=== PATIENT | male | born 1960 | race African-American/Black ===

== ENCOUNTER 2016-06-25 09:39 | Emergency (ER) | payer MEDICAID ==
[2016-06-25] MEDS ORDERED: DEXAMETHASONE SOD PHOS INJ 10 MG/1 ML VIAL IM ONE (10:28)
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
[2016-06-25 11:09] VITALS: BP 120/84
== END 2016-06-25 11:05 | disposition home or self-care (01) ==
LOC: ER 09:39
DX: L40.9 Psoriasis, unspecified (principal); M25.50 Pain in unspecified joint; I25.2 Old myocardial infarction; I10 Essential (primary) hypertension; E11.9 Type 2 diabetes mellitus without complications; Z88.5 Allergy status to narcotic agent; Z91.040 Latex allergy status; Z91.018 Allergy to other foods; Z88.0 Allergy status to penicillin
CPT/HCPCS: 99283; 96372; J1100

== ENCOUNTER 2016-08-14 12:22 | Observation (INO) | payer MEDICAID ==
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
--- NOTE | 2016-08-14 13:49 | EKG REPORT ---
SEVERITY:- ABNORMAL ECG - SINUS TACHYCARDIA LAD, CONSIDER LEFT ANTERIOR FASCICULAR BLOCK CONSIDER INFERIOR INFARCT BORDERLINE T ABNORMALITIES, LATERAL LEADS BORDERLINE PROLONGED QT INTERVAL : Confirmed by: Jose Dawn MD 14-Aug-2016 13:48:27
[2016-08-14 14:08] LABS: HEMATOCRIT 42.3 % (37.9-51.0); HEMOGLOBIN 13.5 g/dL (13.5-17.0); HGB HCT DIFFERENCE -1.8; MEAN CORPUSCULAR HEMOGLOBIN 26.5 pg (27.0-33.4); MEAN CORPUSCULAR HGB CONC 31.9 g/dL (32.0-36.0); MEAN CORPUSCULAR VOLUME 83 fl (80-97); WHITE BLOOD COUNT 13.7 10^3/uL (4.0-10.5)
[2016-08-14 14:10] LABS: ALANINE AMINOTRANSFERASE 16 U/L (21-72); ALBUMIN 3.1 g/dL (3.5-5.0); ALKALINE PHOSPHATASE 96 U/L (38-126); ANION GAP 10 (5-19); ASPARTATE AMINO TRANSFERASE 19 U/L (17-59); BILIRUBIN,DIRECT 0.1 mg/dL (0.0-0.4); BILIRUBIN,TOTAL 0.3 mg/dL (0.2-1.3); BLOOD UREA NITROGEN 12 mg/dL (7-20); CALCIUM 9.2 mg/dL (8.4-10.2); CARBON DIOXIDE 30 mmol/L (22-30); CHLORIDE 103 mmol/L (98-107); CREATINE KINASE 67 U/L (55-170); CREATININE RESULT 1.51 mg/dL (0.52-1.25); GLUCOSE 117 mg/dL (75-110); LIPASE 122.9 U/L (23-300); SODIUM 143.3 mmol/L (137-145); TOTAL PROTEIN 6.4 g/dL (6.3-8.2)
[2016-08-14 14:18] LABS: CREATINE KINASE MB < 0.22 ng/mL (<4.55)
[2016-08-14 14:31] LABS: BASOPHILS % (MANUAL) 1 % (0-2); EOSINOPHILS % (MANUAL) 21 % (0-6); LYMPHOCYTES % (MANUAL) 20 % (13-45); TOTAL CELLS COUNTED 100
[2016-08-14 14:32] LABS: ANISOCYTOSIS 1+; HYPOCHROMASIA SLIGHT; PLATELET CLUMPS PRESENT; POLYCHROMASIA SLIGHT; TARGET CELLS SLIGHT; TOXIC GRANULATION SLIGHT
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
[2016-08-14 17:21] LABS: APPEARANCE,URINE CLEAR; BILIRUBIN,URINE NEGATIVE (NEGATIVE); GLUCOSE, URINE NEGATIVE (NEGATIVE); KETONES,URINE NEGATIVE (NEGATIVE); LEUKOCYTE ESTERASE,URINE NEGATIVE (NEGATIVE); NITRITE,URINE NEGATIVE (NEGATIVE); PROTEIN,URINE NEGATIVE (NEGATIVE); URINE SPECIFIC GRAVITY 1.014; UROBILINOGEN,URINE NEGATIVE mg/dL (<2.0)
[2016-08-14 17:45] LABS: URINE BARBITURATES SCREEN NEGATIVE; URINE METHADONE SCREEN NEGATIVE; URINE OPIATES LOW NEGATIVE; URINE PHENCYCLIDINE SCREEN NEGATIVE
[2016-08-14] MEDS ORDERED: NITROGLYCERIN 0.4 MG/TAB 25 TAB/BOTTLE SL ONE (18:23)
[2016-08-14] MEDS ORDERED: INSULIN LISPRO 100 UNIT/ML 3 ML VIAL SUBCUT PRN (18:29)
[2016-08-14] MEDS ORDERED: DEXTROSE 40% GEL 15 GM TUBE PO PRN ×2 (18:29)
[2016-08-14] MEDS ORDERED: DEXTROSE 50%-WATER 25 GM/50 ML DISP.SYRIN IV PRN ×2 (18:29)
[2016-08-14] MEDS ORDERED: GLUCAGON,HUMAN RECOMB 1 MG INJ IM PRN (18:29)
[2016-08-14] MEDS ORDERED: TRAMADOL HCL 50 MG TABLET PO PRN (18:30)
[2016-08-14] MEDS ORDERED: ACETAMINOPHEN 325 MG TABLET PO PRN (18:31)
[2016-08-14] MEDS ORDERED: ONDANSETRON HCL INJ/PF 4 MG/2 ML SDV IV PRN (18:31)
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
[2016-08-15] MEDS ORDERED: LANSOPRAZOLE 30 MG TAB.RAP.DR PO ONE (00:16)
[2016-08-15] MEDS ORDERED: MAG HYDROX/AL HYDROX/SIMETH SUSP 30 ML UDCUP PO ONE (00:16)
[2016-08-15] MEDS: HEPARIN SOD (PORCINE) 5,000 UNIT/ML 1 ML SYRINGE SUBCUT SCH ×2 (00:37→06:38)
[2016-08-15] MEDS: GABAPENTIN 300 MG CAPSULE PO SCH ×2 (00:38→06:38)
[2016-08-15 01:02] LABS: TROPONIN I 0.015 ng/mL
[2016-08-15 01:06] LABS: CREATINE KINASE MB < 0.22 ng/mL (<4.55)
[2016-08-15 06:52] LABS: HEMATOCRIT 38.7 % (37.9-51.0); HEMOGLOBIN 12.7 g/dL (13.5-17.0); HGB HCT DIFFERENCE -0.6; MEAN CORPUSCULAR HEMOGLOBIN 27.4 pg (27.0-33.4); MEAN CORPUSCULAR HGB CONC 32.8 g/dL (32.0-36.0); MEAN CORPUSCULAR VOLUME 83 fl (80-97); RED BLOOD COUNT 4.64 10^6/uL (4.35-5.55); RED CELL DISTRIBUTION WIDTH 16.4 % (11.5-14.0); WHITE BLOOD COUNT 9.9 10^3/uL (4.0-10.5)
[2016-08-15 07:07] LABS: ANION GAP 9 (5-19); BLOOD UREA NITROGEN 15 mg/dL (7-20); CALCIUM 8.8 mg/dL (8.4-10.2); CARBON DIOXIDE 27 mmol/L (22-30); CHLORIDE 108 mmol/L (98-107); CHOLESTEROL 137.78 mg/dL (0-200); CREATINE KINASE 53 U/L (55-170); CREATININE RESULT 1.38 mg/dL (0.52-1.25); Direct HDL 24 mg/dL (>40); GLUCOSE 97 mg/dL (75-110); POTASSIUM 4.5 mmol/L (3.6-5.0); SODIUM 144.2 mmol/L (137-145); TRIGLYCERIDES 163 mg/dL (<150)
[2016-08-15 07:18] LABS: DIRECT LDL 83 mg/dL (<100)
[2016-08-15 07:19] LABS: CREATINE KINASE MB 0.38 ng/mL (<4.55); TROPONIN I 0.018 ng/mL; VLDL CHOLESTEROL 32.6 mg/dL (10-31)
[2016-08-15] MEDS ORDERED: LANSOPRAZOLE 30 MG TAB.RAP.DR PO SCH (08:00)
--- NOTE | 2016-08-15 08:10 | EKG REPORT ---
SEVERITY:- ABNORMAL ECG - SINUS RHYTHM INFERIOR INFARCT, AGE INDETERMINATE BORDERLINE PROLONGED QT INTERVAL : Confirmed by: Jose Dawn MD 15-Aug-2016 08:10:24
[2016-08-15] MEDS ORDERED: ASPIRIN 81 MG TABLET, ENT COATED PO SCH (10:00)
--- NOTE | 2016-08-15 11:17 | PDOC DISCHARGE SUMMARY ---
General - Admit/Disc Date/PCP Admission Date/Primary Care Provider: 08/14/16 19:30 YRIS DOUGLAS MD Discharge Date: 08/15/16 - Discharge Diagnosis (1) Chest pain Is this a current diagnosis for this admission?: Yes (2) Chronic kidney disease, stage III (moderate) Is this a current diagnosis for this admission?: Yes (3) Cocaine abuse Is this a current diagnosis for this admission?: Yes (4) Psoriasis Is this a current diagnosis for this admission?: Yes (5) Arthritis Is this a current diagnosis for this admission?: Yes (6) Diabetes Is this a current diagnosis for this admission?: Yes (7) Hypertension Is this a current diagnosis for this admission?: Yes (8) Contact dermatitis Is this a current diagnosis for this admission?: Yes - Additional Information Resuscitation Status: Full Code Discharge Diet: Cardiac, Diabetic Discharge Activity: Activity As Tolerated Home Medications: Albuterol Sulfate [Ventolin Hfa] 1 puff IH Q4 PRN 08/14/16 Alprazolam [Xanax 0.5 mg Tablet] 0.5 mg PO Q8 08/14/16 Aspirin [Aspirin 81 mg Chewable Tablet] 81 mg PO DAILY 08/14/16 Atorvastatin Calcium [Lipitor 40 mg Tablet] 40 mg PO QHS 08/14/16 Colchicine [Colchicine 0.6 mg Tablet] 0.6 mg PO DAILY 08/14/16 Glipizide [Glipizide ER] 5 mg PO DAILY 08/14/16 Montelukast Sodium [Singulair 10 mg Tablet] 10 mg PO QHS 08/14/16 Oxycodone HCl/Acetaminophen [Oxycodone-Acetaminophen 10-325] 1 tab PO Q6HP PRN 08/14/16 Spironolactone [Aldactone 25 mg Tablet] 25 mg PO Q12 08/14/16 Torsemide [Demadex 20 mg Tablet] 20 mg PO DAILY 08/14/16 Aspirin [Ecotrin 81 mg EC Tablet] 81 mg PO DAILY tabec 08/15/16 Clobetasol Propionate/Emoll [Clobetasol Emollient 0.05% Crm] 1 applic TP BID # 60 gm 08/15/16 Diphenhydramine HCl [Benadryl 50 mg Capsule] 50 mg PO Q8HP PRN #0 08/15/16 Gabapentin [Neurontin 300 mg Capsule] 600 mg PO Q8 #180 capsule 08/15/16 Lansoprazole [Prevacid 30 mg Odt Tablet] 30 mg PO ACBRKFST #30 tab.rap. Tramadol HCl [Ultram 50 mg Tablet] 50 mg PO Q8HP PRN #30 tablet 08/15/16 Valsartan [Diovan 160 mg Tablet] 160 mg PO DAILY #0 08/15/16 History of Present Illness Patient complains of: Chest pain, leg pain, rash History of Present Illness: GAVIOTA LUCERO is a 56 year old male past medical history of diabetes, hypertension, cocaine abuse that presents to the emergency department with one- day history of substernal chest pain. Patient's drug screen was positive for cocaine but he denies using cocaine recently, however he states that he was at a [employer] last night in which people were using cocaine but he does not partake. His last stress test was many years ago. He has no prior cardiac history. He does have a family history of coronary artery disease in his mother. He states that he took aspirin at home earlier today. Patient also complains of diffuse rash since being started on medication (coal tar) for eczema. Hospital Course Hospital Course: Patient was admitted for primarily evaluation of chest pain. Telemetry monitoring showed sinus rhythm. Serial cardiac enzymes were negative. VQ scan was low probability for pulmonary embolism. Patient will have to have outpatient stress test arranged as he cannot have 2 nuclear studies within 72 hours of each other. I will make referral to Dr. Abbott of cardiology. He is advised to discontinue cocaine use. Chest pain may also be GI related given the fact the patient takes indomethacin on daily basis. He has been started on Prevacid. He should probably withhold indomethacin for now. With respect to patient's hypertension I would like to have him discontinue beta walter as he is actively using cocaine. The would like to decrease his Diovan to 160 mg daily. With regard to his contact dermatitis he is advised to note Glades Tar as an adverse drug reaction. His given one time dose of Solu-Medrol IV. I will start him on clobetasol cream twice daily. 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 Patient also has issues with neuropathy secondary to diabetes. I have increased his Neurontin to 600 mg every 8 hours. Patient also has issues with lower extremity edema secondary to CHF. He chronically takes spironolactone and torsemide. He will need to follow-up with Dr. Abbott of cardiology for this. I'm unfortunately going to have to advise him to discontinue Coreg secondary to ongoing cocaine use. Physical Exam Vital Signs: Temp Pulse Resp BP Pulse Ox 98.2 F 94 17 118/84 100 08/15/16 03:39 08/15/16 03:39 08/15/16 03:39 08/15/16 03:39 08/15/16 03:39 Intake & Output 08/14/16 08/15/16 08/16/16 06:59 06:59 06:59 Intake Total 670 Output Total 1 Balance 669 Weight 105.7 kg GENERAL: No acute distress HEENT: Conjunctiva clear, nonicteric, moist mucous membranes, no JVD, midline trachea RESPIRATORY: Clear to auscultation bilaterally, no wheezes, no rhonchi CARDIAC: Regular rate and rhythm, no murmurs/gallops/rubs ABDOMEN: Soft, nondistended, nontender, positive bowel sounds, no rebound, no guarding EXTREMETIES: Trace bilateral lower extremity edema NEUROLOGIC: Alert, oriented to person/place/time, CN's grossly intact, no focal deficits SKIN: Diffuse erythematous rash over arms and legs PSYCH: Normal mood, normal affect Results Laboratory Results: 08/15/16 06:33 08/15/16 06:33 08/15/16 08/15/16 08/15/16 06:33 06:33 06:33 WBC 9.9 RBC 4.64 Hgb 12.7 L Hct 38.7 MCV 83 MCH 27.4 MCHC 32.8 RDW 16.4 H Plt Count 349 Sodium 144.2 Potassium 4.5 Chloride 108 H Carbon Dioxide 27 Anion Gap 9 BUN 15 Creatinine 1.38 H Est GFR ( Amer) > 60 Est GFR (Non-Af Amer) 54 L Glucose 97 Calcium 8.8 Triglycerides 163 H Cholesterol 137.78 LDL Cholesterol Direct 83 VLDL Cholesterol 32.6 H HDL Cholesterol 24 L TSH 4.28 08/15/16 08/15/16 08/15/16 00:29 00:29 06:33 Creatine Kinase 53 L 53 L CK-MB (CK-2) < 0.22 Troponin I 0.015 08/15/16 06:33 Creatine Kinase CK-MB (CK-2) 0.38 Troponin I 0.018 Labs- Last Values WBC 9.9 10^3/uL (4.0-10.5) 08/15/16 06:33 RBC 4.64 10^6/uL (4.35-5.55) 08/15/16 06:33 Hgb 12.7 g/dL (13.5-17.0) L 08/15/16 06:33 Hct 38.7 % (37.9-51.0) 08/15/16 06:33 MCV 83 fl (80-97) 08/15/16 06:33 MCH 27.4 pg (27.0-33.4) 08/15/16 06:33 MCHC 32.8 g/dL (32.0-36.0) 08/15/16 06:33 RDW 16.4 % (11.5-14.0) H 08/15/16 06:33 Plt Count 349 10^3/uL (150-450) 08/15/16 06:33 Total Counted 100 08/14/16 13:05 Seg Neutrophils % Not Reportable 08/14/16 13:05 Seg Neuts % (Manual) 54 % (42-78) 08/14/16 13:05 Lymphocytes % Not Reportable 08/14/16 13:05 Lymphocytes % (Manual) 20 % (13-45) 08/14/16 13:05 Monocytes % Not Reportable 08/14/16 13:05 Monocytes % (Manual) 4 % (3-13) 08/14/16 13:05 Eosinophils % Not Reportable 08/14/16 13:05 Eosinophils % (Manual) 21 % (0-6) H 08/14/16 13:05 Basophils % Not Reportable 08/14/16 13:05 Basophils % (Manual) 1 % (0-2) 08/14/16 13:05 Absolute Neutrophils Not Reportable 08/14/16 13:05 Abs Neuts (Manual) 7.4 10^3/uL (1.7-8.2) 08/14/16 13:05 Absolute Lymphocytes Not Reportable 08/14/16 13:05 Abs Lymphs (Manual) 2.7 10^3/uL (0.5-4.7) 08/14/16 13:05 Absolute Monocytes Not Reportable 08/14/16 13:05 Abs Monocytes (Manual) 0.5 10^3/uL (0.1-1.4) 08/14/16 13:05 Absolute Eosinophils Not Reportable 08/14/16 13:05 Absolute Eos (Manual) 2.9 10^3/uL (0.0-0.6) H 08/14/16 13:05 Absolute Basophils Not Reportable 08/14/16 13:05 Abs Basophils (Manual) 0.1 10^3/uL (0.0-0.2) 08/14/16 13:05 Toxic Granulation SLIGHT 08/14/16 13:05 Clumped Platelets PRESENT 08/14/16 13:05 Platelet Comment Not Reportable 08/14/16 13:05 Polychromasia SLIGHT 08/14/16 13:05 Hypochromasia SLIGHT 08/14/16 13:05 Anisocytosis 1+ 08/14/16 13:05 Target Cells SLIGHT 08/14/16 13:05 D-Dimer 1.86 ug/mL (0.00-0.50) H 08/14/16 13:05 Sodium 144.2 mmol/L (137-145) 08/15/16 06:33 Potassium 4.5 mmol/L (3.6-5.0) 08/15/16 06:33 Chloride 108 mmol/L (98-107) H 08/15/16 06:33 Carbon Dioxide 27 mmol/L (22-30) 08/15/16 06:33 Anion Gap 9 (5-19) 08/15/16 06:33 BUN 15 mg/dL (7-20) 08/15/16 06:33 Creatinine 1.38 mg/dL (0.52-1.25) H 08/15/16 06:33 Est GFR ( Amer) > 60 (>60) 08/15/16 06:33 Est GFR (Non-Af Amer) 54 (>60) L 08/15/16 06:33 Glucose 97 mg/dL (75-110) 08/15/16 06:33 POC Glucose 93 mg/dL (70-110) 08/15/16 06:29 Calcium 8.8 mg/dL (8.4-10.2) 08/15/16 06:33 Total Bilirubin 0.3 mg/dL (0.2-1.3) 08/14/16 13:05 Direct Bilirubin 0.1 mg/dL (0.0-0.4) 08/14/16 13:05 Indirect Bilirubin Not Reportable 08/14/16 13:05 Neonat Total Bilirubin Not Reportable 08/14/16 13:05 AST 19 U/L (17-59) 08/14/16 13:05 ALT 16 U/L (21-72) L 08/14/16 13:05 Alkaline Phosphatase 96 U/L (38-126) 08/14/16 13:05 Creatine Kinase 53 U/L (55-170) L 08/15/16 06:33 CK-MB (CK-2) 0.38 ng/mL (<4.55) 08/15/16 06:33 Troponin I 0.018 ng/mL 08/15/16 06:33 NT-Pro-B Natriuret Pep 218 pg/mL (5-900) 08/14/16 13:05 Total Protein 6.4 g/dL (6.3-8.2) 08/14/16 13:05 Albumin 3.1 g/dL (3.5-5.0) L 08/14/16 13:05 Triglycerides 163 mg/dL (<150) H 08/15/16 06:33 Cholesterol 137.78 mg/dL (0-200) 08/15/16 06:33 LDL Cholesterol Direct 83 mg/dL (<100) 08/15/16 06:33 VLDL Cholesterol 32.6 mg/dL (10-31) H 08/15/16 06:33 HDL Cholesterol 24 mg/dL (>40) L 08/15/16 06:33 Lipase 122.9 U/L (23-300) 08/14/16 13:05 TSH 4.28 uIU/mL (0.47-4.68) 08/15/16 06:33 Urine Color YELLOW 08/14/16 16:55 Urine Appearance CLEAR 08/14/16 16:55 Urine pH 5.0 (5.0-9.0) 08/14/16 16:55 Ur Specific [place] 1.014 08/14/16 16:55 Urine Protein NEGATIVE mg/dL (NEGATIVE) 08/14/16 16:55 Urine Glucose (UA) NEGATIVE mg/dL (NEGATIVE) 08/14/16 16:55 Urine Ketones NEGATIVE mg/dL (NEGATIVE) 08/14/16 16:55 Urine Blood NEGATIVE (NEGATIVE) 08/14/16 16:55 Urine Nitrite NEGATIVE (NEGATIVE) 08/14/16 16:55 Urine Bilirubin NEGATIVE (NEGATIVE) 08/14/16 16:55 Urine Urobilinogen NEGATIVE mg/dL (<2.0) 08/14/16 16:55 Ur Leukocyte Esterase NEGATIVE (NEGATIVE) 08/14/16 16:55 Urine WBC (Auto) 0 /HPF 08/14/16 16:55 Urine RBC (Auto) 0 /HPF 08/14/16 16:55 U Hyaline Cast (Auto) 1 /LPF 08/14/16 16:55 Urine Mucus (Auto) RARE /LPF 08/14/16 16:55 Urine Ascorbic Acid NEGATIVE (NEGATIVE) 08/14/16 16:55 Urine Opiates Screen NEGATIVE 08/14/16 16:55 Urine Methadone Screen NEGATIVE 08/14/16 16:55 Ur Barbiturates Screen NEGATIVE 08/14/16 16:55 Ur Phencyclidine Scrn NEGATIVE 08/14/16 16:55 Ur Amphetamines Screen NEGATIVE 08/14/16 16:55 U Benzodiazepines Scrn NEGATIVE 08/14/16 16:55 Urine Cocaine Screen UNCONFIRMED POSITIVE 08/14/16 16:55 U Marijuana (THC) Screen NEGATIVE 08/14/16 16:55 Impressions: Chest X-Ray 08/14/16 12:52 IMPRESSION: NO SIGNIFICANT RADIOGRAPHIC FINDING IN THE CHEST. Lung Scan-VQ NM 08/14/16 20:02 IMPRESSION: NORMAL VENTILATION-PERFUSION LUNG SCAN. NEGATIVE FOR PULMONARY EMBOLI. Qualifiers PATEINT BEING DISCHARGED WITH ANY OF THE FOLLOWING DIAGNOSIS?: No Plan Time Spent: Less than 30 Minutes
[2016-08-15] MEDS ORDERED: METHYLPREDNISOLONE INJ 125 MG/2 ML SDV IV ONE (11:30)
[2016-08-15 12:53] VITALS: BP 135/79
== END 2016-08-15 15:00 | disposition home or self-care (01) ==
LOC: ER 12:22 → EH 19:30 → 4N 21:50
PROVIDERS: ADMIT Family Medicine; ATTEND Family Medicine
DX: R07.9 Chest pain, unspecified (principal); I13.0 Hypertensive heart and chronic kidney disease with heart failure and stage 1 through stage 4 chronic kidney disease, or unspecified chronic kidney disease; N18.3 Chronic kidney disease, stage 3 (moderate); I50.9 Heart failure, unspecified; F14.10 Cocaine abuse, uncomplicated; L40.9 Psoriasis, unspecified; M19.90 Unspecified osteoarthritis, unspecified site; E11.22 Type 2 diabetes mellitus with diabetic chronic kidney disease; L25.9 Unspecified contact dermatitis, unspecified cause; I25.2 Old myocardial infarction; Z87.891 Personal history of nicotine dependence; Z79.84 Long term (current) use of oral hypoglycemic drugs; Z91.040 Latex allergy status
CPT/HCPCS: 93005 ×2; 99285; 36415 ×2; 82553 ×2; 82962; 82550 ×2; 83690; 84443; 85025; 85027; 80048; 80053; 81001; 84484 ×2; 80307; 85379; 80061; 83880; 71020; 78582; 93010 ×2; G0378 ×3; A9540; A9567; J3490 ×5; J1644; J2930; Q9969

== ENCOUNTER 2017-06-28 08:02 | Inpatient (IN) | payer MEDICAID ==
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
[2017-06-28 09:22] LABS: ABSOLUTE BASOPHILS # (AUTO) 0.1 10^3/uL (0.0-0.2); ABSOLUTE EOSINOPHILS # (AUTO) 0.1 10^3/uL (0.0-0.6); ABSOLUTE LYMPHOCYTES (AUTO) 1.5 10^3/uL (0.5-4.7); ABSOLUTE MONOCYTES (AUTO) 1.1 10^3/uL (0.1-1.4); ABSOLUTE NEUT (AUTO) 10.4 10^3/uL (1.7-8.2); BASOPHILS % (AUTO) 0.8 % (0-2); EOSINOPHILS % (AUTO) 0.5 % (0-6); HEMOGLOBIN 13.1 g/dL (13.5-17.0); LYMPHOCYTES % (AUTO) 11.6 % (13-45); MEAN CORPUSCULAR HEMOGLOBIN 24.6 pg (27.0-33.4); MEAN CORPUSCULAR HGB CONC 31.9 g/dL (32.0-36.0); MEAN CORPUSCULAR VOLUME 77 fl (80-97); MONOCYTES % (AUTO) 8.6 % (3-13); PLATELET COUNT 341 10^3/uL (150-450); RED BLOOD COUNT 5.31 10^6/uL (4.35-5.55); RED CELL DISTRIBUTION WIDTH 16.1 % (11.5-14.0); SEGMENTED NEUTROPHILS % (AUTO) 78.5 % (42-78); TOTAL CELLS COUNTED % (AUTO) 100 %; WHITE BLOOD COUNT 13.2 10^3/uL (4.0-10.5)
[2017-06-28 09:45] LABS: ALANINE AMINOTRANSFERASE 28 U/L (21-72); ALBUMIN 4.7 g/dL (3.5-5.0); ALKALINE PHOSPHATASE 105 U/L (38-126); ANION GAP 15 (5-19); ASPARTATE AMINO TRANSFERASE 23 U/L (17-59); BILIRUBIN,DIRECT 0.3 mg/dL (0.0-0.4); BILIRUBIN,TOTAL 1.2 mg/dL (0.2-1.3); BLOOD UREA NITROGEN 9 mg/dL (7-20); CALCIUM 9.9 mg/dL (8.4-10.2); CARBON DIOXIDE 26 mmol/L (22-30); CHLORIDE 101 mmol/L (98-107); GLUCOSE 106 mg/dL (75-110); POTASSIUM 4.5 mmol/L (3.6-5.0); SODIUM 141.8 mmol/L (137-145); TOTAL PROTEIN 8.3 g/dL (6.3-8.2)
[2017-06-28 09:48] LABS: A TYPE INFLUENZA AG NEGATIVE (NEGATIVE); B INFLUENZA AG NEGATIVE (NEGATIVE)
--- NOTE | 2017-06-28 10:52 | RADIOLOGY REPORT (SQ) ---
EXAM DESCRIPTION: CTA CHEST COMPLETED DATE/TIME: 06/28/2017 10:25 am REASON FOR STUDY: hemoptysis COMPARISON: 02/17/2015 TECHNIQUE: CT scan of the chest performed using helical scanning technique with dynamic intravenous contrast injection. Images reviewed with lung, soft tissue and bone windows. Reconstructed coronal and sagittal MPR images reviewed. Additional 3 dimensional post-processing performed to develop Maximal Intensity Projection images (DE P). All images stored on PACS. All CT scanners at this facility use dose modulation, iterative reconstruction, and/or weight based d osing when appropriate to reduce radiation dose to as low as reasonably achievable (ALARA). [facility]: Dose Right [facility]: CareDose [facility]: Dose Right [facility]: Teradose 4D [facility]: PBJ Concierge CONTRAST TYPE AND DOSE: contrast/concentration: Isovue 370.00 mg/ml; Total Contrast Delivered: 82.0 ml; Total Saline Delivered: 80.0 ml Contrast bolus optimized for the pulmonary arteries. Not diagnostic for the aorta. RENAL FUNCTION: BUN 9 creatinine 1.2 RADIATION DOSE: CT Rad equipment meets quality standard of care and radiation dose reduction techniq ues were employed. CTDIvol: 6.6 - 59.5 mGy. DLP: 1196 mGy-cm. . LIMITATIONS: Timing of contrast bolus. FINDINGS: LUNGS AND PLEURA: Segmental airspace disease in the right lower lobe. AORTA AND GREAT VESSELS: No aneurysm. Contrast bolus not optimized for the aorta. HEART: No pericardial effusion. No significant coronary artery calcifications. PULMONARY ARTERIES: No emboli visualized in the main pulmonary arteries or the segmental branches. HILAR AND MEDIASTINAL STRUCTURES: 2 cm right hilar node. HARDWARE: Left-sided pacemaker or defibrillator. UPPER ABDOMEN: No significant findings. Limited exam. THYROID AND OTHER SOFT TISSUES: No masses. No adenopathy. BONES: No acute or significant finding. 3D MIPS: Confirm above findings. OTHER: No other significant finding. IMPRESSION: 1. No PE. 2. Right lower lobe pneumonia. COMMENT: Quality ID # [id number]: Final reports with documentation of one or more dose reduction techniques (e.g., Automated exposure control, adjustment of the mA and/or kV according to patient size, use of iterative reconstruction technique) TECHNICAL DOCUMENTATION: JOB ID: [id number] [employer]- All Rights Reserved
[2017-06-28] MEDS ORDERED: LEVOFLOXACIN 750 MG/D5W RTU 750 MG/150 ML RTUPB IV ONE (11:02)
[2017-06-28] MEDS ORDERED: NORMAL SALINE 1000 ML 1,000 ML IV ONE (11:07)
[2017-06-28] MEDS ORDERED: ACETAMINOPHEN 325 MG TABLET PO PRN (11:45)
[2017-06-28] MEDS ORDERED: LEVALBUTEROL HCL NEB 0.63 MG/3 ML AMPUL NEB PRN (11:45)
[2017-06-28] MEDS ORDERED: HYDRALAZINE HCL INJ/PF 20 MG/1 ML SDV IV PRN (11:50)
[2017-06-28] MEDS ORDERED: DEXTROSE 40% GEL 15 GM TUBE PO PRN ×2 (11:51)
[2017-06-28] MEDS ORDERED: INSULIN LISPRO 100 UNIT/ML 3 ML VIAL SUBCUT PRN (11:51)
[2017-06-28] MEDS ORDERED: GLUCAGON,HUMAN RECOMB 1 MG INJ IM PRN (11:51)
[2017-06-28] MEDS ORDERED: DEXTROSE 50%-WATER 25 GM/50 ML DISP.SYRIN IV PRN ×2 (11:51)
[2017-06-28] MEDS ORDERED: TUBERCULIN,PURIF.PROT.DERIV. 5 TU/0.1 ML TEST 1 ML VIAL ID ONE (12:30)
[2017-06-28] MEDS ORDERED: VANCOMYCIN HCL 0 MG in DEXTROSE 5%-WATER 250 ML IV NR (13:00)
[2017-06-28 14:02] LABS: VENOUS BLOOD BASE EXCESS 0.6 mmol/L; VENOUS BLOOD HCO3 28.3 mmol/L (20-32); VENOUS BLOOD PCO2 59.1 mmHg (35-63); VENOUS BLOOD PH 7.3 (7.30-7.42)
[2017-06-28] MEDS: IPRATROPIUM/ALBUTEROL 0.5-2.5 MG/3 ML AMPUL NEB SCH ×2 (14:24→20:47)
[2017-06-28] MEDS: OXYCODONE HCL IR 5 MG TABLET PO PRN ×2 (16:06→20:02)
[2017-06-28] MEDS: HEPARIN SOD (PORCINE) 5,000 UNIT/ML 1 ML SYRINGE SUBCUT SCH ×2 (16:24→22:28)
[2017-06-28] MEDS: VANCOMYCIN HCL 2,000 MG in DEXTROSE 5%-WATER 500 ML IV SCH (17:04)
[2017-06-28] MEDS: NORMAL SALINE 1000 ML 1,000 ML IV PRN (17:04)
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
[2017-06-28] MEDS: GUAIFENESIN 600 MG TABLET.SA PO SCH (22:27)
[2017-06-28] MEDS: FAMOTIDINE 20 MG TABLET PO SCH (22:27)
[2017-06-28] MEDS ORDERED: HALOPERIDOL LACTATE INJ 5 MG/1 ML VIAL IV ONE (22:52)
[2017-06-28] MEDS: KETOROLAC TROMETHAMINE INJ/PF 30 MG/1 ML SDV IV PRN (23:19)
[2017-06-29] MEDS: IPRATROPIUM/ALBUTEROL 0.5-2.5 MG/3 ML AMPUL NEB SCH ×4 (02:07→19:13)
[2017-06-29] MEDS: VANCOMYCIN HCL 2,000 MG in DEXTROSE 5%-WATER 500 ML IV SCH ×2 (04:09→16:15)
[2017-06-29] MEDS: HEPARIN SOD (PORCINE) 5,000 UNIT/ML 1 ML SYRINGE SUBCUT SCH (04:11)
[2017-06-29] MEDS: KETOROLAC TROMETHAMINE INJ/PF 30 MG/1 ML SDV IV PRN (06:35)
[2017-06-29 06:52] LABS: ABSOLUTE BASOPHILS # (AUTO) 0.1 10^3/uL (0.0-0.2); ABSOLUTE EOSINOPHILS # (AUTO) 0.1 10^3/uL (0.0-0.6); ABSOLUTE LYMPHOCYTES (AUTO) 1.5 10^3/uL (0.5-4.7); ABSOLUTE MONOCYTES (AUTO) 1.1 10^3/uL (0.1-1.4); BASOPHILS % (AUTO) 0.7 % (0-2); EOSINOPHILS % (AUTO) 0.5 % (0-6); HEMATOCRIT 36.6 % (37.9-51.0); HEMOGLOBIN 11.5 g/dL (13.5-17.0); LYMPHOCYTES % (AUTO) 10.1 % (13-45); MEAN CORPUSCULAR HEMOGLOBIN 24.2 pg (27.0-33.4); MEAN CORPUSCULAR HGB CONC 31.4 g/dL (32.0-36.0); MEAN CORPUSCULAR VOLUME 77 fl (80-97); MONOCYTES % (AUTO) 7.2 % (3-13); PLATELET COUNT 245 10^3/uL (150-450); RED BLOOD COUNT 4.75 10^6/uL (4.35-5.55); RED CELL DISTRIBUTION WIDTH 16.7 % (11.5-14.0); SEGMENTED NEUTROPHILS % (AUTO) 81.5 % (42-78); TOTAL CELLS COUNTED % (AUTO) 100 %; WHITE BLOOD COUNT 14.7 10^3/uL (4.0-10.5)
[2017-06-29 07:20] LABS: ANION GAP 10 (5-19); BLOOD UREA NITROGEN 14 mg/dL (7-20); CALCIUM 8.7 mg/dL (8.4-10.2); CARBON DIOXIDE 24 mmol/L (22-30); CHLORIDE 99 mmol/L (98-107); GLUCOSE 175 mg/dL (75-110); POTASSIUM 3.9 mmol/L (3.6-5.0); SODIUM 132.6 mmol/L (137-145)
[2017-06-29 10:26] LABS: INTERNATIONAL RATION (INR) 0.98; PROTHROMBIN TIME 13.7 SEC (11.4-15.4)
[2017-06-29 10:27] LABS: PARTIAL THROMBOPLASTIN TIME 38.8 SEC (23.5-35.8)
[2017-06-29] MEDS: LEVOFLOXACIN 750 MG/D5W RTU 750 MG/150 ML RTUPB IV SCH (10:54)
[2017-06-29] MEDS: GUAIFENESIN 600 MG TABLET.SA PO SCH ×2 (10:54→21:31)
[2017-06-29] MEDS: FAMOTIDINE 20 MG TABLET PO SCH ×2 (10:54→21:31)
[2017-06-29] MEDS: ENOXAPARIN SODIUM INJ 40 MG/0.4 ML DISP.SYRIN SUBCUT SCH (10:55)
--- NOTE | 2017-06-29 11:11 | PDOC PROGRESS REPORT ---
Subjective Progress Note for:: 06/29/17 Subjective:: The patient is a 57-year-old male with a past medical history of CHF, hypertension, asthma, pacemaker/AICD, type 2 diabetes mellitus, bipolar and depression with a recent incarceration who was admitted on 06/28/17 for a right lower lobe pneumonia. Influenza screening was negative. CT of the chest did not reveal cavitary lesions. Patient states that he recently had a negative PPD. The patient is seen on morning rounds. He is resting in bed comfortably on nasal cannula. He did use BiPAP overnight with significant relief of his dyspnea. However, he continued to have severe right posterior back pain that improved following Toradol and Haldol. He states that his fever, myalgia, dyspnea, and cough have all improved. He has no new questions or concerns today Reason For Visit: PNEUMONIA Physical Exam Vital Signs: Temp Pulse Resp BP Pulse Ox 97.3 F 95 22 H 104/76 92 06/29/17 08:00 06/29/17 08:00 06/29/17 08:00 06/29/17 08:00 06/29/17 08:00 Intake & Output 06/28/17 06/29/17 06/30/17 06:59 06:59 06:59 Intake Total 650 Output Total 275 Balance 375 Weight 111.1 kg General appearance: PRESENT: no acute distress, well-developed, well-nourished, other - Overweight Head exam: PRESENT: atraumatic, normocephalic Eye exam: PRESENT: conjunctiva pink, EOMI, PERRLA. ABSENT: scleral icterus Ear exam: PRESENT: normal external ear exam Mouth exam: PRESENT: moist, tongue midline Neck exam: ABSENT: carotid bruit, JVD, lymphadenopathy, thyromegaly Respiratory exam: PRESENT: rhonchi, symmetrical, unlabored, wheezes, other - Supplemental oxygen via nasal cannula. ABSENT: accessory muscle use, rales, retraction Cardiovascular exam: PRESENT: RRR, +S1, +S2, tachycardia. ABSENT: diastolic murmur, rubs, systolic murmur Pulses: PRESENT: normal dorsalis pedis pul Vascular exam: PRESENT: normal capillary refill GI/Abdominal exam: PRESENT: normal bowel sounds, soft. ABSENT: distended, guarding, mass, organolmegaly, rebound, tenderness Rectal exam: PRESENT: deferred Extremities exam: PRESENT: full ROM. ABSENT: calf tenderness, clubbing, pedal edema Neurological exam: PRESENT: alert, awake, oriented to person, oriented to place , oriented to time, oriented to situation, CN II-XII grossly intact. ABSENT: motor sensory deficit Psychiatric exam: PRESENT: appropriate affect, normal mood. ABSENT: homicidal ideation, suicidal ideation Skin exam: PRESENT: dry, intact, warm. ABSENT: cyanosis, rash Results Laboratory Results: 06/29/17 06:08 06/29/17 06:08 06/28/17 06/29/17 06/29/17 13:44 06:08 06:08 WBC 14.7 H RBC 4.75 Hgb 11.5 L Hct 36.6 L MCV 77 L MCH 24.2 L MCHC 31.4 L RDW 16.7 H Plt Count 245 Seg Neutrophils % 81.5 H Lymphocytes % 10.1 L Monocytes % 7.2 Eosinophils % 0.5 Basophils % 0.7 Absolute Neutrophils 12.0 H Absolute Lymphocytes 1.5 Absolute Monocytes 1.1 Absolute Eosinophils 0.1 Absolute Basophils 0.1 VBG pH 7.30 VBG pCO2 59.1 VBG HCO3 28.3 VBG Base Excess 0.6 Sodium 132.6 L Potassium 3.9 Chloride 99 Carbon Dioxide 24 Anion Gap 10 BUN 14 Creatinine 1.03 Est GFR ( Amer) > 60 Est GFR (Non-Af Amer) > 60 Glucose 175 H Calcium 8.7 Impressions: Chest/Abdomen CTA 06/28/17 08:21 IMPRESSION: 1. No PE. 2. Right lower lobe pneumonia. Assessment & Plan - Diagnosis (1) Right lower lobe pneumonia Qualifiers: Aspiration pneumonia type: unspecified Is this a current diagnosis for this admission?: Yes Plan: Clinically improved today. The patient is admitted with tachypnea, hemoptysis, subjective fevers, mild tachycardia with an elevated white blood cell count and a CTA revealing a right lower lobe pneumonia. Blood and sputum cultures are pending. He is admitted to [facility] on continuous cardiac telemetry. Supplemental oxygen as needed to keep oxygen saturations greater than 92% BiPAP nightly and as needed for support. The patient is placed on vancomycin and Levaquin for MRSA coverage as the patient does have positive MRSA cultures in the past. He will receive scheduled and as needed nebulizer treatments He is placed on Mucinex twice daily. (2) Sepsis Qualifiers: Sepsis type: sepsis due to unspecified organism Qualified Code(s): A41.9 - Sepsis, unspecified organism Is this a current diagnosis for this admission?: Yes Plan: The patient presents with sepsis due to pneumonia present on admission as evidenced by WBCs of 13.2, tachycardia with a heart rate of 108, respiratory rate in the mid to high 20s. The patient received a 1 L normal saline bolus in the emergency department and is placed on gentle IV fluid rehydration secondary to CHF history with a severely reduced ejection fraction. Per the patient, his last echocardiogram demonstrated ejection fraction of 30%. His blood pressures are stable and he does not appear to be volume depleted at this time. We will monitor closely for need of additional IV fluid resuscitation. (3) CHF (congestive heart failure) Is this a current diagnosis for this admission?: Yes Plan: Mildly elevated proBNP to 1800. The patient does appear to be euvolemic. He will receive gentle IV fluid therapy. He is placed on strict I's and O's and daily weights. Will monitor closely for evidence of fluid volume overload. We will continue home medications once reconciled by pharmacy; will ask nursing to follow up on status. (4) Hemoptysis Is this a current diagnosis for this admission?: Yes Plan: Secondary to right lower lobe pneumonia; plan as above. TB has been ruled out as the CT did not show evidence of cavitary lesions. Per patient he did have a negative TB screen while incarcerated approximately 2 weeks ago. Repeat PPD screening has been administered. (5) Diabetes Qualifiers: Diabetes mellitus type: type 2 Is this a current diagnosis for this admission?: Yes Plan: The patient is placed on a consistent carb diet. Accu-Cheks before meals and at bedtime with Humalog for sliding scale coverage. (6) Hypertension Is this a current diagnosis for this admission?: Yes Plan: IV hydralazine as needed for blood pressures We will resume patient's home medications once reconciled by pharmacy; will ask nursing to follow up on status. - Time Time Spent with patient: 25-34 minutes Medications reviewed and adjusted accordingly: Yes Anticipated discharge: Home
[2017-06-29] MEDS: OXYCODONE HCL IR 5 MG TABLET PO PRN ×2 (13:45→17:44)
[2017-06-29] MEDS: NORMAL SALINE 1000 ML 1,000 ML IV PRN (13:47)
[2017-06-29] MEDS: FUROSEMIDE 20 MG TABLET PO SCH (17:45)
[2017-06-30] MEDS: IPRATROPIUM/ALBUTEROL 0.5-2.5 MG/3 ML AMPUL NEB SCH ×4 (01:36→20:10)
[2017-06-30] MEDS: VANCOMYCIN HCL 2,000 MG in DEXTROSE 5%-WATER 500 ML IV SCH (04:56)
[2017-06-30] MEDS: OXYCODONE HCL IR 5 MG TABLET PO PRN ×4 (05:00→23:59)
[2017-06-30 05:01] LABS: ABSOLUTE BASOPHILS # (AUTO) 0.1 10^3/uL (0.0-0.2); ABSOLUTE EOSINOPHILS # (AUTO) 0.1 10^3/uL (0.0-0.6); ABSOLUTE LYMPHOCYTES (AUTO) 1.4 10^3/uL (0.5-4.7); ABSOLUTE MONOCYTES (AUTO) 1.5 10^3/uL (0.1-1.4); ABSOLUTE NEUT (AUTO) 14.3 10^3/uL (1.7-8.2); BASOPHILS % (AUTO) 0.6 % (0-2); EOSINOPHILS % (AUTO) 0.6 % (0-6); HEMOGLOBIN 11.2 g/dL (13.5-17.0); LYMPHOCYTES % (AUTO) 7.8 % (13-45); MEAN CORPUSCULAR HEMOGLOBIN 24.6 pg (27.0-33.4); MEAN CORPUSCULAR HGB CONC 32.1 g/dL (32.0-36.0); MEAN CORPUSCULAR VOLUME 77 fl (80-97); MONOCYTES % (AUTO) 8.4 % (3-13); PLATELET COUNT 303 10^3/uL (150-450); RED BLOOD COUNT 4.56 10^6/uL (4.35-5.55); RED CELL DISTRIBUTION WIDTH 16.3 % (11.5-14.0); SEGMENTED NEUTROPHILS % (AUTO) 82.6 % (42-78); TOTAL CELLS COUNTED % (AUTO) 100 %; WHITE BLOOD COUNT 17.4 10^3/uL (4.0-10.5)
[2017-06-30 05:22] LABS: ANION GAP 11 (5-19); BLOOD UREA NITROGEN 10 mg/dL (7-20); CALCIUM 9.4 mg/dL (8.4-10.2); CARBON DIOXIDE 27 mmol/L (22-30); CHLORIDE 98 mmol/L (98-107); GLUCOSE 134 mg/dL (75-110); POTASSIUM 4.3 mmol/L (3.6-5.0); SODIUM 135.9 mmol/L (137-145)
[2017-06-30] MEDS ORDERED: OXYCODONE HCL IR 5 MG TABLET PO PRN (09:31)
[2017-06-30] MEDS: FAMOTIDINE 20 MG TABLET PO SCH ×2 (09:58→22:53)
[2017-06-30] MEDS: FUROSEMIDE 20 MG TABLET PO SCH ×2 (09:58→17:33)
[2017-06-30] MEDS: LEVOFLOXACIN 750 MG/D5W RTU 750 MG/150 ML RTUPB IV SCH (09:59)
[2017-06-30] MEDS: ENOXAPARIN SODIUM INJ 40 MG/0.4 ML DISP.SYRIN SUBCUT SCH (10:02)
[2017-06-30] MEDS ORDERED: BUSPIRONE HCL 10 MG TABLET PO ONE (11:00)
[2017-06-30] MEDS ORDERED: GUAIFENESIN 600 MG TABLET.SA PO ONE (11:00)
--- NOTE | 2017-06-30 12:24 | RADIOLOGY REPORT (SQ) ---
EXAM DESCRIPTION: PICC INSERTION; FLUORO/CV PLACEMENT; U/S GUIDE FOR VASCULAR ACCESS COMPLETED DATE/TIME: 06/30/2017 12:15 pm REASON FOR STUDY: unable to obtain adequate IV access; IV ACCESS COMPARISON: CT angio chest 06/28/2017 FLUOROSCOPY TIME: 1 minutes 12 seconds 1 ultrasound and 1 digital chest image saved to PACS. TECHNIQUE: Fluoroscopic and ultrasound guided PICC placement. LIMITATIONS: None. PROCEDURE: After written consent and assessment were obtained, the patient was brought into the fluo roscopy room and place supine on the table. Ultrasound was used on the patient's right arm for PICC access. The right arm was prepped and draped in a sterile fashion along with the ultrasound probe. Th e entry site was anesthetized with 1% lidocaine. A 21 gauge 7 cm needle was advanced through the skin and into the basilic vein under live ultrasound guidance. An ultrasound image was saved to PACS con firming access site. A .018 guide wire was then inserted through the needle and into the venous syst em. The needle was the removed and an 11 blade scalpel was used to make a 1cm skin incision. A 5 fr peel-away sheath was advanced over the wire and into the venous system. A measurement was then made u sing the existing wire and live fluoroscopic guidance. The wire was then removed and the trimmed. The PICC was advanced through the peel-away sheath and into the venous system. The peel-away sheath was removed and the catheter was adhered to the patients arm with a stat lock. The catheter was then aspi rated and flushed and a sterile bandage was placed over the access site. A fluoroscopic spot image w as saved to PACS confirming the catheter tip within the superior vena cava. IMPRESSION: SUCCESSFUL PLACEMENT OF A 5 FR DUAL LUMEN 37 CM PICC IN THE RIGHT BASILIC VEIN. COMMENT: Patient medication list reviewed: Yes- Quality ID# [id number]:Eligible professional attests to doc umenting in the medical record they obtained, updated, or reviewed the patient's current medications. . Quality ID 145: Final reports for procedures using fluoroscopy that document radiation exposure jazmin brittney, or exposure time and number of fluorographic images (if radiation exposure indices are not avail able) Quality ID #76: The patient was prepped and draped using maximum sterile barrier technique including cap, mask, sterile gown, sterile gloves, a large sterile sheet, hand hygiene, and 2% Chlorhexidine fo r cutaneous antisepsis. When ultrasound is used, sterile ultrasound techniques are followed requiring sterile gel and sterile probes. TECHNICAL DOCUMENTATION: JOB ID: [id number] [employer] All Rights Reserved
[2017-06-30] MEDS: METHYLPREDNISOLONE INJ 40 MG/1 ML SDV IV SCH ×2 (13:07→22:53)
[2017-06-30] MEDS: VANCOMYCIN HCL 1,250 MG in DEXTROSE 5%-WATER 250 ML IV SCH ×2 (13:07→22:53)
--- NOTE | 2017-06-30 13:18 | PDOC PROGRESS REPORT ---
Subjective Progress Note for:: 06/30/17 Subjective:: The patient is a 57-year-old male with a past medical history of CHF, hypertension, asthma, pacemaker/AICD, type 2 diabetes mellitus, bipolar and depression with a recent incarceration who was admitted on 06/28/17 for a right lower lobe pneumonia. Influenza screening was negative. CT of the chest did not reveal cavitary lesions. Patient states that he recently had a negative PPD. The patient is seen on morning rounds. He is sitting upright to the bedside chair wearing BiPAP. He states that his breathing has improved slightly, he does continue to have a productive cough. His primary complaint today is his right lower back pain. He states that the oxycodone does help with the pain some but does not provide complete pain relief and does not seem to last for very long. The patient's sister is also present and has many concerns regarding his history of heart failure. The patient is reminded to ask his family members to bring in his home medications so that his home medication regimen can be resumed. He has no new questions or concerns today Reason For Visit: PNEUMONIA Physical Exam Vital Signs: Temp Pulse Resp BP Pulse Ox 99.3 F 106 H 22 H 120/87 H 96 06/30/17 07:15 06/30/17 08:56 06/30/17 08:56 06/30/17 07:15 06/30/17 08:56 Intake & Output 06/29/17 06/30/17 07/01/17 06:59 06:59 06:59 Intake Total 1450 2264 Output Total 275 1220 Balance 1175 1044 Weight 111 kg 114.4 kg General appearance: PRESENT: no acute distress, obese, well-developed, well- nourished Head exam: PRESENT: atraumatic, normocephalic Eye exam: PRESENT: conjunctiva pink, EOMI, PERRLA. ABSENT: scleral icterus Ear exam: PRESENT: normal external ear exam Mouth exam: PRESENT: moist, tongue midline Neck exam: ABSENT: carotid bruit, JVD, lymphadenopathy, thyromegaly Respiratory exam: PRESENT: decreased breath sounds - Bibasilar, right greater than left, rhonchi, symmetrical, tachypnea, wheezes - Expiratory wheezing throughout. ABSENT: rales Cardiovascular exam: PRESENT: RRR, +S1, +S2, tachycardia. ABSENT: diastolic murmur, rubs, systolic murmur Pulses: PRESENT: normal dorsalis pedis pul Vascular exam: PRESENT: normal capillary refill GI/Abdominal exam: PRESENT: normal bowel sounds, soft. ABSENT: distended, guarding, mass, organolmegaly, rebound, tenderness Rectal exam: PRESENT: deferred Extremities exam: PRESENT: full ROM. ABSENT: calf tenderness, clubbing, pedal edema Neurological exam: PRESENT: alert, awake, oriented to person, oriented to place , oriented to time, oriented to situation, CN II-XII grossly intact. ABSENT: motor sensory deficit Psychiatric exam: PRESENT: appropriate affect, normal mood. ABSENT: homicidal ideation, suicidal ideation Skin exam: PRESENT: dry, intact, warm. ABSENT: cyanosis, rash Results Laboratory Results: 06/30/17 04:53 06/30/17 04:53 06/30/17 06/30/17 06/30/17 04:53 04:53 04:53 WBC 17.4 H RBC 4.56 Hgb 11.2 L Hct 35.0 L MCV 77 L MCH 24.6 L MCHC 32.1 RDW 16.3 H Plt Count 303 Seg Neutrophils % 82.6 H Lymphocytes % 7.8 L Monocytes % 8.4 Eosinophils % 0.6 Basophils % 0.6 Absolute Neutrophils 14.3 H Absolute Lymphocytes 1.4 Absolute Monocytes 1.5 H Absolute Eosinophils 0.1 Absolute Basophils 0.1 Sodium 135.9 L Potassium 4.3 Chloride 98 Carbon Dioxide 27 Anion Gap 11 BUN 10 Creatinine 1.06 1.06 Est GFR ( Amer) > 60 > 60 Est GFR (Non-Af Amer) > 60 > 60 Glucose 134 H Calcium 9.4 06/30/17 04:53 NT-Pro-B Natriuret Pep 1050 H Impressions: Chest/Abdomen CTA 06/28/17 08:21 IMPRESSION: 1. No PE. 2. Right lower lobe pneumonia. Guidance Fluoroscopy 06/30/17 00:00 IMPRESSION: SUCCESSFUL PLACEMENT OF A 5 FR DUAL LUMEN 37 CM PICC IN THE RIGHT BASILIC VEIN. Interventional Vascular Procedure 06/30/17 00:00 IMPRESSION: SUCCESSFUL PLACEMENT OF A 5 FR DUAL LUMEN 37 CM PICC IN THE RIGHT BASILIC VEIN. PICC Line Insertion 06/30/17 10:22 IMPRESSION: SUCCESSFUL PLACEMENT OF A 5 FR DUAL LUMEN 37 CM PICC IN THE RIGHT BASILIC VEIN. Assessment & Plan - Diagnosis (1) Right lower lobe pneumonia Qualifiers: Aspiration pneumonia type: unspecified Is this a current diagnosis for this admission?: Yes Plan: Gradual improvements. The patient is admitted with tachypnea, hemoptysis, subjective fevers, mild tachycardia with an elevated white blood cell count and a CTA revealing a right lower lobe pneumonia. Blood cultures: No growth at 48 and 24 hours. Sputum culture: Pending He is admitted to [facility] on continuous cardiac telemetry. Supplemental oxygen as needed to keep oxygen saturations greater than 92% BiPAP nightly and as needed for support. The patient is placed on vancomycin and Levaquin for MRSA coverage as the patient does have positive MRSA cultures in the past. He will receive scheduled and as needed nebulizer treatments He is placed on Mucinex twice daily. As the patient has a history of asthma and he has expiratory wheezing throughout , we will add IV Solu-Medrol today. (2) Sepsis Qualifiers: Sepsis type: sepsis due to unspecified organism Qualified Code(s): A41.9 - Sepsis, unspecified organism Is this a current diagnosis for this admission?: Yes Plan: The patient presents with sepsis due to pneumonia present on admission as evidenced by WBCs of 13.2, tachycardia with a heart rate of 108, respiratory rate in the mid to high 20s. Blood and sputum cultures as above. Currently on Vancomycin and Levaquin. We will monitor closely for need of additional IV fluid resuscitation. (3) CHF (congestive heart failure) Is this a current diagnosis for this admission?: Yes Plan: BNP is down today. IV fluids held at this time. Have started furosemide 20 mg BID. He is placed on strict I's and O's and daily weights. Will monitor closely for evidence of fluid volume overload. We will continue home medications once reconciled by pharmacy. Patient is asked to have family bring in home medications for review. (4) Hemoptysis Is this a current diagnosis for this admission?: Yes Plan: Secondary to right lower lobe pneumonia; plan as above. TB has been ruled out as the CT did not show evidence of cavitary lesions. Per patient he did have a negative TB screen while incarcerated approximately 2 weeks ago. Repeat PPD screening has been administered. (5) Diabetes Qualifiers: Diabetes mellitus type: type 2 Is this a current diagnosis for this admission?: Yes Plan: The patient is placed on a consistent carb diet. Accu-Cheks before meals and at bedtime with Humalog for sliding scale coverage. (6) Hypertension Is this a current diagnosis for this admission?: Yes Plan: IV hydralazine as needed for blood pressures We will resume patient's home medications once reconciled by pharmacy; pt asked to arrange to have home medications brought in. - Time Time Spent with patient: 25-34 minutes Medications reviewed and adjusted accordingly: Yes Anticipated discharge: Home
[2017-06-30] MEDS: KETOROLAC TROMETHAMINE INJ/PF 30 MG/1 ML SDV IV PRN (19:40)
--- NOTE | 2017-06-30 22:36 | EKG REPORT ---
SEVERITY:- ABNORMAL ECG - SINUS TACHYCARDIA PROBABLE LEFT ATRIAL ABNORMALITY LEFT AXIS DEVIATION LEFT VENTRICULAR HYPERTROPHY BORDERLINE PROLONGED QT INTERVAL CONSIDER INFERIOR INFARCT OLD : Confirmed by: Eulogio Torres 30-Jun-2017 22:34:50
[2017-06-30] MEDS: NORMAL SALINE INJ/PF 0.9% 10 ML SDV IV SCH (22:47)
[2017-06-30] MEDS: GUAIFENESIN 600 MG TABLET.SA PO SCH (22:52)
[2017-06-30] MEDS: BUSPIRONE HCL 10 MG TABLET PO SCH (22:53)
[2017-07-01] MEDS: IPRATROPIUM/ALBUTEROL 0.5-2.5 MG/3 ML AMPUL NEB SCH ×3 (02:26→13:50)
[2017-07-01] MEDS: VANCOMYCIN HCL 1,250 MG in DEXTROSE 5%-WATER 250 ML IV SCH ×2 (05:30→15:28)
[2017-07-01] MEDS: METHYLPREDNISOLONE INJ 40 MG/1 ML SDV IV SCH ×2 (05:31→14:43)
[2017-07-01] MEDS: KETOROLAC TROMETHAMINE INJ/PF 30 MG/1 ML SDV IV PRN (05:31)
[2017-07-01] MEDS: OXYCODONE HCL IR 5 MG TABLET PO PRN (05:31)
[2017-07-01 07:11] LABS: HEMATOCRIT 32.8 % (37.9-51.0); HEMOGLOBIN 10.4 g/dL (13.5-17.0); MEAN CORPUSCULAR HEMOGLOBIN 24.1 pg (27.0-33.4); MEAN CORPUSCULAR HGB CONC 31.6 g/dL (32.0-36.0); MEAN CORPUSCULAR VOLUME 76 fl (80-97); PLATELET COUNT 309 10^3/uL (150-450); RED BLOOD COUNT 4.29 10^6/uL (4.35-5.55); RED CELL DISTRIBUTION WIDTH 16.1 % (11.5-14.0); WHITE BLOOD COUNT 16.2 10^3/uL (4.0-10.5)
[2017-07-01 07:33] LABS: ANION GAP 9 (5-19); BLOOD UREA NITROGEN 13 mg/dL (7-20); CALCIUM 9.3 mg/dL (8.4-10.2); CARBON DIOXIDE 28 mmol/L (22-30); CHLORIDE 99 mmol/L (98-107); GLUCOSE 212 mg/dL (75-110); POTASSIUM 4.4 mmol/L (3.6-5.0); SODIUM 135.8 mmol/L (137-145)
[2017-07-01 07:39] LABS: ABSOLUTE LYMPHOCYTES# (MANUAL) 0.2 10^3/uL (0.5-4.7); ABSOLUTE MONOCYTES # (MANUAL) 0.3 10^3/uL (0.1-1.4); ABSOLUTE NEUTROPHILS# (MANUAL) 15.7 10^3/uL (1.7-8.2); ANISOCYTOSIS 1+; BASOPHILS % (MANUAL) 0 % (0-2); EOSINOPHILS % (MANUAL) 0 % (0-6); HYPOCHROMASIA 1+; LYMPHOCYTES % (MANUAL) 1 % (13-45); MONOCYTES % (MANUAL) 2 % (3-13); PLATELET COMMENT ADEQUATE; POLYCHROMASIA SLIGHT; SEGMENTED NEUTROPHILS % (MAN) 97 % (42-78); TOTAL CELLS COUNTED 100; TOXIC GRANULATION 1+
[2017-07-01] MEDS: FUROSEMIDE 20 MG TABLET PO SCH ×2 (09:43→18:16)
[2017-07-01] MEDS: GUAIFENESIN 600 MG TABLET.SA PO SCH (09:43)
[2017-07-01] MEDS: BUSPIRONE HCL 10 MG TABLET PO SCH (09:44)
[2017-07-01] MEDS: FAMOTIDINE 20 MG TABLET PO SCH (09:44)
[2017-07-01] MEDS: ENOXAPARIN SODIUM INJ 40 MG/0.4 ML DISP.SYRIN SUBCUT SCH (09:46)
[2017-07-01] MEDS: NORMAL SALINE INJ/PF 0.9% 10 ML SDV IV SCH (09:51)
[2017-07-01] MEDS ORDERED: LEVOFLOXACIN 750 MG TABLET PO SCH (10:00)
[2017-07-01] MEDS ORDERED: NORMAL SALINE 1000 ML 1,000 ML IV PRN (10:43)
--- NOTE | 2017-07-01 16:36 | PDOC DISCHARGE SUMMARY ---
General - Admit/Disc Date/PCP Admission Date/Primary Care Provider: 06/28/17 11:20 EAMON QUEVEDO MD Discharge Date: 07/01/17 - Discharge Diagnosis (1) Pneumonia Is this a current diagnosis for this admission?: Yes Summary: Pt admitted with tachypnea, hemoptysis, fevers, mild tachycardia with an elevated WBC. CTA shows RLL PNA. Sputum culture - normal jeremías. Blood cultures - on growth at 72 hrs. Patient has not required BIPAP for > 24 hrs, has been on room air all day. Lungs clear to ausculttion. Received vancomycin and levaquin for suspected MRSA PNA, will continue levaquin for 4 days post discharge. Patient has a history of asthma, was on IV Solumedrol while inpatient, continue prednisone for 3 days post discharge. (2) CHF (congestive heart failure) Is this a current diagnosis for this admission?: Yes Summary: Ptient has a history of HTN, CHF, with AICD placement last year. BNP>1000. Patient does not know what cardiac medications he takes, and none were filled within the last 2 years at his local pharmacy. Will advise patient to follow up with handle rounder operator within 1 week of discharge. patient started on ASA, lisinopril , beta arpita, and statin. At the time of discharge the patient is chest pain free. (3) Hypertension Is this a current diagnosis for this admission?: Yes Summary: Patient has a history of HTN. His BP has been normal during his inpatient admission. Recommend follow up with handle rounder operator within 1 week of discharge. See above for medication plan. - Additional Information Resuscitation Status: Full Code Discharge Diet: Cardiac, Diabetic Discharge Activity: Activity As Tolerated, Balance Activity w/Rest, Weigh Daily Prescriptions: Aspirin 81 mg PO DAILY 30 Days #30 tab.chew Levofloxacin [Levaquin 750 mg Tablet] 750 mg PO DAILY 4 Days #4 tablet Lisinopril [Prinivil 2.5 mg Tablet] 2.5 mg PO DAILY 30 Days #30 tablet Metoprolol Tartrate [Lopressor 25 mg Tablet] 12.5 mg PO Q12 #30 tab Oxycodone HCl [Oxy-Ir 5 mg Tablet] 10 mg PO Q6HP PRN 3 Days #12 tablet PRN Reason: Pravastatin Sodium 20 mg PO QHS 30 Days #30 tablet Prednisone 40 mg PO DAILY 3 Days #3 tablet Home Medications: Aspirin 81 mg PO DAILY 30 Days #30 tab.chew 07/01/17 Levofloxacin [Levaquin 750 mg Tablet] 750 mg PO DAILY 4 Days #4 tablet 07/01/17 Lisinopril [Prinivil 2.5 mg Tablet] 2.5 mg PO DAILY 30 Days #30 tablet 07/01/17 Metoprolol Tartrate [Lopressor 25 mg Tablet] 12.5 mg PO Q12 #30 tab 07/01/17 Oxycodone HCl [Oxy-Ir 5 mg Tablet] 10 mg PO Q6HP PRN 3 Days #12 tablet 07/01/17 Pravastatin Sodium 20 mg PO QHS 30 Days #30 tablet 07/01/17 Prednisone 40 mg PO DAILY 3 Days #3 tablet 07/01/17 History of Present Illness History of Present Illness: GAVIOTA LUCERO is a 57 year old male Hospital Course Hospital Course: Patient is a 57 year old male with a PMH of CHF, HTN, asthma, AICD/pacemaker, DM II, bipolar, depression with recent incarceration. Admit to [facility] 2/ for RLL PNA. Since patient stated that he was recently [facility], we suspected TB, although the patient states he had a negative PPD just prior to leaving [facility]. CT chest did not show cavitary lesions. Patient was started on IV antibiotics for suspected MRSA PNA, patient has a hx of MRSA in sputum.He was intermittently on BIPAP and started on IV steroids. Pt has been off BIPAP for > 24hrs and remains on steroids for asthma exacerbation. Plan to continue antibiotics and steroids after discharge home. Physical Exam Vital Signs: Temp Pulse Resp BP Pulse Ox 98.0 F 110 H 16 131/81 H 100 07/01/17 11:26 07/01/17 14:00 07/01/17 13:51 07/01/17 11:26 07/01/17 13:51 Intake & Output 06/30/17 07/01/17 07/02/17 06:59 06:59 06:59 Intake Total 2264 1760 237 Output Total 1220 1600 275 Balance 1044 160 -38 Weight 114.4 kg 111.2 kg General appearance: PRESENT: no acute distress Head exam: PRESENT: normocephalic Eye exam: PRESENT: conjunctiva pink Mouth exam: PRESENT: moist Teeth exam: PRESENT: poor dentation Respiratory exam: PRESENT: clear to auscultation familia Cardiovascular exam: PRESENT: +S1, +S2 Pulses: PRESENT: normal radial pulses, +1 pedal pulses bilateral GI/Abdominal exam: PRESENT: soft Rectal exam: PRESENT: deferred Neurological exam: PRESENT: alert, awake, oriented to person, oriented to place , oriented to time Results Laboratory Results: 07/01/17 06:45 07/01/17 06:45 07/01/17 07/01/17 06:45 06:45 WBC 16.2 H RBC 4.29 L Hgb 10.4 L Hct 32.8 L MCV 76 L MCH 24.1 L MCHC 31.6 L RDW 16.1 H Plt Count 309 Seg Neutrophils % Not Reportable Lymphocytes % Not Reportable Monocytes % Not Reportable Eosinophils % Not Reportable Basophils % Not Reportable Absolute Neutrophils Not Reportable Absolute Lymphocytes Not Reportable Absolute Monocytes Not Reportable Absolute Eosinophils Not Reportable Absolute Basophils Not Reportable Sodium 135.8 L Potassium 4.4 Chloride 99 Carbon Dioxide 28 Anion Gap 9 BUN 13 Creatinine 0.96 Est GFR ( Amer) > 60 Est GFR (Non-Af Amer) > 60 Glucose 212 H Calcium 9.3 06/28/17 11:30 Sputum Gram Stain - Final 06/28/17 11:30 Sputum Sputum Culture - Final NORMAL JEREMÍAS 06/30/17 04:53 NT-Pro-B Natriuret Pep 1050 H Impressions: Chest/Abdomen CTA 06/28/17 08:21 IMPRESSION: 1. No PE. 2. Right lower lobe pneumonia. Guidance Fluoroscopy 06/30/17 00:00 IMPRESSION: SUCCESSFUL PLACEMENT OF A 5 FR DUAL LUMEN 37 CM PICC IN THE RIGHT BASILIC VEIN. Interventional Vascular Procedure 06/30/17 00:00 IMPRESSION: SUCCESSFUL PLACEMENT OF A 5 FR DUAL LUMEN 37 CM PICC IN THE RIGHT BASILIC VEIN. PICC Line Insertion 06/30/17 10:22 IMPRESSION: SUCCESSFUL PLACEMENT OF A 5 FR DUAL LUMEN 37 CM PICC IN THE RIGHT BASILIC VEIN. Qualifiers PATEINT BEING DISCHARGED WITH ANY OF THE FOLLOWING DIAGNOSIS?: Heart Failure HF Pt being discharged on ACEI for LVEF less than 40%?: Yes HF Pt being discharged on ARBS for LVEF less than 40%?: No Reason(s) for not prescribing ARBS:: Not indicated - pt has not been taking medication for CHF, needs to follow up with cardiology. will d/c patient home on BB, JAMISON, and STATIN HF Pt discharged on evidence-based Beta Arpita:: Yes Plan Discharge Plan: discharge home. follow up with primary care and cardiology within one week of discharge. Time Spent: Greater than 30 Minutes
[2017-07-01 18:37] VITALS: BP 104/76
== END 2017-07-01 18:40 | disposition home or self-care (01) | DRG 871 ==
LOC: ER 08:02 → EH 11:20 → 3S 15:58
PROVIDERS: ADMIT Student in an Organized Health Care Education/Training Program; ATTEND Student in an Organized Health Care Education/Training Program
PROC: 02HV33Z Insertion of Infusion Device into Superior Vena Cava, Percutaneous Approach (ICD-10-PCS; principal; 2017-06-30)
PROC: B518ZZA Fluoroscopy of Superior Vena Cava, Guidance (ICD-10-PCS; 2017-06-30)
PROC: B548ZZA Ultrasonography of Superior Vena Cava, Guidance (ICD-10-PCS; 2017-06-30)
DX: A41.9 Sepsis, unspecified organism (principal); J15.212 Pneumonia due to Methicillin resistant Staphylococcus aureus; I13.0 Hypertensive heart and chronic kidney disease with heart failure and stage 1 through stage 4 chronic kidney disease, or unspecified chronic kidney disease; R04.2 Hemoptysis; I50.9 Heart failure, unspecified; E11.22 Type 2 diabetes mellitus with diabetic chronic kidney disease; N18.3 Chronic kidney disease, stage 3 (moderate); F31.9 Bipolar disorder, unspecified; F20.9 Schizophrenia, unspecified; I25.2 Old myocardial infarction; Z22.322 Carrier or suspected carrier of Methicillin resistant Staphylococcus aureus
CPT/HCPCS: 36415; 36569; 71275; 76937; 77001; 80048; 80053; 80202; 82565; 82803; 82962; 83880; 85025; 85610; 85730; 87040; 87070; 87205; 87804; 93005; 93010; 94660; 99285; C1769; J1630; J1642; J1650; J1815; J1885; J1956; J2920; J3370; J3490; J7030; J7060; J7614; J7620

== ENCOUNTER 2017-07-30 07:15 | Emergency (ER) | payer MEDICAID ==
[2017-07-30] MEDS ORDERED: NORMAL SALINE 1000 ML 1,000 ML IV ONE (07:31)
[2017-07-30] MEDS ORDERED: IPRATROPIUM/ALBUTEROL 0.5-2.5 MG/3 ML AMPUL NEB ONE (07:32)
[2017-07-30] MEDS ORDERED: MAGNESIUM SULFATE/D5W 1 GM/100 ML RTUPB IV ONE (07:32)
[2017-07-30] MEDS ORDERED: ALBUTEROL SULFATE 0.083% NEB 2.5 MG/3 ML AMPUL NEB ONE (07:32)
[2017-07-30 08:18] LABS: ABSOLUTE BASOPHILS # (AUTO) 0.1 10^3/uL (0.0-0.2); ABSOLUTE EOSINOPHILS # (AUTO) 0.5 10^3/uL (0.0-0.6); ABSOLUTE LYMPHOCYTES (AUTO) 1.5 10^3/uL (0.5-4.7); ABSOLUTE MONOCYTES (AUTO) 0.7 10^3/uL (0.1-1.4); ABSOLUTE NEUT (AUTO) 5.5 10^3/uL (1.7-8.2); BASOPHILS % (AUTO) 0.8 % (0-2); EOSINOPHILS % (AUTO) 6.3 % (0-6); HEMATOCRIT 36.5 % (37.9-51.0); HEMOGLOBIN 11.5 g/dL (13.5-17.0); LYMPHOCYTES % (AUTO) 17.8 % (13-45); MEAN CORPUSCULAR HEMOGLOBIN 23.8 pg (27.0-33.4); MEAN CORPUSCULAR HGB CONC 31.6 g/dL (32.0-36.0); MEAN CORPUSCULAR VOLUME 75 fl (80-97); MONOCYTES % (AUTO) 8.9 % (3-13); PLATELET COUNT 311 10^3/uL (150-450); RED BLOOD COUNT 4.85 10^6/uL (4.35-5.55); RED CELL DISTRIBUTION WIDTH 17.5 % (11.5-14.0); SEGMENTED NEUTROPHILS % (AUTO) 66.2 % (42-78); TOTAL CELLS COUNTED % (AUTO) 100 %; WHITE BLOOD COUNT 8.3 10^3/uL (4.0-10.5)
--- NOTE | 2017-07-30 08:26 | RADIOLOGY REPORT (SQ) ---
EXAM DESCRIPTION: CHEST PA/LAT COMPLETED DATE/TIME: 07/30/2017 7:40 am REASON FOR STUDY: hx of pna 2-18 continued sob COMPARISON: 08/14/2016. CT chest 06/28/2017. TECHNIQUE: Frontal and lateral radiographic views of the chest acquired. NUMBER OF VIEWS: Two view. LIMITATIONS: None. FINDINGS: LUNGS AND PLEURA: Mild right basilar patchy airspace disease may reflect persistent pneumo miriam. MEDIASTINUM AND HILAR STRUCTURES: Fullness in the right hilum as above. When correlated with the rec ent CT, there is mild right hilar adenopathy. HEART AND VASCULAR STRUCTURES: Heart normal size. BONES: No acute findings. HARDWARE: Single lead cardiac device, intact. New since prior. OTHER: No other significant finding. IMPRESSION: 1. Mild persistent right basilar airspace disease with mild associated right hilar adeno fidencio. These changes need further followup to document resolution with treatment. Consider atypical causes of infection in the differential, including mycobacterial etiologies. TECHNICAL DOCUMENTATION: JOB ID: [id number] [employer]- All Rights Reserved Reading location - IP/workstation name: [email or web address]
[2017-07-30 08:47] LABS: ALANINE AMINOTRANSFERASE 29 U/L (21-72); ALKALINE PHOSPHATASE 74 U/L (38-126); ANION GAP 12 (5-19); ASPARTATE AMINO TRANSFERASE 22 U/L (17-59); BILIRUBIN,DIRECT 0.2 mg/dL (0.0-0.4); BILIRUBIN,TOTAL 0.6 mg/dL (0.2-1.3); BLOOD UREA NITROGEN 15 mg/dL (7-20); CALCIUM 9.5 mg/dL (8.4-10.2); CARBON DIOXIDE 26 mmol/L (22-30); CHLORIDE 107 mmol/L (98-107); GLUCOSE 132 mg/dL (75-110); LIPASE 69.6 U/L (23-300); SODIUM 144.8 mmol/L (137-145); TOTAL PROTEIN 6.7 g/dL (6.3-8.2)
--- NOTE | 2017-07-30 09:00 | EKG REPORT ---
SEVERITY:- BORDERLINE ECG - SINUS TACHYCARDIA LEFT AXIS DEVIATION BORDERLINE T WAVE ABNORMALITIES : Confirmed by: Eulogio Torres 30-Jul-2017 08:59:45
[2017-07-30] MEDS ORDERED: AZITHROMYCIN INJ 500 MG VIAL IV ONE (09:26)
[2017-07-30] MEDS ORDERED: AZITHROMYCIN 250 MG TABLET PO ONE (09:39)
[2017-07-30] MEDS ORDERED: ALBUTEROL SULFATE HFA (90 MCG/PUFF) 8 GM MDI (1 MDI/ER DISP) IH ONE (10:03)
[2017-07-30] MEDS ORDERED: PREDNISONE 20 MG TABLET PO ONE (10:03)
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
[2017-07-30 10:14] VITALS: BP 143/108
== END 2017-07-30 10:30 | disposition home or self-care (01) ==
LOC: ER 07:15
DX: J18.1 Lobar pneumonia, unspecified organism (principal); R06.02 Shortness of breath; I50.9 Heart failure, unspecified; E11.9 Type 2 diabetes mellitus without complications; Z91.040 Latex allergy status; Z88.0 Allergy status to penicillin; I25.2 Old myocardial infarction; Z95.0 Presence of cardiac pacemaker
CPT/HCPCS: 93005; 94640 ×2; 99285; 96365; 36415; 83690; 83735; 85025; 80053; 71046; 93010; Q0144; J3475; J7512; J7030; J3490; J7620

== ENCOUNTER 2017-08-07 11:51 | Inpatient (IN) | payer MEDICAID ==
[2017-08-07] MEDS ORDERED: IPRATROPIUM/ALBUTEROL 0.5-2.5 MG/3 ML AMPUL NEB ONE (12:09)
[2017-08-07] MEDS ORDERED: METHYLPREDNISOLONE INJ 125 MG/2 ML SDV IV ONE (12:09)
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
[2017-08-07] MEDS ORDERED: FUROSEMIDE INJ/PF 40 MG/4 ML SDV IV ONE (13:20)
--- NOTE | 2017-08-07 13:23 | RADIOLOGY REPORT (SQ) ---
EXAM DESCRIPTION: CHEST PA/LAT COMPLETED DATE/TIME: 08/07/2017 1:01 pm REASON FOR STUDY: recent pneumonia, continued cough COMPARISON: 07/30/2017 EXAM PARAMETERS: NUMBER OF VIEWS: two views TECHNIQUE: Digital Frontal and Lateral radiographic views of the chest acquired. RADIATION DOSE: NA LIMITATIONS: none FINDINGS: LUNGS AND PLEURA: Faintly defined infiltrate is seen in the right base and posteriorly and inferiorly on the lateral view. MEDIASTINUM AND HILAR STRUCTURES: No masses or contour abnormalities. HEART AND VASCULAR STRUCTURES: Heart normal size. No evidence for failure. BONES: No acute findings. HARDWARE: None in the chest. OTHER: No other significant finding. IMPRESSION: There appears to be limited persistent right lower lobe pneumonia. TECHNICAL DOCUMENTATION: JOB ID: [id number] [employer]- All Rights Reserved Reading location - IP/workstation name: [email or web address]
[2017-08-07 13:27] LABS: ABSOLUTE BASOPHILS # (AUTO) 0.1 10^3/uL (0.0-0.2); ABSOLUTE EOSINOPHILS # (AUTO) 0.2 10^3/uL (0.0-0.6); ABSOLUTE LYMPHOCYTES (AUTO) 2.2 10^3/uL (0.5-4.7); ABSOLUTE MONOCYTES (AUTO) 0.6 10^3/uL (0.1-1.4); ABSOLUTE NEUT (AUTO) 8.3 10^3/uL (1.7-8.2); BASOPHILS % (AUTO) 0.8 % (0-2); EOSINOPHILS % (AUTO) 1.9 % (0-6); HEMOGLOBIN 11.6 g/dL (13.5-17.0); LYMPHOCYTES % (AUTO) 19.4 % (13-45); MEAN CORPUSCULAR HEMOGLOBIN 23.8 pg (27.0-33.4); MEAN CORPUSCULAR HGB CONC 31.2 g/dL (32.0-36.0); MEAN CORPUSCULAR VOLUME 76 fl (80-97); MONOCYTES % (AUTO) 5.4 % (3-13); PLATELET COUNT 335 10^3/uL (150-450); RED BLOOD COUNT 4.85 10^6/uL (4.35-5.55); SEGMENTED NEUTROPHILS % (AUTO) 72.5 % (42-78); TOTAL CELLS COUNTED % (AUTO) 100 %; WHITE BLOOD COUNT 11.5 10^3/uL (4.0-10.5)
[2017-08-07 13:47] LABS: ALANINE AMINOTRANSFERASE 115 U/L (21-72); ALBUMIN 3.8 g/dL (3.5-5.0); ALKALINE PHOSPHATASE 67 U/L (38-126); ANION GAP 11 (5-19); ASPARTATE AMINO TRANSFERASE 92 U/L (17-59); BILIRUBIN,DIRECT 0.6 mg/dL (0.0-0.4); BILIRUBIN,TOTAL 1.5 mg/dL (0.2-1.3); BLOOD UREA NITROGEN 16 mg/dL (7-20); CALCIUM 9.2 mg/dL (8.4-10.2); CARBON DIOXIDE 26 mmol/L (22-30); CHLORIDE 108 mmol/L (98-107); CREATINE KINASE 84 U/L (55-170); GLUCOSE 126 mg/dL (75-110); SODIUM 144.6 mmol/L (137-145); TOTAL PROTEIN 6.7 g/dL (6.3-8.2)
--- NOTE | 2017-08-07 13:58 | EKG REPORT ---
SEVERITY:- ABNORMAL ECG - SINUS TACHYCARDIA PROBABLE LEFT ATRIAL ABNORMALITY BORDERLINE LEFT AXIS DEVIATION BORDERLINE T ABNORMALITIES, INFERIOR LEADS BORDERLINE PROLONGED QT INTERVAL : Confirmed by: Jose Dawn MD 07-Aug-2017 13:56:50
[2017-08-07 14:17] LABS: CREATINE KINASE MB 0.96 ng/mL (<4.55)
[2017-08-07 14:22] LABS: TROPONIN I 0.063 ng/mL
[2017-08-07] MEDS ORDERED: ONDANSETRON HCL INJ/PF 4 MG/2 ML SDV IV PRN (15:44)
[2017-08-07] MEDS ORDERED: ACETAMINOPHEN 325 MG TABLET PO PRN (15:55)
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
[2017-08-07] MEDS: IPRATROPIUM/ALBUTEROL 0.5-2.5 MG/3 ML AMPUL NEB PRN (16:45)
[2017-08-07] MEDS ORDERED: GUAIFENESIN SYRP 200 MG/10 ML UDC PO PRN (17:55)
[2017-08-07] MEDS: TRIAMCINOLONE ACETONIDE 0.1% CREAM 15 GM TOP SCH (18:36)
[2017-08-07] MEDS ORDERED: TEMAZEPAM 7.5 MG CAPSULE PO PRN (22:00)
[2017-08-07] MEDS: CLOBETASOL PROPIONATE 0.05% OINTMENT 15 GM TOP SCH (22:25)
[2017-08-07] MEDS: FUROSEMIDE INJ/PF 40 MG/4 ML SDV IV SCH (22:26)
[2017-08-07] MEDS: CARVEDILOL 6.25 MG TABLET PO SCH (22:26)
[2017-08-07] MEDS: EPLERENONE 25 MG TABLET PO SCH (22:26)
[2017-08-07] MEDS: ISOSORB DINIT/HYDRALAZINE HCL 20-37.5 MG TABLET PO SCH (22:26)
[2017-08-08] MEDS: ISOSORB DINIT/HYDRALAZINE HCL 20-37.5 MG TABLET PO SCH ×3 (05:07→23:01)
[2017-08-08 05:22] LABS: HEMATOCRIT 35.3 % (37.9-51.0); MEAN CORPUSCULAR HEMOGLOBIN 23.6 pg (27.0-33.4); MEAN CORPUSCULAR HGB CONC 31.2 g/dL (32.0-36.0); MEAN CORPUSCULAR VOLUME 76 fl (80-97); PLATELET COUNT 309 10^3/uL (150-450); RED BLOOD COUNT 4.67 10^6/uL (4.35-5.55); RED CELL DISTRIBUTION WIDTH 17.9 % (11.5-14.0); WHITE BLOOD COUNT 11.2 10^3/uL (4.0-10.5)
[2017-08-08 05:47] LABS: ALANINE AMINOTRANSFERASE 95 U/L (21-72); ALBUMIN 3.5 g/dL (3.5-5.0); ALKALINE PHOSPHATASE 71 U/L (38-126); ANION GAP 12 (5-19); ASPARTATE AMINO TRANSFERASE 44 U/L (17-59); BILIRUBIN,DIRECT 0.5 mg/dL (0.0-0.4); BILIRUBIN,TOTAL 0.8 mg/dL (0.2-1.3); BLOOD UREA NITROGEN 22 mg/dL (7-20); CALCIUM 9.2 mg/dL (8.4-10.2); CARBON DIOXIDE 26 mmol/L (22-30); CHLORIDE 103 mmol/L (98-107); GLUCOSE 192 mg/dL (75-110); POTASSIUM 4.4 mmol/L (3.6-5.0); SODIUM 140.6 mmol/L (137-145); TOTAL PROTEIN 6.4 g/dL (6.3-8.2)
[2017-08-08] MEDS: IPRATROPIUM/ALBUTEROL 0.5-2.5 MG/3 ML AMPUL NEB PRN (07:58)
[2017-08-08] MEDS: EPLERENONE 25 MG TABLET PO SCH ×2 (08:05→23:03)
[2017-08-08] MEDS: GLIPIZIDE 5 MG TABLET PO SCH (08:05)
[2017-08-08] MEDS: TRIAMCINOLONE ACETONIDE 0.1% CREAM 15 GM TOP SCH ×3 (08:05→17:52)
[2017-08-08] MEDS: FUROSEMIDE INJ/PF 40 MG/4 ML SDV IV SCH (08:06)
[2017-08-08] MEDS: CARVEDILOL 6.25 MG TABLET PO SCH ×2 (08:06→23:02)
[2017-08-08] MEDS: DOCUSATE SODIUM 100 MG CAPSULE PO SCH (08:06)
[2017-08-08] MEDS: CLOBETASOL PROPIONATE 0.05% OINTMENT 15 GM TOP SCH ×2 (08:06→23:03)
--- NOTE | 2017-08-08 14:45 | PDOC PROGRESS REPORT ---
Subjective Progress Note for:: 08/08/17 Subjective:: Patient feels better today Reason For Visit: CHF EXACERBATION Physical Exam Vital Signs: Temp Pulse Resp BP Pulse Ox 97.4 F 81 24 H 123/80 100 08/08/17 12:00 08/08/17 12:00 08/08/17 12:00 08/08/17 12:00 08/08/17 12:00 Intake & Output 08/07/17 08/08/17 08/09/17 06:59 06:59 06:59 Intake Total 914 794 Output Total 2600 400 Balance -1686 394 Weight 117.2 kg 117.2 kg General appearance: PRESENT: no acute distress Ear exam: PRESENT: normal external ear exam Respiratory exam: PRESENT: clear to auscultation familia, rales, rhonchi. ABSENT: wheezes Cardiovascular exam: PRESENT: RRR. ABSENT: diastolic murmur, rubs, systolic murmur Pulses: PRESENT: normal dorsalis pedis pul GI/Abdominal exam: PRESENT: normal bowel sounds, soft. ABSENT: distended, guarding, mass, organolmegaly, rebound, tenderness Rectal exam: PRESENT: deferred Extremities exam: PRESENT: full ROM. ABSENT: calf tenderness, clubbing, pedal edema Neurological exam: PRESENT: alert, oriented to person, oriented to place, oriented to situation Psychiatric exam: PRESENT: appropriate affect, normal mood. ABSENT: homicidal ideation, suicidal ideation Results Laboratory Results: 08/08/17 04:25 08/08/17 04:25 08/08/17 08/08/17 04:25 04:25 WBC 11.2 H RBC 4.67 Hgb 11.0 L Hct 35.3 L MCV 76 L MCH 23.6 L MCHC 31.2 L RDW 17.9 H Plt Count 309 Sodium 140.6 Potassium 4.4 Chloride 103 Carbon Dioxide 26 Anion Gap 12 BUN 22 H Creatinine 1.17 Est GFR ( Amer) > 60 Est GFR (Non-Af Amer) > 60 Glucose 192 H Calcium 9.2 Total Bilirubin 0.8 AST 44 ALT 95 H Alkaline Phosphatase 71 Total Protein 6.4 Albumin 3.5 08/07/17 08/08/17 22:05 04:25 Troponin I 0.034 0.043 Impressions: Chest X-Ray 08/07/17 12:08 IMPRESSION: There appears to be limited persistent right lower lobe pneumonia. Assessment & Plan - Diagnosis (1) Acute on chronic congestive heart failure Qualifiers: Heart failure type: combined systolic and diastolic Qualified Code(s): I50.43 - Acute on chronic combined systolic (congestive) and diastolic ( congestive) heart failure Is this a current diagnosis for this admission?: Yes (2) Cardiomyopathy Qualifiers: Cardiomyopathy type: unspecified Qualified Code(s): I42.9 - Cardiomyopathy , unspecified Is this a current diagnosis for this admission?: Yes (3) Chronic kidney disease, stage III (moderate) Is this a current diagnosis for this admission?: Yes (4) Hypertension Qualifiers: Hypertension type: essential hypertension Qualified Code(s): I10 - Essential (primary) hypertension Is this a current diagnosis for this admission?: Yes (5) Obesity Qualifiers: Obesity type: due to excess calories Body mass index: BMI 35.0-35.9 Is this a current diagnosis for this admission?: Yes (6) Diabetes Qualifiers: Diabetes mellitus type: type 2 Diabetes mellitus shelter insulin use: without superintendent marine oil terminal use Diabetes mellitus complication status: with hyperglycemia Qualified Code(s): E11.65 - Type 2 diabetes mellitus with hyperglycemia Is this a current diagnosis for this admission?: Yes - Time Time Spent with patient: 15-24 minutes Smoking Cessation Education: 3 to 10 minutes Medications reviewed and adjusted accordingly: Yes Anticipated discharge: Home Within: within 48 hours
[2017-08-08] MEDS ORDERED: HYDROXYZINE HCL 10 MG TABLET PO PRN (14:54)
--- NOTE | 2017-08-08 21:01 | PDOC PROGRESS REPORT ---
Subjective Progress Note for:: 08/08/17 Subjective:: Patient seems to be feeling better. He is denying any chest pain shortness of breath has improved. He has noted some increased wheezing. Patient does give history of asthma. Reason For Visit: CHF EXACERBATION Physical Exam Vital Signs: Temp Pulse Resp BP Pulse Ox 97.7 F 100 18 111/92 H 100 08/08/17 19:08 08/08/17 19:08 08/08/17 19:08 08/08/17 19:08 08/08/17 19:08 Intake & Output 08/07/17 08/08/17 08/09/17 06:59 06:59 06:59 Intake Total 914 1016 Output Total 2600 400 Balance -1686 616 Weight 117.2 kg 117.2 kg Exam: GENERAL: well-nourished and in no acute distress. Alert and oriented x3 HEAD: Atraumatic, normocephalic. EYES: Pupils equal round and reactive to light, extraocular movements intact, sclera anicteric, conjunctiva are normal. ENT: TMs normal, nares patent, oropharynx clear without exudates. Moist mucous membranes. No oral ulcerations or bleeding gums noted NECK: supple without lymphadenopathy. Trachea is central. No cervical or axillary lymphadenopathy noted. Carotids are 2+, JVD WNL LUNGS: Respiration seems nonlabored, no significant accessory muscle action noted. Bilateral wheezes rales or rhonchi noted. No significant dullness noted on percussion. CHEST: Palpation of the chest wall shows no significant chest wall tenderness. No other significant abnormalities noted. Defibrillator noted left-sided chest. 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 ABDOMEN: Soft, no significant tenderness appreciated, normoactive bowel sounds. No guarding, no rebound. No rigidity noted . No masses appreciated. EXTREMITIES: Pedal pulses are 1-2+, no calf tenderness noted. No clubbing or cyanosis.trace to 1+ pedal edema noted NEUROLOGICAL: Focused neurological exam showed no significant neurologic deficit. Normal speech, no focal weakness appreciated. PSYCH: Normal mood, normal affect. Judgment and insight within normal limits. SKIN: No significant ecchymosis, skin is noted to be warm. MUSCULOSKELETAL EXAM: No significant acute joint swelling noted. Results Laboratory Results: 08/08/17 04:25 08/08/17 04:25 08/08/17 08/08/17 04:25 04:25 WBC 11.2 H RBC 4.67 Hgb 11.0 L Hct 35.3 L MCV 76 L MCH 23.6 L MCHC 31.2 L RDW 17.9 H Plt Count 309 Sodium 140.6 Potassium 4.4 Chloride 103 Carbon Dioxide 26 Anion Gap 12 BUN 22 H Creatinine 1.17 Est GFR ( Amer) > 60 Est GFR (Non-Af Amer) > 60 Glucose 192 H Calcium 9.2 Total Bilirubin 0.8 AST 44 ALT 95 H Alkaline Phosphatase 71 Total Protein 6.4 Albumin 3.5 08/07/17 08/08/17 22:05 04:25 Troponin I 0.034 0.043 Impressions: Chest X-Ray 08/07/17 12:08 IMPRESSION: There appears to be limited persistent right lower lobe pneumonia. Assessment & Plan - Diagnosis (1) Acute on chronic congestive heart failure Qualifiers: Heart failure type: combined systolic and diastolic Qualified Code(s): I50.43 - Acute on chronic combined systolic (congestive) and diastolic ( congestive) heart failure Is this a current diagnosis for this admission?: Yes (2) Sleep apnea syndrome Qualifiers: Sleep apnea type: unspecified type Qualified Code(s): G47.30 - Sleep apnea , unspecified Is this a current diagnosis for this admission?: Yes (3) Diabetes Qualifiers: Diabetes mellitus type: type 2 Diabetes mellitus terminal makeup operator insulin use: without fdc use Diabetes mellitus complication status: with hyperglycemia Qualified Code(s): E11.65 - Type 2 diabetes mellitus with hyperglycemia Is this a current diagnosis for this admission?: Yes (4) Cardiomyopathy Qualifiers: Cardiomyopathy type: unspecified Qualified Code(s): I42.9 - Cardiomyopathy , unspecified Is this a current diagnosis for this admission?: Yes (5) Chronic kidney disease, stage III (moderate) Is this a current diagnosis for this admission?: Yes (6) Hypertension Qualifiers: Hypertension type: essential hypertension Qualified Code(s): I10 - Essential (primary) hypertension Is this a current diagnosis for this admission?: Yes (7) COPD exacerbation Is this a current diagnosis for this admission?: Yes (8) Cardiac defibrillator in situ Is this a current diagnosis for this admission?: Yes - Notes Notes: Office visit note reviewed. Previous hospitalization reviewed. Previous cardiac evaluations were reviewed. Patient was admitted through the emergency department after having been sent to my office by my physician assistant technician for increasing leg swelling and increasing shortness of breath. Patient is noted to have CHF exacerbation. Patient describes allergy to lisinopril. Patient was on losartan which he claims to be tolerating well. However this was not restarted while in the hospital. I have placed patient on eplerenone, hydralazine nitrate combination. Continue with diuretic therapy. Patient also seems to be having a COPD or asthma exacerbation. Patient will need adequate management for this condition. While patient is in the hospital he will benefit from CHF education. Patient does have a functioning defibrillator. Patient will follow in the defibrillator clinic. Considerable time spent educating patient about CHF management. Also reviewed previous cardiac evaluation with the patient. - Time Time with patient: Greater than 35 minutes - More than 50% of the time spent coordinating care, discussing management plans with involved caregivers. Management plans discussed with involved personnels. Medical decision making was of moderate to high complexity, patient's has multiple comorbidities. Medications reviewed and adjusted accordingly: Yes
[2017-08-08] MEDS: INDOMETHACIN 50 MG CAPSULE PO SCH (23:03)
[2017-08-09] MEDS: ISOSORB DINIT/HYDRALAZINE HCL 20-37.5 MG TABLET PO SCH ×2 (05:39→14:35)
[2017-08-09] MEDS: INDOMETHACIN 50 MG CAPSULE PO SCH ×2 (05:40→14:35)
[2017-08-09 05:43] LABS: ANION GAP 12 (5-19); BLOOD UREA NITROGEN 29 mg/dL (7-20); CALCIUM 9.4 mg/dL (8.4-10.2); CARBON DIOXIDE 28 mmol/L (22-30); CHLORIDE 102 mmol/L (98-107); GLUCOSE 109 mg/dL (75-110); POTASSIUM 4.3 mmol/L (3.6-5.0); SODIUM 141.8 mmol/L (137-145)
[2017-08-09] MEDS: GLIPIZIDE 5 MG TABLET PO SCH (09:28)
[2017-08-09] MEDS: EPLERENONE 25 MG TABLET PO SCH (09:30)
[2017-08-09] MEDS: CLOBETASOL PROPIONATE 0.05% OINTMENT 15 GM TOP SCH (09:33)
[2017-08-09] MEDS: DOCUSATE SODIUM 100 MG CAPSULE PO SCH (09:33)
[2017-08-09] MEDS: CARVEDILOL 6.25 MG TABLET PO SCH (09:33)
[2017-08-09] MEDS: TRIAMCINOLONE ACETONIDE 0.1% CREAM 15 GM TOP SCH ×3 (09:33→17:11)
[2017-08-09] MEDS ORDERED: FUROSEMIDE INJ/PF 40 MG/4 ML SDV IV SCH (10:00)
[2017-08-09] MEDS: IPRATROPIUM/ALBUTEROL 0.5-2.5 MG/3 ML AMPUL NEB PRN (11:46)
--- NOTE | 2017-08-09 15:14 | PDOC PROGRESS REPORT ---
Subjective Progress Note for:: 08/09/17 Subjective:: Patient feels better today Reason For Visit: CHF EXACERBATION Physical Exam Vital Signs: Temp Pulse Resp BP Pulse Ox 97.7 F 86 16 102/68 100 08/09/17 12:25 08/09/17 14:00 08/09/17 12:25 08/09/17 12:25 08/09/17 12:25 Intake & Output 08/08/17 08/09/17 08/10/17 06:59 06:59 06:59 Intake Total 914 1999 236 Output Total 2600 400 675 Balance -1686 1599 -439 Weight 117.2 kg 113.6 kg General appearance: PRESENT: no acute distress Head exam: PRESENT: atraumatic Eye exam: PRESENT: conjunctiva pink, EOMI, PERRLA. ABSENT: scleral icterus Neck exam: ABSENT: carotid bruit, JVD, lymphadenopathy, thyromegaly Respiratory exam: PRESENT: crackles, decreased breath sounds, rhonchi - Left side, wheezes - Expiratory. ABSENT: tachypnea Cardiovascular exam: PRESENT: RRR. ABSENT: diastolic murmur, rubs, systolic murmur Pulses: PRESENT: normal dorsalis pedis pul GI/Abdominal exam: PRESENT: normal bowel sounds, soft. ABSENT: distended, guarding, mass, organolmegaly, rebound, tenderness Rectal exam: PRESENT: deferred Neurological exam: PRESENT: alert, awake, oriented to time, oriented to situation Psychiatric exam: PRESENT: appropriate affect, normal mood. ABSENT: homicidal ideation, suicidal ideation Results Laboratory Results: 08/08/17 04:25 08/09/17 04:36 08/09/17 04:36 Sodium 141.8 Potassium 4.3 Chloride 102 Carbon Dioxide 28 Anion Gap 12 BUN 29 H Creatinine 1.16 Est GFR ( Amer) > 60 Est GFR (Non-Af Amer) > 60 Glucose 109 Calcium 9.4 08/07/17 08/08/17 08/09/17 22:05 04:25 04:36 Troponin I 0.034 0.043 NT-Pro-B Natriuret Pep 2170 H Impressions: Chest X-Ray 08/07/17 12:08 IMPRESSION: There appears to be limited persistent right lower lobe pneumonia. Assessment & Plan - Diagnosis (1) Acute on chronic congestive heart failure Qualifiers: Heart failure type: combined systolic and diastolic Qualified Code(s): I50.43 - Acute on chronic combined systolic (congestive) and diastolic ( congestive) heart failure Is this a current diagnosis for this admission?: Yes Plan: Patient does have a history of cardiomyopathy. 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
[2017-08-09] MEDS ORDERED: PREDNISONE 20 MG TABLET PO ONE (15:45)
[2017-08-09] MEDS: OXYCODONE-ACETAMINOPHEN 5-325 MG TABLET PO PRN (17:05)
[2017-08-09] MEDS: IPRATROPIUM/ALBUTEROL 0.5-2.5 MG/3 ML AMPUL NEB SCH (19:47)
[2017-08-10] MEDS: EPLERENONE 25 MG TABLET PO SCH ×3 (00:28→21:50)
[2017-08-10] MEDS: CARVEDILOL 6.25 MG TABLET PO SCH ×3 (00:29→21:52)
[2017-08-10] MEDS: ISOSORB DINIT/HYDRALAZINE HCL 20-37.5 MG TABLET PO SCH ×4 (00:30→21:51)
[2017-08-10] MEDS: CLOBETASOL PROPIONATE 0.05% OINTMENT 15 GM TOP SCH ×3 (00:31→21:52)
[2017-08-10 06:37] LABS: ANION GAP 12 (5-19); BLOOD UREA NITROGEN 35 mg/dL (7-20); CALCIUM 9.5 mg/dL (8.4-10.2); CARBON DIOXIDE 26 mmol/L (22-30); CHLORIDE 100 mmol/L (98-107); GLUCOSE 154 mg/dL (75-110); SODIUM 137.5 mmol/L (137-145)
[2017-08-10] MEDS: OXYCODONE-ACETAMINOPHEN 5-325 MG TABLET PO PRN ×3 (06:57→21:51)
[2017-08-10] MEDS: IPRATROPIUM/ALBUTEROL 0.5-2.5 MG/3 ML AMPUL NEB SCH ×3 (08:02→19:45)
[2017-08-10] MEDS: GLIPIZIDE 5 MG TABLET PO SCH (09:04)
[2017-08-10] MEDS: DOCUSATE SODIUM 100 MG CAPSULE PO SCH (09:10)
[2017-08-10] MEDS ORDERED: PREDNISONE 20 MG TABLET PO SCH ×2 (10:00→11:08)
--- NOTE | 2017-08-10 11:21 | PDOC PROGRESS REPORT ---
Subjective Progress Note for:: 08/10/17 Subjective:: Patient feels better today, breathing better and pain better Reason For Visit: CHF EXACERBATION Physical Exam Vital Signs: Temp Pulse Resp BP Pulse Ox 97.5 F 64 18 105/73 97 08/10/17 07:42 08/10/17 08:02 08/10/17 08:02 08/10/17 07:42 08/10/17 08:02 Intake & Output 08/09/17 08/10/17 08/11/17 06:59 06:59 06:59 Intake Total 1998 914 Output Total 400 675 Balance 1599 239 Weight 113.6 kg 113 kg General appearance: PRESENT: no acute distress Head exam: PRESENT: atraumatic Ear exam: PRESENT: normal external ear exam Neck exam: PRESENT: carotid bruit Respiratory exam: PRESENT: clear to auscultation familia. ABSENT: rales, rhonchi, wheezes Cardiovascular exam: PRESENT: RRR. ABSENT: diastolic murmur, rubs, systolic murmur Pulses: PRESENT: normal dorsalis pedis pul GI/Abdominal exam: PRESENT: normal bowel sounds, soft. ABSENT: distended, guarding, mass, organolmegaly, rebound, tenderness Rectal exam: PRESENT: deferred Musculoskeletal exam: PRESENT: ambulatory, full ROM Neurological exam: PRESENT: alert, awake, oriented to person, oriented to place , oriented to time, oriented to situation, CN II-XII grossly intact. ABSENT: motor sensory deficit Results Laboratory Results: 08/08/17 04:25 08/10/17 05:04 08/10/17 05:04 Sodium 137.5 Potassium 5.0 Chloride 100 Carbon Dioxide 26 Anion Gap 12 BUN 35 H Creatinine 1.19 Est GFR ( Amer) > 60 Est GFR (Non-Af Amer) > 60 Glucose 154 H Calcium 9.5 08/07/17 08/08/17 08/09/17 22:05 04:25 04:36 Troponin I 0.034 0.043 NT-Pro-B Natriuret Pep 2170 H 08/10/17 05:04 Troponin I NT-Pro-B Natriuret Pep 1300 H Impressions: Chest X-Ray 08/07/17 12:08 IMPRESSION: There appears to be limited persistent right lower lobe pneumonia. Assessment & Plan - Diagnosis (1) Acute on chronic congestive heart failure Qualifiers: Heart failure type: combined systolic and diastolic Qualified Code(s): I50.43 - Acute on chronic combined systolic (congestive) and diastolic ( congestive) heart failure Is this a current diagnosis for this admission?: Yes Plan: Patient does have a history of cardiomyopathy. Appreciate cardiology Input (2) Cardiomyopathy Qualifiers: Cardiomyopathy type: unspecified Qualified Code(s): I42.9 - Cardiomyopathy , unspecified Is this a current diagnosis for this admission?: Yes Plan: Sinus tachycardia with borderline prolonged QT interval and abnormal T waves in inferior leads. 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 Cont bronchodilators as well as low-dose oral steroids - Time Time Spent with patient: 15-24 minutes Medications reviewed and adjusted accordingly: Yes Anticipated discharge: Home Within: within 48 hours
[2017-08-10] MEDS: TRIAMCINOLONE ACETONIDE 0.1% CREAM 15 GM TOP SCH ×3 (12:15→17:36)
[2017-08-11] MEDS: ISOSORB DINIT/HYDRALAZINE HCL 20-37.5 MG TABLET PO SCH ×2 (05:08→13:51)
[2017-08-11] MEDS: OXYCODONE-ACETAMINOPHEN 5-325 MG TABLET PO PRN ×2 (05:09→11:26)
[2017-08-11] MEDS: IPRATROPIUM/ALBUTEROL 0.5-2.5 MG/3 ML AMPUL NEB SCH ×2 (07:47→13:40)
[2017-08-11] MEDS: CARVEDILOL 6.25 MG TABLET PO SCH (09:05)
[2017-08-11] MEDS: TRIAMCINOLONE ACETONIDE 0.1% CREAM 15 GM TOP SCH ×2 (09:06→13:52)
[2017-08-11] MEDS: DOCUSATE SODIUM 100 MG CAPSULE PO SCH (09:06)
[2017-08-11] MEDS: EPLERENONE 25 MG TABLET PO SCH (09:06)
[2017-08-11] MEDS: GLIPIZIDE 5 MG TABLET PO SCH (09:06)
[2017-08-11] MEDS: CLOBETASOL PROPIONATE 0.05% OINTMENT 15 GM TOP SCH (09:06)
--- NOTE | 2017-08-11 10:04 | EKG REPORT ---
SEVERITY:- ABNORMAL ECG - SINUS RHYTHM FIRST DEGREE AV BLOCK PROBABLE LEFT ATRIAL ABNORMALITY LEFT AXIS DEVIATION LEFT VENTRICULAR HYPERTROPHY : Confirmed by: Eulogio Torres 11-Aug-2017 10:03:47
--- NOTE | 2017-08-11 10:24 | PDOC PROGRESS REPORT ---
Subjective Progress Note for:: 08/11/17 Subjective:: Patient seems to be feeling better. He is denying any chest pain shortness of breath has improved. He has noted some increased wheezing. Patient does give history of asthma. Currently feels he is much improved and is looking forward to be discharged. He had a EKG done today which did not show any significant ischemic changes. Reason For Visit: CHF EXACERBATION Physical Exam Vital Signs: Temp Pulse Resp BP Pulse Ox 98.2 F 100 16 123/79 97 08/11/17 07:43 08/11/17 07:47 08/11/17 07:47 08/11/17 07:43 08/11/17 07:43 Intake & Output 08/10/17 08/11/17 08/12/17 06:59 06:59 06:59 Intake Total 914 1029 Output Total 675 Balance 239 1029 Weight 113 kg 114 kg Exam: GENERAL: well-nourished and in no acute distress. Alert and oriented x3 HEAD: Atraumatic, normocephalic. EYES: Pupils equal round and reactive to light, extraocular movements intact, sclera anicteric, conjunctiva are normal. ENT: TMs normal, nares patent, oropharynx clear without exudates. Moist mucous membranes. No oral ulcerations or bleeding gums noted NECK: supple without lymphadenopathy. Trachea is central. No cervical or axillary lymphadenopathy noted. Carotids are 2+, JVD WNL LUNGS: Respiration seems nonlabored, no significant accessory muscle action noted. Breath sounds clear to auscultation bilaterally and equal noted. No wheezes rales or rhonchi noted. No significant dullness noted on percussion. CHEST: Palpation of the chest wall shows no significant chest wall tenderness. No other significant abnormalities noted. 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 ABDOMEN: Soft, no significant tenderness appreciated, normoactive bowel sounds. No guarding, no rebound. No rigidity noted . No masses appreciated. EXTREMITIES: Pedal pulses are 1-2+, no calf tenderness noted. No clubbing or cyanosis.trace pedal edema noted NEUROLOGICAL: Focused neurological exam showed no significant neurologic deficit. Normal speech, no focal weakness appreciated. PSYCH: Normal mood, normal affect. Judgment and insight within normal limits. SKIN: No significant ecchymosis, skin is noted to be warm. MUSCULOSKELETAL EXAM: No significant acute joint swelling noted. Results Laboratory Results: 08/08/17 04:25 08/10/17 05:04 08/07/17 08/08/17 08/09/17 22:05 04:25 04:36 Troponin I 0.034 0.043 NT-Pro-B Natriuret Pep 2170 H 08/10/17 05:04 Troponin I NT-Pro-B Natriuret Pep 1300 H EKG Comments: Telemetry strip shows sinus rhythm without any sustained tachycardia or bradycardia. Impressions: Chest X-Ray 08/07/17 12:08 IMPRESSION: There appears to be limited persistent right lower lobe pneumonia. Assessment & Plan - Diagnosis (1) Acute on chronic congestive heart failure Qualifiers: Heart failure type: combined systolic and diastolic Qualified Code(s): I50.43 - Acute on chronic combined systolic (congestive) and diastolic ( congestive) heart failure Is this a current diagnosis for this admission?: Yes (2) Sleep apnea syndrome Qualifiers: Sleep apnea type: unspecified type Qualified Code(s): G47.30 - Sleep apnea , unspecified Is this a current diagnosis for this admission?: Yes (3) Diabetes Qualifiers: Diabetes mellitus type: type 2 Diabetes mellitus jail insulin use: without terminal operations supervisor use Diabetes mellitus complication status: with hyperglycemia Qualified Code(s): E11.65 - Type 2 diabetes mellitus with hyperglycemia Is this a current diagnosis for this admission?: Yes (4) Cardiomyopathy Qualifiers: Cardiomyopathy type: unspecified Qualified Code(s): I42.9 - Cardiomyopathy , unspecified Is this a current diagnosis for this admission?: Yes (5) Chronic kidney disease, stage III (moderate) Is this a current diagnosis for this admission?: Yes (6) Hypertension Qualifiers: Hypertension type: essential hypertension Qualified Code(s): I10 - Essential (primary) hypertension Is this a current diagnosis for this admission?: Yes (7) COPD exacerbation Is this a current diagnosis for this admission?: Yes (8) Cardiac defibrillator in situ Is this a current diagnosis for this admission?: Yes - Notes Notes: Switched patient to furosemide 80 mg p.o. daily. Acute on chronic congestive heart failure: Systolic and diastolic combined CHF acute on chronic. Currently seems compensated by exam. Continue current regimen. Sleep apnea syndrome: Patient encouraged in compliance with CPAP therapy. Diabetes: Currently well controlled. Patient advised to follow-up with primary care physician. Cardiomyopathy: Patient has a primary prevention defibrillator in place. Currently is stable. Chronic kidney disease: Stable. Monitor renal functions periodically. Hypertension: Reasonably well controlled. Blood pressure goal in this patient is 135/85 or less. This was discussed with the patient. Currently blood pressure under reasonable control. Better medication for this patient are JAMISON inhibitor/ARB/beta walter etc. discussed side effects of uncontrolled hypertension and also severe hypotension. COPD exacerbation: Patient advised to avoid fast and and secondhand smoking. Currently is stable on bronchodilator and steroid therapy. Cardiac defibrillator in situ: Stable no evidence of infection. No recent discharges. Patient to follow-up in the defibrillator clinic. - Time Time with patient: Greater than 35 minutes - CODE STATUS was discussed, patient remains full code. Surrogate decision-maker unchanged. Multiple medical problems were addressed. More than 50% of the time spent coordinating care, discussing management plans with involved caregivers. Management plans discussed with involved personnels. Medical decision making was of moderate to high complexity, patient's has multiple comorbidities. Medications reviewed and adjusted accordingly: Yes
[2017-08-11] MEDS ORDERED: HYDROXYZINE PAMOATE 25 MG CAPSULE PO PRN (10:31)
[2017-08-11 13:55] VITALS: BP 140/99
--- NOTE | 2017-08-11 14:17 | PDOC DISCHARGE SUMMARY ---
General - Admit/Disc Date/PCP Admission Date/Primary Care Provider: 08/07/17 15:09 NAHOMI MUNIZ, Discharge Date: 08/11/17 - Discharge Diagnosis (1) Acute on chronic congestive heart failure Is this a current diagnosis for this admission?: Yes (2) Cardiomyopathy Is this a current diagnosis for this admission?: Yes (3) Chronic kidney disease, stage III (moderate) Is this a current diagnosis for this admission?: Yes (4) Hypertension Is this a current diagnosis for this admission?: Yes (5) Obesity Is this a current diagnosis for this admission?: Yes (6) Diabetes Is this a current diagnosis for this admission?: Yes (7) COPD exacerbation Is this a current diagnosis for this admission?: Yes - Additional Information Resuscitation Status: Full Code Discharge Diet: Cardiac Discharge Activity: Activity As Tolerated, Balance Activity w/Rest, Weigh Daily Prescriptions: Oxycodone HCl/Acetaminophen [Percocet 5-325 mg Tablet] 2 tab PO Q6HP PRN #20 tablet PRN Reason: Eplerenone [Inspra 25 mg Tablet] 25 mg PO Q12 30 Days #60 tablet Furosemide [Lasix 80 mg Tablet] 80 mg PO DAILY 30 Days tablet Isosorb Dinit/Hydralazine HCl [Bidil 20-37.5 mg Tablet] 1 tab PO Q8 #30 tablet Prednisone [Deltasone 20 mg Tablet] 20 mg PO DAILY 3 Days tablet Home Medications: Albuterol Sulfate [Albuterol Sulfate 2.5mg/3 mL] 2.5 mg NEB Q6HP PRN 08/07/17 Albuterol Sulfate [Proair HFA Inhalation Aerosol 8.5 gm MDI] 1 puff IH Q4HP PRN 08/07/17 Carvedilol [Coreg 6.25 mg Tablet] 6.25 mg PO Q12 08/07/17 Clobetasol Propionate [Temovate 0.05% Ointment 15 gm] 1 applic TOP BID 08/07/17 Glipizide [Glucotrol 5 mg Tablet] 5 mg PO ACBRKFST 08/07/17 Triamcinolone Acetonide [Aristocort 0.1% Cream] 1 applic TOP TID 08/07/17 Eplerenone [Inspra 25 mg Tablet] 25 mg PO Q12 30 Days #60 tablet 08/11/17 Furosemide [Lasix 80 mg Tablet] 80 mg PO DAILY 30 Days tablet 08/11/17 Isosorb Dinit/Hydralazine HCl [Bidil 20-37.5 mg Tablet] 1 tab PO Q8 #30 tablet 08/11/17 Oxycodone HCl/Acetaminophen [Percocet 5-325 mg Tablet] 2 tab PO Q6HP PRN #20 tablet 08/11/17 Prednisone [Deltasone 20 mg Tablet] 20 mg PO DAILY 3 Days tablet 08/11/17 History of Present Illness History of Present Illness: GAVIOTA LUCERO is a 57 year old male Patient presents to the emergency room with complaints of difficulty breathing and shortness of breath. 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 Patient complains of productive cough with blood-tinged sputum for about a month. He has been treated for pneumonia but patient still states that he has some lingering symptoms. Chest x-ray today shows persistent right lower lobe infiltrates however patient is afebrile and it appears the symptoms more secondary to CHF decompensation. He was placed on BiPAP temporarily in the emergency room although by the time I saw him he was off the BiPAP and was able to converse with no distress. Hospital Course Hospital Course: Patient was admitted with difficulty breathing and shortness of breath and was thought to have acute exacerbation of CHF. He had recently been treated for pneumonia and there was a questionable lingering pneumonia however there was no evidence of an acute infection and patient received no antibiotics while in hospital. He however was treated for CHF decompensation with intravenous diuretics as well as vasodilators and was seen by Dr. Torres who helped to manage his congestive heart failure. Patient was also treated for mild exacerbation of COPD with bronchodilators as well as low-dose steroids which she will continue for a few more days as outpatient. He seems to have diuresed pretty well with his BMP improving from 7000 to about 1000 today. His medications were also adjusted and he will need further outpatient adjustment as by his response. At this time patient is hemodynamically stable and he has improved clinically and so he has been discharged home for outpatient follow-up. Physical Exam Vital Signs: Temp Pulse Resp BP Pulse Ox 97.9 F 94 16 140/99 H 98 08/11/17 13:54 08/11/17 13:54 08/11/17 13:54 08/11/17 13:54 08/11/17 13:54 Intake & Output 08/10/17 08/11/17 08/12/17 06:59 06:59 06:59 Intake Total 914 1029 118 Output Total 675 Balance 239 1029 118 Weight 113 kg 114 kg General appearance: PRESENT: no acute distress Head exam: PRESENT: atraumatic Mouth exam: PRESENT: moist, tongue midline Neck exam: ABSENT: carotid bruit, JVD, lymphadenopathy, thyromegaly Respiratory exam: PRESENT: clear to auscultation familia. ABSENT: rales, rhonchi, wheezes Cardiovascular exam: PRESENT: RRR, other - AICD on chest wall. ABSENT: diastolic murmur, rubs, systolic murmur Pulses: PRESENT: normal dorsalis pedis pul GI/Abdominal exam: PRESENT: normal bowel sounds, soft. ABSENT: distended, guarding, mass, organolmegaly, rebound, tenderness Rectal exam: PRESENT: deferred Extremities exam: PRESENT: full ROM. ABSENT: calf tenderness, clubbing, pedal edema Musculoskeletal exam: PRESENT: ambulatory, full ROM Neurological exam: PRESENT: alert, awake, oriented to person, oriented to place , oriented to time, oriented to situation, CN II-XII grossly intact. ABSENT: motor sensory deficit Psychiatric exam: PRESENT: appropriate affect Results Laboratory Results: 08/08/17 04:25 08/10/17 05:04 08/07/17 08/08/17 08/09/17 22:05 04:25 04:36 Troponin I 0.034 0.043 NT-Pro-B Natriuret Pep 2170 H 08/10/17 05:04 Troponin I NT-Pro-B Natriuret Pep 1300 H Impressions: Chest X-Ray 08/07/17 12:08 IMPRESSION: There appears to be limited persistent right lower lobe pneumonia. Qualifiers - * PATEINT BEING DISCHARGED WITH ANY OF THE FOLLOWING DIAGNOSIS?: Heart Failure HF Pt being discharged on ACEI for LVEF less than 40%?: Yes HF Pt being discharged on ARBS for LVEF less than 40%?: No Reason(s) for not prescribing ARBS:: Not indicated HF Pt with Afib discharged with Warfarin?: No Reason(s) for not prescribing Warfarin:: Not indicated - No Atrial fibrillation HF Pt discharged on evidence-based Beta Arpita:: Yes
[2017-08-12] MEDS ORDERED: FUROSEMIDE 80 MG TABLET PO SCH (10:00)
== END 2017-08-11 14:13 | disposition home or self-care (01) | DRG 291 ==
LOC: ER 11:51 → EH 15:09 → 3N 20:25
PROVIDERS: ADMIT Family Medicine; ATTEND Family Medicine
DX: I13.0 Hypertensive heart and chronic kidney disease with heart failure and stage 1 through stage 4 chronic kidney disease, or unspecified chronic kidney disease (principal); I50.43 Acute on chronic combined systolic (congestive) and diastolic (congestive) heart failure; E11.22 Type 2 diabetes mellitus with diabetic chronic kidney disease; I42.9 Cardiomyopathy, unspecified; J44.1 Chronic obstructive pulmonary disease with (acute) exacerbation; N18.3 Chronic kidney disease, stage 3 (moderate); E11.65 Type 2 diabetes mellitus with hyperglycemia; E66.09 Other obesity due to excess calories; I25.2 Old myocardial infarction; Z68.35 Body mass index [BMI] 35.0-35.9, adult; Z95.810 Presence of automatic (implantable) cardiac defibrillator; Z79.84 Long term (current) use of oral hypoglycemic drugs; Z79.51 Long term (current) use of inhaled steroids; Z79.899 Other long term (current) drug therapy
CPT/HCPCS: 36415; 71046; 80048; 80053; 82550; 82553; 82962; 83880; 84484; 85025; 85027; 93005; 93010; 94640; 96374; 96375; 99285; J1940; J2930; J3490; J7512; J7620

== ENCOUNTER 2017-09-26 12:43 | Emergency (ER) | payer MEDICAID ==
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
--- NOTE | 2017-09-26 14:52 | RADIOLOGY REPORT (SQ) ---
EXAM DESCRIPTION: CT CERVICAL SPINE WITHOUT COMPLETED DATE/TIME: 09/26/2017 2:13 pm REASON FOR STUDY: pain s/p fall COMPARISON: None. TECHNIQUE: Axial images acquired through the cervical spine without intravenous contrast. Images re viewed with lung, soft tissue and bone windows. Reconstructed coronal and sagittal MPR images review ed. Images stored on PACS. All CT scanners at this facility use dose modulation, iterative reconstruction, and/or weight based d osing when appropriate to reduce radiation dose to as low as reasonably achievable (ALARA). [facility]: Dose Right [facility]: CareDose [facility]: Dose Right [facility]: Teradose 4D [facility]: Smart EdRover RADIATION DOSE: CT Rad equipment meets quality standard of care and radiation dose reduction techniq ues were employed. CTDIvol: 31.8 mGy. DLP: 760 mGy-cm. mGy. LIMITATIONS: None. FINDINGS: ALIGNMENT: Anatomic. MINERALIZATION: Normal. VERTEBRAL BODIES: No fractures or dislocation. DISCS: Multilevel disc space narrowing. Small anteriorly projecting osteophytes at C4-5 and C5-6 par ticularly. Uncovertebral spurring and facet arthropathy results in right foraminal stenosis at C7-T1 . Central canal relatively preserved throughout. FACETS, LATERAL MASSES, POSTERIOR ELEMENTS: As above. Posterior elements otherwise look intact. HARDWARE: None in the spine. VISUALIZED RIBS: No fractures. LUNG APICES AND SOFT TISSUES: No significant or acute findings. OTHER: No other significant finding. IMPRESSION: Cervical spondylosis. No posttraumatic malalignment or fracture evident. TECHNICAL DOCUMENTATION: JOB ID: [id number] Quality ID # [id number]: Final reports with documentation of one or more dose reduction techniques (e.g., Au tomated exposure control, adjustment of the mA and/or kV according to patient size, use of iterative reconstruction technique) 2010 [employer]- All Rights Reserved Reading location - IP/workstation name: [email or web address]
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
[2017-09-26 15:20] VITALS: BP 138/96
== END 2017-09-26 15:20 | disposition home or self-care (01) ==
LOC: ER 12:43
DX: T14.90XA Injury, unspecified, initial encounter (principal); M54.2 Cervicalgia; M54.5 Low back pain; W10.9XXA Fall (on) (from) unspecified stairs and steps, initial encounter; G89.29 Other chronic pain; E11.9 Type 2 diabetes mellitus without complications; I10 Essential (primary) hypertension; J45.909 Unspecified asthma, uncomplicated
CPT/HCPCS: 99283; 72125; 72131; L0120

== ENCOUNTER 2017-10-14 08:48 | Emergency (ER) | payer MEDICAID ==
[2017-10-14 08:54] VITALS: BP 127/94
[2017-10-14] MEDS ORDERED: DEXAMETHASONE SOD PHOS INJ 10 MG/1 ML VIAL IM ONE (10:03)
[2017-10-14] MEDS ORDERED: CLINDAMYCIN HCL 150 MG CAPSULE PO ONE (10:03)
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
== END 2017-10-14 10:30 | disposition home or self-care (01) ==
LOC: ER 08:48
DX: G89.29 Other chronic pain (principal); M54.5 Low back pain; L02.811 Cutaneous abscess of head [any part, except face]; M54.32 Sciatica, left side; I11.0 Hypertensive heart disease with heart failure; I50.9 Heart failure, unspecified; E11.9 Type 2 diabetes mellitus without complications; Z87.891 Personal history of nicotine dependence; Z91.040 Latex allergy status; Z88.6 Allergy status to analgesic agent; Z88.0 Allergy status to penicillin; I25.2 Old myocardial infarction; Z95.0 Presence of cardiac pacemaker
CPT/HCPCS: 99283; 96372; 87070; 87205; 87075; 87077; 87186; J3490; J1100

== ENCOUNTER 2017-11-13 06:17 | Emergency (ER) | payer MEDICAID ==
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
[2017-11-13] MEDS ORDERED: ALBUTEROL SULFATE 0.083% NEB 2.5 MG/3 ML AMPUL NEB ONE (07:12)
[2017-11-13 07:13] LABS: ABSOLUTE BASOPHILS # (AUTO) 0.1 10^3/uL (0.0-0.2); ABSOLUTE EOSINOPHILS # (AUTO) 0.1 10^3/uL (0.0-0.6); ABSOLUTE LYMPHOCYTES (AUTO) 1.7 10^3/uL (0.5-4.7); ABSOLUTE MONOCYTES (AUTO) 0.7 10^3/uL (0.1-1.4); ABSOLUTE NEUT (AUTO) 8.9 10^3/uL (1.7-8.2); BASOPHILS % (AUTO) 0.9 % (0-2); EOSINOPHILS % (AUTO) 0.5 % (0-6); HEMATOCRIT 43.6 % (37.9-51.0); HEMOGLOBIN 13.8 g/dL (13.5-17.0); INTERNATIONAL RATION (INR) 1.11; LYMPHOCYTES % (AUTO) 14.4 % (13-45); MEAN CORPUSCULAR HEMOGLOBIN 25.1 pg (27.0-33.4); MEAN CORPUSCULAR HGB CONC 31.7 g/dL (32.0-36.0); MEAN CORPUSCULAR VOLUME 79 fl (80-97); MONOCYTES % (AUTO) 6.4 % (3-13); PLATELET COUNT 425 10^3/uL (150-450); PROTHROMBIN TIME 14.8 SEC (11.4-15.4); RED BLOOD COUNT 5.49 10^6/uL (4.35-5.55); RED CELL DISTRIBUTION WIDTH 18.5 % (11.5-14.0); SEGMENTED NEUTROPHILS % (AUTO) 77.8 % (42-78); TOTAL CELLS COUNTED % (AUTO) 100 %; WHITE BLOOD COUNT 11.5 10^3/uL (4.0-10.5)
[2017-11-13 07:21] LABS: ALANINE AMINOTRANSFERASE 47 U/L (21-72); ALKALINE PHOSPHATASE 66 U/L (38-126); ANION GAP 13 (5-19); ASPARTATE AMINO TRANSFERASE 34 U/L (17-59); BILIRUBIN,DIRECT 0.4 mg/dL (0.0-0.4); BILIRUBIN,TOTAL 1.4 mg/dL (0.2-1.3); BLOOD UREA NITROGEN 19 mg/dL (7-20); CALCIUM 9.6 mg/dL (8.4-10.2); CARBON DIOXIDE 27 mmol/L (22-30); CHLORIDE 106 mmol/L (98-107); GLUCOSE 209 mg/dL (75-110); POTASSIUM 4.1 mmol/L (3.6-5.0); SODIUM 145.7 mmol/L (137-145); TOTAL PROTEIN 6.8 g/dL (6.3-8.2)
--- NOTE | 2017-11-13 07:21 | RADIOLOGY REPORT (SQ) ---
EXAM DESCRIPTION: XR CHEST 1 VIEW COMPLETED DATE/TME: 11/13/2017 07:02 CLINICAL HISTORY: 57 years Male, sob COMPARISON: 3.15.18 NUMBER OF VIEWS/TECHNIQUE: 1/AP FINDINGS: Adequate lung volume, clear parenchyma, mildly enlarged cardiac silhouette, left cardiac stimulator with leads and intact bony thorax. IMPRESSION: No acute cardiopulmonary findings.
[2017-11-13] MEDS: IPRATROPIUM BROMIDE 0.02% NEB 0.5 MG/2.5 ML AMPUL NEB PRN ×2 (07:23→07:49)
[2017-11-13] MEDS ORDERED: ASPIRIN 325 MG TABLET PO ONE (07:35)
[2017-11-13] MEDS ORDERED: CLOPIDOGREL BISULFATE 300 MG TABLET PO ONE (08:42)
--- NOTE | 2017-11-13 09:39 | EKG REPORT ---
SEVERITY:- ABNORMAL ECG - SINUS TACHYCARDIA FIRST DEGREE AV BLOCK PROBABLE LEFT ATRIAL ABNORMALITY LEFT VENTRICULAR HYPERTROPHY ABNORMAL T, CONSIDER ISCHEMIA, DIFFUSE LEADS BORDERLINE PROLONGED QT INTERVAL : Confirmed by: Eulogio Torres 13-Nov-2017 09:39:37
--- NOTE | 2017-11-13 09:39 | EKG REPORT ---
SEVERITY:- ABNORMAL ECG - SINUS TACHYCARDIA PROBABLE LEFT ATRIAL ABNORMALITY ABNORMAL T, CONSIDER ISCHEMIA, DIFFUSE LEADS BORDERLINE PROLONGED QT INTERVAL : Confirmed by: Eulogio Torres 13-Nov-2017 09:39:03
[2017-11-13] MEDS ORDERED: ENOXAPARIN SODIUM INJ 150 MG/1 ML DISP.SYRIN SUBCUT SCH (10:00)
[2017-11-13] MEDS ORDERED: ATORVASTATIN CALCIUM 80 MG TABLET PO ONE (10:55)
[2017-11-13] MEDS ORDERED: METOPROLOL TARTRATE 25 MG TABLET PO ONE (10:55)
[2017-11-13] MEDS ORDERED: OXYCODONE-ACETAMINOPHEN 5-325 MG TABLET PO ONE (11:54)
[2017-11-13 12:00] VITALS: BP 131/116
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
--- NOTE | 2017-11-13 22:54 | EKG REPORT ---
SEVERITY:- ABNORMAL ECG - SINUS RHYTHM FIRST DEGREE AV BLOCK PROBABLE LEFT ATRIAL ABNORMALITY PROBABLE INFERIOR INFARCT, AGE INDETERMINATE BORDERLINE PROLONGED QT INTERVAL : Confirmed by: Eulogio Torres 13-Nov-2017 22:53:57
== END 2017-11-13 12:55 | disposition short-term general hospital (02) ==
LOC: ER 06:17
DX: I21.4 Non-ST elevation (NSTEMI) myocardial infarction (principal); I13.0 Hypertensive heart and chronic kidney disease with heart failure and stage 1 through stage 4 chronic kidney disease, or unspecified chronic kidney disease; E11.22 Type 2 diabetes mellitus with diabetic chronic kidney disease; N18.9 Chronic kidney disease, unspecified; I50.9 Heart failure, unspecified; R07.9 Chest pain, unspecified; R06.02 Shortness of breath; R05 Cough; J45.909 Unspecified asthma, uncomplicated
CPT/HCPCS: 93005; 94640 ×2; 99285; 36415; 83735; 85025; 85610; 80053; 84484; 83880; 71045; 93010; J3490 ×5

== ENCOUNTER 2018-03-17 16:22 | Emergency (ER) | payer MEDICAID ==
[~2018-03-17 16:22] MED LIST: ASPIRIN 81 MG TABLET, CHEWABLE PO ONE
[2018-03-17 16:38] LABS: ABSOLUTE BASOPHILS # (AUTO) 0.1 10^3/uL (0.0-0.2); ABSOLUTE EOSINOPHILS # (AUTO) 0.1 10^3/uL (0.0-0.6); ABSOLUTE LYMPHOCYTES (AUTO) 1.6 10^3/uL (0.5-4.7); ABSOLUTE MONOCYTES (AUTO) 0.7 10^3/uL (0.1-1.4); BASOPHILS % (AUTO) 0.6 % (0-2); EOSINOPHILS % (AUTO) 1.4 % (0-6); HEMATOCRIT 38.9 % (37.9-51.0); HEMOGLOBIN 12.4 g/dL (13.5-17.0); LYMPHOCYTES % (AUTO) 19.3 % (13-45); MEAN CORPUSCULAR HEMOGLOBIN 25.3 pg (27.0-33.4); MEAN CORPUSCULAR HGB CONC 31.8 g/dL (32.0-36.0); MEAN CORPUSCULAR VOLUME 80 fl (80-97); MONOCYTES % (AUTO) 8.1 % (3-13); PLATELET COUNT 370 10^3/uL (150-450); RED CELL DISTRIBUTION WIDTH 17.5 % (11.5-14.0); SEGMENTED NEUTROPHILS % (AUTO) 70.6 % (42-78); TOTAL CELLS COUNTED % (AUTO) 100 %; WHITE BLOOD COUNT 8.5 10^3/uL (4.0-10.5)
[2018-03-17 17:02] LABS: ALANINE AMINOTRANSFERASE 75 U/L (21-72); ALBUMIN 3.8 g/dL (3.5-5.0); ALKALINE PHOSPHATASE 100 U/L (38-126); ANION GAP 12 (5-19); ASPARTATE AMINO TRANSFERASE 70 U/L (17-59); BILIRUBIN,DIRECT 0.6 mg/dL (0.0-0.4); BILIRUBIN,TOTAL 1.4 mg/dL (0.2-1.3); BLOOD UREA NITROGEN 18 mg/dL (7-20); CALCIUM 9.3 mg/dL (8.4-10.2); CARBON DIOXIDE 29 mmol/L (22-30); CHLORIDE 102 mmol/L (98-107); CREATINE KINASE 67 U/L (55-170); GLUCOSE 105 mg/dL (75-110); POTASSIUM 3.7 mmol/L (3.6-5.0); SODIUM 143.3 mmol/L (137-145); TOTAL PROTEIN 6.8 g/dL (6.3-8.2)
[2018-03-17 17:13] LABS: CREATINE KINASE MB 1.32 ng/mL (<4.55)
[2018-03-17] MEDS ORDERED: IPRATROPIUM/ALBUTEROL 0.5-2.5 MG/3 ML AMPUL NEB ONE ×3 (17:15→18:21)
[2018-03-17 17:17] LABS: TROPONIN I 0.044 ng/mL
[2018-03-17] MEDS ORDERED: ONDANSETRON HCL INJ/PF 4 MG/2 ML SDV IV ONE (17:17)
[2018-03-17] MEDS ORDERED: MORPHINE SULFATE 10 MG/ML INJ IV ONE (17:17)
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
--- NOTE | 2018-03-17 18:08 | RADIOLOGY REPORT (SQ) ---
EXAM DESCRIPTION: CHEST SINGLE VIEW COMPLETED DATE/TIME: 03/17/2018 4:54 pm REASON FOR STUDY: cp COMPARISON: 08/07/2017 EXAM PARAMETERS: NUMBER OF VIEWS: One view. TECHNIQUE: Single frontal radiographic view of the chest acquired. RADIATION DOSE: NA LIMITATIONS: None. FINDINGS: LUNGS AND PLEURA: No opacities, masses or pneumothorax. No pleural effusion. MEDIASTINUM AND HILAR STRUCTURES: No masses. Contour normal. HEART AND VASCULAR STRUCTURES: Heart remains enlarged. No failure. BONES: No acute findings. HARDWARE: Battery pack and leads remain in place. OTHER: No other significant finding. IMPRESSION: Stable cardiomegaly. No acute findings in the chest. TECHNICAL DOCUMENTATION: JOB ID: [id number] [employer]- All Rights Reserved Reading location - IP/workstation name: [email or web address]
[2018-03-17 20:08] LABS: APPEARANCE,URINE CLEAR; BILIRUBIN,URINE SMALL (NEGATIVE); COLOR,URINE AMBER; GLUCOSE, URINE NEGATIVE (NEGATIVE); KETONES,URINE NEGATIVE (NEGATIVE); LEUKOCYTE ESTERASE,URINE NEGATIVE (NEGATIVE); NITRITE,URINE NEGATIVE (NEGATIVE); PROTEIN,URINE >=500 mg/dL (NEGATIVE)
[2018-03-17 20:30] LABS: URINE AMPHETAMINES SCREEN NEGATIVE; URINE BARBITURATES SCREEN NEGATIVE; URINE BENZODIAZEPINES SCREEN NEGATIVE; URINE COCAINE SCREEN UNCONFIRMED POSITIVE; URINE MARIJUANA (THC) SCREEN UNCONFIRMED POSITIVE; URINE METHADONE SCREEN NEGATIVE; URINE PHENCYCLIDINE SCREEN NEGATIVE
[2018-03-17] MEDS ORDERED: FUROSEMIDE INJ/PF 100 MG/10 ML SDV IV ONE (20:40)
--- NOTE | 2018-03-17 21:05 | EKG REPORT ---
SEVERITY:- ABNORMAL ECG - SINUS RHYTHM PROBABLE LEFT ATRIAL ABNORMALITY LEFT VENTRICULAR HYPERTROPHY BORDERLINE T ABNORMALITIES, INFERIOR LEADS BORDERLINE PROLONGED QT INTERVAL : Confirmed by: Eulogio Torres 17-Mar-2018 21:05:17
[2018-03-17] MEDS ORDERED: ALBUTEROL SULFATE HFA (90 MCG/PUFF) 200 PUFF/8.5 GM MDI IH ONE (22:30)
[2018-03-17] MEDS ORDERED: ALBUTEROL SULFATE HFA (90 MCG/PUFF) 8 GM MDI (1 MDI/ER DISP) IH ONE (22:35)
[2018-03-17 22:44] VITALS: BP 145/108
== END 2018-03-17 22:51 | disposition home or self-care (01) ==
LOC: ER 16:22
DX: J44.1 Chronic obstructive pulmonary disease with (acute) exacerbation (principal); T48.6X6A Underdosing of antiasthmatics, initial encounter; Z91.128 Patient's intentional underdosing of medication regimen for other reason; Z91.14 Patient's other noncompliance with medication regimen; F14.10 Cocaine abuse, uncomplicated; I11.0 Hypertensive heart disease with heart failure; I50.9 Heart failure, unspecified; I43 Cardiomyopathy in diseases classified elsewhere; R07.89 Other chest pain; R05 Cough; M25.572 Pain in left ankle and joints of left foot; R10.10 Upper abdominal pain, unspecified; E11.9 Type 2 diabetes mellitus without complications; Z79.899 Other long term (current) drug therapy; Z95.810 Presence of automatic (implantable) cardiac defibrillator; Z87.891 Personal history of nicotine dependence; Z88.8 Allergy status to other drugs, medicaments and biological substances; Z91.018 Allergy to other foods; Z88.5 Allergy status to narcotic agent; Z91.040 Latex allergy status
CPT/HCPCS: 93005; 94640 ×2; 99285; 96374; 96375; 36415; 82553; 82550; 83690; 83735; 85025; 80053; 81001; 84484; 80307; 83880; 71045; 93010; J1940; J2270; J2405; J3490 ×2; J7620

== ENCOUNTER 2018-04-27 08:45 | Inpatient (IN) | payer MEDICAID ==
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
--- NOTE | 2018-04-27 09:10 | EKG REPORT ---
SEVERITY:- ABNORMAL ECG - SINUS TACHYCARDIA FIRST DEGREE AV BLOCK BORDERLINE LEFT AXIS DEVIATION BORDERLINE T ABNORMALITIES, DIFFUSE LEADS CONSIDER INFERIOR IL AGE INETERMINATE : Confirmed by: Eulogio Torres 27-Apr-2018 09:09:26
[2018-04-27 09:11] LABS: INTERNATIONAL RATION (INR) 1.13; PARTIAL THROMBOPLASTIN TIME 24.2 SEC (23.5-35.8); PROTHROMBIN TIME 15.1 SEC (11.4-15.4)
[2018-04-27] MEDS ORDERED: ASPIRIN 81 MG TABLET, CHEWABLE PO ONE (09:20)
[2018-04-27 09:22] LABS: ABSOLUTE BASOPHILS # (AUTO) 0.1 10^3/uL (0.0-0.2); ABSOLUTE EOSINOPHILS # (AUTO) 0.1 10^3/uL (0.0-0.6); ABSOLUTE LYMPHOCYTES (AUTO) 1.7 10^3/uL (0.5-4.7); ABSOLUTE MONOCYTES (AUTO) 0.6 10^3/uL (0.1-1.4); ABSOLUTE NEUT (AUTO) 7.9 10^3/uL (1.7-8.2); BASOPHILS % (AUTO) 0.6 % (0-2); EOSINOPHILS % (AUTO) 0.9 % (0-6); HEMATOCRIT 41.1 % (37.9-51.0); HEMOGLOBIN 12.9 g/dL (13.5-17.0); LYMPHOCYTES % (AUTO) 16.4 % (13-45); MEAN CORPUSCULAR HEMOGLOBIN 23.6 pg (27.0-33.4); MEAN CORPUSCULAR HGB CONC 31.3 g/dL (32.0-36.0); MEAN CORPUSCULAR VOLUME 75 fl (80-97); MONOCYTES % (AUTO) 5.4 % (3-13); PLATELET COUNT 359 10^3/uL (150-450); RED BLOOD COUNT 5.45 10^6/uL (4.35-5.55); RED CELL DISTRIBUTION WIDTH 17.6 % (11.5-14.0); SEGMENTED NEUTROPHILS % (AUTO) 76.7 % (42-78); TOTAL CELLS COUNTED % (AUTO) 100 %; WHITE BLOOD COUNT 10.4 10^3/uL (4.0-10.5)
--- NOTE | 2018-04-27 09:32 | RADIOLOGY REPORT (SQ) ---
EXAM DESCRIPTION: CT HEAD WITHOUT COMPLETED DATE/TIME: 04/27/2018 9:06 am REASON FOR STUDY: stroke s/s COMPARISON: None. TECHNIQUE: Axial images acquired through the brain without intravenous contrast. Images reviewed wi th bone, brain and subdural windows. Additional sagittal and coronal reconstructions were generated. Images stored on PACS. All CT scanners at this facility use dose modulation, iterative reconstruction, and/or weight based d osing when appropriate to reduce radiation dose to as low as reasonably achievable (ALARA). [facility]: Dose Right [facility]: CareDose [facility]: Dose Right [facility]: Teradose 4D [facility]: Localisto RADIATION DOSE: Total exam DLP: 1715: 09 mGy. LIMITATIONS: Motion artifact limits the examination. FINDINGS: VENTRICLES: Normal size and contour. The cisterns are patent. CEREBRUM: Non hemorrhagic acute infarct in the right parietal lobe. No midline shift. No mass effe ct. CEREBELLUM: No masses. No hemorrhage. No alteration of density. No evidence for acute infarction. EXTRAAXIAL SPACES: No fluid collections. No masses. ORBITS AND GLOBE: No intra- or extraconal masses. Normal contour of globe without masses. CALVARIUM: No fracture. PARANASAL SINUSES: No fluid or mucosal thickening. SOFT TISSUES: No mass or hematoma. OTHER: No other significant finding. IMPRESSION: 1. Non-hemorrhagic acute infarct in the region of the right parietal lobe, distribution of the right middle cerebral artery. EVIDENCE OF STROKE: Yes. COMMENT: 1. The results of this examination were discussed with the emergency department provider o n 04/27/2018 at 09:20 hours. Quality ID # [id number]: Final reports with documentation of one or more dose reduction techniques (e.g., Au tomated exposure control, adjustment of the mA and/or kV according to patient size, use of iterative reconstruction technique) TECHNICAL DOCUMENTATION: JOB ID: [id number] [employer]- All Rights Reserved Reading location - IP/workstation name: [email or web address]
--- NOTE | 2018-04-27 09:33 | RADIOLOGY REPORT (SQ) ---
EXAM DESCRIPTION: CHEST SINGLE VIEW COMPLETED DATE/TIME: 04/27/2018 9:10 am REASON FOR STUDY: stroke s/s COMPARISON: 03/17/2018 EXAM PARAMETERS: NUMBER OF VIEWS: One view. TECHNIQUE: Single frontal radiographic view of the chest acquired. RADIATION DOSE: NA LIMITATIONS: None. FINDINGS: LUNGS AND PLEURA: No opacities, masses or pneumothorax. No pleural effusion. MEDIASTINUM AND HILAR STRUCTURES: No masses. Contour normal. HEART AND VASCULAR STRUCTURES: Cardiomegaly. Normal vasculature. BONES: No acute findings. HARDWARE: Cardiac pacemaker, stable finding. OTHER: No other significant finding. IMPRESSION: 1. No significant interval changes since the prior examination dated 03/17/2018. No ac missy findings. 2. Cardiomegaly, stable finding. TECHNICAL DOCUMENTATION: JOB ID: [id number] [employer]- All Rights Reserved Reading location - IP/workstation name: [email or web address]
[2018-04-27 10:02] LABS: ALANINE AMINOTRANSFERASE 38 U/L (21-72); ALBUMIN 4.2 g/dL (3.5-5.0); ALKALINE PHOSPHATASE 118 U/L (38-126); ANION GAP 16 (5-19); ASPARTATE AMINO TRANSFERASE 51 U/L (17-59); BILIRUBIN,DIRECT 0.8 mg/dL (0.0-0.4); BILIRUBIN,TOTAL 1.2 mg/dL (0.2-1.3); BLOOD UREA NITROGEN 20 mg/dL (7-20); CALCIUM 9.8 mg/dL (8.4-10.2); CARBON DIOXIDE 24 mmol/L (22-30); CHLORIDE 105 mmol/L (98-107); GLUCOSE 138 mg/dL (75-110); POTASSIUM 3.8 mmol/L (3.6-5.0); SODIUM 145.2 mmol/L (137-145); TOTAL PROTEIN 7.9 g/dL (6.3-8.2)
--- NOTE | 2018-04-27 10:27 | RADIOLOGY REPORT (SQ) ---
EXAM DESCRIPTION: CTA HEAD COMPLETED DATE/TIME: 04/27/2018 10:06 am REASON FOR STUDY: stroke COMPARISON: Noncontrast study earlier the same day. TECHNIQUE: Post IV contrast scanning, thin section axial imaging through the brain to evaluate the a rterial structures. Source and MIP images are saved and reviewed on PACS. Advanced 3D imaging as volume-rendering, MIPs, SSD performed? yes All CT scanners at this facility use dose modulation, iterative reconstruction, and/or weight based d osing when appropriate to reduce radiation dose to as low as reasonably achievable (ALARA). [facility]: Dose Right [facility]: CareDose [facility]: Dose Right [facility]: Teradose 4D [facility]: OxThera CONTRAST TYPE AND DOSE: contrast/concentration: Isovue 350.00 mg/ml; Total Contrast Delivered: 140.0 ml; Total Saline Delivered: 150.0 ml RENAL FUNCTION: Not obtained. LIMITATIONS: Timing of contrast. FINDINGS: [place]: The anterior, middle, posterior cerebral arteries are all patent. No ev idence of aneurysm or focal stenosis. POSTERIOR CIRCULATION: The distal vertebral arteries are patent as is the basilar artery. No aneurysm . BRAIN: No enhancing lesions. BONES: Intact as visualized. SINUSES: No fluid or mucosal thickening. OTHER: No other significant finding. IMPRESSION: NO CTA EVIDENCE OF STENOSIS OR ANEURYSM OF THE [place]. TECHNICAL DOCUMENTATION: JOB ID: [id number] Quality ID # [id number]: Final reports with documentation of one or more dose reduction techniques (e.g., Au tomated exposure control, adjustment of the mA and/or kV according to patient size, use of iterative reconstruction technique) 2010 [employer]- All Rights Reserved Reading location - IP/workstation name: [email or web address]
--- NOTE | 2018-04-27 10:29 | RADIOLOGY REPORT (SQ) ---
EXAM DESCRIPTION: CTA NECK COMPLETED DATE/TIME: 04/27/2018 10:06 am REASON FOR STUDY: stroke COMPARISON: None. TECHNIQUE: Axial dynamic scanning technique with dynamic contrast enhancement through the extra-yard crane operator nial carotid and vertebral arteries. Multiplanar reconstruction. 3-D MIPS and Volume-rendered imag es acquired at the workstation and saved to PACS. Images are reviewed in soft tissue, bone, lung w indows. All CT scanners at this facility use dose modulation, iterative reconstruction, and/or weight based d osing when appropriate to reduce radiation dose to as low as reasonably achievable (ALARA). [facility]: Dose Right [facility]: CareDose [facility]: Dose Right [facility]: Teradose 4D [facility]: [employer] CONTRAST TYPE AND DOSE: See separate report of the same date. RENAL FUNCTION: Not obtained. LIMITATIONS: Timing of contrast. FINDINGS: AORTIC ARCH: Normal three-vessel origin. Bilateral subclavian arteries are patent. No d issection. RIGHT CAROTIDS: Patent common, internal and external carotid arteries without suggestion of significa nt stenosis or irregular plaque. No dissection. RIGHT VERTEBRAL: Patent. No dissection. LEFT CAROTIDS: Patent common, internal and external carotid arteries without suggestion of significan t stenosis or irregular plaque. No dissection. LEFT VERTEBRAL: Patent. No dissection. OTHER: No other significant finding. OTHER: 3-D reconstructions confirm findings. IMPRESSION: NORMAL CTA OF THE EXTRA-CRANIAL CAROTID AND VERTEBRAL ARTERIES. COMMENT: Quality ID #[id number]: Measurements of distal internal carotid diameter were used as the denomina tor for stenosis measurement. TECHNICAL DOCUMENTATION: JOB ID: [id number] Quality ID # 436: Final reports with documentation of one or more dose reduction techniques (e.g., Au tomated exposure control, adjustment of the mA and/or kV according to patient size, use of iterative reconstruction technique) 2010 [employer]- All Rights Reserved Reading location - IP/workstation name: [email or web address]
[2018-04-27] MEDS ORDERED: ALBUTEROL SULFATE 0.083% NEB 2.5 MG/3 ML AMPUL NEB ONE (10:38)
[2018-04-27] MEDS ORDERED: IPRATROPIUM/ALBUTEROL 0.5-2.5 MG/3 ML AMPUL NEB ONE (10:38)
[2018-04-27] MEDS ORDERED: ACETAMINOPHEN 325 MG TABLET PO PRN (11:56)
[2018-04-27] MEDS ORDERED: ONDANSETRON 4 MG TAB.RAPDIS PO PRN (11:56)
[2018-04-27] MEDS ORDERED: LABETALOL HCL INJ 20 MG/4 ML DISP.SYRIN IV PRN (11:56)
[2018-04-27] MEDS: LEVALBUTEROL HCL NEB 1.25 MG/3 ML AMPUL NEB PRN ×2 (13:18→19:21)
[2018-04-27] MEDS: GABAPENTIN 300 MG CAPSULE PO SCH ×2 (13:18→21:26)
[2018-04-27] MEDS: ISOSORB DINIT/HYDRALAZINE HCL 20-37.5 MG TABLET PO SCH ×2 (13:19→18:13)
[2018-04-27 15:19] LABS: ANION GAP 15 (5-19); BLOOD UREA NITROGEN 19 mg/dL (7-20); CALCIUM 9.7 mg/dL (8.4-10.2); CARBON DIOXIDE 24 mmol/L (22-30); CHLORIDE 105 mmol/L (98-107); GLUCOSE 159 mg/dL (75-110); POTASSIUM 3.3 mmol/L (3.6-5.0); SODIUM 144.1 mmol/L (137-145)
[2018-04-27] MEDS: LANSOPRAZOLE 15 MG TAB.RAP.DR PO SCH (16:10)
[2018-04-27] MEDS: ENOXAPARIN SODIUM INJ 40 MG/0.4 ML DISP.SYRIN SUBCUT SCH (16:11)
[2018-04-27] MEDS ORDERED: DEXTROSE 50%-WATER SYRINGE 12.5 GM/25 ML DOSE IV PRN (17:55)
[2018-04-27] MEDS ORDERED: DEXTROSE 50%-WATER SYRINGE 25 GM/50 ML DOSE IV PRN (17:55)
[2018-04-27] MEDS ORDERED: DEXTROSE 40% GEL 15 GM TUBE PO PRN (17:55)
[2018-04-27] MEDS ORDERED: DEXTROSE 40% GEL 15 GM TUBE X 2 PO PRN (17:55)
[2018-04-27] MEDS ORDERED: GLUCAGON,HUMAN RECOMB 1 MG INJ IM PRN (17:55)
--- NOTE | 2018-04-27 19:43 | XCELERA REPORT ---
[address] [address] Transthoracic Echocardiogram Report Name: GAVIOTA LUCERO Age: 58 yrs Gender: Male : 1960 Patient Status: Inpatient Patient Location: [facility]^A Study Date: 04/27/2018 06:17 PM Height: 71 in Weight: 241 lb BSA: 2.3 m2 Procedure: A two-dimensional transthoracic echocardiogram with color flow and Doppler was performed. Study Quality: Poor. The study was technically difficult with many images being suboptimal in quality. Reason For Study: cardiomyopathy and new ischemiic stroke Ordering Physician: PRITESH AYALA Performed By: Jeanna Caputo Interpretation Summary There is no obvious cardiac source of embolus noted on this transthoracic echocardiogram. Follow-up with a RADHA is suggested if cardiac source is still suspected. LV EF is 10% Left ventricular systolic function is severely reduced. There is severe global hypokinesis of the left ventricle. No obvious thrombus although not a good study for this. Suspect RV and RA enlargement and reduced RV systolic function. There is a pacemaker lead in the right ventricle. The left atrium is moderately dilated. There is no evidence of mitral valve prolapse. There is no mitral valve stenosis. There is a mild amount of mitral regurgitation There is no aortic stenosis There is no LVOT obstruction. No aortic regurgitation is present. There is no tricuspid stenosis. There is a mild amount of tricuspid regurgitation RVSP is 44 mm of Hg , with RA mean of 10. There is no pericardial effusion. There is no obvious cardiac source of embolus noted on this transthoracic echocardiogram. Follow-up with a RADHA is suggested if cardiac source is still suspected MMode/2D Measurements & Calculations RVDd: 3.0 cm LVIDd: 6.7 cm FS: 4.9 % Ao root diam: 3.3 cm IVSd: 1.0 cm LVIDs: 6.4 cm EDV(Teich): 231.6 ml Ao root area: 8.8 cm2 LVPWd: 1.0 cm ESV(Teich): 206.8 ml LA dimension: 4.1 cm EF(Teich): 10.7 % Doppler Measurements & Calculations MV E max esperanza: MV P1/2t max esperanza: Ao V2 max: LV V1 max P.4 cm/sec 127.7 cm/sec 94.6 cm/sec 2.0 mmHg MV P1/2t: 46.4 msec Ao max PG: LV V1 max: MVA(P1/2t): 4.7 cm2 3.6 mmHg 71.1 cm/sec MV dec slope: 806.0 cm/sec2 MV dec time: 0.12 sec PA V2 max: PI end-d esperanza: TR max esperanza: MV P1/2t-pr_phl: 68.6 cm/sec 113.8 cm/sec 291.9 cm/sec 46.4 msec PA max PG: TR max P.9 mmHg 34.1 mmHg Left Ventricle The left ventricle is moderately to severly dilated. There is normal left ventricular wall thickness. LV EF is 10%. Left ventricular systolic function is severely reduced. There is severe global hypokinesis of the left ventricle. No obvious thrombus although not a good study for this. Right Ventricle The right ventricle is not well visualized secondary to technical limitations. Suspect RV and RA enlargement and reduced RV systolic function. There is a pacemaker lead in the right ventricle. Atria The left atrium is moderately dilated. Mitral Valve There is no evidence of mitral valve prolapse. There is no vegetation seen on the mitral valve. There is no mitral valve stenosis. There is a mild amount of mitral regurgitation. Aortic Valve There is no aortic valvular vegetation. There is no aortic stenosis. There is no LVOT obstruction. No aortic regurgitation is present. Tricuspid Valve There is no tricuspid stenosis. There is mild pulmonary hypertension by echo. There is a mild amount of tricuspid regurgitation. RVSP is 44 mm of Hg , with RA mean of 10. Pulmonic Valve There is no pulmonic valvular stenosis. There is no pulmonic valvular regurgitation. Great Vessels The aortic root is normal size. Effusions There is no pericardial effusion. : PRITESH AYALA > Becca Abbott
[2018-04-27] MEDS ORDERED: CLOBETASOL PROPIONATE 0.05% OINTMENT 15 GM TP PRN (20:52)
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
[2018-04-27] MEDS: CARVEDILOL 12.5 MG TABLET PO SCH (21:25)
[2018-04-27] MEDS: ATORVASTATIN CALCIUM 80 MG TABLET PO SCH (21:25)
[2018-04-27] MEDS: BUDESONIDE/FORMOTEROL 160-4.5 MCG 60 PUFF/6 GM MDI IH SCH (21:26)
[2018-04-27] MEDS ORDERED: CARVEDILOL 6.25 MG TABLET PO SCH ×2 (22:00)
[2018-04-28 03:29] LABS: ABSOLUTE BASOPHILS # (AUTO) 0.1 10^3/uL (0.0-0.2); ABSOLUTE EOSINOPHILS # (AUTO) 0.1 10^3/uL (0.0-0.6); ABSOLUTE LYMPHOCYTES (AUTO) 1.7 10^3/uL (0.5-4.7); ABSOLUTE MONOCYTES (AUTO) 0.6 10^3/uL (0.1-1.4); ABSOLUTE NEUT (AUTO) 7.1 10^3/uL (1.7-8.2); EOSINOPHILS % (AUTO) 1.4 % (0-6); HEMATOCRIT 36.6 % (37.9-51.0); HEMOGLOBIN 11.7 g/dL (13.5-17.0); MEAN CORPUSCULAR HEMOGLOBIN 23.4 pg (27.0-33.4); MEAN CORPUSCULAR HGB CONC 32.1 g/dL (32.0-36.0); MEAN CORPUSCULAR VOLUME 73 fl (80-97); MONOCYTES % (AUTO) 6.4 % (3-13); PLATELET COUNT 323 10^3/uL (150-450); RED BLOOD COUNT 5.01 10^6/uL (4.35-5.55); RED CELL DISTRIBUTION WIDTH 17.8 % (11.5-14.0); SEGMENTED NEUTROPHILS % (AUTO) 73.2 % (42-78); TOTAL CELLS COUNTED % (AUTO) 100 %; WHITE BLOOD COUNT 9.7 10^3/uL (4.0-10.5)
[2018-04-28 04:16] LABS: TRIGLYCERIDES 78 mg/dL (<150); URIC ACID 11.5 mg/dL (3.5-8.5)
[2018-04-28 04:27] LABS: DIRECT LDL 75 mg/dL (<100)
[2018-04-28] MEDS: LEVALBUTEROL HCL NEB 1.25 MG/3 ML AMPUL NEB PRN ×3 (05:37→13:35)
[2018-04-28] MEDS: LANSOPRAZOLE 15 MG TAB.RAP.DR PO SCH ×2 (05:43→18:56)
[2018-04-28] MEDS: GABAPENTIN 300 MG CAPSULE PO SCH ×3 (05:43→21:00)
[2018-04-28] MEDS: GLIPIZIDE XL 5 MG TAB.ER.24 PO SCH (07:51)
[2018-04-28] MEDS: CITALOPRAM HYDROBROMIDE 20 MG TABLET PO SCH (09:14)
[2018-04-28] MEDS: BUDESONIDE/FORMOTEROL 160-4.5 MCG 60 PUFF/6 GM MDI IH SCH ×2 (09:14→21:04)
[2018-04-28] MEDS: ASPIRIN 325 MG TABLET, ENT COATED PO SCH (09:15)
[2018-04-28] MEDS: VALSARTAN 40 MG TABLET PO SCH (09:15)
[2018-04-28] MEDS: CARVEDILOL 12.5 MG TABLET PO SCH ×2 (09:15→21:00)
[2018-04-28] MEDS: ISOSORB DINIT/HYDRALAZINE HCL 20-37.5 MG TABLET PO SCH ×3 (09:16→18:49)
[2018-04-28] MEDS: ENOXAPARIN SODIUM INJ 40 MG/0.4 ML DISP.SYRIN SUBCUT SCH (09:16)
[2018-04-28] MEDS: TRAMADOL HCL 50 MG TABLET PO PRN (09:25)
[2018-04-28] MEDS ORDERED: ASPIRIN 81 MG TABLET, ENT COATED PO SCH ×2 (10:00)
[2018-04-28] MEDS ORDERED: (PENDING PHARMACY ID) (Citalopram Hydrobromide [Citalopram Hbr] 40 MG) PO SCH (10:00)
[2018-04-28] MEDS ORDERED: FUROSEMIDE 80 MG TABLET PO SCH ×2 (10:00→15:01)
--- NOTE | 2018-04-28 11:23 | EKG REPORT ---
SEVERITY:- ABNORMAL ECG - SINUS TACHYCARDIA FIRST DEGREE AV BLOCK PROBABLE LEFT ATRIAL ABNORMALITY LEFT ANTERIOR FASCICULAR BLOCK VS LVH CONSIDER ANTEROSEPTAL INFARCT BORDERLINE T WAVE ABNORMALITIES : Confirmed by: Eulogio Torres 28-Apr-2018 11:23:15
--- NOTE | 2018-04-28 15:08 | PDOC PROGRESS REPORT ---
Subjective Progress Note for:: 04/28/18 Subjective:: The patient is exhibiting new focal weakness in his left arm and decreased level of consciousness. Reason For Visit: RIGHT PARIETAL ACUTE ISCHEMIC STROKE Physical Exam Vital Signs: Temp Pulse Resp BP Pulse Ox 98.7 F 150 H 10 L 102/76 100 04/28/18 12:46 04/28/18 13:35 04/28/18 13:35 04/28/18 12:46 04/28/18 13:35 Intake & Output 04/27/18 04/28/18 04/29/18 06:59 06:59 06:59 Intake Total 675 Output Total 175 Balance 500 Weight 117.2 kg General appearance: PRESENT: severe distress Head exam: PRESENT: atraumatic, normocephalic Respiratory exam: PRESENT: prolonged expiratory phas, symmetrical, wheezes Cardiovascular exam: PRESENT: RRR, +S1, +S2 GI/Abdominal exam: PRESENT: distended, normal bowel sounds, soft. ABSENT: tenderness Neurological exam: PRESENT: other - Patient has new focal left arm weakness that he did not have on admission yesterday. He is complaining of headache.. ABSENT: alert Psychiatric exam: PRESENT: anxious Focused psych exam: PRESENT: restlessness Results Laboratory Results: 04/28/18 03:15 04/27/18 14:57 04/27/18 04/28/18 04/28/18 14:57 03:15 03:15 WBC 9.7 RBC 5.01 Hgb 11.7 L Hct 36.6 L MCV 73 L MCH 23.4 L MCHC 32.1 RDW 17.8 H Plt Count 323 Seg Neutrophils % 73.2 Lymphocytes % 18.0 Monocytes % 6.4 Eosinophils % 1.4 Basophils % 1.0 Absolute Neutrophils 7.1 Absolute Lymphocytes 1.7 Absolute Monocytes 0.6 Absolute Eosinophils 0.1 Absolute Basophils 0.1 Sodium 144.1 Potassium 3.3 L Chloride 105 Carbon Dioxide 24 Anion Gap 15 BUN 19 Creatinine 1.14 Est GFR ( Amer) > 60 Est GFR (Non-Af Amer) > 60 Glucose 159 H Uric Acid Cancelled Calcium 9.7 Triglycerides Cancelled Cholesterol Cancelled LDL Cholesterol Direct Cancelled VLDL Cholesterol Cancelled HDL Cholesterol Cancelled 04/28/18 03:51 WBC RBC Hgb Hct MCV MCH MCHC RDW Plt Count Seg Neutrophils % Lymphocytes % Monocytes % Eosinophils % Basophils % Absolute Neutrophils Absolute Lymphocytes Absolute Monocytes Absolute Eosinophils Absolute Basophils Sodium Potassium Chloride Carbon Dioxide Anion Gap BUN Creatinine Est GFR ( Amer) Est GFR (Non-Af Amer) Glucose Uric Acid 11.5 H Calcium Triglycerides 78 Cholesterol 100.10 LDL Cholesterol Direct 75 VLDL Cholesterol 16.0 HDL Cholesterol 28 L 04/27/18 04/27/18 04/28/18 14:57 21:00 03:15 Troponin I 0.065 0.070 Cancelled 04/28/18 03:51 Troponin I 0.081 Impressions: Chest X-Ray 04/27/18 08:49 IMPRESSION: 1. No significant interval changes since the prior examination dated 03/17/2018. No acute findings. 2. Cardiomegaly, stable finding. Head CT 04/27/18 08:49 IMPRESSION: 1. Non-hemorrhagic acute infarct in the region of the right parietal lobe, distribution of the right middle cerebral artery. EVIDENCE OF STROKE: Yes. Head CTA 04/27/18 09:20 IMPRESSION: NO CTA EVIDENCE OF STENOSIS OR ANEURYSM OF THE [place] OF [place]. Neck CTA 04/27/18 09:20 IMPRESSION: NORMAL CTA OF THE EXTRA-CRANIAL CAROTID AND VERTEBRAL ARTERIES. Assessment & Plan - Diagnosis (1) Ischemic stroke Is this a current diagnosis for this admission?: Yes Plan: The patient will be admitted using the acute ischemic stroke order set. The patient does have a heparin allergy. We did look back in old records and he has been on Lovenox before. We will use Lovenox initially for DVT prophylaxis and monitor for reactions. I will increase his aspirin to 325 mg daily. He may be a candidate for the addition of Plavix or Aggrenox. I will follow the patient clinically on the aspirin therapy alone at this time. We will also strive for good blood pressure control keeping his systolic pressure less than 140. He will have physical and occupational therapy evaluations as well. 04/28/2018-the patient has no focal weakness in the left arm. This was 1 of the primary areas of symptom when he had the acute ischemic stroke. There is significant significant concern for conversion to hemorrhagic stroke. I have ordered a stat CT scan. Because his blood pressure is on the lower side I have decreased his furosemide and this should help perfusion pressure. (2) Cardiomyopathy Qualifiers: Cardiomyopathy type: dilated Qualified Code(s): I42.0 - Dilated cardiomyopathy Is this a current diagnosis for this admission?: Yes Plan: The patient has a severely depressed ejection fraction. We will continue his current medication regimen and strive for good pulse and blood pressure control. 04/28/2018-review of his last echocardiogram reveals an ejection fraction of only 10%. Hence placement of the defibrillator. No change in treatment at this time. (3) Hypokalemia Is this a current diagnosis for this admission?: Yes Plan: 04/28/2018-the patient's potassium is slightly low. I will give a dose of potassium chloride. In addition I am decreasing the Lasix dose. Continue to follow blood work. (4) Diabetes mellitus type 2 in obese Is this a current diagnosis for this admission?: Yes Plan: The patient is on glipizide 5 mg daily for diabetes. In addition I will place him on a controlled carbohydrate diet as well as a sliding scale and monitor his insulin requirements. 04/28/2018-patient's hemoglobin A1c was only 7.5. His Accu-Cheks have been well controlled. No change in therapy at this time. (5) Diabetes mellitus type 2 with atherosclerosis of arteries of extremities Is this a current diagnosis for this admission?: Yes (6) Psoriasis Is this a current diagnosis for this admission?: Yes - Time Time Spent with patient: 15-24 minutes Medications reviewed and adjusted accordingly: Yes
[2018-04-28] MEDS ORDERED: METHYLPREDNISOLONE INJ 125 MG/2 ML SDV ONE (15:10)
[2018-04-28] MEDS ORDERED: METHYLPREDNISOLONE INJ 125 MG/2 ML SDV IV ONE (16:00)
[2018-04-28] MEDS ORDERED: POTASSI CL 20 MEQ/50 ML RIDER 20 MEQ/50 ML RTUPB IV ONE (16:00)
--- NOTE | 2018-04-28 16:01 | RADIOLOGY REPORT (SQ) ---
EXAM DESCRIPTION: CT HEAD WITHOUT COMPLETED DATE/TIME: 04/28/2018 3:43 pm REASON FOR STUDY: assess [employer] bleed from isch stroke COMPARISON: CT brain 04/27/2018 CT angio brain 04/27/2018 TECHNIQUE: Axial images acquired through the brain without intravenous contrast. Images reviewed wi th bone, brain and subdural windows. Additional sagittal and coronal reconstructions were generated. Images stored on PACS. All CT scanners at this facility use dose modulation, iterative reconstruction, and/or weight based d osing when appropriate to reduce radiation dose to as low as reasonably achievable (ALARA). [facility]: Dose Right [facility]: CareDose [facility]: Dose Right [facility]: Teradose 4D [facility]: Mpax RADIATION DOSE: CT Rad equipment meets quality standard of care and radiation dose reduction techniq ues were employed. CTDIvol: 48.6 mGy. DLP: 929 mGy-cm. mGy. LIMITATIONS: Motion artifact FINDINGS: Motion artifact throughout the study. A chronic appearing infarct is present in the right posterior frontal/parietal junction high over the convexity, with encephalomalacia along the cortex and subcortical white matter. On image number 18, low attenuation is now present in the right posterior temporal lobe/lateral basal ganglia worrisome for acute right MCA distribution infarct. This is new compared to studies from . IMPRESSION: Low attenuation in the right posterior temporal lobe/lateral basal ganglia worrisome for acute nonhemorrhagic right MCA distribution infarct. This is new compared to imaging from yesterday . Results called to Dr Calix, 1540 hours, 04/28/2018 EVIDENCE OF ACUTE STROKE: Yes. COMMENT: Quality ID # [id number]: Final reports with documentation of one or more dose reduction techniques (e.g., Automated exposure control, adjustment of the mA and/or kV according to patient size, use of iterative reconstruction technique) TECHNICAL DOCUMENTATION: JOB ID: [id number] [employer]- All Rights Reserved Reading location - IP/workstation name: [email or web address]
[2018-04-28] MEDS ORDERED: IPRATROPIUM/ALBUTEROL 0.5-2.5 MG/3 ML AMPUL NEB ONE (17:00)
[2018-04-28] MEDS ORDERED: ALPRAZOLAM 0.5 MG TABLET PO ONE (18:55)
[2018-04-28] MEDS: BUDESONIDE NEB 0.5 MG/2 ML AMPUL NEB SCH (19:48)
[2018-04-28] MEDS: ALBUTEROL SULFATE 0.083% NEB 2.5 MG/3 ML AMPUL NEB SCH (19:48)
--- NOTE | 2018-04-28 20:24 | Progress Note ---
Provider Note Provider Note: Additional documentation for Blane Gardner. Because of the acute neurologic change with the patient's left arm a stat CT scan of his head was obtained. There was no conversion to hemorrhagic stroke. It does look like there was extension of the ischemic stroke. Please see dictated report for details. He did meet with the family. I explained the stroke. I stressed that it is a positive finding that it did not convert to a hemorrhagic stroke. We will continue control his blood pressure. We will continue his aspirin therapy. We will continue his DVT prophylaxis dose of Lovenox. Full anticoagulation does present certain risks. The patient is allergic to heparin as well. Possibly consider additional antiplatelet therapy such as Aggrenox. The patient was audibly wheezing. I have ordered scheduled nebulizer treatments as well as as needed treatments. I started him on IV steroid therapy as well. Nursing did report low urine output. We will BladderScan the patient and if there is greater than 300 mL we will insert a Plascencia catheter.
[2018-04-28] MEDS ORDERED: FUROSEMIDE INJ/PF 40 MG/4 ML SDV ONE (20:29)
[2018-04-28] MEDS ORDERED: FUROSEMIDE INJ/PF 40 MG/4 ML SDV IV ONE (20:45)
[2018-04-28] MEDS: ATORVASTATIN CALCIUM 80 MG TABLET PO SCH (21:00)
[2018-04-28] MEDS: METHYLPREDNISOLONE INJ 125 MG/2 ML SDV IV SCH (21:03)
[2018-04-28 21:09] LABS: ARTERIAL BLOOD BASE EXCESS -2.3 mmol/L; ARTERIAL BLOOD H2CO3 1.29 mmol/L (1.05-1.35); ARTERIAL BLOOD HCO3 23.3 mmol/L (20-24); ARTERIAL BLOOD O2 SATURATION 92.6 % (94-98); ARTERIAL BLOOD PCO2 42.8 mmHg (35-45); ARTERIAL BLOOD PH 7.35 (7.35-7.45); ARTERIAL BLOOD PO2 67.3 mmHg (80-100); ARTERIAL BLOOD TOTAL CO2 24.6 mmol/L (23-27)
[2018-04-28 21:13] LABS: ARTERIAL BLOOD FIO2 2L
[2018-04-28] MEDS: INSULIN LISPRO 100 UNIT/ML 3 ML VIAL SUBCUT PRN (22:29)
[2018-04-29] MEDS: BUDESONIDE NEB 0.5 MG/2 ML AMPUL NEB SCH ×5 (02:03→20:21)
[2018-04-29] MEDS: ALBUTEROL SULFATE 0.083% NEB 2.5 MG/3 ML AMPUL NEB SCH ×5 (02:03→20:21)
[2018-04-29 05:00] LABS: HEMATOCRIT 36.8 % (37.9-51.0); HEMOGLOBIN 11.7 g/dL (13.5-17.0); MEAN CORPUSCULAR HEMOGLOBIN 23.4 pg (27.0-33.4); MEAN CORPUSCULAR HGB CONC 31.8 g/dL (32.0-36.0); MEAN CORPUSCULAR VOLUME 74 fl (80-97); PLATELET COUNT 304 10^3/uL (150-450); RED BLOOD COUNT 4.99 10^6/uL (4.35-5.55); RED CELL DISTRIBUTION WIDTH 17.4 % (11.5-14.0)
[2018-04-29 05:25] LABS: ANION GAP 15 (5-19); BLOOD UREA NITROGEN 22 mg/dL (7-20); CALCIUM 9.1 mg/dL (8.4-10.2); CARBON DIOXIDE 23 mmol/L (22-30); CHLORIDE 104 mmol/L (98-107); GLUCOSE 180 mg/dL (75-110); POTASSIUM 4.5 mmol/L (3.6-5.0); SODIUM 142.3 mmol/L (137-145)
[2018-04-29] MEDS: LANSOPRAZOLE 15 MG TAB.RAP.DR PO SCH ×2 (05:28→17:35)
[2018-04-29] MEDS: GABAPENTIN 300 MG CAPSULE PO SCH ×3 (05:28→21:16)
[2018-04-29] MEDS: METHYLPREDNISOLONE INJ 125 MG/2 ML SDV IV SCH ×3 (05:44→21:17)
[2018-04-29] MEDS: GLIPIZIDE XL 5 MG TAB.ER.24 PO SCH (08:47)
[2018-04-29] MEDS: CARVEDILOL 12.5 MG TABLET PO SCH ×2 (09:09→21:16)
[2018-04-29] MEDS: ASPIRIN 325 MG TABLET, ENT COATED PO SCH (09:09)
[2018-04-29] MEDS: VALSARTAN 40 MG TABLET PO SCH (09:09)
[2018-04-29] MEDS: CITALOPRAM HYDROBROMIDE 20 MG TABLET PO SCH (09:09)
[2018-04-29] MEDS: ISOSORB DINIT/HYDRALAZINE HCL 20-37.5 MG TABLET PO SCH ×3 (09:09→17:35)
[2018-04-29] MEDS: FUROSEMIDE 40 MG TABLET PO SCH (09:10)
[2018-04-29] MEDS: BUDESONIDE/FORMOTEROL 160-4.5 MCG 60 PUFF/6 GM MDI IH SCH ×2 (09:13→21:18)
[2018-04-29] MEDS: ENOXAPARIN SODIUM INJ 40 MG/0.4 ML DISP.SYRIN SUBCUT SCH (09:13)
--- NOTE | 2018-04-29 09:53 | PDOC PROGRESS REPORT ---
Subjective Progress Note for:: 04/29/18 Subjective:: The patient is exhibiting new focal weakness in his left arm and decreased level of consciousness. 04/29/2018-yesterday afternoon the patient experienced an acute change in status. He had new onset weakness in the left arm especially as well as the left leg. His left facial droop was more pronounced. This morning it was noted that his swallow seems compromised. In general he is feeling better however today than yesterday afternoon. Reason For Visit: RIGHT PARIETAL ACUTE ISCHEMIC STROKE Physical Exam Vital Signs: Temp Pulse Resp BP Pulse Ox 97.5 F 89 15 136/98 H 98 04/29/18 07:15 04/29/18 08:01 04/29/18 08:01 04/29/18 08:00 04/29/18 08:01 Intake & Output 04/28/18 04/29/18 04/30/18 06:59 06:59 06:59 Intake Total 675 575 Output Total 175 400 Balance 500 175 Weight 117.2 kg 111.7 kg General appearance: PRESENT: mild distress, obese - BMI 34.3, well-developed Head exam: PRESENT: atraumatic, normocephalic Eye exam: PRESENT: conjunctiva pale. ABSENT: scleral icterus Ear exam: PRESENT: normal external ear exam Mouth exam: PRESENT: moist, tongue midline Respiratory exam: PRESENT: prolonged expiratory phas, symmetrical, wheezes - Predominantly expiratory. ABSENT: stridor Cardiovascular exam: PRESENT: RRR, +S1, +S2 GI/Abdominal exam: PRESENT: distended - Protuberant abdomen, normal bowel sounds , soft, other - Midline abdominal incision scar. ABSENT: tenderness Extremities exam: PRESENT: pedal edema Musculoskeletal exam: PRESENT: other - Normal strength right arm and right leg. Left leg-patient can raise it off the bed but limited. Cannot hold against downward force. The patient is able to raise his left arm. Hand squeeze is 2/ 5. Neurological exam: PRESENT: alert, awake, oriented to person, oriented to place , oriented to situation, other - Left facial droop Psychiatric exam: PRESENT: appropriate affect. ABSENT: agitated, anxious Results Laboratory Results: 04/29/18 04:05 04/29/18 04:05 04/28/18 04/29/18 04/29/18 20:55 04:05 04:05 WBC 10.0 RBC 4.99 Hgb 11.7 L Hct 36.8 L MCV 74 L MCH 23.4 L MCHC 31.8 L RDW 17.4 H Plt Count 304 Carbonic Acid 1.29 HCO3/H2CO3 Ratio 18:1 ABG pH 7.35 ABG pCO2 42.8 ABG pO2 67.3 L ABG HCO3 23.3 ABG O2 Saturation 92.6 L ABG Base Excess -2.3 FiO2 2L Sodium 142.3 Potassium 4.5 Chloride 104 Carbon Dioxide 23 Anion Gap 15 BUN 22 H Creatinine 1.22 Est GFR ( Amer) > 60 Est GFR (Non-Af Amer) > 60 Glucose 180 H Calcium 9.1 Magnesium 1.9 04/27/18 04/27/18 04/28/18 14:57 21:00 03:15 Troponin I 0.065 0.070 Cancelled NT-Pro-B Natriuret Pep 04/28/18 04/29/18 03:51 04:05 Troponin I 0.081 NT-Pro-B Natriuret Pep 4200 H Impressions: Chest X-Ray 04/27/18 08:49 IMPRESSION: 1. No significant interval changes since the prior examination dated 03/17/2018. No acute findings. 2. Cardiomegaly, stable finding. Head CTA 04/27/18 09:20 IMPRESSION: NO CTA EVIDENCE OF STENOSIS OR ANEURYSM OF THE [place]. Neck CTA 04/27/18 09:20 IMPRESSION: NORMAL CTA OF THE EXTRA-CRANIAL CAROTID AND VERTEBRAL ARTERIES. Head CT 04/28/18 00:00 IMPRESSION: Low attenuation in the right posterior temporal lobe/lateral basal ganglia worrisome for acute nonhemorrhagic right MCA distribution infarct. This is new compared to imaging from yesterday. Results called to Dr Calix, 1540 hours, 04/28/2018 EVIDENCE OF ACUTE STROKE: Yes. Assessment & Plan - Diagnosis (1) Ischemic stroke Is this a current diagnosis for this admission?: Yes Plan: The patient will be admitted using the acute ischemic stroke order set. The patient does have a heparin allergy. We did look back in old records and he has been on Lovenox before. We will use Lovenox initially for DVT prophylaxis and monitor for reactions. I will increase his aspirin to 325 mg daily. He may be a candidate for the addition of Plavix or Aggrenox. I will follow the patient clinically on the aspirin therapy alone at this time. We will also strive for good blood pressure control keeping his systolic pressure less than 140. He will have physical and occupational therapy evaluations as well. 04/28/2018-the patient has no focal weakness in the left arm. This was 1 of the primary areas of symptom when he had the acute ischemic stroke. There is significant significant concern for conversion to hemorrhagic stroke. I have ordered a stat CT scan. Because his blood pressure is on the lower side I have decreased his furosemide and this should help perfusion pressure. 04/29/2018-the patient did have a repeat CT scan yesterday afternoon. There is an extension noted. There is no hemorrhagic conversion. Patient in fact is better today than yesterday afternoon. He has more function in his left arm. His facial droop is not as pronounced. 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 We will continue his current medication regimen and strive for good pulse and blood pressure control. 04/28/2018-review of his last echocardiogram reveals an ejection fraction of only 10%. Hence placement of the defibrillator. No change in treatment at this time. 04/29/2018-the most recent echocardiogram performed at admission shows an ejection fraction of 10%. The patient states that his last echocardiogram was at 12-15%. When a long discussion about the cocaine etiology of his cardiomyopathy. I explained that cocaine can also cause vasoconstriction for stroke. I asked him why he did not tell me his history of cocaine use at admission. He did state that he has not used cocaine for several years. I did order a urinalysis drug screen because this is a critical issue regarding his stroke. (3) Hypokalemia Is this a current diagnosis for this admission?: Yes Plan: 04/28/2018-the patient's potassium is slightly low. I will give a dose of potassium chloride. In addition I am decreasing the Lasix dose. Continue to follow blood work. 04/29/2018-the patient's furosemide dose was decreased yesterday due to his blood pressure. I believe his asthma is partly cardiogenic. Because of his compromised swallow going to change his furosemide to 20 mg IV twice daily. We will need to watch his potassium with the change in his Lasix. (4) Diabetes mellitus type 2 in obese Is this a current diagnosis for this admission?: Yes Plan: The patient is on glipizide 5 mg daily for diabetes. In addition I will place him on a controlled carbohydrate diet as well as a sliding scale and monitor his insulin requirements. 04/28/2018-patient's hemoglobin A1c was only 7.5. His Accu-Cheks have been well controlled. No change in therapy at this time. 04/29/2018-because of his compromised swallow going to hold his glipizide temporarily. He still has sliding scale available. Once speech therapy decides on a diet I will adjust accordingly. (5) Diabetes mellitus type 2 with atherosclerosis of arteries of extremities Is this a current diagnosis for this admission?: Yes Plan: The patient has history of myocardial infarction. We will continue his cardiac medications as well as statin therapy and aspirin as outlined above. 04/29/2018-we will continue his cardiac medications. If any symptoms develop during this brief hold, waiting for speech therapy, I can institute intravenous medications temporarily. 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 I will adjust his medications accordingly. With an ejection fraction of only 10% other considerations such as anticoagulation will be given once the stroke is stable. (7) Cardiac asthma Is this a current diagnosis for this admission?: Yes Plan: 04/29/2018-I believe part of the asthma is cardiogenic. I will monitor strict I' s and O's and be aggressive with his diuresis while watching his renal function. (8) Asthma Qualifiers: Asthma severity: severe Asthma complication type: with acute exacerbation Is this a current diagnosis for this admission?: Yes Plan: 04/29/2018-the patient is now on scheduled nebulizer therapy as well as intravenous steroid therapy. I believe part of the exacerbation is cardiogenic but we will treat for acute exacerbation of asthma as well. (9) Dysphagia Qualifiers: Dysphagia type: unspecified Qualified Code(s): R13.10 - Dysphagia, unspecified Is this a current diagnosis for this admission?: Yes Plan: 04/29/2018-the nurse astutely noticed compromise swallowing at this morning. Speech therapy will see the patient. He is temporarily n.p.o. Diet to be adjusted based on speech therapy's recommendations. In addition medications may have to be arranged. (10) Class 1 obesity with body mass index (BMI) of 34.0 to 34.9 in adult Qualifiers: Obesity type: unspecified obesity type Serious obesity comorbidity presence : unspecified whether serious comorbidity present Qualified Code(s): E66.9 - Obesity, unspecified; Z68.34 - Body mass index (BMI) 34.0-34.9, adult; Z68.34 - Body mass index (BMI) 34.0-34.9, adult Is this a current diagnosis for this admission?: Yes Plan: 04/29/2018-the patient will be on a cardiac, controlled carbohydrate diet. At this point, being compromised by stroke, and aggressive exercise pattern is inappropriate. We will encourage stricter diet control and exercise after he recovers from his stroke. - Time Time Spent with patient: 25-34 minutes Medications reviewed and adjusted accordingly: Yes
[2018-04-29] MEDS ORDERED: FUROSEMIDE 40 MG TABLET PO SCH (10:00)
[2018-04-29 10:01] LABS: URINE AMPHETAMINES SCREEN NEGATIVE; URINE BARBITURATES SCREEN NEGATIVE; URINE BENZODIAZEPINES SCREEN NEGATIVE; URINE COCAINE SCREEN NEGATIVE; URINE MARIJUANA (THC) SCREEN NEGATIVE; URINE METHADONE SCREEN NEGATIVE; URINE PHENCYCLIDINE SCREEN NEGATIVE
[2018-04-29] MEDS: FUROSEMIDE INJ/PF 20 MG/2 ML SDV IV SCH ×2 (10:28→21:16)
[2018-04-29] MEDS: INSULIN LISPRO 100 UNIT/ML 3 ML VIAL SUBCUT PRN ×2 (12:52→21:23)
[2018-04-29] MEDS: LORAZEPAM INJ 2 MG/1 ML VIAL IV PRN (12:53)
[2018-04-29] MEDS ORDERED: NITROGLYCERIN 15 MG (0.6 MG/1 HR) PATCH.TD24 TD ONE (20:30)
[2018-04-29] MEDS ORDERED: NITROGLYCERIN 15 MG (0.6 MG/1 HR) PATCH.TD24 ONE (21:14)
[2018-04-29] MEDS: ATORVASTATIN CALCIUM 80 MG TABLET PO SCH (21:16)
[2018-04-30] MEDS: ALBUTEROL SULFATE 0.083% NEB 2.5 MG/3 ML AMPUL NEB SCH ×4 (02:00→20:02)
[2018-04-30] MEDS: BUDESONIDE NEB 0.5 MG/2 ML AMPUL NEB SCH ×4 (02:00→20:01)
[2018-04-30] MEDS: GABAPENTIN 300 MG CAPSULE PO SCH ×3 (05:44→21:33)
[2018-04-30] MEDS: LANSOPRAZOLE 15 MG TAB.RAP.DR PO SCH ×2 (05:44→16:49)
[2018-04-30] MEDS: METHYLPREDNISOLONE INJ 125 MG/2 ML SDV IV SCH ×3 (05:44→21:32)
[2018-04-30 05:56] LABS: ABSOLUTE RETICS # 0.059 10^6/uL (0.028-0.122); HEMATOCRIT 33.7 % (37.9-51.0); HEMOGLOBIN 10.6 g/dL (13.5-17.0); MEAN CORPUSCULAR HEMOGLOBIN 23.2 pg (27.0-33.4); MEAN CORPUSCULAR HGB CONC 31.5 g/dL (32.0-36.0); MEAN CORPUSCULAR VOLUME 74 fl (80-97); PLATELET COUNT 292 10^3/uL (150-450); RED BLOOD COUNT 4.57 10^6/uL (4.35-5.55); RED CELL DISTRIBUTION WIDTH 17.3 % (11.5-14.0); RETICULOCYTE COUNT (AUTO) 1.29 % (0.66-2.85); WHITE BLOOD COUNT 11.6 10^3/uL (4.0-10.5)
[2018-04-30 06:11] LABS: ANION GAP 11 (5-19); BLOOD UREA NITROGEN 27 mg/dL (7-20); CALCIUM 8.7 mg/dL (8.4-10.2); CARBON DIOXIDE 28 mmol/L (22-30); CHLORIDE 104 mmol/L (98-107); GLUCOSE 156 mg/dL (75-110); IRON(TIBC) 13.5 ug/dL (49-181); POTASSIUM 4.2 mmol/L (3.6-5.0); SODIUM 142.7 mmol/L (137-145)
[2018-04-30 07:18] LABS: FOLATE 6.89 ng/mL (>2.76)
--- NOTE | 2018-04-30 10:16 | RADIOLOGY REPORT (SQ) ---
EXAM DESCRIPTION: GILMA SWALLOW COMPLETED DATE/TIME: 04/30/2018 9:43 am REASON FOR STUDY: CVA, dysphagia stroke COMPARISON: None. TECHNIQUE: Videofluoroscopic swallowing examination was performed in conjunction with speech patholo gy. Videofluoroscopic imaging was obtained and reviewed and these are the findings: RADIATION DOSE: Fluoro time 2.4 minutes 1 images saved to PACS. LIMITATIONS: None FINDINGS: The patient was brought into the fluoro room and placed upright on a modified barium swall ow chair. The patient was then given multiple consistencies mixed with barium to swallow under live fluoroscopic video guidance. According to the Speech Pathologist there was no penetration or aspirat ion. Please refer to the speech pathology report for further details. IMPRESSION: NO EVIDENCE OF PENETRATION OR ASPIRATION.PLEASE SEE SPEECH PATHOLOGIST REPORT FOR OTHER FINDINGS AND RECOMMENDATIONS. COMMENT: None Quality ID [id number]: Final reports for procedures using fluoroscopy that document radiation exposure jazmin brittney, or exposure time and number of fluorographic images (if radiation exposure indices are not avail able) TECHNICAL DOCUMENTATION: JOB ID: [id number] [employer]- All Rights Reserved Reading location - IP/workstation name: [facility]
--- NOTE | 2018-04-30 10:18 | ST Inp Modified Barium Swallow ---
Medical Diagnosis - Medical Diagnoses Medical Diagnosis Description & ICD-10 Code(s): ischemic stroke - ICD-10 Tx Diagnosis Coding (1) Dysphagia following cerebrovascular accident (CVA) ICD-10 Code(s): I69.391 - DYSPHAGIA FOLLOWING CEREBRAL INFARCTION ST Inpatient MBS - General Date: 04/30/18 Date of Onset: 04/29/18 - History History Obtained From: Other - EMR -: Medical - per EMR: patient admitted 04/27/18 with complaint of acute syncopal episode with neurological deficits. Patient presented with slurred speech, reportedly resolving. CT showed right parietal infarct. Speech evaluated patient on 04/28/18, no significant deficits seen. This day nursing reported significant change in function and probable evolving of CVA on 04/29/18. Speech re-evaluated and noted significant change in function and signs of overt aspiration at bedside. MBSS and diet change to nectar liquids and puree solids recommended. Medications: Medications Reviewed Allergies: Refer to medical record - Subjective Current Nutritional Means: PO Current PO Diet: Pureed, Thickened liquids Current Symptoms: Coughing, Wet/gurgly voice Pain: Patient reports, 09/27 - reported chest pain, no overt distress noted. Asked patient if he was ok to procede with test, stated that he was - Objective Assessment: Upright, Left Lateral - Food Trials Food Trials Used: Thin liquids, Pureed, Regular The Patient: Was Able to Self Feed, fed by ST - unable to use left arm due to weakness - Assessment Labial Function: Impaired - left side weakness Lingual Function: Within Functional Limits Mandibular Function: Within Functional Limits Dentition: Dentures-Upper, Dentures-Lower Velo-Pharyngeal Function: Unremarkable - Pharyngeal Stage Initiation of Pharyngeal Stage: Delayed Reflex Delay Time (seconds): 4 Decreased Laryngeal Elevation: No Reduced Velo-Pharyngeal Closure: no Reduced Pressure Generation: No Reduced Tongue Base Retraction: No Pre-Swallowing Pooling in Valleculae: Moderate Pre-Swallowing Pooling in Pyriforms: Mild Reduced Thyro-Hyiod Approximation: No Reduced Epiglottic Excursion: No Reduced Pharyngeal Peristalsis: No Post Swallow Residuals in Valleculae: None Post Swallow Residuals in Pyriforms: None - Impression/Summary Laryngeal Penetration: No Tracheal Aspiration: no Effective Compensatory Strategies: chin down Patient Presents With: Oral-Pharyngeal dysph., Mild-Moderate Risk of Aspiration: Mild Risk of Nutritional Compromise: None Risk Due To: Patient at risk of aspiration due to delay in swallow reflex, resulting pre-pooling of material in valleculae, occasionally extending down to pyriform sinus. Once swallow is triggered, functional clearance of material seen , adequate airway closure. - Recommendations Solid Diet Recommendations: Mechanical Soft, Ground Meat Liquid Diet Recommendations: Thin Strict Aspitarion Precautions: Yes Dysphagia Therapy with PRENATAL TEACHER: Yes - Speech to follow while admitted, may benefit from outpatient therapy upon discharge should deficits remain. Recommended Techniques: Fully Upright During Meal, Small Bites and Sips Supervision: requires assistance - Time Total Time: 20 Total Timed Minutes: 20
[2018-04-30] MEDS: ISOSORB DINIT/HYDRALAZINE HCL 20-37.5 MG TABLET PO SCH ×3 (10:21→17:02)
[2018-04-30] MEDS: CITALOPRAM HYDROBROMIDE 20 MG TABLET PO SCH (10:25)
[2018-04-30] MEDS: CARVEDILOL 12.5 MG TABLET PO SCH ×2 (10:26→21:33)
[2018-04-30] MEDS: FUROSEMIDE INJ/PF 20 MG/2 ML SDV IV SCH ×2 (10:26→21:35)
[2018-04-30] MEDS: BUDESONIDE/FORMOTEROL 160-4.5 MCG 60 PUFF/6 GM MDI IH SCH ×2 (10:26→21:34)
[2018-04-30] MEDS: VALSARTAN 40 MG TABLET PO SCH (10:26)
[2018-04-30] MEDS: FUROSEMIDE 40 MG TABLET PO SCH ×2 (10:26→17:02)
[2018-04-30] MEDS: ASPIRIN 325 MG TABLET, ENT COATED PO SCH (10:27)
[2018-04-30] MEDS: INSULIN LISPRO 100 UNIT/ML 3 ML VIAL SUBCUT PRN ×2 (12:58→21:31)
[2018-04-30] MEDS: LORAZEPAM INJ 2 MG/1 ML VIAL IV PRN ×2 (13:43→22:01)
--- NOTE | 2018-04-30 17:26 | PDOC PROGRESS REPORT ---
Subjective Progress Note for:: 04/30/18 Subjective:: The patient is exhibiting new focal weakness in his left arm and decreased level of consciousness. 04/29/2018-yesterday afternoon the patient experienced an acute change in status. He had new onset weakness in the left arm especially as well as the left leg. His left facial droop was more pronounced. This morning it was noted that his swallow seems compromised. In general he is feeling better however today than yesterday afternoon. 04/30/2018-the patient is sleeping. Has been sleeping most of the day. Because of the events of yesterday he was up through the night. Family reports that he is feeling better. Reason For Visit: RIGHT PARIETAL ACUTE ISCHEMIC STROKE Physical Exam Vital Signs: Temp Pulse Resp BP Pulse Ox 97.7 F 80 18 98/74 L 98 04/30/18 15:40 04/30/18 16:00 04/30/18 16:00 04/30/18 16:00 04/30/18 16:00 Intake & Output 04/29/18 04/30/18 05/01/18 06:59 06:59 06:59 Intake Total 575 413 236 Output Total 400 2040 600 Balance 851 -7179 -676 Weight 111.7 kg 121 kg General appearance: PRESENT: no acute distress, well-developed Head exam: PRESENT: atraumatic, normocephalic Neck exam: ABSENT: carotid bruit, JVD, lymphadenopathy Respiratory exam: PRESENT: clear to auscultation familia - Anteriorly, symmetrical, unlabored. ABSENT: crackles, rhonchi, tachypnea - In fact the respiratory rate is slow, wheezes Cardiovascular exam: PRESENT: RRR, +S1, +S2, systolic murmur - 3/6 GI/Abdominal exam: PRESENT: normal bowel sounds, soft. ABSENT: distended, tenderness Neurological exam: PRESENT: other - Sleeping Skin exam: PRESENT: dry, normal color, warm. ABSENT: rash Results Laboratory Results: 04/30/18 04:57 04/30/18 04:57 04/30/18 04/30/18 04:57 04:57 WBC 11.6 H RBC 4.57 Hgb 10.6 L Hct 33.7 L MCV 74 L MCH 23.2 L MCHC 31.5 L RDW 17.3 H Plt Count 292 Retic Count (auto) 1.29 Absolute Retic 0.059 Sodium 142.7 Potassium 4.2 Chloride 104 Carbon Dioxide 28 Anion Gap 11 BUN 27 H Creatinine 1.11 Est GFR ( Amer) > 60 Est GFR (Non-Af Amer) > 60 Glucose 156 H Calcium 8.7 Iron 13.5 L TIBC 381 % Saturation 4 Ferritin 23.80 Vitamin B12 662.0 Folate 6.89 04/27/18 04/27/18 04/28/18 14:57 21:00 03:15 Troponin I 0.065 0.070 Cancelled NT-Pro-B Natriuret Pep 04/28/18 04/29/18 03:51 04:05 Troponin I 0.081 NT-Pro-B Natriuret Pep 4200 H Impressions: Chest X-Ray 04/27/18 08:49 IMPRESSION: 1. No significant interval changes since the prior examination dated 03/17/2018. No acute findings. 2. Cardiomegaly, stable finding. Head CTA 04/27/18 09:20 IMPRESSION: NO CTA EVIDENCE OF STENOSIS OR ANEURYSM OF THE [place]. Neck CTA 04/27/18 09:20 IMPRESSION: NORMAL CTA OF THE EXTRA-CRANIAL CAROTID AND VERTEBRAL ARTERIES. Head CT 04/28/18 00:00 IMPRESSION: Low attenuation in the right posterior temporal lobe/lateral basal ganglia worrisome for acute nonhemorrhagic right MCA distribution infarct. This is new compared to imaging from yesterday. Results called to Dr Calix, 1540 hours, 04/28/2018 EVIDENCE OF ACUTE STROKE: Yes. Modified Barium Swallow 04/30/18 00:00 IMPRESSION: NO EVIDENCE OF PENETRATION OR ASPIRATION.PLEASE SEE SPEECH PATHOLOGIST REPORT FOR OTHER FINDINGS AND RECOMMENDATIONS. Assessment & Plan - Diagnosis (1) Ischemic stroke Is this a current diagnosis for this admission?: Yes Plan: The patient will be admitted using the acute ischemic stroke order set. The patient does have a heparin allergy. We did look back in old records and he has been on Lovenox before. We will use Lovenox initially for DVT prophylaxis and monitor for reactions. I will increase his aspirin to 325 mg daily. He may be a candidate for the addition of Plavix or Aggrenox. I will follow the patient clinically on the aspirin therapy alone at this time. We will also strive for good blood pressure control keeping his systolic pressure less than 140. He will have physical and occupational therapy evaluations as well. 04/28/2018-the patient has no focal weakness in the left arm. This was 1 of the primary areas of symptom when he had the acute ischemic stroke. There is significant significant concern for conversion to hemorrhagic stroke. I have ordered a stat CT scan. Because his blood pressure is on the lower side I have decreased his furosemide and this should help perfusion pressure. 04/29/2018-the patient did have a repeat CT scan yesterday afternoon. There is an extension noted. There is no hemorrhagic conversion. Patient in fact is better today than yesterday afternoon. He has more function in his left arm. His facial droop is not as pronounced. 04/30/2018-we will keep the patient on the current regimen of aspirin. Speech therapy continues to work with the patient and has altered the diet again. He will need ongoing physical and occupational therapy as well. 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 We will continue his current medication regimen and strive for good pulse and blood pressure control. 04/28/2018-review of his last echocardiogram reveals an ejection fraction of only 10%. Hence placement of the defibrillator. No change in treatment at this time. 04/29/2018-the most recent echocardiogram performed at admission shows an ejection fraction of 10%. The patient states that his last echocardiogram was at 12-15%. When a long discussion about the cocaine etiology of his cardiomyopathy. I explained that cocaine can also cause vasoconstriction for stroke. I asked him why he did not tell me his history of cocaine use at admission. He did state that he has not used cocaine for several years. I did order a urinalysis drug screen because this is a critical issue regarding his stroke. 04/30/2018-because the patient is able to manage pills either crushed or whole in applesauce if they are small, I am going to return to his oral nitroglycerin/ hydrochlorothiazide preparation and remove the nitroglycerin patch. He is breathing more comfortably. I believe the aggressive diuresis has helped. (3) Hypokalemia Is this a current diagnosis for this admission?: Yes Plan: 04/28/2018-the patient's potassium is slightly low. I will give a dose of potassium chloride. In addition I am decreasing the Lasix dose. Continue to follow blood work. 04/29/2018-the patient's furosemide dose was decreased yesterday due to his blood pressure. I believe his asthma is partly cardiogenic. Because of his compromised swallow going to change his furosemide to 20 mg IV twice daily. We will need to watch his potassium with the change in his Lasix. 04/30/2018-despite change in medications his serum potassium remains normal. Continue to monitor electrolytes. (4) Diabetes mellitus type 2 in obese Is this a current diagnosis for this admission?: Yes (5) Diabetes mellitus type 2 with atherosclerosis of arteries of extremities Is this a current diagnosis for this admission?: Yes Plan: The patient has history of myocardial infarction. We will continue his cardiac medications as well as statin therapy and aspirin as outlined above. 04/29/2018-we will continue his cardiac medications. If any symptoms develop during this brief hold, waiting for speech therapy, I can institute intravenous medications temporarily. 04/30/2018-now that he is able to take medications by mouth and will discontinue the nitroglycerin patch and resume the M door. I will keep him on the IV Lasix for right now and he may be able to switch back to oral Lasix in a day or 2. 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 I will adjust his medications accordingly. With an ejection fraction of only 10% other considerations such as anticoagulation will be given once the stroke is stable. 04/30/2018-seems to be doing quite well with the current diuretic regimen. He did had an excellent negative fluid balance yesterday and is still negative today. I would like to try and keep him in negative balance for several more days. (7) Cardiac asthma Is this a current diagnosis for this admission?: Yes Plan: 04/29/2018-I believe part of the asthma is cardiogenic. I will monitor strict I' s and O's and be aggressive with his diuresis while watching his renal function. 04/30/2018-his breathing is more comfortable. Oxygen saturations have been good. Continue current regimen. I will begin tapering the steroids as well. (8) Asthma Qualifiers: Asthma severity: severe Asthma complication type: with acute exacerbation Is this a current diagnosis for this admission?: Yes Plan: 04/29/2018-the patient is now on scheduled nebulizer therapy as well as intravenous steroid therapy. I believe part of the exacerbation is cardiogenic but we will treat for acute exacerbation of asthma as well. 04/30/2018-the difficulty breathing was more likely cardiogenic but there certainly is a component of asthma. I will continue inhaler therapy, taper steroids and continue diuresis. (9) Dysphagia Qualifiers: Dysphagia type: unspecified Qualified Code(s): R13.10 - Dysphagia, unspecified Is this a current diagnosis for this admission?: Yes Plan: 04/29/2018-the nurse astutely noticed compromise swallowing at this morning. Speech therapy will see the patient. He is temporarily n.p.o. Diet to be adjusted based on speech therapy's recommendations. In addition medications may have to be arranged. 04/30/2018-please also see speech therapy's note. Adjust diet based on the recommendations. (10) Class 1 obesity with body mass index (BMI) of 34.0 to 34.9 in adult Qualifiers: Obesity type: unspecified obesity type Serious obesity comorbidity presence : unspecified whether serious comorbidity present Qualified Code(s): E66.9 - Obesity, unspecified; Z68.34 - Body mass index (BMI) 34.0-34.9, adult; Z68.34 - Body mass index (BMI) 34.0-34.9, adult Is this a current diagnosis for this admission?: Yes Plan: 04/29/2018-the patient will be on a cardiac, controlled carbohydrate diet. At this point, being compromised by stroke, and aggressive exercise pattern is inappropriate. We will encourage stricter diet control and exercise after he recovers from his stroke. 04/30/2018-as above - Time Time Spent with patient: 15-24 minutes Medications reviewed and adjusted accordingly: Yes
[2018-04-30] MEDS: ATORVASTATIN CALCIUM 80 MG TABLET PO SCH (21:33)
[2018-05-01] MEDS: ALBUTEROL SULFATE 0.083% NEB 2.5 MG/3 ML AMPUL NEB SCH ×4 (01:53→19:53)
[2018-05-01] MEDS: BUDESONIDE NEB 0.5 MG/2 ML AMPUL NEB SCH ×4 (01:53→19:53)
[2018-05-01 05:11] LABS: HEMATOCRIT 35.8 % (37.9-51.0); HEMOGLOBIN 11.4 g/dL (13.5-17.0); MEAN CORPUSCULAR HEMOGLOBIN 23.2 pg (27.0-33.4); MEAN CORPUSCULAR HGB CONC 31.8 g/dL (32.0-36.0); MEAN CORPUSCULAR VOLUME 73 fl (80-97); PLATELET COUNT 305 10^3/uL (150-450); RED BLOOD COUNT 4.92 10^6/uL (4.35-5.55); RED CELL DISTRIBUTION WIDTH 17.1 % (11.5-14.0); WHITE BLOOD COUNT 12.9 10^3/uL (4.0-10.5)
[2018-05-01] MEDS: LANSOPRAZOLE 15 MG TAB.RAP.DR PO SCH ×2 (05:16→17:13)
[2018-05-01] MEDS: GABAPENTIN 300 MG CAPSULE PO SCH ×3 (05:16→21:53)
[2018-05-01] MEDS: TRAMADOL HCL 50 MG TABLET PO PRN ×2 (05:20→10:05)
[2018-05-01 05:34] LABS: ANION GAP 12 (5-19); BLOOD UREA NITROGEN 29 mg/dL (7-20); CALCIUM 9.1 mg/dL (8.4-10.2); CARBON DIOXIDE 30 mmol/L (22-30); CHLORIDE 102 mmol/L (98-107); GLUCOSE 159 mg/dL (75-110); POTASSIUM 4.4 mmol/L (3.6-5.0)
[2018-05-01] MEDS: ASPIRIN 325 MG TABLET, ENT COATED PO SCH (09:25)
[2018-05-01] MEDS: VALSARTAN 40 MG TABLET PO SCH (09:25)
[2018-05-01] MEDS: ENOXAPARIN SODIUM INJ 40 MG/0.4 ML DISP.SYRIN SUBCUT SCH (09:25)
[2018-05-01] MEDS: CARVEDILOL 12.5 MG TABLET PO SCH (09:25)
[2018-05-01] MEDS: CITALOPRAM HYDROBROMIDE 20 MG TABLET PO SCH (09:25)
[2018-05-01] MEDS: GLIPIZIDE XL 5 MG TAB.ER.24 PO SCH (09:25)
[2018-05-01] MEDS: ISOSORB DINIT/HYDRALAZINE HCL 20-37.5 MG TABLET PO SCH ×3 (09:25→17:13)
[2018-05-01] MEDS: FUROSEMIDE INJ/PF 20 MG/2 ML SDV IV SCH ×2 (09:26→21:51)
[2018-05-01] MEDS: METHYLPREDNISOLONE INJ 125 MG/2 ML SDV IV SCH ×2 (09:26→21:52)
[2018-05-01] MEDS: BUDESONIDE/FORMOTEROL 160-4.5 MCG 60 PUFF/6 GM MDI IH SCH ×2 (09:26→21:52)
[2018-05-01] MEDS: INSULIN LISPRO 100 UNIT/ML 3 ML VIAL SUBCUT PRN (14:11)
[2018-05-01] MEDS: IRON SUCROSE COMPLEX INJ/PF 100 MG/5 ML SDV IV SCH (17:14)
--- NOTE | 2018-05-01 19:26 | PDOC PROGRESS REPORT ---
Subjective Progress Note for:: 05/01/18 - seen on rounds this morning Subjective:: states he feels the same. states his back hurts- states this has been going on for weeks now. no new acute complaints otherwise, denies chest pain, SOB or n/v. Reason For Visit: RIGHT PARIETAL ACUTE ISCHEMIC STROKE Physical Exam Vital Signs: Temp Pulse Resp BP Pulse Ox 97.8 F 80 16 97/74 L 97 05/01/18 11:37 05/01/18 11:37 05/01/18 11:37 05/01/18 11:37 05/01/18 11:37 Intake & Output 04/30/18 05/01/18 05/02/18 06:59 06:59 06:59 Intake Total 413 594 340 Output Total 2040 2100 1000 Balance -5109 -7086 -660 Weight 266 lb 12.149 oz 259 lb 4.218 oz General appearance: PRESENT: no acute distress Head exam: PRESENT: atraumatic, normocephalic Eye exam: PRESENT: EOMI. ABSENT: scleral icterus Ear exam: PRESENT: normal external ear exam Mouth exam: PRESENT: tongue midline Neck exam: ABSENT: tracheal deviation Respiratory exam: PRESENT: clear to auscultation familia, symmetrical Cardiovascular exam: PRESENT: +S1, +S2 Pulses: PRESENT: +2 pedal pulses bilateral GI/Abdominal exam: PRESENT: normal bowel sounds, soft. ABSENT: tenderness Extremities exam: ABSENT: calf tenderness, pedal edema Neurological exam: PRESENT: alert, awake, oriented to person, oriented to place , oriented to time, other - left sided weakness noted- strength 3/5 of the UE and LE. CN abnormalities of the left- facial droop, decreased shoulder shrug, can't puff out cheek symmetrically Skin exam: PRESENT: dry, warm Results Laboratory Results: 05/01/18 04:01 05/01/18 04:01 05/01/18 05/01/18 04:01 04:01 WBC 12.9 H RBC 4.92 Hgb 11.4 L Hct 35.8 L MCV 73 L MCH 23.2 L MCHC 31.8 L RDW 17.1 H Plt Count 305 Sodium 144.0 Potassium 4.4 Chloride 102 Carbon Dioxide 30 Anion Gap 12 BUN 29 H Creatinine 1.07 Est GFR ( Amer) > 60 Est GFR (Non-Af Amer) > 60 Glucose 159 H Calcium 9.1 Magnesium 2.3 04/27/18 04/27/18 04/28/18 14:57 21:00 03:15 Troponin I 0.065 0.070 Cancelled NT-Pro-B Natriuret Pep 04/28/18 04/29/18 03:51 04:05 Troponin I 0.081 NT-Pro-B Natriuret Pep 4200 H Impressions: Chest X-Ray 04/27/18 08:49 IMPRESSION: 1. No significant interval changes since the prior examination dated 03/17/2018. No acute findings. 2. Cardiomegaly, stable finding. Head CTA 04/27/18 09:20 IMPRESSION: NO CTA EVIDENCE OF STENOSIS OR ANEURYSM OF THE [place]. Neck CTA 04/27/18 09:20 IMPRESSION: NORMAL CTA OF THE EXTRA-CRANIAL CAROTID AND VERTEBRAL ARTERIES. Head CT 04/28/18 00:00 IMPRESSION: Low attenuation in the right posterior temporal lobe/lateral basal ganglia worrisome for acute nonhemorrhagic right MCA distribution infarct. This is new compared to imaging from yesterday. Results called to Dr Calix, 1540 hours, 04/28/2018 EVIDENCE OF ACUTE STROKE: Yes. Modified Barium Swallow 04/30/18 00:00 IMPRESSION: NO EVIDENCE OF PENETRATION OR ASPIRATION.PLEASE SEE SPEECH PATHOLOGIST REPORT FOR OTHER FINDINGS AND RECOMMENDATIONS. Assessment & Plan - Diagnosis (1) Ischemic stroke Is this a current diagnosis for this admission?: Yes (3) Diabetes Qualifiers: Diabetes mellitus type: type 2 Diabetes mellitus custodial insulin use: unspecified computer terminal operator insulin use status Diabetes mellitus complication status : with unspecified complications Qualified Code(s): E11.8 - Type 2 diabetes mellitus with unspecified complications Is this a current diagnosis for this admission?: Yes (4) Hypertension Qualifiers: Hypertension type: essential hypertension Qualified Code(s): I10 - Essential (primary) hypertension Is this a current diagnosis for this admission?: Yes (5) Dysphagia Qualifiers: Dysphagia type: unspecified Qualified Code(s): R13.10 - Dysphagia, unspecified Is this a current diagnosis for this admission?: Yes (6) Hematuria Qualifiers: Hematuria type: gross Qualified Code(s): R31.0 - Gross hematuria Is this a current diagnosis for this admission?: Yes (7) Acute on chronic congestive heart failure Qualifiers: Heart failure type: combined systolic and diastolic Qualified Code(s): I50.43 - Acute on chronic combined systolic (congestive) and diastolic ( congestive) heart failure Is this a current diagnosis for this admission?: Yes - Plan Summary Plan Summary: Ischemic stroke-currently is on Lovenox subcu daily and aspirin 325 mg daily. He is working with physical therapy and improving gradually. He did have a repeat CT of his head which did not show a hemorrhagic conversion. Plan is to send him to rehab when bed is available. Acute on chronic heart failure-currently is on Lasix 20 mg IV twice daily. We will transition him to p.o. Lasix when ready. Diabetes-continue on glipizide and sliding scale insulin Hypertension-continue with valsartan. Hematuria-patient had an episode of gross hematuria due to trauma from a Plascencia being placed. He is no longer having any hematuria and it seems that has resolved. His anticoagulation was held during this period. Dysphasia-currently he is on all the liquids and a diabetic diet. Aspiration precautions.
[2018-05-01] MEDS: ATORVASTATIN CALCIUM 80 MG TABLET PO SCH (21:53)
[2018-05-01] MEDS: CARVEDILOL 6.25 MG TABLET PO SCH (21:53)
[2018-05-02] MEDS: BUDESONIDE NEB 0.5 MG/2 ML AMPUL NEB SCH ×4 (01:58→19:34)
[2018-05-02] MEDS: ALBUTEROL SULFATE 0.083% NEB 2.5 MG/3 ML AMPUL NEB SCH ×4 (01:58→19:34)
[2018-05-02] MEDS: LANSOPRAZOLE 15 MG TAB.RAP.DR PO SCH ×2 (05:28→17:16)
[2018-05-02] MEDS: GABAPENTIN 300 MG CAPSULE PO SCH ×3 (05:29→21:46)
[2018-05-02] MEDS: FUROSEMIDE INJ/PF 20 MG/2 ML SDV IV SCH (09:35)
[2018-05-02] MEDS: METHYLPREDNISOLONE INJ 125 MG/2 ML SDV IV SCH ×2 (09:35→21:47)
[2018-05-02] MEDS: ASPIRIN 325 MG TABLET, ENT COATED PO SCH (09:36)
[2018-05-02] MEDS: ISOSORB DINIT/HYDRALAZINE HCL 20-37.5 MG TABLET PO SCH ×3 (09:36→17:17)
[2018-05-02] MEDS: CARVEDILOL 6.25 MG TABLET PO SCH ×2 (09:36→21:47)
[2018-05-02] MEDS: GLIPIZIDE XL 5 MG TAB.ER.24 PO SCH (09:36)
[2018-05-02] MEDS: CITALOPRAM HYDROBROMIDE 20 MG TABLET PO SCH (09:36)
[2018-05-02] MEDS: VALSARTAN 40 MG TABLET PO SCH (09:36)
[2018-05-02] MEDS: ENOXAPARIN SODIUM INJ 40 MG/0.4 ML DISP.SYRIN SUBCUT SCH (09:37)
[2018-05-02] MEDS: BUDESONIDE/FORMOTEROL 160-4.5 MCG 60 PUFF/6 GM MDI IH SCH ×2 (09:37→21:48)
[2018-05-02] MEDS: INSULIN LISPRO 100 UNIT/ML 3 ML VIAL SUBCUT PRN (09:37)
[2018-05-02] MEDS: TRAMADOL HCL 50 MG TABLET PO PRN ×2 (09:40→15:55)
--- NOTE | 2018-05-02 16:00 | PDOC PROGRESS REPORT ---
Subjective Progress Note for:: 05/02/18 - seen on rounds this morning Subjective:: He had no complaints this morning. He still has weakness on the left side. His niece was at bedside and feeding him. I spoke to him about starting him on Plavix and he understands that he needs it. We are still waiting on placement and he is aware of this Reason For Visit: RIGHT PARIETAL ACUTE ISCHEMIC STROKE Physical Exam Vital Signs: Temp Pulse Resp BP Pulse Ox 97.7 F 76 14 112/69 96 05/02/18 11:32 05/02/18 14:12 05/02/18 14:12 05/02/18 11:32 05/02/18 14:12 Intake & Output 05/01/18 05/02/18 05/03/18 06:59 06:59 06:59 Intake Total 594 935 300 Output Total 2100 3100 1600 Balance -1506 -2165 -1300 Weight 259 lb 4.218 oz 256 lb 9.889 oz General appearance: PRESENT: no acute distress Head exam: PRESENT: atraumatic, normocephalic Eye exam: PRESENT: EOMI. ABSENT: conjunctival injection, scleral icterus Ear exam: PRESENT: normal external ear exam Neck exam: ABSENT: tracheal deviation Respiratory exam: PRESENT: clear to auscultation familia, symmetrical Cardiovascular exam: PRESENT: +S1, +S2 Pulses: PRESENT: +2 pedal pulses bilateral GI/Abdominal exam: PRESENT: normal bowel sounds, soft. ABSENT: tenderness Extremities exam: ABSENT: pedal edema Neurological exam: PRESENT: alert, awake, oriented to person, oriented to place , oriented to time, oriented to situation, CN II-XII grossly intact, other - No change from [id number] weakness of the upper and lower extremity, facial droop appreciated Results Laboratory Results: 05/01/18 04:01 05/01/18 04:01 04/27/18 04/27/18 04/28/18 14:57 21:00 03:15 Troponin I 0.065 0.070 Cancelled NT-Pro-B Natriuret Pep 04/28/18 04/29/18 03:51 04:05 Troponin I 0.081 NT-Pro-B Natriuret Pep 4200 H Impressions: Chest X-Ray 04/27/18 08:49 IMPRESSION: 1. No significant interval changes since the prior examination dated 03/17/2018. No acute findings. 2. Cardiomegaly, stable finding. Head CTA 04/27/18 09:20 IMPRESSION: NO CTA EVIDENCE OF STENOSIS OR ANEURYSM OF THE [place]. Neck CTA 04/27/18 09:20 IMPRESSION: NORMAL CTA OF THE EXTRA-CRANIAL CAROTID AND VERTEBRAL ARTERIES. Head CT 04/28/18 00:00 IMPRESSION: Low attenuation in the right posterior temporal lobe/lateral basal ganglia worrisome for acute nonhemorrhagic right MCA distribution infarct. This is new compared to imaging from yesterday. Results called to Dr Calix, 1540 hours, 04/28/2018 EVIDENCE OF ACUTE STROKE: Yes. Modified Barium Swallow 04/30/18 00:00 IMPRESSION: NO EVIDENCE OF PENETRATION OR ASPIRATION.PLEASE SEE SPEECH PATHOLOGIST REPORT FOR OTHER FINDINGS AND RECOMMENDATIONS. Assessment & Plan - Diagnosis (1) Ischemic stroke Is this a current diagnosis for this admission?: Yes (3) Diabetes Qualifiers: Diabetes mellitus type: type 2 Diabetes mellitus termite treater helper insulin use: unspecified termite treater helper insulin use status Diabetes mellitus complication status : with unspecified complications Qualified Code(s): E11.8 - Type 2 diabetes mellitus with unspecified complications Is this a current diagnosis for this admission?: Yes (4) Hypertension Qualifiers: Hypertension type: essential hypertension Qualified Code(s): I10 - Essential (primary) hypertension Is this a current diagnosis for this admission?: Yes (5) Dysphagia Qualifiers: Dysphagia type: unspecified Qualified Code(s): R13.10 - Dysphagia, unspecified Is this a current diagnosis for this admission?: Yes (6) Hematuria Qualifiers: Hematuria type: gross Qualified Code(s): R31.0 - Gross hematuria Is this a current diagnosis for this admission?: Yes (7) Acute on chronic congestive heart failure Qualifiers: Heart failure type: combined systolic and diastolic Qualified Code(s): I50.43 - Acute on chronic combined systolic (congestive) and diastolic ( congestive) heart failure Is this a current diagnosis for this admission?: Yes - Plan Summary Plan Summary: Ischemic stroke- will start him on Plavix from tomorrow. he was on ASA prior to his stroke. will c/w 325mg ASA. awaiting placement in rehab. Acute on chronic heart failure-currently is on Lasix 20 mg IV twice daily. will switch him to PO from tomorrow to anticipate a d/c in 1-2 days when bed available. Diabetes- stable, continue on glipizide and sliding scale insulin Hypertension-continue with valsartan. Hematuria-patient had an episode of gross hematuria due to trauma from a Plascencia being placed. He is no longer having any hematuria and it seems that has resolved. His anticoagulation was held during this period but now restarted Dysphasia-currently he is on all the liquids and mechanical soft diet. Aspiration precautions.
[2018-05-02] MEDS: COLCHICINE 0.6 MG TABLET PO SCH (17:17)
[2018-05-02] MEDS: LORAZEPAM INJ 2 MG/1 ML VIAL IV PRN (20:07)
[2018-05-02] MEDS: ATORVASTATIN CALCIUM 80 MG TABLET PO SCH (21:46)
[2018-05-03] MEDS: BUDESONIDE NEB 0.5 MG/2 ML AMPUL NEB SCH ×4 (02:26→19:49)
[2018-05-03] MEDS: ALBUTEROL SULFATE 0.083% NEB 2.5 MG/3 ML AMPUL NEB SCH ×4 (02:26→19:49)
[2018-05-03] MEDS: GABAPENTIN 300 MG CAPSULE PO SCH ×3 (05:26→21:07)
[2018-05-03] MEDS: LANSOPRAZOLE 15 MG TAB.RAP.DR PO SCH ×2 (05:26→18:00)
[2018-05-03] MEDS: CARVEDILOL 6.25 MG TABLET PO SCH ×2 (09:34→21:07)
[2018-05-03] MEDS: CITALOPRAM HYDROBROMIDE 20 MG TABLET PO SCH (09:34)
[2018-05-03] MEDS: COLCHICINE 0.6 MG TABLET PO SCH (09:34)
[2018-05-03] MEDS: TRAMADOL HCL 50 MG TABLET PO PRN ×2 (09:34→20:28)
[2018-05-03] MEDS: VALSARTAN 40 MG TABLET PO SCH (09:34)
[2018-05-03] MEDS: ASPIRIN 325 MG TABLET, ENT COATED PO SCH (09:34)
[2018-05-03] MEDS: ISOSORB DINIT/HYDRALAZINE HCL 20-37.5 MG TABLET PO SCH ×3 (09:35→18:00)
[2018-05-03] MEDS: BUDESONIDE/FORMOTEROL 160-4.5 MCG 60 PUFF/6 GM MDI IH SCH ×2 (09:35→22:18)
[2018-05-03] MEDS: FUROSEMIDE 40 MG TABLET PO SCH ×2 (09:35→18:00)
[2018-05-03] MEDS: GLIPIZIDE XL 5 MG TAB.ER.24 PO SCH (09:35)
[2018-05-03] MEDS: CLOPIDOGREL BISULFATE 75 MG TABLET PO SCH (09:35)
[2018-05-03] MEDS: METHYLPREDNISOLONE INJ 125 MG/2 ML SDV IV SCH ×2 (09:36→21:07)
[2018-05-03] MEDS: INSULIN LISPRO 100 UNIT/ML 3 ML VIAL SUBCUT PRN ×3 (09:37→21:27)
[2018-05-03] MEDS: ASPIRIN 325 MG TABLET PO SCH (10:03)
--- NOTE | 2018-05-03 12:31 | PDOC PROGRESS REPORT ---
Subjective Progress Note for:: 05/03/18 Subjective:: I saw patient this morning while he was having his breakfast. His niece is at bedside. He tells me that he is feeling better as he can raise his left arm higher than he could yesterday. Physical therapist are also in the room ready to work with him Reason For Visit: RIGHT PARIETAL ACUTE ISCHEMIC STROKE Physical Exam Vital Signs: Temp Pulse Resp BP Pulse Ox 98.2 F 100 19 129/97 H 100 05/03/18 07:45 05/03/18 07:45 05/03/18 07:45 05/03/18 07:45 05/03/18 07:45 Intake & Output 05/02/18 05/03/18 05/04/18 06:59 06:59 06:59 Intake Total 935 1099 Output Total 3100 2800 Balance -2165 -1701 Weight 256 lb 9.889 oz 250 lb 7.122 oz General appearance: PRESENT: no acute distress Head exam: PRESENT: atraumatic, normocephalic Eye exam: PRESENT: EOMI. ABSENT: conjunctival injection, scleral icterus Ear exam: PRESENT: normal external ear exam Mouth exam: PRESENT: moist Neck exam: ABSENT: tracheal deviation Respiratory exam: PRESENT: clear to auscultation [place], symmetrical Cardiovascular exam: PRESENT: +S1, +S2 Pulses: PRESENT: +2 pedal pulses bilateral GI/Abdominal exam: PRESENT: normal bowel sounds, soft. ABSENT: tenderness Extremities exam: ABSENT: pedal edema Neurological exam: PRESENT: alert, awake, oriented to person, oriented to place , oriented to time, oriented to situation, other - Continues to have left-sided deficit of strength in upper and lower extremity. His strength seems to be somewhat better than yesterday in the left upper extremity. facial droop noted. Still has some slurred speech. Skin exam: PRESENT: dry, warm Results Laboratory Results: 05/01/18 04:01 05/01/18 04:01 04/29/18 10:26 Sputum Gram Stain - Final 04/29/18 10:26 Sputum Sputum Culture - Final NORMAL TONY 04/27/18 04/27/18 04/28/18 14:57 21:00 03:15 Troponin I 0.065 0.070 Cancelled NT-Pro-B Natriuret Pep 12/04/18 12/05/18 03:51 04:05 Troponin I 0.081 NT-Pro-B Natriuret Pep 4200 H Impressions: Chest X-Ray 04/27/18 08:49 IMPRESSION: 1. No significant interval changes since the prior examination dated 03/17/2018. No acute findings. 2. Cardiomegaly, stable finding. Head CTA 04/27/18 09:20 IMPRESSION: NO CTA EVIDENCE OF STENOSIS OR ANEURYSM OF THE [place]. Neck CTA 04/27/18 09:20 IMPRESSION: NORMAL CTA OF THE EXTRA-CRANIAL CAROTID AND VERTEBRAL ARTERIES. Head CT 04/28/18 00:00 IMPRESSION: Low attenuation in the right posterior temporal lobe/lateral basal ganglia worrisome for acute nonhemorrhagic right MCA distribution infarct. This is new compared to imaging from yesterday. Results called to Dr Calix, 1540 hours, 04/28/2018 EVIDENCE OF ACUTE STROKE: Yes. Modified Barium Swallow 04/30/18 00:00 IMPRESSION: NO EVIDENCE OF PENETRATION OR ASPIRATION.PLEASE SEE SPEECH PATHOLOGIST REPORT FOR OTHER FINDINGS AND RECOMMENDATIONS. 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 Diabetes mellitus complication status : with unspecified complications Qualified Code(s): E11.8 - Type 2 diabetes mellitus with unspecified complications Is this a current diagnosis for this admission?: Yes (4) Hypertension Qualifiers: Hypertension type: essential hypertension Qualified Code(s): I10 - Essential (primary) hypertension Is this a current diagnosis for this admission?: Yes (5) Dysphagia Qualifiers: Dysphagia type: unspecified Qualified Code(s): R13.10 - Dysphagia, unspecified Is this a current diagnosis for this admission?: Yes (6) Hematuria Qualifiers: Hematuria type: gross Qualified Code(s): R31.0 - Gross hematuria Is this a current diagnosis for this admission?: Yes (7) Acute on chronic congestive heart failure Qualifiers: Heart failure type: combined systolic and diastolic Qualified Code(s): I50.43 - Acute on chronic combined systolic (congestive) and diastolic ( congestive) heart failure Is this a current diagnosis for this admission?: Yes - Plan Summary Plan Summary: Patient should be going to rehab for his ischemic stroke. Pending placement- hopefully this will be done in the next 1-2 days. Ischemic stroke- he was on ASA prior to his stroke. will c/w 325mg ASA. He was on 81 mg aspirin prior to this stroke. I have added Plavix to his regimen. Initially anticoagulation was held due to hematuria during a Plascencia insertion. Awaiting placement in rehab. Acute on chronic heart failure-currently is on Lasix 20 mg IV twice daily. will switch him to PO from tomorrow to anticipate a d/c in 1-2 days when bed available. Diabetes- stable, continue on glipizide and sliding scale insulin Hypertension-continue with valsartan. Hematuria-patient had an episode of gross hematuria due to trauma from a Plascencia being placed. He is no longer having any hematuria and it seems that has resolved. His anticoagulation was held during this period but now restarted Dysphasia-currently he is on all the liquids and mechanical soft diet. Aspiration precautions.
[2018-05-03] MEDS: IRON SUCROSE COMPLEX INJ/PF 100 MG/5 ML SDV IV SCH (18:01)
[2018-05-03] MEDS: ATORVASTATIN CALCIUM 80 MG TABLET PO SCH (21:07)
[2018-05-04] MEDS: ALBUTEROL SULFATE 0.083% NEB 2.5 MG/3 ML AMPUL NEB SCH ×4 (02:29→19:26)
[2018-05-04] MEDS: BUDESONIDE NEB 0.5 MG/2 ML AMPUL NEB SCH ×4 (02:29→19:26)
[2018-05-04] MEDS: TRAMADOL HCL 50 MG TABLET PO PRN ×2 (05:16→21:30)
[2018-05-04] MEDS: GABAPENTIN 300 MG CAPSULE PO SCH ×3 (05:17→21:30)
[2018-05-04] MEDS: LANSOPRAZOLE 15 MG TAB.RAP.DR PO SCH ×2 (05:17→17:24)
[2018-05-04] MEDS: GLIPIZIDE XL 5 MG TAB.ER.24 PO SCH (07:50)
[2018-05-04] MEDS: METHYLPREDNISOLONE INJ 125 MG/2 ML SDV IV SCH (09:34)
[2018-05-04] MEDS: COLCHICINE 0.6 MG TABLET PO SCH (09:34)
[2018-05-04] MEDS: ASPIRIN 325 MG TABLET PO SCH (09:34)
[2018-05-04] MEDS: CLOPIDOGREL BISULFATE 75 MG TABLET PO SCH (09:34)
[2018-05-04] MEDS: CARVEDILOL 6.25 MG TABLET PO SCH ×2 (09:34→21:30)
[2018-05-04] MEDS: FUROSEMIDE 40 MG TABLET PO SCH ×2 (09:34→17:24)
[2018-05-04] MEDS: VALSARTAN 40 MG TABLET PO SCH (09:34)
[2018-05-04] MEDS: CITALOPRAM HYDROBROMIDE 20 MG TABLET PO SCH (09:34)
[2018-05-04] MEDS: ISOSORB DINIT/HYDRALAZINE HCL 20-37.5 MG TABLET PO SCH ×3 (09:34→17:23)
[2018-05-04] MEDS: BUDESONIDE/FORMOTEROL 160-4.5 MCG 60 PUFF/6 GM MDI IH SCH ×2 (09:35→21:31)
--- NOTE | 2018-05-04 13:49 | PDOC PROGRESS REPORT ---
Subjective Progress Note for:: 05/04/18 Subjective:: No adverse events overnight. No new complaints. The patient reports that he is feeling like he is getting more strength in his left arm. He said he still does not have the same degree of use that he has in his right arm. He does not seem to have had any trouble eating or drinking. He said he still has some weakness in his left leg. He was, however, able to hold it up off the bed against gravity. Reason For Visit: RIGHT PARIETAL ACUTE ISCHEMIC STROKE Physical Exam Vital Signs: Temp Pulse Resp BP Pulse Ox 98.1 F 85 18 117/75 97 05/04/18 11:49 05/04/18 11:49 05/04/18 11:49 05/04/18 11:49 05/04/18 11:49 Intake & Output 05/03/18 05/04/18 05/05/18 06:59 06:59 06:59 Intake Total 1099 592 537 Output Total 2800 1630 300 Balance -1701 -1038 237 Weight 113.6 kg 104.9 kg General appearance: PRESENT: no acute distress Respiratory exam: PRESENT: clear to auscultation familia, symmetrical Cardiovascular exam: PRESENT: +S1, +S2 Pulses: PRESENT: +2 pedal pulses bilateral GI/Abdominal exam: PRESENT: normal bowel sounds, soft. ABSENT: tenderness Extremities exam: ABSENT: pedal edema Neurological exam: PRESENT: alert, awake, oriented to person, oriented to place , oriented to time, oriented to situation, other - Continues to have left-sided deficit of strength in upper and lower extremity. Skin exam: PRESENT: dry, warm Results Laboratory Results: 05/01/18 04:01 05/01/18 04:01 04/29/18 10:26 Sputum Gram Stain - Final 04/29/18 10:26 Sputum Sputum Culture - Final NORMAL TONY 04/27/18 04/27/18 04/28/18 14:57 21:00 03:15 Troponin I 0.065 0.070 Cancelled NT-Pro-B Natriuret Pep 04/28/18 04/29/18 03:51 04:05 Troponin I 0.081 NT-Pro-B Natriuret Pep 4200 H Impressions: Chest X-Ray 04/27/18 08:49 IMPRESSION: 1. No significant interval changes since the prior examination dated 03/17/2018. No acute findings. 2. Cardiomegaly, stable finding. Head CTA 04/27/18 09:20 IMPRESSION: NO CTA EVIDENCE OF STENOSIS OR ANEURYSM OF THE [place]. Neck CTA 04/27/18 09:20 IMPRESSION: NORMAL CTA OF THE EXTRA-CRANIAL CAROTID AND VERTEBRAL ARTERIES. Head CT 04/28/18 00:00 IMPRESSION: Low attenuation in the right posterior temporal lobe/lateral basal ganglia worrisome for acute nonhemorrhagic right MCA distribution infarct. This is new compared to imaging from yesterday. Results called to Dr Calix, 1540 hours, 04/28/2018 EVIDENCE OF ACUTE STROKE: Yes. Modified Barium Swallow 04/30/18 00:00 IMPRESSION: NO EVIDENCE OF PENETRATION OR ASPIRATION.PLEASE SEE SPEECH PATHOLOGIST REPORT FOR OTHER FINDINGS AND RECOMMENDATIONS. Assessment & Plan - Diagnosis (1) Ischemic stroke Is this a current diagnosis for this admission?: Yes Plan: Acute ischemic stroke, right MCA territory, with residual motor deficits on the left side. On aspirin and Plavix. On Lipitor. PT, ST, OT. We will currently waiting on rehab placement. We will continue with aggressive risk factor modification. (2) Diabetes mellitus type 2 in obese Is this a current diagnosis for this admission?: Yes Plan: Continue aggressive management with insulin and oral medication and dietary modification. (3) Asthma Qualifiers: Asthma severity: severe Asthma complication type: with acute exacerbation Is this a current diagnosis for this admission?: Yes Plan: Will de-escalate steroids and transition to orals. Continue chronic medications and as needed beta agonist. - Time Time Spent with patient: 25-34 minutes Anticipated discharge: SNF Within: when bed available
[2018-05-04] MEDS: INSULIN LISPRO 100 UNIT/ML 3 ML VIAL SUBCUT PRN (17:24)
[2018-05-04] MEDS: ATORVASTATIN CALCIUM 80 MG TABLET PO SCH (21:30)
[2018-05-04 22:02] LABS: APPEARANCE,URINE SLIGHTLY-CLOUDY; BILIRUBIN,URINE NEGATIVE (NEGATIVE); COLOR,URINE YELLOW; GLUCOSE, URINE NEGATIVE (NEGATIVE); KETONES,URINE NEGATIVE (NEGATIVE); LEUKOCYTE ESTERASE,URINE NEGATIVE (NEGATIVE); NITRITE,URINE NEGATIVE (NEGATIVE); PROTEIN,URINE 30 mg/dL (NEGATIVE); URINE SPECIFIC GRAVITY 1.016; UROBILINOGEN,URINE NEGATIVE mg/dL (<2.0)
[2018-05-05] MEDS: BUDESONIDE NEB 0.5 MG/2 ML AMPUL NEB SCH ×4 (01:11→19:53)
[2018-05-05] MEDS: ALBUTEROL SULFATE 0.083% NEB 2.5 MG/3 ML AMPUL NEB SCH ×4 (01:11→19:53)
[2018-05-05] MEDS: TRAMADOL HCL 50 MG TABLET PO PRN ×3 (05:42→21:22)
[2018-05-05] MEDS: LANSOPRAZOLE 15 MG TAB.RAP.DR PO SCH ×2 (05:43→17:29)
[2018-05-05] MEDS: GABAPENTIN 300 MG CAPSULE PO SCH ×3 (05:43→21:21)
[2018-05-05] MEDS: CITALOPRAM HYDROBROMIDE 20 MG TABLET PO SCH (09:26)
[2018-05-05] MEDS: COLCHICINE 0.6 MG TABLET PO SCH (09:26)
[2018-05-05] MEDS: CLOPIDOGREL BISULFATE 75 MG TABLET PO SCH (09:26)
[2018-05-05] MEDS: VALSARTAN 40 MG TABLET PO SCH (09:26)
[2018-05-05] MEDS: GLIPIZIDE XL 5 MG TAB.ER.24 PO SCH (09:26)
[2018-05-05] MEDS: ISOSORB DINIT/HYDRALAZINE HCL 20-37.5 MG TABLET PO SCH ×3 (09:26→17:29)
[2018-05-05] MEDS: FUROSEMIDE 40 MG TABLET PO SCH ×2 (09:26→17:28)
[2018-05-05] MEDS: BUDESONIDE/FORMOTEROL 160-4.5 MCG 60 PUFF/6 GM MDI IH SCH ×2 (09:27→21:23)
[2018-05-05] MEDS: ASPIRIN 325 MG TABLET PO SCH (09:27)
[2018-05-05] MEDS: CARVEDILOL 6.25 MG TABLET PO SCH ×2 (09:27→21:21)
[2018-05-05] MEDS: INSULIN LISPRO 100 UNIT/ML 3 ML VIAL SUBCUT PRN (12:40)
--- NOTE | 2018-05-05 17:16 | PDOC PROGRESS REPORT ---
Subjective Progress Note for:: 05/05/18 Subjective:: No adverse events overnight. No new complaints. He was getting a bath when I came in to see him. He said no change in his clinical condition. Reason For Visit: RIGHT PARIETAL ACUTE ISCHEMIC STROKE Physical Exam Vital Signs: Temp Pulse Resp BP Pulse Ox 98.0 F 82 15 103/62 96 05/05/18 11:18 05/05/18 13:30 05/05/18 13:30 05/05/18 11:18 05/05/18 13:30 Intake & Output 05/04/18 05/05/18 05/06/18 06:59 06:59 06:59 Intake Total 592 837 413 Output Total 1630 2150 500 Balance -1038 -2503 -87 Weight 104.9 kg 118.6 kg General appearance: PRESENT: no acute distress Respiratory exam: PRESENT: clear to auscultation familia, symmetrical Cardiovascular exam: PRESENT: +S1, +S2 Pulses: PRESENT: +2 pedal pulses bilateral GI/Abdominal exam: PRESENT: normal bowel sounds, soft. ABSENT: tenderness Extremities exam: ABSENT: pedal edema Neurological exam: PRESENT: alert, awake, oriented to person, oriented to place , oriented to time, oriented to situation, other - Continues to have left-sided deficit of strength in upper and lower extremity. Skin exam: PRESENT: dry, warm Results Laboratory Results: 05/01/18 04:01 05/01/18 04:01 05/04/18 21:25 Urine Color YELLOW Urine Appearance SLIGHTLY-CLOUDY Urine pH 6.0 Ur Specific Wright 1.016 Urine Protein 30 H Urine Glucose (UA) NEGATIVE Urine Ketones NEGATIVE Urine Blood LARGE H Urine Nitrite NEGATIVE Ur Leukocyte Esterase NEGATIVE Urine WBC (Auto) 1 Urine RBC (Auto) >182 04/27/18 04/27/18 04/28/18 14:57 21:00 03:15 Troponin I 0.065 0.070 Cancelled NT-Pro-B Natriuret Pep 04/28/18 04/29/18 03:51 04:05 Troponin I 0.081 NT-Pro-B Natriuret Pep 4200 H Impressions: Chest X-Ray 04/27/18 08:49 IMPRESSION: 1. No significant interval changes since the prior examination dated 03/17/2018. No acute findings. 2. Cardiomegaly, stable finding. Head CTA 04/27/18 09:20 IMPRESSION: NO CTA EVIDENCE OF STENOSIS OR ANEURYSM OF THE [place]. Neck CTA 04/27/18 09:20 IMPRESSION: NORMAL CTA OF THE EXTRA-CRANIAL CAROTID AND VERTEBRAL ARTERIES. Head CT 04/28/18 00:00 IMPRESSION: Low attenuation in the right posterior temporal lobe/lateral basal ganglia worrisome for acute nonhemorrhagic right MCA distribution infarct. This is new compared to imaging from yesterday. Results called to Dr Calix, 1540 hours, 04/28/2018 EVIDENCE OF ACUTE STROKE: Yes. Modified Barium Swallow 04/30/18 00:00 IMPRESSION: NO EVIDENCE OF PENETRATION OR ASPIRATION.PLEASE SEE SPEECH PATHOLOGIST REPORT FOR OTHER FINDINGS AND RECOMMENDATIONS. Assessment & Plan - Diagnosis (1) Ischemic stroke Is this a current diagnosis for this admission?: Yes Plan: Acute ischemic stroke, right MCA territory, with residual motor deficits on the left side. On aspirin and Plavix. On Lipitor. PT, ST, OT. We will currently waiting on rehab placement. We will continue with aggressive risk factor modification. (2) Diabetes mellitus type 2 in obese Is this a current diagnosis for this admission?: Yes Plan: Continue aggressive management with insulin and oral medication and dietary modification. (3) Asthma Qualifiers: Asthma severity: severe Asthma complication type: with acute exacerbation Is this a current diagnosis for this admission?: Yes Plan: Discontinue oral steroids. Continue chronic medications and as needed beta agonist. - Time Time Spent with patient: 15-24 minutes
[2018-05-05] MEDS: IRON SUCROSE COMPLEX INJ/PF 100 MG/5 ML SDV IV SCH (17:28)
[2018-05-05] MEDS: ATORVASTATIN CALCIUM 80 MG TABLET PO SCH (21:21)
[2018-05-06] MEDS: ALBUTEROL SULFATE 0.083% NEB 2.5 MG/3 ML AMPUL NEB SCH ×3 (01:38→13:37)
[2018-05-06] MEDS: BUDESONIDE NEB 0.5 MG/2 ML AMPUL NEB SCH ×3 (03:10→13:37)
[2018-05-06] MEDS: TRAMADOL HCL 50 MG TABLET PO PRN (05:21)
[2018-05-06] MEDS: LANSOPRAZOLE 15 MG TAB.RAP.DR PO SCH (05:21)
[2018-05-06] MEDS: GABAPENTIN 300 MG CAPSULE PO SCH ×2 (05:21→13:35)
[2018-05-06] MEDS: GLIPIZIDE XL 5 MG TAB.ER.24 PO SCH (08:07)
[2018-05-06] MEDS: CITALOPRAM HYDROBROMIDE 20 MG TABLET PO SCH (09:29)
[2018-05-06] MEDS: COLCHICINE 0.6 MG TABLET PO SCH (09:29)
[2018-05-06] MEDS: CLOPIDOGREL BISULFATE 75 MG TABLET PO SCH (09:32)
[2018-05-06] MEDS: FUROSEMIDE 40 MG TABLET PO SCH (09:32)
[2018-05-06] MEDS: ASPIRIN 325 MG TABLET PO SCH (09:32)
[2018-05-06] MEDS: ISOSORB DINIT/HYDRALAZINE HCL 20-37.5 MG TABLET PO SCH ×2 (09:33→13:36)
[2018-05-06] MEDS: VALSARTAN 40 MG TABLET PO SCH (09:33)
[2018-05-06] MEDS: BUDESONIDE/FORMOTEROL 160-4.5 MCG 60 PUFF/6 GM MDI IH SCH (09:33)
[2018-05-06] MEDS: CARVEDILOL 6.25 MG TABLET PO SCH (09:33)
--- NOTE | 2018-05-06 11:38 | PDOC TRANSFER SUMMARY ---
General - Admit/Disc Date/PCP Admission Date/Primary Care Provider: 04/27/18 10:54 NAHOMI MUNIZ DO Discharge Date: 05/06/18 - Discharge Diagnosis (1) Ischemic stroke Is this a current diagnosis for this admission?: Yes Summary: Right MCA territory, affecting the posterior temporal lobe and the basal ganglia. He is on a modified diet and has some left-sided motor deficits. He is on aspirin and statin. Blood pressures well controlled. (2) Diabetes mellitus type 2 in obese Is this a current diagnosis for this admission?: Yes Summary: On his home regimen with a consistent carbohydrate diet (3) Asthma Is this a current diagnosis for this admission?: Yes Summary: He was on prednisone at one point for what was thought to be an asthma exacerbation, we have since been able to take him off of steroids. His breathing has been completely normal for the last few days. - Additional Information Resuscitation Status: Full Code Home Medications: Carvedilol [Coreg 6.25 mg Tablet] 6.25 mg PO Q12 08/07/17 Furosemide [Lasix 80 mg Tablet] 80 mg PO DAILY 30 Days tablet 08/11/17 Atorvastatin Calcium [Lipitor 80 mg Tablet] 80 mg PO QHS 04/27/18 Citalopram Hydrobromide [Citalopram HBr] 40 mg PO DAILY 04/27/18 Clonazepam 0.5 mg PO DAILY 04/27/18 Gabapentin [Neurontin 300 mg Capsule] 300 mg PO Q8 04/27/18 Isosorb Dinit/Hydralazine HCl [Bidil 20-37.5 mg Tablet] 1 tab PO TID 04/27/18 Valsartan [Diovan 40 mg Tablet] 40 mg PO DAILY 04/27/18 History of Present Illness Admission Date/PCP: 04/27/18 10:54 NAHOMI MUNIZ DO History of Present Illness: GAVIOTA LUCERO is a 58 year old male who, by family report, has not been feeling well for several weeks. He is generally quite active. He has been in bed. He did have an episode of gout several weeks ago as well. The patient reports that he was up going to the bathroom. He remembers sneezing and subsequently passing out. Family responded within minutes. They reported him to be diaphoretic. His speech was slurred and he experienced weakness in his left arm with contraction of the right hand. By best accounts he recovered consciousness within 3-4 minutes. He has some difficulty remembering specifics immediately post syncope. He was transferred by EMS and was still symptomatic upon arriving to the emergency department. His symptoms began to fade. At the time of his encounter his NIH score was 0. He felt back to his former status. He will be admitted for acute ischemic stroke. Hospital Course Hospital Course: He underwent he underwent a stroke evaluation and had the findings as noted above. He has been put on aspirin and statin. His blood pressures been well controlled. Glucose control has been fair. It has improved somewhat over what he normally uses at home because we have been able to control his diet a little bit better. He has been working with physical therapy and is on a modified mechanical diet. Recommendation was for [facility] to [facility]. We have obtained a bed at [facility]. His labs and examination were reassuring and he was discharged today in good condition. Physical Exam Vital Signs: Temp Pulse Resp BP Pulse Ox 97.7 F 92 16 100/58 L 96 05/06/18 07:31 05/06/18 07:38 05/06/18 07:38 05/06/18 07:31 05/06/18 07:38 Intake & Output 05/05/18 05/06/18 05/07/18 06:59 06:59 06:59 Intake Total 837 1085 Output Total 2150 3050 Balance -1313 -1965 Weight 118.6 kg 115.1 kg Results Laboratory Results: 05/01/18 04:01 05/01/18 04:01 04/27/18 04/27/18 04/28/18 14:57 21:00 03:15 Troponin I 0.065 0.070 Cancelled NT-Pro-B Natriuret Pep 04/28/18 04/29/18 03:51 04:05 Troponin I 0.081 NT-Pro-B Natriuret Pep 4200 H Impressions: Chest X-Ray 04/27/18 08:49 IMPRESSION: 1. No significant interval changes since the prior examination dated 03/17/2018. No acute findings. 2. Cardiomegaly, stable finding. Head CTA 04/27/18 09:20 IMPRESSION: NO CTA EVIDENCE OF STENOSIS OR ANEURYSM OF THE [place]. Neck CTA 04/27/18 09:20 IMPRESSION: NORMAL CTA OF THE EXTRA-CRANIAL CAROTID AND VERTEBRAL ARTERIES. Head CT 04/28/18 00:00 IMPRESSION: Low attenuation in the right posterior temporal lobe/lateral basal ganglia worrisome for acute nonhemorrhagic right MCA distribution infarct. This is new compared to imaging from yesterday. Results called to Dr Calix, 1540 hours, 04/28/2018 EVIDENCE OF ACUTE STROKE: Yes. Modified Barium Swallow 04/30/18 00:00 IMPRESSION: NO EVIDENCE OF PENETRATION OR ASPIRATION.PLEASE SEE SPEECH PATHOLOGIST REPORT FOR OTHER FINDINGS AND RECOMMENDATIONS. Transfer Plan - Time Spent with Patient Time spent with patient: Greater than 30 Minutes Qualifiers - * PATIENT BEING DISCHARGED WITH ANY OF THE FOLLOWING DIAGNOSIS: Stroke Stroke Pt being discharged on Anti-thrombolytic therapy?: Yes Stroke Pt being discharged on Anti-coagulation therapy?: No Reason(s) for not prescribing Anti-coagulation therapy:: Not indicated Stroke Pt being discharged on Statins?: Yes
[2018-05-06 15:47] VITALS: BP 97/61
== END 2018-05-06 15:57 | disposition home or self-care (01) | DRG 64 ==
LOC: ER 08:45 → EH 10:54 → 3N 17:28 → UNDODISIN 05-06 15:57
PROVIDERS: ADMIT Hospitalist; ATTEND Hospitalist
PROC: 3E0F73Z Introduction of Anti-inflammatory into Respiratory Tract, Via Natural or Artificial Opening (ICD-10-PCS; principal; 2018-04-27)
DX: I63.411 Cerebral infarction due to embolism of right middle cerebral artery (principal); I50.43 Acute on chronic combined systolic (congestive) and diastolic (congestive) heart failure; I42.0 Dilated cardiomyopathy; J45.51 Severe persistent asthma with (acute) exacerbation; S37.29XA Other injury of bladder, initial encounter; E66.9 Obesity, unspecified; J45.909 Unspecified asthma, uncomplicated; I11.0 Hypertensive heart disease with heart failure; K21.9 Gastro-esophageal reflux disease without esophagitis; M10.9 Gout, unspecified; F31.9 Bipolar disorder, unspecified; L30.9 Dermatitis, unspecified; K59.00 Constipation, unspecified; E11.51 Type 2 diabetes mellitus with diabetic peripheral angiopathy without gangrene; L40.9 Psoriasis, unspecified; E87.6 Hypokalemia; R29.810 Facial weakness; R13.10 Dysphagia, unspecified; Z68.34 Body mass index [BMI] 34.0-34.9, adult; R31.0 Gross hematuria; Y84.6 Urinary catheterization as the cause of abnormal reaction of the patient, or of later complication, without mention of misadventure at the time of the procedure; I25.2 Old myocardial infarction; Z95.810 Presence of automatic (implantable) cardiac defibrillator; Z87.891 Personal history of nicotine dependence; Z79.899 Other long term (current) drug therapy; Z88.6 Allergy status to analgesic agent; Z91.040 Latex allergy status; Z88.0 Allergy status to penicillin; Z88.8 Allergy status to other drugs, medicaments and biological substances; Z91.018 Allergy to other foods; Z82.61 Family history of arthritis; Z82.49 Family history of ischemic heart disease and other diseases of the circulatory system; Z83.3 Family history of diabetes mellitus; Z82.5 Family history of asthma and other chronic lower respiratory diseases; Z83.6 Family history of other diseases of the respiratory system
CPT/HCPCS: 36415; 36600; 70450; 70496; 70498; 71045; 74230; 80048; 80053; 80061; 80307; 81001; 82607; 82728; 82746; 82803; 82962; 83036; 83540; 83550; 83735; 83880; 84484; 84550; 85025; 85027; 85045; 85610; 85730; 87070; 87205; 93005; 93010; 93306; 94640; 99285; J1650; J1756; J1815; J1940; J2060; J2930; J3480; J3490; J7620; S0119

== ENCOUNTER 2018-05-10 13:33 | Inpatient (IN) | payer MEDICAID ==
[2018-05-10] MEDS ORDERED: NORMAL SALINE 1000 ML 1,000 ML IV ONE ×2 (13:54→20:30)
[2018-05-10 14:13] LABS: VENOUS BLOOD BASE EXCESS 6.1 mmol/L; VENOUS BLOOD HCO3 30.1 mmol/L (20-32); VENOUS BLOOD PCO2 41.5 mmHg (35-63); VENOUS BLOOD PH 7.48 (7.30-7.42)
[2018-05-10 14:18] LABS: INTERNATIONAL RATION (INR) 1.06; PROTHROMBIN TIME 14.3 SEC (11.4-15.4)
[2018-05-10 14:21] LABS: HEMATOCRIT 39.9 % (37.9-51.0); HEMOGLOBIN 12.7 g/dL (13.5-17.0); MEAN CORPUSCULAR HEMOGLOBIN 22.8 pg (27.0-33.4); MEAN CORPUSCULAR HGB CONC 31.9 g/dL (32.0-36.0); MEAN CORPUSCULAR VOLUME 72 fl (80-97); PLATELET COUNT 230 10^3/uL (150-450); RED BLOOD COUNT 5.57 10^6/uL (4.35-5.55); RED CELL DISTRIBUTION WIDTH 18.3 % (11.5-14.0); WHITE BLOOD COUNT 23.4 10^3/uL (4.0-10.5)
[2018-05-10] MEDS ORDERED: ALBUTEROL SULFATE 0.083% NEB 2.5 MG/3 ML AMPUL NEB ONE (14:30)
[2018-05-10] MEDS ORDERED: IPRATROPIUM/ALBUTEROL 0.5-2.5 MG/3 ML AMPUL NEB ONE (14:30)
[2018-05-10] MEDS ORDERED: LEVOFLOXACIN 750 MG TABLET PO ONE (14:31)
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
--- NOTE | 2018-05-10 14:32 | RADIOLOGY REPORT (SQ) ---
EXAM DESCRIPTION: CHEST SINGLE VIEW COMPLETED DATE/TIME: 05/10/2018 2:08 pm REASON FOR STUDY: fever COMPARISON: Chest x-ray 04/27/2018. EXAM PARAMETERS: NUMBER OF VIEWS: One view. TECHNIQUE: Single frontal radiographic view of the chest acquired. RADIATION DOSE: NA LIMITATIONS: None. FINDINGS: LUNGS AND PLEURA: No consolidation, pneumothorax or pleural effusion. MEDIASTINUM AND HILAR STRUCTURES: No masses. Contour normal. HEART AND VASCULAR STRUCTURES: The cardiac silhouette is enlarged. There is no overt vascular conges tion. BONES: No acute findings. HARDWARE: There is a left-sided pacemaker. IMPRESSION: Enlarged cardiac silhouette, may be secondary to cardiomegaly and/or pericardial effusio n. Otherwise, no acute radiographic finding in the chest. TECHNICAL DOCUMENTATION: JOB ID: [id number] [employer]- All Rights Reserved Reading location - IP/workstation name: [email or web address]
[2018-05-10 14:46] LABS: ABSOLUTE LYMPHOCYTES# (MANUAL) 0.2 10^3/uL (0.5-4.7); ABSOLUTE MONOCYTES # (MANUAL) 1.6 10^3/uL (0.1-1.4); ABSOLUTE NEUTROPHILS# (MANUAL) 21.5 10^3/uL (1.7-8.2); BAND NEUTROPHILS % (MANUAL) 1 % (3-5); BASOPHILS % (MANUAL) 0 % (0-2); EOSINOPHILS % (MANUAL) 0 % (0-6); LYMPHOCYTES % (MANUAL) 1 % (13-45); MONOCYTES % (MANUAL) 7 % (3-13); SEGMENTED NEUTROPHILS % (MAN) 91 % (42-78); TOTAL CELLS COUNTED 100
[2018-05-10 14:47] LABS: ANISOCYTOSIS 2+; HYPOCHROMASIA 1+; OVALOCYTES 1+; PLATELET CLUMPS PRESENT; PLATELET COMMENT ADEQUATE; POIKILOCYTOSIS 2+; TARGET CELLS 1+; TOXIC GRANULATION SLIGHT; TOXIC VACUOLATION PRESENT
[2018-05-10 15:13] LABS: APPEARANCE,URINE CLEAR; BILIRUBIN,URINE NEGATIVE (NEGATIVE); GLUCOSE, URINE NEGATIVE (NEGATIVE); KETONES,URINE NEGATIVE (NEGATIVE); LEUKOCYTE ESTERASE,URINE NEGATIVE (NEGATIVE); NITRITE,URINE NEGATIVE (NEGATIVE); PROTEIN,URINE 100 mg/dL (NEGATIVE); URINE SPECIFIC GRAVITY 1.011
[2018-05-10 15:19] LABS: COLOR,URINE RED
[2018-05-10 15:37] LABS: ALANINE AMINOTRANSFERASE 59 U/L (21-72); ALBUMIN 3.2 g/dL (3.5-5.0); ALKALINE PHOSPHATASE 144 U/L (38-126); ANION GAP 8 (5-19); ASPARTATE AMINO TRANSFERASE 42 U/L (17-59); BILIRUBIN,DIRECT 1.1 mg/dL (0.0-0.4); BILIRUBIN,TOTAL 2.5 mg/dL (0.2-1.3); BLOOD UREA NITROGEN 20 mg/dL (7-20); CALCIUM 8.6 mg/dL (8.4-10.2); CARBON DIOXIDE 28 mmol/L (22-30); CHLORIDE 101 mmol/L (98-107); GLUCOSE 68 mg/dL (75-110); POTASSIUM 3.5 mmol/L (3.6-5.0); SODIUM 137.3 mmol/L (137-145); TOTAL PROTEIN 5.9 g/dL (6.3-8.2)
[2018-05-10] MEDS ORDERED: POTASSIUM CHLORIDE 10 MEQ CAPSULE.ER PO ONE (16:02)
--- NOTE | 2018-05-10 17:03 | RADIOLOGY REPORT (SQ) ---
EXAM DESCRIPTION: U/S ABDOMEN LIMITED W/O DOP COMPLETED DATE/TIME: 05/10/2018 4:35 pm REASON FOR STUDY: hyperbilirubenemia COMPARISON: None. TECHNIQUE: Dynamic and static grayscale images acquired of the abdomen and recorded on PACS. Additio nal selected color Doppler and spectral images recorded. LIMITATIONS: Limited visualization. Poor acoustical window FINDINGS: PANCREAS: Limited visualization. no masses seen LIVER: Normal size Echo texture normal. No focal masses. LIVER VASCULATURE: Normal directional flow of the main portal vein and hepatic veins. GALLBLADDER: No stones. Normal wall thickness. No pericholecystic fluid. ULTRASOUND-DETECTED IVERSON'S SIGN: Negative. INTRAHEPATIC DUCTS AND COMMON DUCT: CBD and intrahepatic ducts normal caliber. No filling defects. INFERIOR VENA CAVA: Normal flow. AORTA: No aneurysm. RIGHT KIDNEY: Normal size. Normal echogenicity. No solid or suspicious masses. No hydronephros is. No calcifications. PERITONEAL AND RIGHT PLEURAL SPACE: No ascites or effusions. OTHER: No other significant findings. IMPRESSION: NORMAL RIGHT UPPER QUADRANT ULTRASOUND VISUALIZED. TECHNICAL DOCUMENTATION: JOB ID: [id number]- All Rights Reserved Reading location - IP/workstation name: [email or web address]
[2018-05-10] MEDS ORDERED: NORMAL SALINE 1000 ML 1,000 ML IV SCH (17:45)
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
[2018-05-10] MEDS: TRAMADOL HCL 50 MG TABLET PO PRN (21:56)
--- NOTE | 2018-05-11 00:51 | EKG REPORT ---
SEVERITY:- ABNORMAL ECG - SINUS TACHYCARDIA PROBABLE LEFT ATRIAL ABNORMALITY LAD, CONSIDER LAFB OR INFERIOR INFARCT PROBABLE LEFT VENTRICULAR HYPERTROPHY BORDERLINE PROLONGED QT INTERVAL : Confirmed by: Becca Abbott MD 11-May-2018 00:51:08
[2018-05-11 04:30] LABS: ABSOLUTE LYMPHOCYTES (AUTO) 1.4 10^3/uL (0.5-4.7); ABSOLUTE MONOCYTES (AUTO) 1.4 10^3/uL (0.1-1.4); ABSOLUTE NEUT (AUTO) 14.8 10^3/uL (1.7-8.2); BASOPHILS % (AUTO) 0.3 % (0-2); EOSINOPHILS % (AUTO) 0.1 % (0-6); HEMATOCRIT 38.1 % (37.9-51.0); HEMOGLOBIN 12.3 g/dL (13.5-17.0); LYMPHOCYTES % (AUTO) 7.9 % (13-45); MEAN CORPUSCULAR HEMOGLOBIN 23.1 pg (27.0-33.4); MEAN CORPUSCULAR HGB CONC 32.4 g/dL (32.0-36.0); MEAN CORPUSCULAR VOLUME 71 fl (80-97); MONOCYTES % (AUTO) 7.8 % (3-13); PLATELET COUNT 133 10^3/uL (150-450); RED BLOOD COUNT 5.35 10^6/uL (4.35-5.55); RED CELL DISTRIBUTION WIDTH 18.4 % (11.5-14.0); SEGMENTED NEUTROPHILS % (AUTO) 83.9 % (42-78); TOTAL CELLS COUNTED % (AUTO) 100 %; WHITE BLOOD COUNT 17.6 10^3/uL (4.0-10.5)
[2018-05-11 04:49] LABS: ALANINE AMINOTRANSFERASE 61 U/L (21-72); ALBUMIN 3.1 g/dL (3.5-5.0); ALKALINE PHOSPHATASE 122 U/L (38-126); ANION GAP 9 (5-19); ASPARTATE AMINO TRANSFERASE 48 U/L (17-59); BILIRUBIN,DIRECT 0.4 mg/dL (0.0-0.4); BILIRUBIN,TOTAL 1.3 mg/dL (0.2-1.3); BLOOD UREA NITROGEN 22 mg/dL (7-20); CALCIUM 8.7 mg/dL (8.4-10.2); CARBON DIOXIDE 25 mmol/L (22-30); CHLORIDE 103 mmol/L (98-107); GLUCOSE 89 mg/dL (75-110); POTASSIUM 3.9 mmol/L (3.6-5.0); TOTAL PROTEIN 5.7 g/dL (6.3-8.2)
[2018-05-11] MEDS: TRAMADOL HCL 50 MG TABLET PO PRN (09:27)
--- NOTE | 2018-05-11 09:59 | RADIOLOGY REPORT (SQ) ---
EXAM DESCRIPTION: CHEST SINGLE VIEW COMPLETED DATE/TIME: 05/11/2018 9:01 am REASON FOR STUDY: Sepsis COMPARISON: Chest films 05/10/2018, 04/27/2018, 03/17/2018, 07/30/2017 EXAM PARAMETERS: NUMBER OF VIEWS: One view. TECHNIQUE: Single frontal radiographic view of the chest acquired. RADIATION DOSE: NA LIMITATIONS: None. FINDINGS: LUNGS AND PLEURA: No opacities, masses or pneumothorax. No pleural effusion. MEDIASTINUM AND HILAR STRUCTURES: No masses. Contour normal. HEART AND VASCULAR STRUCTURES: Stable moderate cardiomegaly BONES: No acute findings. HARDWARE: Left-sided single lead pacemaker OTHER: No other significant finding. IMPRESSION: Stable moderate cardiomegaly and single lead pacemaker. No acute infiltrates TECHNICAL DOCUMENTATION: JOB ID: [id number]- All Rights Reserved Reading location - IP/workstation name: [email or web address]
[2018-05-11] MEDS ORDERED: LEVOFLOXACIN 750 MG/D5W RTU 750 MG/150 ML RTUPB IV SCH (10:00)
[2018-05-11] MEDS ORDERED: ENOXAPARIN SODIUM INJ 40 MG/0.4 ML DISP.SYRIN SUBCUT SCH (10:00)
[2018-05-11] MEDS ORDERED: VANCOMYCIN HCL 0 MG in DEXTROSE 5%-WATER 250 ML IV NR (10:15)
[2018-05-11] MEDS ORDERED: VANCOMYCIN HCL 1,500 MG in DEXTROSE 5%-WATER 250 ML IV ONE (11:30)
--- NOTE | 2018-05-11 19:22 | PDOC PROGRESS REPORT ---
Subjective Progress Note for:: 05/11/18 Reason For Visit: SEPSIS,HEMATURIA,PROTEINURIA,DEHYDRATION,COUGH, Physical Exam Vital Signs: Temp Pulse Resp BP Pulse Ox 98.1 F 95 12 120/95 H 99 05/11/18 10:00 05/11/18 08:00 05/11/18 18:00 05/11/18 17:50 05/11/18 14:00 Intake & Output 05/10/18 05/11/18 05/12/18 06:59 06:59 06:59 Intake Total 1000 850 Output Total 275 800 Balance 725 50 Weight 104.3 kg GENERAL: Well-developed male, appears older than stated age, no acute distress HEENT: Normocephalic/atraumatic, no facial droop or dysarthria NECK supple, no JVD CARDIOVASCULAR: RRR, normal S1-S2 LUNGS: CTA bilaterally ABDOMEN: Soft, NT, NL bowel sounds EXTREMITIES: No edema, clubbing, cyanosis NEUROLOGICAL: Alert, oriented x 3, 4/5 left-sided weakness, 5/5 strength right side Results Laboratory Results: 05/11/18 04:16 05/11/18 04:16 05/11/18 05/11/18 04:16 04:16 WBC 17.6 H RBC 5.35 Hgb 12.3 L Hct 38.1 MCV 71 L MCH 23.1 L MCHC 32.4 RDW 18.4 H Plt Count 133 L Seg Neutrophils % 83.9 H Lymphocytes % 7.9 L Monocytes % 7.8 Eosinophils % 0.1 Basophils % 0.3 Absolute Neutrophils 14.8 H Absolute Lymphocytes 1.4 Absolute Monocytes 1.4 Absolute Eosinophils 0.0 Absolute Basophils 0.0 Sodium 137.0 Potassium 3.9 Chloride 103 Carbon Dioxide 25 Anion Gap 9 BUN 22 H Creatinine 1.10 Est GFR ( Amer) > 60 Est GFR (Non-Af Amer) > 60 Glucose 89 Calcium 8.7 Magnesium 1.8 Total Bilirubin 1.3 AST 48 ALT 61 Alkaline Phosphatase 122 Total Protein 5.7 L Albumin 3.1 L Impressions: Abdomen Ultrasound 05/10/18 15:45 IMPRESSION: NORMAL RIGHT UPPER QUADRANT ULTRASOUND VISUALIZED. Chest X-Ray 05/11/18 00:00 IMPRESSION: Stable moderate cardiomegaly and single lead pacemaker. No acute infiltrates Assessment & Plan - Diagnosis (1) Sepsis Qualifiers: Sepsis type: sepsis due to unspecified organism Qualified Code(s): A41.9 - Sepsis, unspecified organism Is this a current diagnosis for this admission?: Yes (2) Hypotension Is this a current diagnosis for this admission?: Yes (3) CVA (cerebrovascular accident) Is this a current diagnosis for this admission?: Yes (4) Hematuria Qualifiers: Hematuria type: gross Qualified Code(s): R31.0 - Gross hematuria Is this a current diagnosis for this admission?: Yes (5) Cardiac defibrillator in situ Is this a current diagnosis for this admission?: Yes (6) Cardiomyopathy Qualifiers: 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 Qualified Code(s): 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 Is this a current diagnosis for this admission?: Yes (7) Diabetes Qualifiers: Diabetes mellitus type: type 2 Diabetes mellitus banquet coordinator insulin use: unspecified banquet coordinator insulin use status Diabetes mellitus complication status : with unspecified complications Qualified Code(s): E11.8 - Type 2 diabetes mellitus with unspecified complications Is this a current diagnosis for this admission?: Yes - Plan Summary Plan Summary: There has been some improvement in white counts today. Chest x-ray however still does not show pneumonia. Blood cultures currently growing gram-positive cocci in clusters in both bottles. Will add Vanco to antibiotics for now, continue Levaquin --patient apparently allergic to penicillin. Will continue to follow culture results. Patient with severe cardiomyopathy and his blood pressure has improved, so we will discontinue IV fluids for now. Patient stable this morning and transferred to [facility], but will continue to monitor closely.
[2018-05-11] MEDS: NORMAL SALINE 1000 ML 1,000 ML IV PRN (20:45)
[2018-05-11] MEDS: VANCOMYCIN HCL 1,250 MG in DEXTROSE 5%-WATER 250 ML IV SCH (21:40)
[2018-05-12 04:18] LABS: ABSOLUTE EOSINOPHILS # (AUTO) 0.1 10^3/uL (0.0-0.6); ABSOLUTE LYMPHOCYTES (AUTO) 1.2 10^3/uL (0.5-4.7); ABSOLUTE NEUT (AUTO) 8.6 10^3/uL (1.7-8.2); BASOPHILS % (AUTO) 0.3 % (0-2); EOSINOPHILS % (AUTO) 0.7 % (0-6); HEMATOCRIT 38.7 % (37.9-51.0); HEMOGLOBIN 12.3 g/dL (13.5-17.0); LYMPHOCYTES % (AUTO) 10.6 % (13-45); MEAN CORPUSCULAR HEMOGLOBIN 22.9 pg (27.0-33.4); MEAN CORPUSCULAR HGB CONC 31.9 g/dL (32.0-36.0); MEAN CORPUSCULAR VOLUME 72 fl (80-97); MONOCYTES % (AUTO) 9.4 % (3-13); PLATELET COUNT 144 10^3/uL (150-450); RED BLOOD COUNT 5.39 10^6/uL (4.35-5.55); RED CELL DISTRIBUTION WIDTH 18.5 % (11.5-14.0); TOTAL CELLS COUNTED % (AUTO) 100 %; WHITE BLOOD COUNT 10.9 10^3/uL (4.0-10.5)
[2018-05-12 04:37] LABS: ANION GAP 6 (5-19); BLOOD UREA NITROGEN 21 mg/dL (7-20); CALCIUM 8.6 mg/dL (8.4-10.2); CARBON DIOXIDE 27 mmol/L (22-30); CHLORIDE 105 mmol/L (98-107); GLUCOSE 162 mg/dL (75-110); POTASSIUM 4.1 mmol/L (3.6-5.0); SODIUM 137.5 mmol/L (137-145)
[2018-05-12] MEDS: VANCOMYCIN HCL 1,250 MG in DEXTROSE 5%-WATER 250 ML IV SCH ×2 (09:44→22:30)
[2018-05-12] MEDS: ASPIRIN 81 MG TABLET, ENT COATED PO SCH (09:44)
[2018-05-12] MEDS: TRAMADOL HCL 50 MG TABLET PO PRN ×2 (09:59→22:31)
[2018-05-12] MEDS ORDERED: LEVOFLOXACIN 750 MG/D5W RTU 750 MG/150 ML RTUPB IV SCH (14:00)
--- NOTE | 2018-05-12 17:15 | PDOC PROGRESS REPORT ---
Subjective Progress Note for:: 05/12/18 Subjective:: Mr. Gardner is a very pleasant but unfortunate 58 years old black male patient with severely depressed left ventricular function with ejection fraction of 10% , admitted to this was started with chief complaint of gross hematuria and fever. Initial blood work shows marked leukocytosis of 24,000 and hematuria. At presentation patient was febrile with temperature of 100.6, tachycardic with heart rate of 94 and hypotensive with blood pressure of 98/63. His blood culture also positive for gram-positive cocci in cluster. Of note patient had had ischemic stroke on May 06, 2018 for which she was discharged from this hospital to rehab and patient brought back to hospital with the above-mentioned complaints. Reason For Visit: SEPSIS,HEMATURIA,PROTEINURIA,DEHYDRATION,COUGH, Physical Exam Vital Signs: Temp Pulse Resp BP Pulse Ox 98.3 F 96 16 116/80 100 05/12/18 12:00 05/12/18 12:00 05/12/18 15:00 05/12/18 12:24 05/12/18 14:00 Intake & Output 05/11/18 05/12/18 05/13/18 06:59 06:59 06:59 Intake Total 1000 2500 250 Output Total 275 800 440 Balance 725 1700 -190 Weight 104.3 kg 106.4 kg General appearance: PRESENT: no acute distress Head exam: PRESENT: atraumatic Neck exam: ABSENT: carotid bruit, JVD, lymphadenopathy, thyromegaly Respiratory exam: PRESENT: clear to auscultation familia. ABSENT: rales, rhonchi, wheezes Cardiovascular exam: PRESENT: RRR. ABSENT: diastolic murmur, rubs, systolic murmur GI/Abdominal exam: PRESENT: normal bowel sounds, soft. ABSENT: distended, guarding, mass, organolmegaly, rebound, tenderness Neurological exam: PRESENT: alert, awake, oriented to time, oriented to situation, motor sensory deficit - Left upper and lower extremity. Results Laboratory Results: 05/12/18 04:11 05/12/18 04:11 05/12/18 05/12/18 04:11 04:11 WBC 10.9 H RBC 5.39 Hgb 12.3 L Hct 38.7 MCV 72 L MCH 22.9 L MCHC 31.9 L RDW 18.5 H Plt Count 144 L Seg Neutrophils % 79.0 H Lymphocytes % 10.6 L Monocytes % 9.4 Eosinophils % 0.7 Basophils % 0.3 Absolute Neutrophils 8.6 H Absolute Lymphocytes 1.2 Absolute Monocytes 1.0 Absolute Eosinophils 0.1 Absolute Basophils 0.0 Sodium 137.5 Potassium 4.1 Chloride 105 Carbon Dioxide 27 Anion Gap 6 BUN 21 H Creatinine 1.01 Est GFR ( Amer) > 60 Est GFR (Non-Af Amer) > 60 Glucose 162 H Calcium 8.6 Impressions: Abdomen Ultrasound 05/10/18 15:45 IMPRESSION: NORMAL RIGHT UPPER QUADRANT ULTRASOUND VISUALIZED. Chest X-Ray 05/11/18 00:00 IMPRESSION: Stable moderate cardiomegaly and single lead pacemaker. No acute infiltrates Assessment & Plan - Diagnosis (1) Septic shock Is this a current diagnosis for this admission?: Yes Plan: Fever, leukocytosis, positive blood culture, tachycardia, tachypnea and hypotension. Continue current regimen (2) Gram-positive bacteremia Is this a current diagnosis for this admission?: Yes Plan: Continue Levaquin and vancomycin. Based on the second blood culture and patient's clinical response we will adjust his antibiotics. (3) Gross hematuria Is this a current diagnosis for this admission?: Yes Plan: Improving (4) Ischemic cardiomyopathy Is this a current diagnosis for this admission?: Yes Plan: Ejection fraction 10% and patient is status post ICD placement. Continue cardioprotective medications (5) Type 2 diabetes mellitus Is this a current diagnosis for this admission?: Yes Plan: Continue current regimen
[2018-05-12] MEDS: NORMAL SALINE 1000 ML 1,000 ML IV PRN (23:11)
[2018-05-13 06:56] LABS: HEMATOCRIT 36.5 % (37.9-51.0); HEMOGLOBIN 11.8 g/dL (13.5-17.0); MEAN CORPUSCULAR HEMOGLOBIN 23.1 pg (27.0-33.4); MEAN CORPUSCULAR HGB CONC 32.3 g/dL (32.0-36.0); MEAN CORPUSCULAR VOLUME 72 fl (80-97); PLATELET COUNT 149 10^3/uL (150-450); RED BLOOD COUNT 5.11 10^6/uL (4.35-5.55); RED CELL DISTRIBUTION WIDTH 18.3 % (11.5-14.0)
[2018-05-13 07:13] LABS: ANION GAP 9 (5-19); BLOOD UREA NITROGEN 20 mg/dL (7-20); CALCIUM 8.8 mg/dL (8.4-10.2); CARBON DIOXIDE 25 mmol/L (22-30); CHLORIDE 105 mmol/L (98-107); GLUCOSE 142 mg/dL (75-110); POTASSIUM 4.1 mmol/L (3.6-5.0); SODIUM 138.6 mmol/L (137-145)
[2018-05-13 11:17] LABS: VANCOMYCIN,TROUGH 24.6 ug/mL (5.0-20.0)
[2018-05-13] MEDS: VANCOMYCIN HCL 1,250 MG in DEXTROSE 5%-WATER 250 ML IV SCH (11:28)
[2018-05-13] MEDS: ASPIRIN 81 MG TABLET, ENT COATED PO SCH (11:29)
--- NOTE | 2018-05-13 15:38 | PDOC PROGRESS REPORT ---
Subjective Progress Note for:: 05/13/18 Subjective:: I seen patient sitting on recliner. He is more awake alert and conversant. He finished his meal. And he tolerates well. The only issue currently is has intermittent hematuria. Ultrasound of the kidney and bladder requested. Most probably it is from mucosal injury during Plascencia insertion. No drop in his hematocrit or hemoglobin. Physical and Occupational Therapy consulted. Reason For Visit: SEPSIS,HEMATURIA,PROTEINURIA,DEHYDRATION,COUGH, Physical Exam Vital Signs: Temp Pulse Resp BP Pulse Ox 97.9 F 110 H 16 136/98 H 100 05/13/18 12:35 05/13/18 14:00 05/13/18 12:35 05/13/18 12:35 05/13/18 12:35 Intake & Output 05/12/18 05/13/18 05/14/18 06:59 06:59 06:59 Intake Total 2500 1650 350 Output Total 800 635 225 Balance 1700 1015 125 Weight 106.4 kg 109.4 kg General appearance: PRESENT: no acute distress Head exam: PRESENT: atraumatic Eye exam: PRESENT: conjunctiva pink Neck exam: ABSENT: carotid bruit, JVD, lymphadenopathy, thyromegaly Respiratory exam: PRESENT: clear to auscultation familia. ABSENT: rales, rhonchi, wheezes Cardiovascular exam: PRESENT: RRR. ABSENT: diastolic murmur, rubs, systolic murmur GI/Abdominal exam: PRESENT: normal bowel sounds, soft. ABSENT: distended, guarding, mass, organolmegaly, rebound, tenderness Neurological exam: PRESENT: alert, awake, oriented to time, oriented to situation Results Laboratory Results: 05/13/18 05:25 05/13/18 05:25 05/13/18 05/13/18 05:25 05:25 WBC 10.0 RBC 5.11 Hgb 11.8 L Hct 36.5 L MCV 72 L MCH 23.1 L MCHC 32.3 RDW 18.3 H Plt Count 149 L Sodium 138.6 Potassium 4.1 Chloride 105 Carbon Dioxide 25 Anion Gap 9 BUN 20 Creatinine 1.20 Est GFR ( Amer) > 60 Est GFR (Non-Af Amer) > 60 Glucose 142 H Calcium 8.8 05/10/18 13:44 Blood Blood Culture - Final Staphylococcus Aureus 12/16/18 15:10 Blood Blood Culture - Final Staphylococcus Aureus Impressions: Abdomen Ultrasound 05/10/18 15:45 IMPRESSION: NORMAL RIGHT UPPER QUADRANT ULTRASOUND VISUALIZED. Chest X-Ray 05/11/18 00:00 IMPRESSION: Stable moderate cardiomegaly and single lead pacemaker. No acute infiltrates Assessment & Plan - Diagnosis (1) Septic shock Is this a current diagnosis for this admission?: Yes Plan: His blood culture grew staph aureus which is pansensitive. The probable source of infection is the urinary tract. (2) Gram-positive bacteremia Is this a current diagnosis for this admission?: Yes Plan: None of the gram-positive bacteria is staph aureus. The repeat blood cultures negative. (3) Gross hematuria Is this a current diagnosis for this admission?: Yes Plan: Patient still has intermittent gross hematuria. (4) Ischemic cardiomyopathy Is this a current diagnosis for this admission?: Yes Plan: Ejection fraction 10% and patient is status post ICD placement. Continue cardioprotective medications (5) Type 2 diabetes mellitus Is this a current diagnosis for this admission?: Yes Plan: Continue current regimen
--- NOTE | 2018-05-13 15:52 | RADIOLOGY REPORT (SQ) ---
EXAM DESCRIPTION: U/S RETROPERITON (RENAL/AORTA) COMPLETED DATE/TIME: 05/13/2018 11:54 am REASON FOR STUDY: Hematuria COMPARISON: 08/19/2011 TECHNIQUE: Dynamic and static grayscale images acquired of the kidneys and bladder and recorded on P ACS. Additional selected color Doppler and spectral images recorded. LIMITATIONS: None. FINDINGS: RIGHT KIDNEY: Normal size measuring 10.7 cm. Normal echogenicity. No solid or suspicious m asses. No hydronephrosis. No calcifications. LEFT KIDNEY: Normal size measuring 10.8 cm. Normal echogenicity. No solid or suspicious masses. No h ydronephrosis. No calcifications. BLADDER: No masses. OTHER FINDINGS: No other significant finding. IMPRESSION: NORMAL RENAL AND BLADDER ULTRASOUND. TECHNICAL DOCUMENTATION: JOB ID: [id number] [employer]- All Rights Reserved Reading location - IP/workstation name: [email or web address]
[2018-05-13] MEDS: TRAMADOL HCL 50 MG TABLET PO PRN (16:48)
[2018-05-14] MEDS: NORMAL SALINE 1000 ML 1,000 ML IV PRN (06:00)
[2018-05-14] MEDS ORDERED: ASPIRIN 81 MG TABLET, CHEWABLE PO SCH (10:00)
[2018-05-14] MEDS: VANCOMYCIN HCL 750 MG in DEXTROSE 5%-WATER 250 ML IV SCH ×2 (10:18→21:20)
[2018-05-14] MEDS ORDERED: ONDANSETRON HCL INJ/PF 4 MG/2 ML SDV IV PRN (10:26)
--- NOTE | 2018-05-14 11:52 | PDOC PROGRESS REPORT ---
Subjective Subjective:: I seen patient resting on chair. He has been doing well except for some nausea for which he is given Zofran. Patient still has intermittent hematuria but ultrasound of the kidney and the bladder reported normal. He is being treated for staph bacteremia with vancomycin his latest blood culture is negative for staph. At the time of discharge will set up for him appointment with urologist. Reason For Visit: SEPSIS,HEMATURIA,PROTEINURIA,DEHYDRATION,COUGH, Physical Exam Vital Signs: Temp Pulse Resp BP Pulse Ox 98.2 F 54 L 18 145/74 H 95 05/14/18 07:34 05/14/18 07:34 05/14/18 07:34 05/14/18 07:34 05/14/18 07:34 Intake & Output 05/13/18 05/14/18 05/15/18 06:59 06:59 06:59 Intake Total 1650 2366 Output Total 635 475 Balance 1015 1891 Weight 109.4 kg 109.7 kg General appearance: PRESENT: no acute distress Head exam: PRESENT: atraumatic Eye exam: PRESENT: conjunctiva pink Mouth exam: PRESENT: moist Neck exam: ABSENT: carotid bruit, JVD, lymphadenopathy, thyromegaly Respiratory exam: PRESENT: clear to auscultation familia. ABSENT: rales, rhonchi, wheezes Cardiovascular exam: PRESENT: RRR. ABSENT: diastolic murmur, rubs, systolic murmur GI/Abdominal exam: PRESENT: normal bowel sounds, soft. ABSENT: distended, guarding, mass, organolmegaly, rebound, tenderness Neurological exam: PRESENT: alert, altered, oriented to time, oriented to situation Results Laboratory Results: 05/13/18 05:25 05/13/18 05:25 05/10/18 13:44 Blood Blood Culture - Final Staphylococcus Aureus 05/10/18 15:10 Blood Blood Culture - Final Staphylococcus Aureus Impressions: Abdomen Ultrasound 05/10/18 15:45 IMPRESSION: NORMAL RIGHT UPPER QUADRANT ULTRASOUND VISUALIZED. Chest X-Ray 05/11/18 00:00 IMPRESSION: Stable moderate cardiomegaly and single lead pacemaker. No acute infiltrates Renal Ultrasound 05/13/18 00:00 IMPRESSION: NORMAL RENAL AND BLADDER ULTRASOUND. Assessment & Plan - Diagnosis (1) Septic shock Is this a current diagnosis for this admission?: Yes Plan: His blood culture grew staph aureus which is pansensitive. The probable source of infection is the urinary tract. (2) Gram-positive bacteremia Is this a current diagnosis for this admission?: Yes Plan: None of the gram-positive bacteria is staph aureus. The repeat blood cultures negative. (3) Gross hematuria Is this a current diagnosis for this admission?: Yes Plan: Patient still has intermittent gross hematuria. (4) Ischemic cardiomyopathy Is this a current diagnosis for this admission?: Yes Plan: Ejection fraction 10% and patient is status post ICD placement. Continue cardioprotective medications (5) Type 2 diabetes mellitus Is this a current diagnosis for this admission?: Yes Plan: Continue current regimen (6) Chronic systolic (congestive) heart failure Is this a current diagnosis for this admission?: Yes Plan: Secondary to ischemic cardiomyopathy and his ejection fraction is 10% and he is status post ICD placement. Currently patient is compensated.
[2018-05-14] MEDS ORDERED: VALSARTAN 40 MG TABLET PO SCH (12:00)
[2018-05-14] MEDS: ISOSORB DINIT/HYDRALAZINE HCL 20-37.5 MG TABLET PO SCH ×2 (12:19→21:19)
[2018-05-14] MEDS: CARVEDILOL 6.25 MG TABLET PO SCH ×2 (12:19→21:20)
[2018-05-14] MEDS: GLIPIZIDE XL 5 MG TAB.ER.24 PO SCH (12:20)
[2018-05-14] MEDS: GABAPENTIN 300 MG CAPSULE PO SCH ×2 (12:20→21:19)
[2018-05-14] MEDS: FUROSEMIDE 80 MG TABLET PO SCH (12:20)
[2018-05-14] MEDS: BUDESONIDE/FORMOTEROL 160-4.5 MCG 60 PUFF/6 GM MDI IH SCH ×2 (12:22→21:22)
[2018-05-14] MEDS: ASPIRIN 325 MG TABLET PO SCH (12:22)
[2018-05-14] MEDS: TRAMADOL HCL 50 MG TABLET PO PRN (12:29)
[2018-05-14] MEDS: CLONAZEPAM 1 MG TABLET PO SCH (12:35)
[2018-05-14] MEDS: CITALOPRAM HYDROBROMIDE 20 MG TABLET PO SCH (12:35)
[2018-05-14] MEDS: ATORVASTATIN CALCIUM 80 MG TABLET PO SCH (21:19)
[2018-05-15] MEDS: GABAPENTIN 300 MG CAPSULE PO SCH ×3 (06:06→22:08)
[2018-05-15] MEDS: ISOSORB DINIT/HYDRALAZINE HCL 20-37.5 MG TABLET PO SCH (06:06)
[2018-05-15] MEDS: TRAMADOL HCL 50 MG TABLET PO PRN (08:55)
[2018-05-15] MEDS: FUROSEMIDE 80 MG TABLET PO SCH (08:56)
[2018-05-15] MEDS: GLIPIZIDE XL 5 MG TAB.ER.24 PO SCH (08:56)
[2018-05-15] MEDS ORDERED: COLCHICINE 0.6 MG TABLET PO ONE (09:22)
[2018-05-15] MEDS ORDERED: (PENDING PHARMACY ID) (Citalopram Hydrobromide [Citalopram Hbr] 40 MG) PO SCH (10:00)
[2018-05-15] MEDS ORDERED: COLCHICINE 0.6 MG TABLET PO SCH (10:00)
[2018-05-15] MEDS ORDERED: (PENDING PHARMACY ID) (Clonazepam [Clonazepam] 0.5 MG) PO SCH (10:00)
[2018-05-15] MEDS: CLONAZEPAM 1 MG TABLET PO SCH (10:48)
[2018-05-15] MEDS: VANCOMYCIN HCL 750 MG in DEXTROSE 5%-WATER 250 ML IV SCH ×2 (10:48→22:54)
[2018-05-15] MEDS: BUDESONIDE/FORMOTEROL 160-4.5 MCG 60 PUFF/6 GM MDI IH SCH ×3 (10:48→22:08)
[2018-05-15] MEDS: ASPIRIN 325 MG TABLET PO SCH (10:48)
[2018-05-15] MEDS: CITALOPRAM HYDROBROMIDE 20 MG TABLET PO SCH (10:49)
--- NOTE | 2018-05-15 11:10 | PDOC PROGRESS REPORT ---
Subjective Subjective:: Patient is seen and examined at bedside. He is awake alert and oriented. He complains of an episode of bloodstained sputum which is more of oropharyngeal source. He also complains of back and leg pain and he states that his gout is flaring. I started him on colchicine and I hold his aspirin. Reason For Visit: SEPSIS,HEMATURIA,PROTEINURIA,DEHYDRATION,COUGH, Physical Exam Vital Signs: Temp Pulse Resp BP Pulse Ox 97.6 F 78 16 86/61 L 96 05/15/18 03:26 05/15/18 07:00 05/15/18 03:26 05/15/18 03:26 05/15/18 03:26 Intake & Output 05/14/18 05/15/18 05/16/18 06:59 06:59 06:59 Intake Total 2366 875 Output Total 475 900 Balance 1890 Weight 109.7 kg 107.9 kg General appearance: PRESENT: no acute distress Eye exam: PRESENT: conjunctiva pink Mouth exam: PRESENT: moist Neck exam: ABSENT: carotid bruit, JVD, lymphadenopathy, thyromegaly Respiratory exam: PRESENT: clear to auscultation familia. ABSENT: rales, rhonchi, wheezes Cardiovascular exam: PRESENT: RRR. ABSENT: diastolic murmur, rubs, systolic murmur GI/Abdominal exam: PRESENT: normal bowel sounds, soft. ABSENT: distended, guarding, mass, organolmegaly, rebound, tenderness Extremities exam: PRESENT: other - Tender and swollen ankles left Neurological exam: PRESENT: alert, awake, oriented to time, oriented to situation Psychiatric exam: PRESENT: normal mood Results Laboratory Results: 05/13/18 05:25 05/13/18 05:25 Impressions: Abdomen Ultrasound 05/10/18 15:45 IMPRESSION: NORMAL RIGHT UPPER QUADRANT ULTRASOUND VISUALIZED. Chest X-Ray 05/11/18 00:00 IMPRESSION: Stable moderate cardiomegaly and single lead pacemaker. No acute infiltrates Renal Ultrasound 05/13/18 00:00 IMPRESSION: NORMAL RENAL AND BLADDER ULTRASOUND. Assessment & Plan - Diagnosis (1) Gout flare Qualifiers: Gout site: foot Laterality: left Is this a current diagnosis for this admission?: Yes Plan: Patient has been started on colchicine. (2) Septic shock Is this a current diagnosis for this admission?: Yes Plan: His blood culture grew staph aureus which is pansensitive. The probable source of infection is the urinary tract. (3) Gram-positive bacteremia Is this a current diagnosis for this admission?: Yes Plan: None of the gram-positive bacteria is staph aureus. The repeat blood cultures negative. (4) Gross hematuria Is this a current diagnosis for this admission?: Yes Plan: Patient still has intermittent gross hematuria. (5) Ischemic cardiomyopathy Is this a current diagnosis for this admission?: Yes Plan: Ejection fraction 10% and patient is status post ICD placement. Continue cardioprotective medications (6) Type 2 diabetes mellitus Is this a current diagnosis for this admission?: Yes Plan: Continue current regimen (7) Chronic systolic (congestive) heart failure Is this a current diagnosis for this admission?: Yes Plan: Secondary to ischemic cardiomyopathy and his ejection fraction is 10% and he is status post ICD placement. Currently patient is compensated.
[2018-05-15] MEDS: COLCHICINE 0.6 MG TABLET PO SCH (11:30)
[2018-05-15] MEDS: OXYCODONE-ACETAMINOPHEN 5-325 MG TABLET PO PRN ×2 (13:53→22:09)
[2018-05-15] MEDS ORDERED: GABAPENTIN 300 MG CAPSULE PO SCH (14:00)
[2018-05-15] MEDS: ATORVASTATIN CALCIUM 80 MG TABLET PO SCH (22:08)
[2018-05-15 22:34] LABS: VANCOMYCIN,TROUGH 14.2 ug/mL (5.0-20.0)
[2018-05-16] MEDS: OXYCODONE-ACETAMINOPHEN 5-325 MG TABLET PO PRN (05:30)
[2018-05-16] MEDS: GABAPENTIN 300 MG CAPSULE PO SCH ×2 (05:30→14:59)
[2018-05-16 05:33] LABS: ABSOLUTE BASOPHILS # (AUTO) 0.1 10^3/uL (0.0-0.2); ABSOLUTE EOSINOPHILS # (AUTO) 0.1 10^3/uL (0.0-0.6); ABSOLUTE MONOCYTES (AUTO) 1.2 10^3/uL (0.1-1.4); ABSOLUTE NEUT (AUTO) 14.4 10^3/uL (1.7-8.2); BASOPHILS % (AUTO) 0.3 % (0-2); EOSINOPHILS % (AUTO) 0.4 % (0-6); HEMATOCRIT 35.9 % (37.9-51.0); HEMOGLOBIN 11.3 g/dL (13.5-17.0); LYMPHOCYTES % (AUTO) 5.9 % (13-45); MEAN CORPUSCULAR HEMOGLOBIN 22.7 pg (27.0-33.4); MEAN CORPUSCULAR HGB CONC 31.5 g/dL (32.0-36.0); MEAN CORPUSCULAR VOLUME 72 fl (80-97); MONOCYTES % (AUTO) 7.1 % (3-13); PLATELET COUNT 165 10^3/uL (150-450); RED BLOOD COUNT 4.99 10^6/uL (4.35-5.55); RED CELL DISTRIBUTION WIDTH 18.6 % (11.5-14.0); SEGMENTED NEUTROPHILS % (AUTO) 86.3 % (42-78); TOTAL CELLS COUNTED % (AUTO) 100 %; WHITE BLOOD COUNT 16.7 10^3/uL (4.0-10.5)
[2018-05-16 05:54] LABS: ANION GAP 11 (5-19); BLOOD UREA NITROGEN 21 mg/dL (7-20); CALCIUM 8.6 mg/dL (8.4-10.2); CARBON DIOXIDE 27 mmol/L (22-30); CHLORIDE 101 mmol/L (98-107); GLUCOSE 121 mg/dL (75-110); POTASSIUM 3.9 mmol/L (3.6-5.0); SODIUM 138.5 mmol/L (137-145)
[2018-05-16] MEDS ORDERED: ASPIRIN 325 MG TABLET PO SCH (10:00)
[2018-05-16] MEDS: CLONAZEPAM 1 MG TABLET PO SCH (10:30)
[2018-05-16] MEDS: FUROSEMIDE 80 MG TABLET PO SCH (10:31)
[2018-05-16] MEDS: CITALOPRAM HYDROBROMIDE 20 MG TABLET PO SCH (10:31)
[2018-05-16] MEDS: GLIPIZIDE XL 5 MG TAB.ER.24 PO SCH (10:31)
[2018-05-16] MEDS: COLCHICINE 0.6 MG TABLET PO SCH (10:32)
[2018-05-16] MEDS: VANCOMYCIN HCL 750 MG in DEXTROSE 5%-WATER 250 ML IV SCH (10:33)
[2018-05-16] MEDS: BUDESONIDE/FORMOTEROL 160-4.5 MCG 60 PUFF/6 GM MDI IH SCH (10:33)
--- NOTE | 2018-05-16 13:54 | PDOC TRANSFER SUMMARY ---
General - Admit/Disc Date/PCP Admission Date/Primary Care Provider: 05/10/18 16:07 NAHOMI MUNIZ, Discharge Date: 05/16/18 - Discharge Diagnosis (1) Gout flare Is this a current diagnosis for this admission?: Yes (2) Septic shock Is this a current diagnosis for this admission?: Yes (3) Gram-positive bacteremia Is this a current diagnosis for this admission?: Yes Summary: due to MSSA (4) Gross hematuria Is this a current diagnosis for this admission?: Yes (5) Ischemic cardiomyopathy Is this a current diagnosis for this admission?: Yes (6) Type 2 diabetes mellitus Is this a current diagnosis for this admission?: Yes (7) Chronic systolic (congestive) heart failure Is this a current diagnosis for this admission?: Yes - Additional Information Prescriptions: Clonazepam 0.5 mg PO DAILY #10 tablet Oxycodone HCl/Acetaminophen [Percocet 5-325 mg Tablet] 1 tab PO ASDIR PRN #15 tab PRN Reason: Tramadol HCl [Tramadol HCl ER] 50 mg PO Q6HP PRN #10 tab.er.24h PRN Reason: Home Medications: Carvedilol [Coreg 6.25 mg Tablet] 6.25 mg PO Q12 08/07/17 Atorvastatin Calcium [Lipitor 80 mg Tablet] 80 mg PO QHS 04/27/18 Citalopram Hydrobromide [Citalopram HBr] 40 mg PO DAILY 04/27/18 Gabapentin [Neurontin 300 mg Capsule] 300 mg PO TID 04/27/18 Isosorb Dinit/Hydralazine HCl [Bidil 20-37.5 mg Tablet] 1 tab PO TID 04/27/18 Valsartan [Diovan 40 mg Tablet] 40 mg PO DAILY 04/27/18 Aspirin [Aspirin 325 mg Tablet] 325 mg PO DAILY tablet 05/06/18 Budesonide/Formoterol Fumarate [Symbicort HFA 160-4.5 mcg Inhaler 6 gm] 2 puff IH Q12 inhaler 05/06/18 Clonazepam 0.5 mg PO DAILY #5 tablet 05/06/18 Colchicine [Colcrys 0.6 mg Tablet] 0.6 mg PO DAILY tablet 05/06/18 Glipizide [Glucotrol Xl 5 mg Tab.er] 5 mg PO QAM tab.er.24 05/06/18 Furosemide [Lasix 80 mg Tablet] 80 mg PO QAM 05/11/18 Clonazepam 0.5 mg PO DAILY #10 tablet 05/16/18 Oxycodone HCl/Acetaminophen [Percocet 5-325 mg Tablet] 1 tab PO ASDIR PRN #15 tab 05/16/18 Tramadol HCl [Tramadol HCl ER] 50 mg PO Q6HP PRN #10 tab.er.24h 05/16/18 History of Present Illness Admission Date/PCP: 05/10/18 16:07 NAHOMI MUNIZ DO History of Present Illness: GAVIOTA LUCERO is a 58 year old male history of cardiomyopathy with EF 10% on echo from 04/27/18, recent admission for CVA with discharge on 05/06/18 to senior care facility for rehab. Patient now presents with hematuria for about 3 days after his Canseco was removed. The canseco had been placed while he was at the hospital. The Canseco was apparently left in place at discharge because he had hematuria when it was initially placed and it was apparently left in place for the trauma to heal. Yesterday patient developed fever at the nurs ing home. He has had cough, but nonproductive. In the ED today, patient was found to be hypotensive with systolic blood pressure in the 90s, tachycardic, febrile 100.6. His white blood cell count was 23,000. He was treated with IV fluid and a dose of Levaquin due to concern for sepsis. He was referred to hospitalist service for admission. Hospital Course Hospital Course: Mr. Lucero is a very pleasant but unfortunate 58 years old black male patient w ith severely depressed left ventricular function with ejection fraction of 10%, admitted to this hospital with chief complaint of gross hematuria and fever. Initial blood work shows marked leukocytosis of 24,000 and hematuria. At presentation patient was febrile with temperature of 100.6, tachycardic with heart rate of 94 and hypotensive with blood pressure of 98/63. His blood culture also positive for gram-positive cocci in cluster which is found to be MSSA and he has been treated with vancomycin because patient has history of MRSA wound infection in the past. Of note patient had had ischemic stroke on May 06, 2018 for which he was discharged from this hospital to rehab for recuperation. And patient brought back to hospital with the above-mentioned complaints. Patient occasionally still has pinkish urine but that is gradually clearing. During his stay patient has also an episode of gout flare which is treated with colchicine. This morning I seen patient sitting on chair he is awake alert oriented he is not in pain or any form of distress. Patient is stable enough to be transferred to senior care facility. I will continue all his medications. Physical Exam Vital Signs: Temp Pulse Resp BP Pulse Ox 98.2 F 85 16 98/67 L 96 05/16/18 07:42 05/16/18 07:42 05/16/18 07:42 05/16/18 07:42 05/16/18 07:42 Intake & Output 05/15/18 05/16/18 05/17/18 06:59 06:59 06:59 Intake Total 875 1210 Output Total 900 1100 Balance -25 110 Weight 107.9 kg Results Laboratory Results: 05/16/18 04:34 05/16/18 04:34 05/15/18 05/16/18 05/16/18 22:00 04:34 04:34 WBC 16.7 H RBC 4.99 Hgb 11.3 L Hct 35.9 L MCV 72 L MCH 22.7 L MCHC 31.5 L RDW 18.6 H Plt Count 165 Seg Neutrophils % 86.3 H Lymphocytes % 5.9 L Monocytes % 7.1 Eosinophils % 0.4 Basophils % 0.3 Absolute Neutrophils 14.4 H Absolute Lymphocytes 1.0 Absolute Monocytes 1.2 Absolute Eosinophils 0.1 Absolute Basophils 0.1 Sodium 138.5 Potassium 3.9 Chloride 101 Carbon Dioxide 27 Anion Gap 11 BUN 21 H Creatinine 1.21 1.01 Est GFR ( Amer) > 60 > 60 Est GFR (Non-Af Amer) > 60 > 60 Glucose 121 H Calcium 8.6 Impressions: Abdomen Ultrasound 05/10/18 15:45 IMPRESSION: NORMAL RIGHT UPPER QUADRANT ULTRASOUND VISUALIZED. Chest X-Ray 05/11/18 00:00 IMPRESSION: Stable moderate cardiomegaly and single lead pacemaker. No acute infiltrates Renal Ultrasound 05/13/18 00:00 IMPRESSION: NORMAL RENAL AND BLADDER ULTRASOUND. Qualifiers - * PATIENT BEING DISCHARGED WITH ANY OF THE FOLLOWING DIAGNOSIS: Heart Failure VTE patient discharged on overlapping Therapy?: No Reason(s) for not prescribing Overlap Therapy:: Not indicated Stroke Pt being discharged on Anti-thrombolytic therapy?: Yes Stroke Pt being discharged on Anti-coagulation therapy?: Yes Stroke Pt being discharged on Statins?: Yes DC Pt being discharged on Aspirin therapy?: No Reason(s) for not prescribing Aspirin therapy:: Not indicated DC Pt being discharged on Statins?: No Reason(s) for not prescribing Statin therapy:: Not indicated DC Pt discharged ACEI/ARBS?: No Reason(s) for not prescribing ACEI/ARBS:: Not indicated HF Pt being discharged on ACEI for LVEF less than 40%?: Yes HF Pt being discharged on ARBS for LVEF less than 40%?: No Reason(s) for not prescribing ARBS:: Not indicated HF Pt with Afib discharged with Warfarin?: No Reason(s) for not prescribing Warfarin:: Not indicated HF Pt discharged on evidence-based Beta Arpita:: Yes
[2018-05-16 19:33] VITALS: BP 111/75
== END 2018-05-16 19:32 | DRG 872 ==
LOC: ER 13:33 → EH 16:07 → ICU 19:29 → 3W 05-12 18:59
PROVIDERS: ADMIT Internal Medicine; ATTEND Internal Medicine
DX: A41.9 Sepsis, unspecified organism (principal); I42.9 Cardiomyopathy, unspecified; N39.0 Urinary tract infection, site not specified; I50.22 Chronic systolic (congestive) heart failure; I11.0 Hypertensive heart disease with heart failure; E11.8 Type 2 diabetes mellitus with unspecified complications; M10.9 Gout, unspecified; R31.0 Gross hematuria; R80.9 Proteinuria, unspecified; K21.9 Gastro-esophageal reflux disease without esophagitis; F31.9 Bipolar disorder, unspecified; B95.61 Methicillin susceptible Staphylococcus aureus infection as the cause of diseases classified elsewhere; I25.2 Old myocardial infarction; Z95.810 Presence of automatic (implantable) cardiac defibrillator; Z86.73 Personal history of transient ischemic attack (TIA), and cerebral infarction without residual deficits; Z79.84 Long term (current) use of oral hypoglycemic drugs; Z79.51 Long term (current) use of inhaled steroids; Z79.899 Other long term (current) drug therapy
CPT/HCPCS: 36415; 71045; 76705; 76770; 80048; 80053; 80202; 81001; 82565; 82803; 82962; 83605; 83735; 85025; 85027; 85610; 87040; 87077; 87086; 87186; 87493; 93005; 93010; 94640; 99291; J1956; J2405; J3370; J3490; J7030; J7060; J7620

== ENCOUNTER 2018-05-17 10:25 | Inpatient (IN) | payer MEDICAID ==
[2018-05-17 10:54] LABS: ABSOLUTE EOSINOPHILS # (AUTO) 0.1 10^3/uL (0.0-0.6); ABSOLUTE LYMPHOCYTES (AUTO) 0.7 10^3/uL (0.5-4.7); ABSOLUTE MONOCYTES (AUTO) 0.9 10^3/uL (0.1-1.4); BASOPHILS % (AUTO) 0.4 % (0-2); EOSINOPHILS % (AUTO) 0.9 % (0-6); HEMATOCRIT 34.2 % (37.9-51.0); HEMOGLOBIN 10.9 g/dL (13.5-17.0); LYMPHOCYTES % (AUTO) 5.1 % (13-45); MEAN CORPUSCULAR HEMOGLOBIN 22.9 pg (27.0-33.4); MEAN CORPUSCULAR HGB CONC 31.9 g/dL (32.0-36.0); MEAN CORPUSCULAR VOLUME 72 fl (80-97); MONOCYTES % (AUTO) 6.8 % (3-13); PLATELET COUNT 204 10^3/uL (150-450); RED BLOOD COUNT 4.78 10^6/uL (4.35-5.55); RED CELL DISTRIBUTION WIDTH 18.8 % (11.5-14.0); SEGMENTED NEUTROPHILS % (AUTO) 86.8 % (42-78); TOTAL CELLS COUNTED % (AUTO) 100 %; WHITE BLOOD COUNT 13.8 10^3/uL (4.0-10.5)
--- NOTE | 2018-05-17 11:18 | RADIOLOGY REPORT (SQ) ---
EXAM DESCRIPTION: CHEST SINGLE VIEW COMPLETED DATE/TIME: 05/17/2018 11:09 am REASON FOR STUDY: chest pain COMPARISON: 05/11/2018 NUMBER OF VIEWS: One view. TECHNIQUE: Single frontal radiographic view of the chest acquired. LIMITATIONS: None. FINDINGS: LUNGS AND PLEURA: Interval development of small left pleural effusion left pleural reactio n. Right lung clear. MEDIASTINUM AND HILAR STRUCTURES: No masses. Contour normal. HEART AND VASCULAR STRUCTURES: Heart enlarged without failure. Normal vasculature. BONES: No acute findings. HARDWARE: Cardiac hardware unchanged. OTHER: No other significant finding. IMPRESSION: Cardiac enlargement without failure. Interval development of a small left effusion and left pleural reaction. TECHNICAL DOCUMENTATION: JOB ID: [id number] [employer]- All Rights Reserved Reading location - IP/workstation name: [email or web address]
[2018-05-17 11:23] LABS: ALANINE AMINOTRANSFERASE 37 U/L (21-72); ALBUMIN 3.3 g/dL (3.5-5.0); ALKALINE PHOSPHATASE 129 U/L (38-126); ANION GAP 8 (5-19); ASPARTATE AMINO TRANSFERASE 43 U/L (17-59); BILIRUBIN,DIRECT 0.7 mg/dL (0.0-0.4); BILIRUBIN,TOTAL 1.8 mg/dL (0.2-1.3); BLOOD UREA NITROGEN 16 mg/dL (7-20); CALCIUM 8.8 mg/dL (8.4-10.2); CARBON DIOXIDE 30 mmol/L (22-30); CHLORIDE 98 mmol/L (98-107); CREATINE KINASE 35 U/L (55-170); GLUCOSE 119 mg/dL (75-110); POTASSIUM 3.8 mmol/L (3.6-5.0); SODIUM 136.4 mmol/L (137-145); TOTAL PROTEIN 6.5 g/dL (6.3-8.2)
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
[2018-05-17 11:34] LABS: CREATINE KINASE MB 0.74 ng/mL (<4.55)
[2018-05-17 11:36] LABS: TROPONIN I 0.503 ng/mL
[2018-05-17] MEDS ORDERED: NORMAL SALINE 500 ML IV ONE (12:07)
[2018-05-17] MEDS ORDERED: CEFEPIME 2 GM/D5W RTU 2 GM/50 ML RTUPB IV ONE (12:10)
[2018-05-17] MEDS ORDERED: AZITHROMYCIN INJ 500 MG VIAL IV ONE (12:10)
[2018-05-17] MEDS ORDERED: VANCOMYCIN HCL INJ 1000 MG VIAL IV ONE (12:10)
[2018-05-17] MEDS ORDERED: FUROSEMIDE INJ/PF 40 MG/4 ML SDV IV ONE ×2 (12:17→12:18)
[2018-05-17 12:22] LABS: APPEARANCE,URINE CLEAR; BILIRUBIN,URINE NEGATIVE (NEGATIVE); COLOR,URINE YELLOW; GLUCOSE, URINE NEGATIVE (NEGATIVE); KETONES,URINE NEGATIVE (NEGATIVE); LEUKOCYTE ESTERASE,URINE NEGATIVE (NEGATIVE); NITRITE,URINE NEGATIVE (NEGATIVE); PROTEIN,URINE NEGATIVE (NEGATIVE); URINE SPECIFIC GRAVITY 1.006
[2018-05-17 13:24] LABS: VENOUS BLOOD BASE EXCESS 7.3 mmol/L; VENOUS BLOOD HCO3 32.6 mmol/L (20-32); VENOUS BLOOD PCO2 49.1 mmHg (35-63); VENOUS BLOOD PH 7.44 (7.30-7.42)
[2018-05-17] MEDS ORDERED: ONDANSETRON HCL INJ/PF 4 MG/2 ML SDV IV PRN (13:34)
[2018-05-17] MEDS ORDERED: GLUCAGON,HUMAN RECOMB 1 MG INJ IM PRN (14:44)
[2018-05-17] MEDS ORDERED: INSULIN LISPRO 100 UNIT/ML 3 ML VIAL SUBCUT PRN (14:44)
[2018-05-17] MEDS ORDERED: DEXTROSE 50%-WATER 25 GM/50 ML DISP.SYRIN IV PRN ×2 (14:44)
[2018-05-17] MEDS ORDERED: DEXTROSE 40% GEL 15 GM TUBE PO PRN ×2 (14:44)
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
--- NOTE | 2018-05-17 15:02 | EKG REPORT ---
SEVERITY:- ABNORMAL ECG - SINUS RHYTHM FIRST DEGREE AV BLOCK PROBABLE LEFT ATRIAL ABNORMALITY LEFT VENTRICULAR HYPERTROPHY BORDERLINE T ABNORMALITIES, INFERIOR LEADS BORDERLINE PROLONGED QT INTERVAL : Confirmed by: Jose Dawn MD 17-May-2018 15:01:26
[2018-05-17] MEDS ORDERED: ENOXAPARIN SODIUM INJ 40 MG/0.4 ML DISP.SYRIN SUBCUT ONE (16:28)
[2018-05-17 18:37] LABS: CREATINE KINASE MB 0.59 ng/mL (<4.55)
[2018-05-17 18:42] LABS: TROPONIN I 0.344 ng/mL
[2018-05-17] MEDS: ENOXAPARIN SODIUM INJ 40 MG/0.4 ML DISP.SYRIN SUBCUT SCH (18:51)
[2018-05-17] MEDS: OXYCODONE-ACETAMINOPHEN 5-325 MG TABLET PO PRN (23:04)
[2018-05-17 23:48] LABS: CREATINE KINASE MB 0.5 ng/mL (<4.55)
[2018-05-17 23:55] LABS: TROPONIN I 0.314 ng/mL
[2018-05-18 05:40] LABS: HEMATOCRIT 33.8 % (37.9-51.0); HEMOGLOBIN 10.9 g/dL (13.5-17.0); MEAN CORPUSCULAR HEMOGLOBIN 22.8 pg (27.0-33.4); MEAN CORPUSCULAR HGB CONC 32.1 g/dL (32.0-36.0); MEAN CORPUSCULAR VOLUME 71 fl (80-97); PLATELET COUNT 197 10^3/uL (150-450); RED BLOOD COUNT 4.76 10^6/uL (4.35-5.55); RED CELL DISTRIBUTION WIDTH 19.1 % (11.5-14.0); WHITE BLOOD COUNT 10.1 10^3/uL (4.0-10.5)
[2018-05-18 05:56] LABS: ANION GAP 9 (5-19); BLOOD UREA NITROGEN 17 mg/dL (7-20); CALCIUM 8.5 mg/dL (8.4-10.2); CARBON DIOXIDE 31 mmol/L (22-30); CHLORIDE 98 mmol/L (98-107); CREATINE KINASE 21 U/L (55-170); GLUCOSE 77 mg/dL (75-110); POTASSIUM 3.5 mmol/L (3.6-5.0); SODIUM 137.7 mmol/L (137-145)
[2018-05-18 06:06] LABS: CREATINE KINASE MB 0.39 ng/mL (<4.55)
[2018-05-18 06:26] LABS: TROPONIN I 0.326 ng/mL
[2018-05-18] MEDS ORDERED: TRAMADOL HCL 50 MG PO PRN (07:40)
[2018-05-18] MEDS ORDERED: (PENDING PHARMACY ID) (Citalopram Hydrobromide [Citalopram Hbr] 40 MG) PO SCH (07:45)
[2018-05-18] MEDS: OXYCODONE-ACETAMINOPHEN 5-325 MG TABLET PO PRN ×2 (08:12→22:38)
[2018-05-18] MEDS: CITALOPRAM HYDROBROMIDE 20 MG TABLET PO SCH (09:18)
[2018-05-18] MEDS: GLIPIZIDE XL 5 MG TAB.ER.24 PO SCH (09:18)
[2018-05-18] MEDS: COLCHICINE 0.6 MG TABLET PO SCH ×2 (09:19→10:17)
[2018-05-18] MEDS: ISOSORB DINIT/HYDRALAZINE HCL 20-37.5 MG TABLET PO SCH ×3 (09:19→23:14)
[2018-05-18] MEDS: BUDESONIDE/FORMOTEROL 160-4.5 MCG 60 PUFF/6 GM MDI IH SCH ×2 (09:19→22:39)
[2018-05-18] MEDS: FUROSEMIDE 80 MG TABLET PO SCH (09:19)
[2018-05-18] MEDS: ENOXAPARIN SODIUM INJ 40 MG/0.4 ML DISP.SYRIN SUBCUT SCH (09:20)
[2018-05-18] MEDS: CLONAZEPAM 1 MG TABLET PO SCH (09:24)
[2018-05-18] MEDS ORDERED: (PENDING PHARMACY ID) (Clonazepam [Clonazepam] 0.5 MG) PO SCH (10:00)
[2018-05-18] MEDS: TRAMADOL HCL 50 MG TABLET PO PRN (10:18)
--- NOTE | 2018-05-18 10:59 | PDOC PROGRESS REPORT ---
Subjective Progress Note for:: 05/18/18 Subjective:: Patient seen and examined while he is resting it. He reports that his chest pain is subsiding after he is given Percocet. His troponin is trending down. His medical record retrieved from [facility] revealed that he had cardiac catheterization in 2016 and the results reported as no coronary artery disease his arteries are clean so the diagnosis is that he has ischemic cardiomyopathy with ejection fraction of 15-20%. His requested to be seen by Dr. Abbott instead of Dr. Torres. Reason For Visit: CHEST PAIN Physical Exam Vital Signs: Temp Pulse Resp BP Pulse Ox 98.8 F 95 24 H 123/88 H 97 05/18/18 07:21 05/18/18 07:21 05/18/18 07:21 05/18/18 07:21 05/18/18 07:21 Intake & Output 05/17/18 05/18/18 05/19/18 06:59 06:59 06:59 Intake Total 550 Output Total 1099 Balance -549 Weight 102.3 kg General appearance: PRESENT: no acute distress Eye exam: PRESENT: conjunctiva pink Neck exam: ABSENT: carotid bruit, JVD, lymphadenopathy, thyromegaly Cardiovascular exam: PRESENT: RRR. ABSENT: diastolic murmur, rubs, systolic murmur GI/Abdominal exam: PRESENT: normal bowel sounds, soft. ABSENT: distended, guarding, mass, organolmegaly, rebound, tenderness Neurological exam: PRESENT: alert, awake, oriented to time, oriented to situation Results Laboratory Results: 05/18/18 05:07 05/18/18 05:07 05/17/18 05/17/18 05/17/18 10:36 10:36 11:47 WBC 13.8 H RBC 4.78 Hgb 10.9 L Hct 34.2 L MCV 72 L MCH 22.9 L MCHC 31.9 L RDW 18.8 H Plt Count 204 Seg Neutrophils % 86.8 H Lymphocytes % 5.1 L Monocytes % 6.8 Eosinophils % 0.9 Basophils % 0.4 Absolute Neutrophils 12.0 H Absolute Lymphocytes 0.7 Absolute Monocytes 0.9 Absolute Eosinophils 0.1 Absolute Basophils 0.0 VBG pH VBG pCO2 VBG HCO3 VBG Base Excess Sodium 136.4 L Potassium 3.8 Chloride 98 Carbon Dioxide 30 Anion Gap 8 BUN 16 Creatinine 0.93 Est GFR ( Amer) > 60 Est GFR (Non-Af Amer) > 60 Glucose 119 H Lactic Acid 1.0 Calcium 8.8 Total Bilirubin 1.8 H AST 43 ALT 37 Alkaline Phosphatase 129 H Total Protein 6.5 Albumin 3.3 L Urine Color Urine Appearance Urine pH Ur Specific [employer] Urine Protein Urine Glucose (UA) Urine Ketones Urine Blood Urine Nitrite Ur Leukocyte Esterase Urine WBC (Auto) Urine RBC (Auto) 05/17/18 05/17/18 05/18/18 11:47 13:01 05:07 WBC 10.1 RBC 4.76 Hgb 10.9 L Hct 33.8 L MCV 71 L MCH 22.8 L MCHC 32.1 RDW 19.1 H Plt Count 197 Seg Neutrophils % Lymphocytes % Monocytes % Eosinophils % Basophils % Absolute Neutrophils Absolute Lymphocytes Absolute Monocytes Absolute Eosinophils Absolute Basophils VBG pH 7.44 H VBG pCO2 49.1 VBG HCO3 32.6 H VBG Base Excess 7.3 Sodium Potassium Chloride Carbon Dioxide Anion Gap BUN Creatinine Est GFR ( Amer) Est GFR (Non-Af Amer) Glucose Lactic Acid Calcium Total Bilirubin AST ALT Alkaline Phosphatase Total Protein Albumin Urine Color YELLOW Urine Appearance CLEAR Urine pH 5.0 Ur Specific [employer] 1.006 Urine Protein NEGATIVE Urine Glucose (UA) NEGATIVE Urine Ketones NEGATIVE Urine Blood NEGATIVE Urine Nitrite NEGATIVE Ur Leukocyte Esterase NEGATIVE Urine WBC (Auto) 1 Urine RBC (Auto) 9 05/18/18 05:07 WBC RBC Hgb Hct MCV MCH MCHC RDW Plt Count Seg Neutrophils % Lymphocytes % Monocytes % Eosinophils % Basophils % Absolute Neutrophils Absolute Lymphocytes Absolute Monocytes Absolute Eosinophils Absolute Basophils VBG pH VBG pCO2 VBG HCO3 VBG Base Excess Sodium 137.7 Potassium 3.5 L Chloride 98 Carbon Dioxide 31 H Anion Gap 9 BUN 17 Creatinine 0.97 Est GFR ( Amer) > 60 Est GFR (Non-Af Amer) > 60 Glucose 77 Lactic Acid Calcium 8.5 Total Bilirubin AST ALT Alkaline Phosphatase Total Protein Albumin Urine Color Urine Appearance Urine pH Ur Specific [employer] Urine Protein Urine Glucose (UA) Urine Ketones Urine Blood Urine Nitrite Ur Leukocyte Esterase Urine WBC (Auto) Urine RBC (Auto) 05/17/18 05/17/18 05/17/18 10:36 10:36 11:47 Creatine Kinase 35 L CK-MB (CK-2) 0.74 Troponin I 0.503 0.470 NT-Pro-B Natriuret Pep 05/17/18 05/17/18 05/17/18 13:01 17:30 17:30 Creatine Kinase 29 L CK-MB (CK-2) 0.59 Troponin I 0.344 NT-Pro-B Natriuret Pep 5940 H 05/17/18 05/17/18 05/17/18 23:00 23:00 23:50 Creatine Kinase Cancelled 26 L CK-MB (CK-2) 0.50 Troponin I 0.314 NT-Pro-B Natriuret Pep 05/18/18 05/18/18 05:07 05:07 Creatine Kinase 21 L CK-MB (CK-2) 0.39 Troponin I 0.326 NT-Pro-B Natriuret Pep Impressions: Chest X-Ray 05/17/18 10:31 IMPRESSION: Cardiac enlargement without failure. Interval development of a small left effusion and left pleural reaction. Assessment & Plan - Diagnosis (1) Chest pain Qualifiers: Chest pain type: other chest pain Qualified Code(s): R07.89 - Other chest pain; R07.8 - Other chest pain Is this a current diagnosis for this admission?: Yes Plan: Resolving (2) Chronic systolic congestive heart failure, NYHA class 4 Is this a current diagnosis for this admission?: Yes Plan: I hold his lisinopril and carvedilol. I resumed his hydralazine in combination with isosorbide dinitrate. Patient may benefit from Entresto. (3) Diabetes mellitus type 2 with atherosclerosis of arteries of extremities Is this a current diagnosis for this admission?: Yes Plan: Continue sliding scale (4) Hypertension Qualifiers: Hypertension type: essential hypertension Qualified Code(s): I10 - Essential (primary) hypertension Is this a current diagnosis for this admission?: Yes Plan: Currently patient has low blood pressure in the range of hypotension. (5) Hyperlipidemia Qualifiers: Hyperlipidemia type: unspecified Qualified Code(s): E78.5 - Hyperlipidemia, unspecified Is this a current diagnosis for this admission?: Yes Plan: Continue high intensity Lipitor. (6) Gout Is this a current diagnosis for this admission?: Yes Plan: Continue colchicine
--- NOTE | 2018-05-18 21:24 | PDOC CONSULTATION ---
Consultation-Blank Consultation: CARDIOLOGY CONSULTATION by Dr. Becca Abbott on 05/18/2018. Patient seen at 1 PM on 05/18/2018. REASON FOR CONSULTATION: Patient with congestive heart failure, and elevated troponin I, with atypical chest pain.
[2018-05-18] MEDS: METOPROLOL SUCCINATE 25 MG TAB.SR.24H PO SCH (22:38)
[2018-05-18] MEDS: ATORVASTATIN CALCIUM 80 MG TABLET PO SCH (22:39)
[2018-05-19] MEDS: ISOSORB DINIT/HYDRALAZINE HCL 20-37.5 MG TABLET PO SCH ×3 (05:22→22:43)
[2018-05-19] MEDS: TRAMADOL HCL 50 MG TABLET PO PRN (05:23)
[2018-05-19] MEDS: COLCHICINE 0.6 MG TABLET PO SCH (09:25)
[2018-05-19] MEDS: CLONAZEPAM 1 MG TABLET PO SCH (09:25)
[2018-05-19] MEDS: SACUBITRIL/VALSARTAN 24 MG/26 MG TABLET PO SCH ×2 (09:25→17:35)
[2018-05-19] MEDS: CITALOPRAM HYDROBROMIDE 20 MG TABLET PO SCH (09:25)
[2018-05-19] MEDS: ENOXAPARIN SODIUM INJ 40 MG/0.4 ML DISP.SYRIN SUBCUT SCH (09:25)
[2018-05-19] MEDS: GLIPIZIDE XL 5 MG TAB.ER.24 PO SCH (09:25)
[2018-05-19] MEDS: FUROSEMIDE 80 MG TABLET PO SCH (09:25)
[2018-05-19] MEDS: METOPROLOL SUCCINATE 25 MG TAB.SR.24H PO SCH ×2 (09:25→22:44)
[2018-05-19] MEDS: OXYCODONE-ACETAMINOPHEN 5-325 MG TABLET PO PRN ×2 (09:26→17:34)
[2018-05-19] MEDS: BUDESONIDE/FORMOTEROL 160-4.5 MCG 60 PUFF/6 GM MDI IH SCH ×2 (09:26→22:43)
--- NOTE | 2018-05-19 11:31 | PDOC PROGRESS REPORT ---
Subjective Subjective:: GAVIOTA LUCERO is a 58 year old black male patient with past medical history of end-stage systolic CHF with ejection fraction of 10% status post ICD placement, diabetes mellitus, hypertension, hyperlipidemia, history of recent stroke with residual left-sided weakness and gout brought from [facility] facility for chest pain. Of note patient discharged from this hospital yesterday after 7 days of hospitalization for septic shock and bacteremia due to MSSA. His initial troponin at the ER was 0.5 and later it trended down. Patient admitted with impression of non-STEMI. Dr. Abbott is consulted on this patient and he started him on Entresto. This morning I seen patient propped up in bed still complains of some chest pain. Dr. Abbott suggested patient is a potential discharge for tomorrow. Please discussed the case with Dr. Abbott before discharge. Reason For Visit: CHEST PAIN, HEART FAILURE, HYPOTENSION Physical Exam Vital Signs: Temp Pulse Resp BP Pulse Ox 97.5 F 84 17 115/76 97 05/19/18 08:11 05/19/18 08:11 05/19/18 08:11 05/19/18 08:11 05/19/18 08:11 Intake & Output 05/18/18 05/19/18 05/20/18 06:59 06:59 06:59 Intake Total 550 555 Output Total 1099 350 Balance -549 205 Weight 102.3 kg 102.4 kg General appearance: PRESENT: no acute distress Head exam: PRESENT: atraumatic Eye exam: PRESENT: conjunctiva pink Respiratory exam: PRESENT: clear to auscultation familia. ABSENT: rales, rhonchi, wheezes Cardiovascular exam: PRESENT: RRR. ABSENT: diastolic murmur, rubs, systolic murmur GI/Abdominal exam: PRESENT: normal bowel sounds, soft. ABSENT: distended, guarding, mass, organolmegaly, rebound, tenderness Neurological exam: PRESENT: alert, awake Results Laboratory Results: 05/18/18 05:07 05/18/18 05:07 05/17/18 11:47 Clean Catch Midstream Urine Culture - Final NO GROWTH 2 DAYS 05/17/18 05/17/18 05/17/18 10:36 10:36 11:47 Creatine Kinase 35 L CK-MB (CK-2) 0.74 Troponin I 0.503 0.470 NT-Pro-B Natriuret Pep 05/17/18 05/17/18 05/17/18 13:01 17:30 17:30 Creatine Kinase 29 L CK-MB (CK-2) 0.59 Troponin I 0.344 NT-Pro-B Natriuret Pep 5940 H 05/17/18 05/17/18 05/17/18 23:00 23:00 23:50 Creatine Kinase Cancelled 26 L CK-MB (CK-2) 0.50 Troponin I 0.314 NT-Pro-B Natriuret Pep 05/18/18 05/18/18 05:07 05:07 Creatine Kinase 21 L CK-MB (CK-2) 0.39 Troponin I 0.326 NT-Pro-B Natriuret Pep Impressions: Chest X-Ray 05/17/18 10:31 IMPRESSION: Cardiac enlargement without failure. Interval development of a small left effusion and left pleural reaction. Assessment & Plan - Diagnosis (1) Chest pain Qualifiers: Chest pain type: other chest pain Qualified Code(s): R07.89 - Other chest pain; R07.8 - Other chest pain Is this a current diagnosis for this admission?: Yes Plan: Improving (2) Chronic systolic congestive heart failure, NYHA class 4 Is this a current diagnosis for this admission?: Yes Plan: I hold his lisinopril and carvedilol. I resumed his hydralazine in combination with isosorbide dinitrate. Patient may benefit from Entresto. (3) Diabetes mellitus type 2 with atherosclerosis of arteries of extremities Is this a current diagnosis for this admission?: Yes Plan: Continue sliding scale (4) Hypertension Qualifiers: Hypertension type: essential hypertension Qualified Code(s): I10 - Essential (primary) hypertension Is this a current diagnosis for this admission?: Yes Plan: Currently patient has low blood pressure in the range of hypotension. (5) Hyperlipidemia Qualifiers: Hyperlipidemia type: unspecified Qualified Code(s): E78.5 - Hyperlipidemia, unspecified Is this a current diagnosis for this admission?: Yes Plan: Continue high intensity Lipitor. (6) Gout Is this a current diagnosis for this admission?: Yes Plan: Continue colchicine
[2018-05-19] MEDS ORDERED: MORPHINE SULFATE 10 MG/ML INJ IV ONE (20:00)
--- NOTE | 2018-05-19 22:04 | Progress Note ---
Provider Note Provider Note: CARDIOLOGY PROGRESS NOTES by Dr. Hudson has been on 05/19/2018. SUBJECTIVE: The patient continues to have right-sided chest wall pain. He has no clear-cut anginal symptoms. Note when he is transferred in October 2017 to [facility] his cardiac catheterization showed normal coronaries. The patient denies any shortness of breath there is no PND orthopnea. There is only trace leg edema. There is no firing of his AICD. There is no arrhythmias seen on the monitor. There is no recurrence of atrial fibrillation. There is no new TIA CVA symptoms. The patient has an old CVA with left-sided weakness. PHYSICAL EXAMINATION: The patient is mildly obese. He is in no acute distress. He is well-groomed. Selected Entries 05/19/18 11:43 Temperature 98.7 F Temperature Oral Source Pulse Rate 77 Respiratory 16 Rate Blood Pressure 98/73 L [Left Upper Arm ] Blood Pressure 81 Mean [Left Upper Arm] Blood Pressure Sitting Position [Left Upper Arm] O2 Sat by Pulse 97 Oximetry Oxygen Delivery Room Air Method ( includes room air) HEAD: Is atraumatic normocephalic. EYES: Pupils equal round regular reactive to light accommodation. There is no conjunctival pallor. THERE IS NO SCLERAL ICTERUS. Ears: Tympanic membranes are intact. External auditory canals is clear. NOSE: There is no deviated nasal septum. There is no inflammation of the nasal mucous membrane. MOUTH: Mucous membranes of the mouth are moist. Tongue is moist. There is no ulcers in the mouth. There is no bleeding from the gums. THROAT: There is no exudates in the throat. There is no redness of the oropharynx. SKIN: There is no skin rashes or petechia or ecchymosis. There is no skin lesions. NECK: Is supple. There is no JVD. Carotids are equal there is no bruit there is no lymphadenopathy. There is no goiter. Trachea central. There is no accessory muscles of respiration use. LUNGS:. There is diminished air entry and prolonged expiration. There is no rhonchi rales or wheezing. There is chest wall tenderness especially the right chest wall and also the left chest wall. Reproduces the patient's symptoms. HEART: S1-S2 is heard. There is no S3 gallop. There is no S4 gallop. There is systolic murmur in the left sternal border and the apex there is no rub. ABDOMEN: Soft. Nontender there is no hepatosplenomegaly. Bowel sounds are well heard there is no tender areas masses.EXTREMITIES: Femorals are diminished. There is no femoral bruits. Leg pulses are diminished. There is trace pedal edema. There is no DVT or cellulitis. CEMENT [employer]ER: There is evidence of old left-sided weakness. The patient is conscious and awake. PSYCHIATRIC the patient's judgment and insight seem to be of intact although the patient affect is slightly withdrawn. 05/19/18 05/19/18 05/19/18 05:40 12:27 13:49 POC Glucose 103 79 Troponin I 0.199 IMPRESSION/RECOMMENDATION: 1. Elevated troponin I most likely secondary to patient's cardiomyopathy. The patient has no definite anginal symptoms. He has had normal coronaries in the past. The patient is severely reduced LV ejection fraction. Note that the troponins trending down. His medications have been reviewed. 2. Cardiomyopathy with severely reduced LV ejection fraction of 10%. Nonischemic. The patient is tolerating Entresto that was started yesterday. 3. Hypertension: Blood pressure is on the lower side, [employer] the patient being asymptomatic. 4. Diabetes mellitus: Continue antidiabetic treatment. 5. COPD: At present baseline. Continue Symbicort there is no symptoms or signs of acute exacerbation of COPD. 6. History of proximal atrial fibrillation: At present patient in sinus rhythm. 7. Old cerebrovascular accident. Patient has left hemiparesis. 8. Bipolar disorder: Seems to be stable. Discussed the case with attending physician on the case. His medications have been reviewed. Management plan discussed with the attending physician. Medical decision making is of moderate complexity. The patient and the patient's family wish and desire that the patient follow-up with me as an outpatient, from now onwards. We will honor their wishes.
[2018-05-19] MEDS: ATORVASTATIN CALCIUM 80 MG TABLET PO SCH (22:43)
[2018-05-20] MEDS: OXYCODONE-ACETAMINOPHEN 5-325 MG TABLET PO PRN ×2 (05:08→17:46)
[2018-05-20] MEDS: ISOSORB DINIT/HYDRALAZINE HCL 20-37.5 MG TABLET PO SCH ×3 (05:08→22:26)
[2018-05-20] MEDS: GLIPIZIDE XL 5 MG TAB.ER.24 PO SCH (08:12)
[2018-05-20] MEDS: FUROSEMIDE 80 MG TABLET PO SCH (08:12)
[2018-05-20] MEDS: COLCHICINE 0.6 MG TABLET PO SCH (10:29)
[2018-05-20] MEDS: CITALOPRAM HYDROBROMIDE 20 MG TABLET PO SCH (10:29)
[2018-05-20] MEDS: CLONAZEPAM 1 MG TABLET PO SCH (10:29)
[2018-05-20] MEDS: SACUBITRIL/VALSARTAN 24 MG/26 MG TABLET PO SCH ×2 (10:29→17:40)
[2018-05-20] MEDS: BUDESONIDE/FORMOTEROL 160-4.5 MCG 60 PUFF/6 GM MDI IH SCH ×2 (10:30→22:27)
[2018-05-20] MEDS: ENOXAPARIN SODIUM INJ 40 MG/0.4 ML DISP.SYRIN SUBCUT SCH (10:30)
[2018-05-20] MEDS: METOPROLOL SUCCINATE 25 MG TAB.SR.24H PO SCH ×2 (10:30→22:27)
[2018-05-20 13:54] LABS: INTERNATIONAL RATION (INR) 1.01; PROTHROMBIN TIME 13.8 SEC (11.4-15.4)
--- NOTE | 2018-05-20 15:05 | RADIOLOGY REPORT (SQ) ---
EXAM DESCRIPTION: PICC INSERTION; FLUORO/CV PLACEMENT; U/S GUIDE FOR VASCULAR ACCESS COMPLETED DATE/TIME: 05/20/2018 2:45 pm REASON FOR STUDY: IV access for antibiotics; IV ABX; IV ACCESS COMPARISON: AP chest 05/17/2018 FLUOROSCOPY TIME: 7 seconds 1 digital fluoroscopic image and 1 ultrasound images saved to PACS. TECHNIQUE: Fluoroscopic and ultrasound guided PICC placement. LIMITATIONS: None. PROCEDURE: After written consent and assessment were obtained, the patient was brought into the fluo roscopy room and placed supine on the table. Ultrasound evaluation of potential access sites were per formed. After successfully identifying a patent right basilic vein, the right arm was prepped and michelle ped in a sterile fashion along with the ultrasound probe. The entry site was anesthetized with 1% lid ocaine. A 21 gauge 7 cm needle was advanced through the skin and into the basilic vein under live ult rasound guidance. An ultrasound image was saved to PACS confirming access site. A .018 guide wire w as then inserted through the needle and into the venous system. The needle was then removed and an 11 blade scalpel was used to make a 1cm skin incision. A 5 fr peel-away sheath was advanced over the w ariel and into the venous system. A measurement was then made using the existing wire and live fluorosc opic guidance. The wire was then removed and trimmed. The PICC was advanced through the peel-away she ath and into the venous system. The peel-away sheath was removed and the catheter was adhered to the patients arm with a stat lock. The catheter was then aspirated and flushed and a sterile bandage was placed over the access site. A fluoroscopic spot image was saved to PACS confirming the catheter tip within the superior vena cava. IMPRESSION: SUCCESSFUL PLACEMENT OF A 5 FR DUAL LUMEN 36 CM PICC IN THE RIGHT BASILIC VEIN. COMMENT: Patient medication list reviewed: Yes- Quality ID# 130:Eligible professional attests to doc umenting in the medical record they obtained, updated, or reviewed the patient's current medications. . Quality ID 145: Final reports for procedures using fluoroscopy that document radiation exposure jazmin brittney, or exposure time and number of fluorographic images (if radiation exposure indices are not avail able) Quality ID #76: The patient was prepped and draped using maximum sterile barrier technique including cap, mask, sterile gown, sterile gloves, a large sterile sheet, hand hygiene, and 2% Chlorhexidine fo r cutaneous antisepsis. When ultrasound is used, sterile ultrasound techniques are followed requiring sterile gel and sterile probes. TECHNICAL DOCUMENTATION: JOB ID: [id number] [employer]- All Rights Reserved rev-10/10 Reading location - IP/workstation name: [facility]
--- NOTE | 2018-05-20 16:11 | PDOC PROGRESS REPORT ---
Subjective Progress Note for:: 05/20/18 Subjective:: No adverse events overnight. No new complaints. Vital signs been stable. I noticed any previous progress note that he has recently had 7 days of treatment for a MSSA bacteremia. He has not had a complete 14 days. When he came back and apparently his temperature was starting to go up. He got a dose of cefepime and vancomycin at that time a repeat cultures were drawn. They have been negative. He is been afebrile since then. Reason For Visit: CHEST PAIN, HEART FAILURE, HYPOTENSION Physical Exam Vital Signs: Temp Pulse Resp BP Pulse Ox 98.5 F 83 17 101/81 100 05/20/18 11:50 05/20/18 14:00 05/20/18 11:50 05/20/18 11:50 05/20/18 11:50 Intake & Output 05/19/18 05/20/18 05/21/18 06:59 06:59 06:59 Intake Total 555 810 400 Output Total 350 1250 Balance 205 -440 400 Weight 102.4 kg 104.1 kg General appearance: PRESENT: no acute distress, cooperative, disheveled, obese Cardiovascular exam: PRESENT: RRR, +S1, +S2 Vascular exam: PRESENT: normal capillary refill GI/Abdominal exam: PRESENT: normal bowel sounds, soft. ABSENT: distended, guarding, rebound, tenderness Musculoskeletal exam: ABSENT: deformity, normal inspection Neurological exam: PRESENT: alert, awake, oriented to person, oriented to place Psychiatric exam: PRESENT: flat affect Skin exam: PRESENT: dry, warm Results Laboratory Results: 05/18/18 05:07 05/18/18 05:07 05/17/18 05/17/18 05/17/18 10:36 10:36 11:47 Creatine Kinase 35 L CK-MB (CK-2) 0.74 Troponin I 0.503 0.470 NT-Pro-B Natriuret Pep 05/17/18 05/17/18 05/17/18 13:01 17:30 17:30 Creatine Kinase 29 L CK-MB (CK-2) 0.59 Troponin I 0.344 NT-Pro-B Natriuret Pep 5940 H 05/17/18 05/17/18 05/17/18 23:00 23:00 23:50 Creatine Kinase Cancelled 26 L CK-MB (CK-2) 0.50 Troponin I 0.314 NT-Pro-B Natriuret Pep 05/18/18 05/18/18 05/19/18 05:07 05:07 13:49 Creatine Kinase 21 L CK-MB (CK-2) 0.39 Troponin I 0.326 0.199 NT-Pro-B Natriuret Pep Impressions: Chest X-Ray 05/17/18 10:31 IMPRESSION: Cardiac enlargement without failure. Interval development of a small left effusion and left pleural reaction. Guidance Fluoroscopy 05/20/18 00:00 IMPRESSION: SUCCESSFUL PLACEMENT OF A 5 FR DUAL LUMEN 36 CM PICC IN THE RIGHT BASILIC VEIN. Interventional Vascular Procedure 05/20/18 00:00 IMPRESSION: SUCCESSFUL PLACEMENT OF A 5 FR DUAL LUMEN 36 CM PICC IN THE RIGHT B ASILIC VEIN. PICC Line Insertion 05/20/18 00:00 IMPRESSION: SUCCESSFUL PLACEMENT OF A 5 FR DUAL LUMEN 36 CM PICC IN THE RIGHT BASILIC VEIN. Assessment & Plan - Diagnosis (1) Chest pain Qualifiers: Chest pain type: other chest pain Qualified Code(s): R07.89 - Other chest pain; R07.8 - Other chest pain Is this a current diagnosis for this admission?: Yes Plan: Resolved. Seen in consultation by Dr. Abbott. He recommended no further intervention as this patient has an EF of 10% and he had a normal cardiac catheterization back in October of this year. He is been started on Entresto. (2) Chronic systolic congestive heart failure, NYHA class 4 Is this a current diagnosis for this admission?: Yes Plan: As above. Not acutely exacerbated. (3) Gram-positive bacteremia Is this a current diagnosis for this admission?: Yes Plan: It seems that the patient has gotten half of the recommended treatment for this. He left the hospital after 7 days of antibiotics and then came back in the next day, and while he supposedly had a fever of 100.2 Fahrenheit at that time, he has been afebrile since then. While argument could be made for watching and waiting, especially since it has been a couple of days and he has not had any signs of fever, I feel like given his frailty and his recent history that we should make sure he has complete treatment for this. Therefore we will get a PICC line, and since he has had a break in his treatment we're going to start over with 14 days of antibiotics. He should be able to finish those at his longterm facility. - Time Time Spent with patient: 25-34 minutes
[2018-05-20] MEDS: CEFAZOLIN SODIUM 2 GM in DEXTROSE 5%-WATER 100 ML IV SCH (17:40)
[2018-05-20] MEDS ORDERED: CEFAZOLIN 2 GM/D5W RTU 2 GM/50 ML RTUPB IV SCH (18:00)
--- NOTE | 2018-05-20 20:26 | Progress Note ---
Provider Note Provider Note: CARDIOLOGY PROGRESS NOTES by Dr. Becca Abbott on 05/20/2018. SUBJECTIVE: The patient has no further chest wall pain or anginal chest pain. There is no PND orthopnea. There is no leg edema. Patient denies any palpitations. There is no recurrence of atrial fibrillation. There is no ventricular arrhythmias on the monitor. There is no new CVA or TIA symptoms this admission. There is no pedal edema. On examination the patient is mildly obese. Appears to be in no acute distress. He is well-groomed. Selected Entries 05/20/18 11:50 Temperature 98.5 F Temperature Oral Source Pulse Rate 84 Respiratory 17 Rate Blood Pressure 101/81 Blood Pressure 87 Mean BP Location Left Arm BP Position Supine O2 Sat by Pulse 100 Oximetry Oxygen Delivery Room Air Method 05/20/18 05/20/18 05:50 11:47 POC Glucose 127 H 147 H HEAD: Is atraumatic normocephalic. EYES: Pupils equal round regular reactive to light accommodation. There is no conjunctival pallor. THERE IS NO SCLERAL ICTERUS. Ears: Tympanic membranes are intact. External auditory canals is mike r. NOSE: There is no deviated nasal septum. There is no inflammation of the nasal mucous membrane. MOUTH: Mucous membranes of the mouth are moist. Tongue is moist. There is no ulcers in the mouth. There is no bleeding from the gums. THROAT: There is no exudates in the throat. There is no redness of the oropharynx. SKIN: There is no skin rashes or petechia or ecchymosis. There is no skin lesions. NECK: Is supple. There is no JVD. Carotids are equal there is no bruit there is no lymphadenopathy. There is no goiter. Trachea central. There is no accessory muscles of respiration use. LUNGS:. There is diminished air entry and prolonged expiration. There is no rhonchi rales or wheezing. There is chest wall tenderness especially the right chest wall and also the left chest wall. Reproduces the patient's symptoms. HEART: S1-S2 is heard. There is no S3 gallop. There is no S4 gallop. There is systolic murmur in the left sternal border and the apex there is no rub. ABDOMEN: Soft. Nontender there is no hepatosplenomegaly. Bowel sounds are well heard there is no tender areas masses.EXTREMITIES: Femorals are diminished. There is no femoral bruits. Leg pulses are diminished. There is trace pedal edema. There is no DVT or cellulitis. 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 The patient is conscious and awake. PSYCHIATRIC the patient's judgment and insight seem to be of intact although the patient affect is slightly withdrawn. IMPRESSION/RECOMMENDATION: 1. Elevated troponin I most likely secondary to patient's cardiomyopathy. The patient has no definite anginal symptoms. He has had normal coronaries in the past. The patient is severely reduced LV ejection fraction. Note that the troponins trending down. His medications have been reviewed. 2. Cardiomyopathy with severely reduced LV ejection fraction of 10%. Nonischemic. The patient is tolerating Entresto that was started yesterday. 3. Hypertension: Blood pressure is on the lower side, [place] the patient being asymptomatic. 4. Diabetes mellitus: Continue antidiabetic treatment. 5. COPD: At present baseline. Continue Symbicort there is no symptoms or signs of acute exacerbation of COPD. 6. History of proximal atrial fibrillation: At present patient in sinus rhythm. 7. Old cerebrovascular accident. Patient has left hemiparesis. 8. Bipolar disorder: Seems to be stable. 9. MRSA bacteremia patient has received a PICC line, and will be receiving antibiotics. His medications reviewed. Medication discussed with other caregiving providers on the case, including management plan. Medical decision making is of moderate complexity. 40 minutes spent on this patient with more than 50% of time spent in direct patient care. We will sign off. Follow the patient in the office as desired by the patient and patient's family. Discussed with the hospitalist taking care of the patient.
[2018-05-20] MEDS: ATORVASTATIN CALCIUM 80 MG TABLET PO SCH (22:26)
[2018-05-21] MEDS: CEFAZOLIN SODIUM 2 GM in DEXTROSE 5%-WATER 100 ML IV SCH ×3 (01:59→12:53)
[2018-05-21] MEDS: ISOSORB DINIT/HYDRALAZINE HCL 20-37.5 MG TABLET PO SCH ×2 (06:47→14:25)
[2018-05-21] MEDS: GLIPIZIDE XL 5 MG TAB.ER.24 PO SCH (08:26)
[2018-05-21] MEDS: FUROSEMIDE 80 MG TABLET PO SCH (08:26)
[2018-05-21] MEDS: ENOXAPARIN SODIUM INJ 40 MG/0.4 ML DISP.SYRIN SUBCUT SCH (10:28)
[2018-05-21] MEDS: BUDESONIDE/FORMOTEROL 160-4.5 MCG 60 PUFF/6 GM MDI IH SCH (10:28)
[2018-05-21] MEDS: SACUBITRIL/VALSARTAN 24 MG/26 MG TABLET PO SCH (10:28)
[2018-05-21] MEDS: COLCHICINE 0.6 MG TABLET PO SCH (10:28)
[2018-05-21] MEDS: METOPROLOL SUCCINATE 25 MG TAB.SR.24H PO SCH (10:28)
[2018-05-21] MEDS: CITALOPRAM HYDROBROMIDE 20 MG TABLET PO SCH (10:28)
[2018-05-21] MEDS: CLONAZEPAM 1 MG TABLET PO SCH (10:28)
--- NOTE | 2018-05-21 13:02 | PDOC TRANSFER SUMMARY ---
General - Admit/Disc Date/PCP Admission Date/Primary Care Provider: 05/18/18 13:28 NAHOMI MUNIZ, DO Discharge Date: 05/21/18 - Discharge Diagnosis (1) Chest pain Is this a current diagnosis for this admission?: Yes Summary: He had right upper chest pain. His troponins were elevated but he has a severe cardiomyopathy and his troponins trended down spontaneously. He was seen by Dr. Abbott. As he had a normal cardiac catheterization in October or November of this year, Dr. William recommended no further workup. The patient has been pain-free for at least the last couple of days. (2) Chronic systolic congestive heart failure, NYHA class 4 Is this a current diagnosis for this admission?: Yes Summary: This was not acutely exacerbated during this hospitalization. He has been started on Entresto. His Coreg was switched to metoprolol to offset any blood pressure changes caused by switching valsartan to Entresto. (3) Gram-positive bacteremia Is this a current diagnosis for this admission?: Yes Summary: The patient and his previous hospitalization had been treated with 7 days of IV antibiotics for what turned out to be a MSSA bacteremia. It has been previously reported that he had MRSA, but at least with regards to the infection for which we are treating, he does not have MRSA, but rather MSSA. As the recommendation is usually for 14 days of IV antibiotics, and he only received 7, and when he came in has had a temperature of 100.2 F, as well as the consideration of his general state of frailty, we decided to get him a PICC line and treat him with a total of 14 days of Ancef, because he said he has an allergy to penicillin. He has tolerated cephalosporins here without difficulty. I decided to go with 14 days of treatment from the start of this admission because he had missed several days of antibiotics after the initial 7 days he got in the previous hospitalization. It should be noted that upon his initial presentation for this hospitalization, he was given a dose of cefepime and vancomycin, and repeat cultures were drawn. He had been afebrile since that time, but because he had received antibiotics it was considered that could have compounded presentation, and we have decided to err on the side of caution with regards to his antibiotic therapy. - Additional Information Resuscitation Status: Full Code Discharge Diet: Cardiac, Diabetic Discharge Activity: Balance Activity w/Rest, Supervised Activity Prescriptions: Clonazepam 0.5 mg PO DAILY #3 tablet Tramadol HCl [Ultram] 50 mg PO Q6HP PRN #10 tablet PRN Reason: For Pain Home Medications: Atorvastatin Calcium [Lipitor 80 mg Tablet] 80 mg PO QHS 04/27/18 Citalopram Hydrobromide [Citalopram HBr] 40 mg PO DAILY 04/27/18 Isosorb Dinit/Hydralazine HCl [Bidil 20-37.5 mg Tablet] 1 tab PO TID 04/27/18 Aspirin [Aspirin 325 mg Tablet] 325 mg PO DAILY tablet 05/06/18 Budesonide/Formoterol Fumarate [Symbicort HFA 160-4.5 mcg Inhaler 6 gm] 2 puff IH Q12 inhaler 05/06/18 Colchicine [Colcrys 0.6 mg Tablet] 0.6 mg PO DAILY tablet 05/06/18 Glipizide [Glucotrol Xl 5 mg Tab.er] 5 mg PO QAM tab.er.24 05/06/18 Furosemide [Lasix 80 mg Tablet] 80 mg PO QAM 05/11/18 Cefazolin Sodium [Ancef Inj 1 gm Vial] 2 gm IV Q8 14 Days vial 05/21/18 Clonazepam 0.5 mg PO DAILY #3 tablet 05/21/18 Metoprolol Succinate [Toprol Xl 25 mg Tab.sr] 25 mg PO Q12 tab.sr.24h 05/21/18 Sacubitril/Valsartan [Entresto 24 mg/26 mg Tablet] 1 tab PO BID tablet 05/21/18 Tramadol HCl [Ultram] 50 mg PO Q6HP PRN #10 tablet 05/21/18 History of Present Illness Admission Date/PCP: 05/18/18 13:28 NAHOMI MUNIZ DO History of Present Illness: GAVIOTA LUCERO is a 58 year old male with past medical history of end-stage systolic CHF with ejection fraction of 10% status post ICD placement, diabetes mellitus, hypertension, hyperlipidemia, history of recent stroke with residual left-sided weakness and gout brought from [facility] for chest pain. Of note patient discharged from this hospital yesterday after 7 days of hospitalization for septic shock and bacteremia due to MSSA. Patient also has had gross hematuria secondary to mucosal injury during insertion of Plascencia catheter. The chest pain is described as dull localizes to precordium and it is nonradiating. His initial troponin is 0.503 and the subsequent is 0.470. I discussed the case with Dr. Torres and he is going to see him in the hospital. Since patient has severely depressed heart is not a candidate for a stress test. Patient has also single episode of T-max of 100.2. He has also mild leukocytosis of 13,000. ER attending has given the patient a dose of cefepime and vancomycin. Hospital Course Hospital Course: His chest pain resolved spontaneously and his troponins trended down spontaneously. He was seen with Dr. Abbott and his recommendations regarding his chest pain and his cardiomyopathy are as noted above. We got him a PICC line and have started him on 14 days of Ancef for the reasons described above. He will complete his antibiotic therapy at the [facility]. His labs and examination were reassuring and he was discharged today in good condition. Physical Exam Vital Signs: Temp Pulse Resp BP Pulse Ox 98.6 F 84 20 111/72 96 05/21/18 08:35 05/21/18 08:35 05/21/18 08:35 05/21/18 08:35 05/21/18 08:35 Intake & Output 05/20/18 05/21/18 05/22/18 06:59 06:59 06:59 Intake Total 810 600 100 Output Total 1250 350 Balance -440 250 100 Weight 104.1 kg 103.8 kg General appearance: PRESENT: no acute distress, cooperative, disheveled, obese Cardiovascular exam: PRESENT: RRR, +S1, +S2 Vascular exam: PRESENT: normal capillary refill GI/Abdominal exam: PRESENT: normal bowel sounds, soft. ABSENT: distended, guarding, rebound, tenderness Musculoskeletal exam: ABSENT: deformity, normal inspection Neurological exam: PRESENT: alert, awake, oriented to person, oriented to place Psychiatric exam: PRESENT: flat affect Skin exam: PRESENT: dry, warm Results Laboratory Results: 05/18/18 05:07 05/18/18 05:07 05/17/18 05/17/18 05/17/18 10:36 10:36 11:47 Creatine Kinase 35 L CK-MB (CK-2) 0.74 Troponin I 0.503 0.470 NT-Pro-B Natriuret Pep 12/05/17/18 05/17/18 13:01 17:30 17:30 Creatine Kinase 29 L CK-MB (CK-2) 0.59 Troponin I 0.344 NT-Pro-B Natriuret Pep 5940 H 05/17/18 05/17/18 05/17/18 23:00 23:00 23:50 Creatine Kinase Cancelled 26 L CK-MB (CK-2) 0.50 Troponin I 0.314 NT-Pro-B Natriuret Pep 05/18/18 05/18/18 05/19/18 05:07 05:07 13:49 Creatine Kinase 21 L CK-MB (CK-2) 0.39 Troponin I 0.326 0.199 NT-Pro-B Natriuret Pep Impressions: Chest X-Ray 05/17/18 10:31 IMPRESSION: Cardiac enlargement without failure. Interval development of a small left effusion and left pleural reaction. Guidance Fluoroscopy 05/20/18 00:00 IMPRESSION: SUCCESSFUL PLACEMENT OF A 5 FR DUAL LUMEN 36 CM PICC IN THE RIGHT BASILIC VEIN. Interventional Vascular Procedure 05/20/18 00:00 IMPRESSION: SUCCESSFUL PLACEMENT OF A 5 FR DUAL LUMEN 36 CM PICC IN THE RIGHT BASILIC VEIN. PICC Line Insertion 05/20/18 00:00 IMPRESSION: SUCCESSFUL PLACEMENT OF A 5 FR DUAL LUMEN 36 CM PICC IN THE RIGHT BASILIC VEIN. Transfer Plan - Time Spent with Patient Time spent with patient: Greater than 30 Minutes Qualifiers - * PATIENT BEING DISCHARGED WITH ANY OF THE FOLLOWING DIAGNOSIS: Heart Failure HF Pt being discharged on ACEI for LVEF less than 40%?: No Reason(s) for not prescribing ACEI:: Medical Contraindication - We put him on Entresto HF Pt being discharged on [facility] for LVEF less than 40%?: Yes HF Pt with Afib discharged with Warfarin?: No Reason(s) for not prescribing Warfarin:: Not indicated HF Pt discharged on evidence-based Beta Arpita:: Yes
[2018-05-21 14:04] VITALS: BP 112/78
== END 2018-05-21 14:45 | DRG 303 ==
LOC: ER 10:25 → EH 14:04 → 3N 16:38 → OBSVTOIN 05-18 13:28
PROVIDERS: ADMIT Internal Medicine; ATTEND Internal Medicine
PROC: 02HV33Z Insertion of Infusion Device into Superior Vena Cava, Percutaneous Approach (ICD-10-PCS; principal; 2018-05-20)
PROC: B548ZZA Ultrasonography of Superior Vena Cava, Guidance (ICD-10-PCS; 2018-05-20)
PROC: B518ZZA Fluoroscopy of Superior Vena Cava, Guidance (ICD-10-PCS; 2018-05-20)
DX: I25.5 Ischemic cardiomyopathy (principal); I50.22 Chronic systolic (congestive) heart failure; I69.954 Hemiplegia and hemiparesis following unspecified cerebrovascular disease affecting left non-dominant side; I95.9 Hypotension, unspecified; I11.0 Hypertensive heart disease with heart failure; E11.9 Type 2 diabetes mellitus without complications; E78.00 Pure hypercholesterolemia, unspecified; I48.91 Unspecified atrial fibrillation; K21.9 Gastro-esophageal reflux disease without esophagitis; M10.9 Gout, unspecified; L30.9 Dermatitis, unspecified; F31.9 Bipolar disorder, unspecified; J44.9 Chronic obstructive pulmonary disease, unspecified; R29.810 Facial weakness; I25.2 Old myocardial infarction; Z79.82 Long term (current) use of aspirin; Z79.899 Other long term (current) drug therapy; Z88.6 Allergy status to analgesic agent; Z91.040 Latex allergy status; Z88.0 Allergy status to penicillin; Z88.8 Allergy status to other drugs, medicaments and biological substances; Z91.018 Allergy to other foods; Z95.810 Presence of automatic (implantable) cardiac defibrillator; Z87.891 Personal history of nicotine dependence; Z82.61 Family history of arthritis; Z83.3 Family history of diabetes mellitus; Z82.49 Family history of ischemic heart disease and other diseases of the circulatory system
CPT/HCPCS: 36415; 36569; 71045; 76937; 77001; 80048; 80053; 81001; 82550; 82553; 82803; 82962; 83605; 83880; 84484; 85025; 85027; 85610; 87040; 87086; 93005; 93010; 96361; 96365; 96367; 96368; 96375; 99285; G0378; J0456; J0690; J0692; J1650; J1940; J2270; J3370; J3490; J7040

== ENCOUNTER 2018-05-22 23:54 | Emergency (ER) | payer MEDICAID ==
[2018-05-23] MEDS ORDERED: CEFAZOLIN 2 GM/D5W RTU 2 GM/50 ML RTUPB IV ONE (00:07)
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
[2018-05-23] MEDS ORDERED: CEFAZOLIN INJ 1 GM VIAL ONE (00:21)
[2018-05-23 02:07] VITALS: BP 112/77
== END 2018-05-23 02:12 ==
LOC: ER 23:54
DX: T82.898A Other specified complication of vascular prosthetic devices, implants and grafts, initial encounter (principal); X58.XXXA Exposure to other specified factors, initial encounter; I50.9 Heart failure, unspecified; E78.5 Hyperlipidemia, unspecified; I48.91 Unspecified atrial fibrillation; I11.0 Hypertensive heart disease with heart failure; E11.9 Type 2 diabetes mellitus without complications; Z91.040 Latex allergy status; Z95.810 Presence of automatic (implantable) cardiac defibrillator; Z86.73 Personal history of transient ischemic attack (TIA), and cerebral infarction without residual deficits; Z88.0 Allergy status to penicillin
CPT/HCPCS: 99283; 96374; J0690

== ENCOUNTER 2018-05-23 17:50 | Emergency (ER) | payer MEDICAID ==
[2018-05-23] MEDS ORDERED: CEFAZOLIN 2 GM/D5W RTU 2 GM/50 ML RTUPB IV ONE (18:27)
[2018-05-23] MEDS ORDERED: CEFAZOLIN INJ 1 GM VIAL ONE (18:49)
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
[2018-05-23 23:06] VITALS: BP 112/72
== END 2018-05-23 23:08 ==
LOC: ER 17:50
DX: T82.898A Other specified complication of vascular prosthetic devices, implants and grafts, initial encounter (principal); R78.81 Bacteremia; Z87.891 Personal history of nicotine dependence; I25.10 Atherosclerotic heart disease of native coronary artery without angina pectoris; I11.0 Hypertensive heart disease with heart failure; I50.9 Heart failure, unspecified; E11.9 Type 2 diabetes mellitus without complications; J45.909 Unspecified asthma, uncomplicated
CPT/HCPCS: 99284; 96365; J0690

== ENCOUNTER 2018-05-28 23:05 | Emergency (ER) | payer MEDICAID ==
[2018-05-28] MEDS ORDERED: ALTEPLASE INJ 2 MG VIAL (CATH CLEARANCE) IV ONE ×2 (23:28→23:29)
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
[2018-05-29] MEDS ORDERED: ALTEPLASE INJ 2 MG VIAL (CATH CLEARANCE) ONE ×2 (00:32→01:55)
[2018-05-29 03:07] VITALS: BP 110/72
== END 2018-05-29 03:18 ==
LOC: ER 23:05
DX: T82.898A Other specified complication of vascular prosthetic devices, implants and grafts, initial encounter (principal); X58.XXXA Exposure to other specified factors, initial encounter; I48.91 Unspecified atrial fibrillation; I50.9 Heart failure, unspecified; I25.10 Atherosclerotic heart disease of native coronary artery without angina pectoris; I25.2 Old myocardial infarction; I11.0 Hypertensive heart disease with heart failure; E11.9 Type 2 diabetes mellitus without complications; Z95.0 Presence of cardiac pacemaker; Z88.6 Allergy status to analgesic agent; Z91.040 Latex allergy status; Z88.0 Allergy status to penicillin; Z86.73 Personal history of transient ischemic attack (TIA), and cerebral infarction without residual deficits
CPT/HCPCS: 99284; J2997

== ENCOUNTER 2018-07-12 23:34 | Observation (INO) | payer MEDICAID ==
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
[2018-07-13] MEDS ORDERED: FENTANYL CITRATE INJ/PF 100 MCG/2 ML AMPUL IV ONE (00:12)
[2018-07-13 00:23] LABS: ABSOLUTE EOSINOPHILS # (AUTO) 0.2 10^3/uL (0.0-0.6); ABSOLUTE LYMPHOCYTES (AUTO) 1.8 10^3/uL (0.5-4.7); ABSOLUTE MONOCYTES (AUTO) 0.4 10^3/uL (0.1-1.4); ABSOLUTE NEUT (AUTO) 6.5 10^3/uL (1.7-8.2); BASOPHILS % (AUTO) 0.5 % (0-2); EOSINOPHILS % (AUTO) 2.5 % (0-6); HEMOGLOBIN 11.9 g/dL (13.5-17.0); LYMPHOCYTES % (AUTO) 20.1 % (13-45); MEAN CORPUSCULAR HEMOGLOBIN 23.7 pg (27.0-33.4); MEAN CORPUSCULAR HGB CONC 32.2 g/dL (32.0-36.0); MEAN CORPUSCULAR VOLUME 74 fl (80-97); MONOCYTES % (AUTO) 4.4 % (3-13); PLATELET COUNT 385 10^3/uL (150-450); RED BLOOD COUNT 5.02 10^6/uL (4.35-5.55); RED CELL DISTRIBUTION WIDTH 26.5 % (11.5-14.0); SEGMENTED NEUTROPHILS % (AUTO) 72.5 % (42-78); TOTAL CELLS COUNTED % (AUTO) 100 %
[2018-07-13 00:34] LABS: ALANINE AMINOTRANSFERASE 56 U/L (21-72); ALBUMIN 4.5 g/dL (3.5-5.0); ALKALINE PHOSPHATASE 105 U/L (38-126); ANION GAP 14 (5-19); ASPARTATE AMINO TRANSFERASE 44 U/L (17-59); BILIRUBIN,DIRECT 0.3 mg/dL (0.0-0.4); BILIRUBIN,TOTAL 1.2 mg/dL (0.2-1.3); BLOOD UREA NITROGEN 21 mg/dL (7-20); CALCIUM 9.8 mg/dL (8.4-10.2); CARBON DIOXIDE 29 mmol/L (22-30); CHLORIDE 101 mmol/L (98-107); GLUCOSE 134 mg/dL (75-110); POTASSIUM 3.8 mmol/L (3.6-5.0); SODIUM 143.9 mmol/L (137-145); TOTAL PROTEIN 7.3 g/dL (6.3-8.2)
[2018-07-13 00:43] LABS: ANISOCYTOSIS 3+; OVALOCYTES 2+; POIKILOCYTOSIS 3+; SCHISTOCYTES 1+; TOXIC GRANULATION 1+; TOXIC VACUOLATION PRESENT
[2018-07-13 00:44] LABS: PLATELET COMMENT ADEQUATE; TARGET CELLS 1+; TEAR DROP CELLS 1+
[2018-07-13 00:45] LABS: TROPONIN I 0.02 ng/mL
[2018-07-13] MEDS ORDERED: ACETAMINOPHEN 325 MG TABLET PO ONE (00:49)
--- NOTE | 2018-07-13 01:04 | RADIOLOGY REPORT (SQ) ---
EXAM DESCRIPTION: XR CHEST 1 VIEW COMPLETED DATE/TME: 07/13/2018 00:11 CLINICAL HISTORY: 58 years, Male, chest pain, CHF COMPARISON: 05/17/18 NUMBER OF VIEWS: One TECHNIQUE: AP view of the chest LIMITATIONS: None. FINDINGS: There are right pulmonary airspace opacities. The heart is enlarged with a left chest wall AICD in place. There is no pneumothorax or pleural effusion. The bones are unremarkable. IMPRESSION: Right pulmonary airspace opacities, which may represent pneumonia or pulmonary edema. copyright 2010 [employer]- All Rights Reserved
--- NOTE | 2018-07-13 01:20 | EKG REPORT ---
SEVERITY:- ABNORMAL ECG - SINUS RHYTHM PROBABLE LEFT ATRIAL ABNORMALITY NONSPECIFIC IVCD WITH LAD LEFT VENTRICULAR HYPERTROPHY : Confirmed by: Becca Abbott MD 13-Jul-2018 01:19:17
--- NOTE | 2018-07-13 01:27 | RADIOLOGY REPORT (SQ) ---
CT HEAD WITHOUT IV CONTRAST HISTORY: Headache. COMPARISON: None. TECHNIQUE: CT scan of the brain without IV contrast. This exam was performed according to our departmental dose-optimization program, which includes automated exposure control, adjustment of the mA and/or kV according to patient size and/or use of iterative reconstruction technique. FINDINGS: There is an old area of encephalomalacia in the right parietal region. There is also an old lacunar infarct in the right basal ganglia.. No evidence of acute infarction, intracranial hemorrhage, extra-axial fluid collection, or midline shift. No air-fluid levels are seen in the paranasal sinuses to suggest acute sinusitis. No depressed skull fracture. IMPRESSION: 1. No acute intracranial findings. 2. Old right MCA territory infarction. 3. Old right basal ganglia lacunar infarction.
--- NOTE | 2018-07-13 03:05 | RADIOLOGY REPORT (SQ) ---
CLINICAL HISTORY: right sided infiltrate vs. edema. vs. pe COMPARISON: None. TECHNIQUE: CT CHEST ANGIOGRAPHY WITHOUT THEN WITH IV CONTRAST on 07/13/2018 2:10 AM GEOSPATIAL IMAGE ANALYST. MIPS reconstructions were generated. This exam was performed according to our departmental dose-optimization program, which includes automated exposure control, adjustment of the mA and/or kV according to patient size and/or use of iterative reconstruction technique. MIP images were generated. FINDINGS: Thoracic aorta is normal in course and caliber without aneurysm or dissection. Pulmonary arteries are adequately opacified without acute or chronic filling defects. The heart is moderately enlarged. Left AICD is present. There is no pericardial effusion. There are several borderline central mediastinal lymph nodes. There is no pleural effusion, pleural thickening or pneumothorax. Central airways are patent. There are two left lower lobe nodules measuring up to 4 mm. There is bibasilar atelectasis and scarring. There are vague mild groundglass opacities scattered diffusely throughout both lungs. There are no acute abnormalities within the limited images of the upper abdomen. There are no acute osseous findings. No suspicious bony lesions. IMPRESSION: Cardiomegaly with no aortic dissection or aneurysm. No pulmonary embolus. Diffuse minimal groundglass opacities may relate to pulmonary edema. Two left lower lobe pulmonary nodules measuring up to 4 mm. Fleischner Society (Chest Radiology) Pulmonary Nodule Management Guidelines (Recommendations for follow-up and management of nodules detected incidentally at non screening CT). Comparison with prior radiographs/imaging of greater than 2 years time interval is suggested. Otherwise, followup recommendations are as below. LOW RISK PATIENT (limited smoking or other exposure risk): . Nodule 4 mm or less: No follow up necessary . Nodule >4 mm to 6 mm: Follow up CT at 12 months . Nodule >6 mm to 8 mm: Follow up CT at 6-12 months . Nodule >8 mm: f/u CT at 3 months, or PET-CT scan, and/or consultation for Bx. HIGH RISK PATIENT (significant smoking or other risk factors): . Nodule 4 mm or less: Follow up CT at 12 months. . Nodule >4 mm to 6 mm: Follow up CT at 6-12 months. . Nodule >6 mm to 8 mm: Follow up CT at 3-6 months. . Nodule >8 mm: f/u CT at 3 months, or PET-CT scan, and/or consultation for Bx. Fleischner Society Statement on Management of CT Detected Pulmonary Nodules. Jose et al, Radiology 2005;237:395-400. [email or web address]
[2018-07-13] MEDS ORDERED: MAG HYDROX/AL HYDROX/SIMETH SUSP 30 ML UDCUP PO PRN (03:32)
[2018-07-13] MEDS ORDERED: GLUCAGON,HUMAN RECOMB 1 MG INJ IM PRN (03:32)
[2018-07-13] MEDS ORDERED: DEXTROSE 50%-WATER 25 GM/50 ML DISP.SYRIN IV PRN ×2 (03:32)
[2018-07-13] MEDS ORDERED: DEXTROSE 40% GEL 15 GM TUBE PO PRN ×2 (03:32)
[2018-07-13] MEDS ORDERED: FUROSEMIDE INJ/PF 40 MG/4 ML SDV IV ONE (03:45)
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
[2018-07-13 05:03] LABS: CREATINE KINASE MB 0.47 ng/mL (<4.55); TROPONIN I 0.021 ng/mL
[2018-07-13] MEDS ORDERED: HEPARIN SOD (PORCINE) 5,000 UNIT/ML 1 ML SYRINGE SUBCUT SCH (06:00)
--- NOTE | 2018-07-13 06:12 | Physician Advisory Note ---
Physician Advisor ProgressNote .: Pursuant to the plan for Lucy Merida, I have reviewed the medical record for this patient. Physician Advisor Statement: Please consider documenting, if you agree: 1. whether Ac on Chr CHF is systolic, diastolic, or both 2. likely cause of the acute CP (acute __ CHF? angina? ...) 3. "Lt hemiparesis" (if both Lt arm & Lt leg are weak), vs "Lt hemiplegia" (if Lt side won't move), vs "Lt hemiparesis ruled out" Status: Medicaid pt w/CP & acute on chr CHF w/EF 10% c/w systolic type - approp'ly in as Obs to start given potential for quick response to tx & d/c later today or AM. However, if pt continues to show acute clinical issues requiring continued need for hospital level care & monitoring beyond 07/14 am, please document the continued s/s & concerns, & may consider change to Inpatient status at that point. Thanks! CK
[2018-07-13] MEDS: INSULIN LISPRO 100 UNIT/ML 3 ML VIAL SUBCUT SCH ×3 (08:01→17:25)
[2018-07-13] MEDS ORDERED: DIPHENHYDRAMINE HCL 50 MG/ML VIAL IV ONE (09:00)
[2018-07-13] MEDS: FUROSEMIDE INJ/PF 40 MG/4 ML SDV IV SCH ×2 (09:58→21:13)
[2018-07-13] MEDS: POTASSIUM CHLORIDE 10 MEQ CAPSULE.ER PO SCH ×2 (09:58→21:14)
[2018-07-13] MEDS ORDERED: FUROSEMIDE INJ/PF 40 MG/4 ML SDV IV SCH (10:00)
[2018-07-13] MEDS ORDERED: POTASSIUM CHLORIDE 10 MEQ CAPSULE.ER PO SCH (10:00)
[2018-07-13 11:52] LABS: CREATINE KINASE MB 0.58 ng/mL (<4.55); TROPONIN I 0.017 ng/mL
[2018-07-13] MEDS ORDERED: (PENDING PHARMACY ID) (Oxycodone Hcl/Acetaminophen [Percocet 10-325 Mg Tablet] 1 TAB) PO PRN (14:29)
[2018-07-13] MEDS: OXYCODONE HCL IR 5 MG TABLET PO PRN (15:53)
[2018-07-13] MEDS: OXYCODONE-ACETAMINOPHEN 5-325 MG TABLET PO PRN (15:53)
[2018-07-13 17:11] LABS: CREATINE KINASE MB 0.47 ng/mL (<4.55); TROPONIN I 0.016 ng/mL
[2018-07-13] MEDS ORDERED: DIPHENHYDRAMINE HCL 25 MG CAPSULE PO ONE (21:00)
[2018-07-13] MEDS: GABAPENTIN 300 MG CAPSULE PO SCH (21:15)
[2018-07-13] MEDS: BUDESONIDE/FORMOTEROL 160-4.5 MCG 60 PUFF/6 GM MDI IH SCH (21:16)
[2018-07-13] MEDS ORDERED: ATORVASTATIN CALCIUM 80 MG TABLET PO SCH (22:00)
[2018-07-14 05:43] LABS: ANION GAP 11 (5-19); BLOOD UREA NITROGEN 23 mg/dL (7-20); CALCIUM 9.4 mg/dL (8.4-10.2); CARBON DIOXIDE 30 mmol/L (22-30); CHLORIDE 102 mmol/L (98-107); GLUCOSE 115 mg/dL (75-110); POTASSIUM 3.6 mmol/L (3.6-5.0); SODIUM 142.8 mmol/L (137-145)
[2018-07-14] MEDS: OXYCODONE-ACETAMINOPHEN 5-325 MG TABLET PO PRN (06:06)
[2018-07-14] MEDS: OXYCODONE HCL IR 5 MG TABLET PO PRN (06:07)
[2018-07-14 06:27] LABS: ABSOLUTE BASOPHILS # (AUTO) 0.1 10^3/uL (0.0-0.2); ABSOLUTE EOSINOPHILS # (AUTO) 0.2 10^3/uL (0.0-0.6); ABSOLUTE LYMPHOCYTES (AUTO) 1.3 10^3/uL (0.5-4.7); ABSOLUTE MONOCYTES (AUTO) 0.4 10^3/uL (0.1-1.4); ABSOLUTE NEUT (AUTO) 5.6 10^3/uL (1.7-8.2); BASOPHILS % (AUTO) 1.1 % (0-2); EOSINOPHILS % (AUTO) 2.6 % (0-6); HEMATOCRIT 35.9 % (37.9-51.0); HEMOGLOBIN 11.7 g/dL (13.5-17.0); LYMPHOCYTES % (AUTO) 17.2 % (13-45); MEAN CORPUSCULAR HEMOGLOBIN 23.7 pg (27.0-33.4); MEAN CORPUSCULAR HGB CONC 32.6 g/dL (32.0-36.0); MEAN CORPUSCULAR VOLUME 73 fl (80-97); MONOCYTES % (AUTO) 5.8 % (3-13); PLATELET COUNT 330 10^3/uL (150-450); RED BLOOD COUNT 4.92 10^6/uL (4.35-5.55); RED CELL DISTRIBUTION WIDTH 26.4 % (11.5-14.0); SEGMENTED NEUTROPHILS % (AUTO) 73.3 % (42-78); TOTAL CELLS COUNTED % (AUTO) 100 %; WHITE BLOOD COUNT 7.6 10^3/uL (4.0-10.5)
[2018-07-14 07:38] LABS: BURR CELLS 1+; HYPOCHROMASIA 1+; OVALOCYTES 2+; PLATELET COMMENT ADEQUATE; POIKILOCYTOSIS 3+; POLYCHROMASIA SLIGHT; SCHISTOCYTES SLIGHT; TOXIC GRANULATION SLIGHT
[2018-07-14 07:39] LABS: ANISOCYTOSIS 3+
[2018-07-14] MEDS: INSULIN LISPRO 100 UNIT/ML 3 ML VIAL SUBCUT SCH (08:14)
[2018-07-14] MEDS: FUROSEMIDE INJ/PF 40 MG/4 ML SDV IV SCH (09:34)
[2018-07-14] MEDS: GABAPENTIN 300 MG CAPSULE PO SCH (09:35)
[2018-07-14] MEDS: POTASSIUM CHLORIDE 10 MEQ CAPSULE.ER PO SCH (09:35)
[2018-07-14] MEDS: BUDESONIDE/FORMOTEROL 160-4.5 MCG 60 PUFF/6 GM MDI IH SCH (09:40)
[2018-07-14] MEDS ORDERED: CITALOPRAM HYDROBROMIDE 20 MG TABLET PO SCH (10:00)
[2018-07-14] MEDS ORDERED: (PENDING PHARMACY ID) (Citalopram Hydrobromide [Celexa 40 Mg Tablet] 40 MG) PO SCH (10:00)
[2018-07-14] MEDS ORDERED: (PENDING PHARMACY ID) (Clonazepam [Klonopin] 0.5 MG) PO SCH (10:00)
[2018-07-14] MEDS ORDERED: CLONAZEPAM 1 MG TABLET PO SCH (10:00)
[2018-07-14 11:15] VITALS: BP 114/85
--- NOTE | 2018-07-15 15:58 | PDOC DISCHARGE SUMMARY ---
General - Admit/Disc Date/PCP Admission Date/Primary Care Provider: 07/13/18 03:52 DARLEEN ROBLES MD Discharge Date: 07/14/18 - Discharge Diagnosis (1) Acute on chronic congestive heart failure Is this a current diagnosis for this admission?: Yes (2) Chest pain Is this a current diagnosis for this admission?: Yes (3) Diabetes mellitus type 2 in obese Is this a current diagnosis for this admission?: No - Additional Information Resuscitation Status: Full Code Discharge Diet: Cardiac, Diabetic Discharge Activity: Activity As Tolerated, Balance Activity w/Rest, Weigh Daily Prescriptions: Furosemide [Lasix 80 mg Tablet] 40 mg PO BID 30 Days #60 tablet Home Medications: Aspirin [Aspirin 325 mg Tablet] 325 mg PO DAILY 07/13/18 Atorvastatin Calcium [Lipitor 80 mg Tablet] 80 mg PO QHS 07/13/18 Budesonide/Formoterol Fumarate [Symbicort HFA 160-4.5 mcg Inhaler 6 gm] 2 puff IH Q12 07/13/18 Citalopram Hydrobromide [Celexa 40 mg Tablet] 40 mg PO DAILY 07/13/18 Clonazepam [Klonopin] 0.5 mg PO DAILY 07/13/18 Colchicine [Colchicine 0.6 mg Tablet] 0.6 mg PO DAILY 07/13/18 Gabapentin [Neurontin 300 mg Capsule] 300 mg PO Q12 07/13/18 Glipizide [Glucotrol] 5 mg PO QAM 07/13/18 Isosorb Dinit/Hydralazine HCl [Bidil 20-37.5 mg Tablet] 1 tab PO TID 07/13/18 Meloxicam [Mobic] 15 mg PO DAILY 07/13/18 Metoprolol Succinate [Toprol Xl 25 mg Tab.sr] 25 mg PO BID 07/13/18 Oxycodone HCl/Acetaminophen [Percocet 10-325 mg Tablet] 1 tab PO Q6HP PRN 07/13/18 Sacubitril/Valsartan [Entresto 24 mg/26 mg Tablet] 1 tab PO BID 07/13/18 Tamsulosin HCl [Flomax 0.4 mg Cap.sr] 0.4 mg PO QPM 07/13/18 Tramadol HCl [Ultram 50 mg Tablet] 50 mg PO Q6HP PRN 07/13/18 Furosemide [Lasix 80 mg Tablet] 40 mg PO BID 30 Days #60 tablet 07/14/18 History of Present Illness History of Present Illness: GAVIOTA LUCERO is a 58 year old male with a past medical history of congestive heart failure and ejection fraction of 10% status post permanent pacemaker AICD placement, obstructive sleep apnea, CVA with residual left-sided weakness and type 2 diabetes. Patient presents with double retrosternal chest pain occurring at rest 2 out of 5 intensity associated with shortness of breath worsened by lying flat, associated with palpitations nausea or vomiting. Patient is unable to identify alleviating factors. In the emergency room he is found to have crackles in the bases bilaterally, pulmonary edema by CTA chest and a BNP of 15,000. He started on IV Lasix and referred to the hospitalist for admission. Patient admits noncompliance with BiPAP. He otherwise denies changes in his medication regiment or diet. He is currently pain-free, sitting upright, 100% on room air with a blood pressure 120/70 pulse of 86 respirations 16. Hospital Course Hospital Course: (1) Acute on chronic congestive heart failure Was admitted to telemetry. Start on fluid restriction. IV Lasix. Negative fluid balance on discharge. Cardiac enzymes negative. EKG no acute changes. No sign of volume overload or shortness of breath on discharge. Started on home meds and advised to follow-up with PCP as soon as possible. (2) Chest pain Likely noncardiac. EKG no acute changes. Cardiac enzymes negative. Patient has recent negative cardiac catheterization. (3) Diabetes Controlled. Started on diabetic diet, sliding insulin screen. Restart home meds upon discharge. Follow up with PCP. Physical Exam Vital Signs: Temp Pulse Resp BP Pulse Ox 99.0 F 97 18 114/85 99 07/14/18 11:12 07/14/18 11:12 07/14/18 11:12 07/14/18 11:12 07/14/18 11:12 Intake & Output 07/14/18 07/15/18 07/16/18 06:59 06:59 06:59 Output Total 825 375 Balance -825 -375 Weight 100.4 kg General appearance: PRESENT: no acute distress, well-developed, well-nourished Head exam: PRESENT: atraumatic, normocephalic Neck exam: ABSENT: carotid bruit, JVD, lymphadenopathy, thyromegaly Respiratory exam: PRESENT: clear to auscultation familia. ABSENT: rales, rhonchi, wheezes Cardiovascular exam: PRESENT: RRR. ABSENT: diastolic murmur, rubs, systolic murmur GI/Abdominal exam: PRESENT: normal bowel sounds, soft. ABSENT: distended, guarding, mass, organolmegaly, rebound, tenderness Extremities exam: PRESENT: full ROM. ABSENT: calf tenderness, clubbing, pedal edema Neurological exam: PRESENT: alert, awake, oriented to person, oriented to place, oriented to time, oriented to situation, CN II-XII grossly intact. ABSENT: motor sensory deficit Results Laboratory Results: 07/14/18 05:07 07/14/18 05:07 07/13/18 07/13/18 07/13/18 00:10 04:30 04:30 Creatine Kinase 66 CK-MB (CK-2) 0.47 Troponin I 0.020 0.021 NT-Pro-B Natriuret Pep 99630 H 07/13/18 07/13/18 07/13/18 10:35 10:35 16:35 Creatine Kinase 57 60 CK-MB (CK-2) 0.58 Troponin I 0.017 NT-Pro-B Natriuret Pep 07/13/18 16:35 Creatine Kinase CK-MB (CK-2) 0.47 Troponin I 0.016 NT-Pro-B Natriuret Pep Impressions: Chest X-Ray 07/13/18 00:11 IMPRESSION: Right pulmonary airspace opacities, which may represent pneumonia or pulmonary edema. copyright 2011 [employer]- All Rights Reserved Head CT 07/13/18 00:48 IMPRESSION: 1. No acute intracranial findings. 2. Old right MCA territory infarction. 3. Old right basal ganglia lacunar infarction. Chest/Abdomen CTA 07/13/18 02:10 IMPRESSION: Cardiomegaly with no aortic dissection or aneurysm. No pulmonary embolus. Diffuse minimal groundglass opacities may relate to pulmonary edema. Two left lower lobe pulmonary nodules measuring up to 4 mm. Fleischner Society (Chest Radiology) Pulmonary Nodule Management Guidelines (Recommendations for follow-up and management of nodules detected incidentally at non screening CT). Comparison with prior radiographs/imaging of greater than 2 years time interval is suggested. Otherwise, followup recommendations are as below. LOW RISK PATIENT (limited smoking or other exposure risk): . Nodule 4 mm or less: No follow up necessary . Nodule >4 mm to 6 mm: Follow up CT at 12 months . Nodule >6 mm to 8 mm: Follow up CT at 6-12 months . Nodule >8 mm: f/u CT at 3 months, or PET-CT scan, and/or consultation for Bx. HIGH RISK PATIENT (significant smoking or other risk factors): . Nodule 4 mm or less: Follow up CT at 12 months. . Nodule >4 mm to 6 mm: Follow up CT at 6-12 months. . Nodule >6 mm to 8 mm: Follow up CT at 3-6 months. . Nodule >8 mm: f/u CT at 3 months, or PET-CT scan, and/or consultation for Bx. Fleischner Society Statement on Management of CT Detected Pulmonary Nodules. Jose et al, Radiology 2005;237:395-400. [email or web address] Qualifiers - * PATIENT BEING DISCHARGED WITH ANY OF THE FOLLOWING DIAGNOSIS: No VTE patient discharged on overlapping Therapy?: Yes
== END 2018-07-14 11:31 | disposition home health service (06) ==
LOC: ER 23:34 → EH 07-13 03:52 → 3W 07-13 05:56
PROVIDERS: ADMIT Internal Medicine; ATTEND Internal Medicine
DX: I50.9 Heart failure, unspecified (principal); R07.2 Precordial pain; E11.8 Type 2 diabetes mellitus with unspecified complications; E66.9 Obesity, unspecified; I42.9 Cardiomyopathy, unspecified; I69.354 Hemiplegia and hemiparesis following cerebral infarction affecting left non-dominant side; G47.33 Obstructive sleep apnea (adult) (pediatric); R91.8 Other nonspecific abnormal finding of lung field; M10.9 Gout, unspecified; R51 Headache; M25.519 Pain in unspecified shoulder; R61 Generalized hyperhidrosis; R00.0 Tachycardia, unspecified; I69.398 Other sequelae of cerebral infarction; M79.602 Pain in left arm; M79.605 Pain in left leg; Z79.82 Long term (current) use of aspirin; Z79.899 Other long term (current) drug therapy; Z79.84 Long term (current) use of oral hypoglycemic drugs; Z95.810 Presence of automatic (implantable) cardiac defibrillator; Z91.19 Patient's noncompliance with other medical treatment and regimen; Z87.828 Personal history of other (healed) physical injury and trauma; Z82.49 Family history of ischemic heart disease and other diseases of the circulatory system
CPT/HCPCS: 93005; 99285; 96374; 96375; 36415 ×2; 82553; 82962 ×2; 82550; 84443; 85025 ×2; 80048; 80053; 84484; 83880; 71045; 70450; 71275; 93010; G0378 ×3; J3490 ×12; J1644; J1200; J3010; J1940 ×2

== ENCOUNTER 2018-07-19 07:43 | Observation (INO) | payer MEDICAID ==
[2018-07-19] MEDS ORDERED: ASPIRIN 81 MG TABLET, CHEWABLE PO ONE (08:05)
[2018-07-19 08:36] LABS: ABSOLUTE BASOPHILS # (AUTO) 0.1 10^3/uL (0.0-0.2); ABSOLUTE EOSINOPHILS # (AUTO) 0.1 10^3/uL (0.0-0.6); ABSOLUTE LYMPHOCYTES (AUTO) 1.3 10^3/uL (0.5-4.7); ABSOLUTE MONOCYTES (AUTO) 0.5 10^3/uL (0.1-1.4); ABSOLUTE NEUT (AUTO) 6.4 10^3/uL (1.7-8.2); BASOPHILS % (AUTO) 1.1 % (0-2); HEMATOCRIT 33.9 % (37.9-51.0); HEMOGLOBIN 10.9 g/dL (13.5-17.0); LYMPHOCYTES % (AUTO) 15.8 % (13-45); MEAN CORPUSCULAR VOLUME 75 fl (80-97); MONOCYTES % (AUTO) 5.5 % (3-13); PLATELET COUNT 305 10^3/uL (150-450); RED BLOOD COUNT 4.53 10^6/uL (4.35-5.55); RED CELL DISTRIBUTION WIDTH 26.3 % (11.5-14.0); SEGMENTED NEUTROPHILS % (AUTO) 76.6 % (42-78); TOTAL CELLS COUNTED % (AUTO) 100 %; WHITE BLOOD COUNT 8.3 10^3/uL (4.0-10.5)
--- NOTE | 2018-07-19 08:50 | RADIOLOGY REPORT (SQ) ---
EXAM DESCRIPTION: CHEST SINGLE VIEW COMPLETED DATE/TIME: 07/19/2018 8:42 am REASON FOR STUDY: CP COMPARISON: 07/13/2018 EXAM PARAMETERS: NUMBER OF VIEWS: One view. TECHNIQUE: Single frontal radiographic view of the chest acquired. RADIATION DOSE: NA LIMITATIONS: None. FINDINGS: LUNGS AND PLEURA: No opacities, masses or pneumothorax. No pleural effusion. MEDIASTINUM AND HILAR STRUCTURES: No masses. Contour normal. HEART AND VASCULAR STRUCTURES: Heart normal in size. Normal vasculature. BONES: No acute findings. HARDWARE: Stable position of defibrillator. OTHER: No other significant finding. IMPRESSION: NO ACUTE RADIOGRAPHIC FINDING IN THE CHEST. TECHNICAL DOCUMENTATION: JOB ID: [id number] [employer]- All Rights Reserved Reading location - IP/workstation name: [email or web address]
[2018-07-19] MEDS: NITROGLYCERIN 0.4 MG/TAB 25 TAB/BOTTLE SL PRN ×2 (08:55→09:04)
--- NOTE | 2018-07-19 08:58 | EKG REPORT ---
SEVERITY:- ABNORMAL ECG - SINUS RHYTHM FIRST DEGREE AV BLOCK PROBABLE LEFT ATRIAL ABNORMALITY NONSPECIFIC INTRAVENTRICULAR CONDUCTION DELAY LEFT VENTRICULAR HYPERTROPHY : Confirmed by: Jose Dawn MD 19-Jul-2018 08:57:19
[2018-07-19 09:01] LABS: ALANINE AMINOTRANSFERASE 61 U/L (21-72); ALBUMIN 4.3 g/dL (3.5-5.0); ALKALINE PHOSPHATASE 103 U/L (38-126); ANION GAP 10 (5-19); ASPARTATE AMINO TRANSFERASE 57 U/L (17-59); BILIRUBIN,DIRECT 0.4 mg/dL (0.0-0.4); BILIRUBIN,TOTAL 1.3 mg/dL (0.2-1.3); BLOOD UREA NITROGEN 21 mg/dL (7-20); CALCIUM 9.2 mg/dL (8.4-10.2); CARBON DIOXIDE 30 mmol/L (22-30); CHLORIDE 105 mmol/L (98-107); CREATINE KINASE 80 U/L (55-170); GLUCOSE 121 mg/dL (75-110); POTASSIUM 4.2 mmol/L (3.6-5.0); SODIUM 144.5 mmol/L (137-145); TOTAL PROTEIN 7.1 g/dL (6.3-8.2)
[2018-07-19] MEDS ORDERED: ONDANSETRON HCL INJ/PF 4 MG/2 ML SDV IV ONE (09:03)
[2018-07-19] MEDS ORDERED: ACETAMINOPHEN 325 MG TABLET PO ONE (09:03)
[2018-07-19 09:07] LABS: ANISOCYTOSIS 3+; BURR CELLS SLIGHT; HYPOCHROMASIA 1+; OVALOCYTES 1+; PLATELET COMMENT ADEQUATE; POIKILOCYTOSIS 3+; POLYCHROMASIA 1+; TARGET CELLS 1+; TEAR DROP CELLS SLIGHT
[2018-07-19 09:12] LABS: CREATINE KINASE MB 0.82 ng/mL (<4.55)
[2018-07-19 09:13] LABS: INTERNATIONAL RATION (INR) 1.14; PROTHROMBIN TIME 15.2 SEC (11.4-15.4)
[2018-07-19 09:14] LABS: TROPONIN I 0.041 ng/mL
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
[2018-07-19] MEDS ORDERED: (PENDING PHARMACY ID) (Oxycodone Hcl/Acetaminophen [Percocet 10-325 Mg Tablet] 1 TAB) PO PRN (10:59)
[2018-07-19] MEDS ORDERED: ENOXAPARIN SODIUM INJ 40 MG/0.4 ML DISP.SYRIN SUBCUT ONE (11:30)
[2018-07-19] MEDS ORDERED: DEXTROSE 40% GEL 15 GM TUBE PO PRN ×2 (11:53)
[2018-07-19] MEDS ORDERED: GLUCAGON,HUMAN RECOMB 1 MG INJ IM PRN (11:53)
[2018-07-19] MEDS ORDERED: DEXTROSE 50%-WATER 25 GM/50 ML DISP.SYRIN IV PRN ×2 (11:53)
[2018-07-19] MEDS: METOPROLOL SUCCINATE 25 MG TAB.SR.24H PO SCH ×2 (11:57→21:22)
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
[2018-07-19] MEDS: INSULIN LISPRO 100 UNIT/ML 3 ML VIAL SUBCUT SCH ×3 (13:11→21:24)
[2018-07-19] MEDS ORDERED: ONDANSETRON 4 MG TAB.RAPDIS PO PRN (13:18)
[2018-07-19] MEDS: OXYCODONE-ACETAMINOPHEN 5-325 MG TABLET PO PRN (13:35)
[2018-07-19] MEDS: ISOSORB DINIT/HYDRALAZINE HCL 20-37.5 MG TABLET PO SCH ×2 (15:26→17:44)
[2018-07-19] MEDS: IRON POLYSACCHARIDES COMPLEX 150 MG CAPSULE PO SCH ×2 (15:26→17:50)
[2018-07-19] MEDS: TAMSULOSIN HCL 0.4 MG CAP.SR.24H PO SCH (17:49)
[2018-07-19] MEDS: SACUBITRIL/VALSARTAN 24 MG/26 MG TABLET PO SCH (17:49)
[2018-07-19] MEDS: FUROSEMIDE 80 MG TABLET PO SCH (17:49)
[2018-07-19] MEDS: ATORVASTATIN CALCIUM 80 MG TABLET PO SCH (21:22)
[2018-07-19] MEDS: BUDESONIDE/FORMOTEROL 160-4.5 MCG 60 PUFF/6 GM MDI IH SCH (21:22)
[2018-07-20] MEDS: INSULIN LISPRO 100 UNIT/ML 3 ML VIAL SUBCUT SCH ×4 (07:33→22:33)
--- NOTE | 2018-07-20 08:37 | Physician Advisory Note ---
Physician Advisor ProgressNote .: Pursuant to the plan for [facility], I have reviewed the medical record for this patient. Physician Advisor Statement: Documentation states pt w/prior CVAs & residual left-sided weakness. Please consider documenting, if you agree: 1. "Left hemiparesis" (if both arm & leg are weak) - or is it just arm or just leg that is weak? Status: Medicaid pt, approp'ly Obs for SOB/CP. - If he needs further eval/tx today that can only be done in hospital (not just waiting for CPAP or BIPAP to be arranged for home), please document this & may consider change to Inpatient status. Thanks, CK
[2018-07-20] MEDS: OXYCODONE-ACETAMINOPHEN 5-325 MG TABLET PO PRN ×2 (08:54→18:04)
[2018-07-20] MEDS: OXYCODONE HCL IR 5 MG TABLET PO PRN ×2 (08:56→18:06)
[2018-07-20] MEDS ORDERED: (PENDING PHARMACY ID) (Citalopram Hydrobromide [Celexa 40 Mg Tablet] 40 MG) PO SCH (10:00)
[2018-07-20] MEDS: COLCHICINE 0.6 MG TABLET PO SCH (11:07)
[2018-07-20] MEDS: ASPIRIN 325 MG TABLET PO SCH (11:07)
[2018-07-20] MEDS: BUDESONIDE/FORMOTEROL 160-4.5 MCG 60 PUFF/6 GM MDI IH SCH ×2 (11:07→21:14)
[2018-07-20] MEDS: ISOSORB DINIT/HYDRALAZINE HCL 20-37.5 MG TABLET PO SCH ×3 (11:07→17:58)
[2018-07-20] MEDS: FUROSEMIDE 80 MG TABLET PO SCH ×2 (11:08→18:04)
[2018-07-20] MEDS: SACUBITRIL/VALSARTAN 24 MG/26 MG TABLET PO SCH ×2 (11:08→17:58)
[2018-07-20] MEDS: ENOXAPARIN SODIUM INJ 40 MG/0.4 ML DISP.SYRIN SUBCUT SCH (11:09)
[2018-07-20] MEDS: METOPROLOL SUCCINATE 25 MG TAB.SR.24H PO SCH ×2 (11:09→21:14)
[2018-07-20] MEDS: IRON POLYSACCHARIDES COMPLEX 150 MG CAPSULE PO SCH ×2 (11:09→18:04)
[2018-07-20] MEDS: CITALOPRAM HYDROBROMIDE 20 MG TABLET PO SCH (13:42)
[2018-07-20] MEDS: TAMSULOSIN HCL 0.4 MG CAP.SR.24H PO SCH (18:04)
[2018-07-20] MEDS: ATORVASTATIN CALCIUM 80 MG TABLET PO SCH (21:14)
--- NOTE | 2018-07-20 22:06 | PDOC PROGRESS REPORT ---
Subjective Progress Note for:: 07/20/18 Subjective:: 58 y.o. M with PMH HFrEF (EF 10%) s/p permanent pacemaker/AICD. SONYA, CVA with residual left-sided weakness and type 2 diabetes who presents with chest pressure, SOB and an elevated BNP (10,000). The patient was initially placed on BIPAP overnight and provided his regular home medications. Upon assessment this morning, the patient states he feels much better. He is awake and oriented. Able to speak in full sentences without pause. Lungs are clear. S1S2. Patient reports he has been ambulating OOB to the restroom, he gets mildly SOB. This is not a new finding, according to the patient, who can normally walk approx. 30ft before becoming SOB. Of note, Dr. Torres is the patient's transplant registered nurse. The office had no record of the patient completing a sleep study, which he needs in order to qualify for home CPAP. Plan to complete sleep study at [facility]. If unsuccessful, will send patient home with instructions to follow up as an outpatient. Reason For Visit: CHEST PAIN R/O BIPAP NON-COMPLIANCE Physical Exam Vital Signs: Temp Pulse Resp BP Pulse Ox 98.2 F 75 16 103/67 95 07/20/18 19:59 07/20/18 19:59 07/20/18 19:59 07/20/18 19:59 07/20/18 20:39 Pulse Oximeter Continuous Start: 07/20/18 17:20 Freq: RTQ4 Status: Active Protocol: Document 07/20/18 20:39 NSM (Rec: 07/20/18 21:32 NSM [id number]) Pulse Oximetry Assessment Oxygen Saturation (92-100) 95 Oxygen Delivery Method Room Air Fraction of Inspired Oxygen (FIO2) 21 Equipment Usage Initial Set Up Continuous Pulse Oximeter 24 Hour Charge Charge Now Continuous SpO2 Machine # [id number] Intake & Output 07/19/18 07/20/18 07/21/18 06:59 06:59 06:59 Intake Total 880 600 Output Total 300 Balance 580 600 Weight 105.4 kg General appearance: PRESENT: well-developed, well-nourished Eye exam: PRESENT: conjunctiva pink, PERRLA Mouth exam: PRESENT: moist, tongue midline Neck exam: PRESENT: full ROM Respiratory exam: PRESENT: clear to auscultation familia, symmetrical, unlabored Cardiovascular exam: PRESENT: irregular rhythm - 1st degree heart block Pulses: PRESENT: normal radial pulses, normal dorsalis pedis pul Vascular exam: PRESENT: normal capillary refill GI/Abdominal exam: PRESENT: soft. ABSENT: distended, tenderness Rectal exam: PRESENT: deferred Extremities exam: PRESENT: full ROM Musculoskeletal exam: PRESENT: ambulatory, full ROM Neurological exam: PRESENT: alert, awake, oriented to person, oriented to place, oriented to time, oriented to situation Psychiatric exam: PRESENT: appropriate affect Skin exam: PRESENT: dry, intact, normal color Results Laboratory Results: 07/19/18 08:13 07/19/18 08:13 07/19/18 07/19/18 07/19/18 08:13 08:13 12:08 Creatine Kinase 80 CK-MB (CK-2) 0.82 Troponin I 0.041 0.039 NT-Pro-B Natriuret Pep 66070 H 07/19/18 07/20/18 18:00 00:18 Creatine Kinase CK-MB (CK-2) Troponin I 0.036 0.030 NT-Pro-B Natriuret Pep Impressions: Chest X-Ray 07/19/18 08:05 IMPRESSION: NO ACUTE RADIOGRAPHIC FINDING IN THE CHEST. Status: Imported from PACS Assessment & Plan - Diagnosis (1) Atypical chest pain Is this a current diagnosis for this admission?: Yes Plan: Patient has presented with similar CP in past. Given CP is non exertional, without improvement with Nitro, and no EKG changes. Serial troponins high range level, but do not meet cutoff for AMI - no longer trending. - Admit to [facility] - Continue home antihypertensives and ASA (2) SONYA (obstructive sleep apnea) Is this a current diagnosis for this admission?: Yes Plan: Diagnosed SONYA and his spouse states that he has numerous apneic episodes every night. Long discussion about untreated SONYA and it's link to heart failure. - It is unclear why he does not have a bipap machine at home - Social work consulted. - plan for inpatient sleep study, if qualifies will assist in getting home CPAP (3) Iron deficiency anemia Is this a current diagnosis for this admission?: Yes Plan: Microcytic anemia - Noted to have low iron levels from last inpatient stay - Does not appear to be on supplemental iron at home - Continue PO iron supplements - Should have colonoscopy as outpatient for regular health care maintanience and work up for ARLIN (4) Congestive heart failure (CHF) Qualifiers: Heart failure type: other Qualified Code(s): I50.9 - Heart failure, unspecified Is this a current diagnosis for this admission?: Yes Plan: Patient reports 2 strokes in the last 3-4 months. (+) residual left sided weakness including left shoulder pain. - Time Time Spent with patient: 15-24 minutes Smoking Cessation Education: 3 to 10 minutes Medications reviewed and adjusted accordingly: Yes Anticipated discharge: Home - Inpatient Certification Based on my medical assessment, after consideration of the patient's comorbidities, presenting symptoms, or acuity I expect that the services needed warrant INPATIENT care.: Yes I certify that my determination is in accordance with my understanding of Medicare's requirements for reasonable and necessary INPATIENT services [42 CFR 412.3e].: Yes Medical Necessity: Risk of Complication if Not Cared For in Hospital - Plan Summary Plan Summary: LIKELT D/C HOME TOMORROW IF ABLE TO QUALIFY FOR HOME BIPAP. WORKING WITH DISCHARGE PLANNING
[2018-07-21] MEDS: INSULIN LISPRO 100 UNIT/ML 3 ML VIAL SUBCUT SCH ×3 (07:25→17:15)
[2018-07-21 08:09] LABS: HEMATOCRIT 33.3 % (37.9-51.0); HEMOGLOBIN 10.8 g/dL (13.5-17.0); MEAN CORPUSCULAR HEMOGLOBIN 24.1 pg (27.0-33.4); MEAN CORPUSCULAR HGB CONC 32.3 g/dL (32.0-36.0); MEAN CORPUSCULAR VOLUME 75 fl (80-97); PLATELET COUNT 242 10^3/uL (150-450); RED BLOOD COUNT 4.47 10^6/uL (4.35-5.55); RED CELL DISTRIBUTION WIDTH 25.7 % (11.5-14.0)
[2018-07-21 08:30] LABS: ALANINE AMINOTRANSFERASE 53 U/L (21-72); ALBUMIN 3.8 g/dL (3.5-5.0); ALKALINE PHOSPHATASE 112 U/L (38-126); ANION GAP 7 (5-19); ASPARTATE AMINO TRANSFERASE 34 U/L (17-59); BILIRUBIN,DIRECT 0.4 mg/dL (0.0-0.4); BLOOD UREA NITROGEN 27 mg/dL (7-20); CALCIUM 9.1 mg/dL (8.4-10.2); CARBON DIOXIDE 33 mmol/L (22-30); CHLORIDE 103 mmol/L (98-107); GLUCOSE 102 mg/dL (75-110); POTASSIUM 4.2 mmol/L (3.6-5.0); SODIUM 142.8 mmol/L (137-145); TOTAL PROTEIN 6.4 g/dL (6.3-8.2)
[2018-07-21] MEDS: OXYCODONE-ACETAMINOPHEN 5-325 MG TABLET PO PRN ×2 (08:31→15:58)
[2018-07-21] MEDS: OXYCODONE HCL IR 5 MG TABLET PO PRN ×2 (08:32→15:57)
[2018-07-21] MEDS: BUDESONIDE/FORMOTEROL 160-4.5 MCG 60 PUFF/6 GM MDI IH SCH (09:46)
[2018-07-21] MEDS: ISOSORB DINIT/HYDRALAZINE HCL 20-37.5 MG TABLET PO SCH ×3 (09:46→17:42)
[2018-07-21] MEDS: ASPIRIN 325 MG TABLET PO SCH (09:46)
[2018-07-21] MEDS: SACUBITRIL/VALSARTAN 24 MG/26 MG TABLET PO SCH ×2 (09:47→17:41)
[2018-07-21] MEDS: CITALOPRAM HYDROBROMIDE 20 MG TABLET PO SCH (09:47)
[2018-07-21] MEDS: FUROSEMIDE 80 MG TABLET PO SCH ×2 (09:47→17:42)
[2018-07-21] MEDS: IRON POLYSACCHARIDES COMPLEX 150 MG CAPSULE PO SCH ×2 (09:48→17:42)
[2018-07-21] MEDS: ENOXAPARIN SODIUM INJ 40 MG/0.4 ML DISP.SYRIN SUBCUT SCH (09:48)
[2018-07-21] MEDS: METOPROLOL SUCCINATE 25 MG TAB.SR.24H PO SCH (09:48)
[2018-07-21] MEDS: COLCHICINE 0.6 MG TABLET PO SCH (15:49)
[2018-07-21 16:56] VITALS: BP 106/68
[2018-07-21] MEDS: TAMSULOSIN HCL 0.4 MG CAP.SR.24H PO SCH (17:42)
--- NOTE | 2018-07-28 13:08 | PDOC DISCHARGE SUMMARY ---
General - Admit/Disc Date/PCP Admission Date/Primary Care Provider: 07/19/18 10:08 DARLEEN ROBLES MD Discharge Date: 07/21/18 - Discharge Diagnosis (1) Atypical chest pain Is this a current diagnosis for this admission?: Yes Summary: Patient has presented with similar CP in past. Given CP is non exertional, without improvement with Nitro, and no EKG changes. Serial troponins high range level, but do not meet cutoff for AMI - no longer trending. The patient was admitted to the medical floor on continuous telemetry. He had no acute telemetry changes and denied further episodes of chest discomfort. His home medication regiment, including daily aspirin and statin therapy, were continued. The patient was discharged to home in stable condition, maintaining oxygen saturations while awake on room air, and chest pain-free. He was advised to follow up with his primary care provider within 1 week. He was also instructed to contact Dr. Torres's office as soon as possible to sc hedule a follow up appointment and to make arrangements for an overnight sleep study. He is instructed to return to the emergency department as needed for concerning symptoms. (2) Chronic systolic congestive heart failure, NYHA class 4 Is this a current diagnosis for this admission?: Yes Summary: Chronic and without exacerbation during admission. The patient's home medication regiment of Entresto, Metoprolol, ASA, and atorvastatin are continued. He is advised to follow up with his established certified family mediator, Dr. Torres, as soon as possible. (3) Iron deficiency anemia Is this a current diagnosis for this admission?: Yes Summary: Microcytic anemia. Patient is started on ferrous sulfate supplementation. Recommend outpatient colonoscopy for evaluation. (4) SONYA (obstructive sleep apnea) Is this a current diagnosis for this admission?: Yes Summary: Overnight pulse oximetry study did reveal numerous desaturation events; however, did not qualify him for home oxygen. The patient maintains oxygen saturations while ambulating on room air and so does not qualify for portable oxygen. Patient does admit that he previously had an overnight sleep study arranged through Dr. Torres's office that he did not complete. He is strongly encouraged to follow up with cardiology to make arrangements for sleep study. - Additional Information Discharge Diet: Cardiac, Diabetic Discharge Activity: Activity As Tolerated, Balance Activity w/Rest, Weigh Daily Home Medications: Aspirin [Aspirin 325 mg Tablet] 325 mg PO DAILY 07/13/18 Atorvastatin Calcium [Lipitor 80 mg Tablet] 80 mg PO QHS 07/13/18 Budesonide/Formoterol Fumarate [Symbicort HFA 160-4.5 mcg Inhaler 6 gm] 2 puff IH Q12 07/13/18 Citalopram Hydrobromide [Celexa 40 mg Tablet] 40 mg PO DAILY 07/13/18 Clonazepam [Klonopin] 0.5 mg PO DAILY 07/13/18 Colchicine [Colchicine 0.6 mg Tablet] 0.6 mg PO DAILY 07/13/18 Gabapentin [Neurontin 300 mg Capsule] 300 mg PO Q12 07/13/18 Glipizide [Glucotrol] 5 mg PO QAM 07/13/18 Isosorb Dinit/Hydralazine HCl [Bidil 20-37.5 mg Tablet] 1 tab PO TID 07/13/18 Meloxicam [Mobic] 15 mg PO DAILY 07/13/18 Metoprolol Succinate [Toprol Xl 25 mg Tab.sr] 25 mg PO BID 07/13/18 Oxycodone HCl/Acetaminophen [Percocet 10-325 mg Tablet] 1 tab PO Q6HP PRN 07/13/18 Sacubitril/Valsartan [Entresto 24 mg/26 mg Tablet] 1 tab PO BID 07/13/18 Tamsulosin HCl [Flomax 0.4 mg Cap.sr] 0.4 mg PO QPM 07/13/18 Tramadol HCl [Ultram 50 mg Tablet] 50 mg PO Q6HP PRN 07/13/18 Furosemide [Lasix 80 mg Tablet] 40 mg PO BID 30 Days #60 tablet 07/14/18 Furosemide [Lasix 80 mg Tablet] 40 mg PO BID tablet 07/21/18 History of Present Illness History of Present Illness: Per H&P by Dr. Roman: GAVIOTA LUCERO is a 58 year old male with a PMH of HFrEF (EF 10%) s/p permanent pacemaker/AICD. SONYA, CVA with residual left-sided weakness and type 2 diabetes who presents with chest pressure and SOB. His chest tightness started at 11pm on 07/18. Pain radiated to left shoulder and left air. He also had SOB. Denies fevers, chills, diaphoresis. He did admit to one episode of nausea with emesis prior to presentation to ED. Given history of CHF, patient took an extra dose of 80 mg of Lasix at 5:30AM and well as second 80mg prior to presentation to the ED. Pt also took Nitro SL without improvement in his symptoms. Admission labs were notable for BNP 10,000 and mildly elevated troponin. No EKG changes were noted. In ED, he was started on BiPAP with improvement in breathing. Given that patient does not have BiPAP at home and he had mild troponin elevation, patient will be admitted as an observation. Currently feeling a little better with Bipap. Still notes some chest tightness. Has chronic left shoulder pain from recent CVA. Of note, patient was admitted to [facility] on 07/13 for retrosternal chest pain and SOB. He was discharged on 07/15 and at that time was noted that he had noncompliance with BiPAP. Admission labs at that time were notable for proBNP of 15,000. He was treated with IV lasix with improvement. Chest pain was felt to be non-cardiac. In terms of cardiac history, previous heart catheterization was 1 year ago and last stress test was 2 years ago. Upper Extremity Surgeon is Dr. Abbott and his primary care provider is Dr. Mann. Patient will be admitted to hospitalist service. Social work has been consulted. 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 ABSENT: scleral icterus Ear exam: PRESENT: normal external ear exam Mouth exam: PRESENT: moist, tongue midline Neck exam: ABSENT: carotid bruit, JVD, lymphadenopathy, thyromegaly Respiratory exam: PRESENT: clear to auscultation familia, symmetrical, unlabored. ABSENT: rales, rhonchi, wheezes Cardiovascular exam: PRESENT: irregular rhythm, +S1, +S2. ABSENT: diastolic murmur, rubs, systolic murmur Pulses: PRESENT: normal dorsalis pedis pul Vascular exam: PRESENT: normal capillary refill GI/Abdominal exam: PRESENT: normal bowel sounds, soft. ABSENT: distended, guarding, mass, organolmegaly, rebound, tenderness Rectal exam: PRESENT: deferred Extremities exam: PRESENT: full ROM. ABSENT: calf tenderness, clubbing, pedal edema Neurological exam: PRESENT: alert, awake, oriented to person, oriented to place, oriented to time, oriented to situation, CN II-XII grossly intact. ABSENT: motor sensory deficit Psychiatric exam: PRESENT: appropriate affect, normal mood. ABSENT: homicidal ideation, suicidal ideation Skin exam: PRESENT: dry, intact, warm. ABSENT: cyanosis, rash Results Laboratory Results: 07/21/18 07:13 07/21/18 07:13 07/19/18 07/19/18 07/19/18 08:13 08:13 12:08 Creatine Kinase 80 CK-MB (CK-2) 0.82 Troponin I 0.041 0.039 NT-Pro-B Natriuret Pep 48452 H 07/19/18 07/20/18 07/21/18 18:00 00:18 07:13 Creatine Kinase CK-MB (CK-2) Troponin I 0.036 0.030 NT-Pro-B Natriuret Pep 4040 H Impressions: Chest X-Ray 07/19/18 08:05 IMPRESSION: NO ACUTE RADIOGRAPHIC FINDING IN THE CHEST. Qualifiers - * PATIENT BEING DISCHARGED WITH ANY OF THE FOLLOWING DIAGNOSIS: Heart Failure HF Pt being discharged on ACEI for LVEF less than 40%?: Yes HF Pt being discharged on ARBS for LVEF less than 40%?: No Reason(s) for not prescribing ARBS:: Contraindicated - On Entresto HF Pt with Afib discharged with Warfarin?: No Reason(s) for not prescribing Warfarin:: Not indicated HF Pt discharged on evidence-based Beta Arpita:: Yes Plan Discharge Plan: Follow up with primary care provider within 1 week. Follow-up with certified family mediator, Dr. Torres, within 1 week. Complete overnight sleep study with Dr. Torres to qualify for CPAP. Return to the Emergency Department as needed for concerning symptoms. Time Spent: Less than 30 Minutes
== END 2018-07-21 17:57 | disposition home health service (06) ==
LOC: ER 07:43 → EH 10:08 → 4N 13:12
PROVIDERS: ADMIT Internal Medicine; ATTEND Internal Medicine
DX: R07.89 Other chest pain (principal); I11.0 Hypertensive heart disease with heart failure; I50.22 Chronic systolic (congestive) heart failure; D50.9 Iron deficiency anemia, unspecified; G47.33 Obstructive sleep apnea (adult) (pediatric); E11.9 Type 2 diabetes mellitus without complications; R06.02 Shortness of breath; R79.89 Other specified abnormal findings of blood chemistry; I69.354 Hemiplegia and hemiparesis following cerebral infarction affecting left non-dominant side; I69.398 Other sequelae of cerebral infarction; M25.512 Pain in left shoulder; G89.29 Other chronic pain; R11.2 Nausea with vomiting, unspecified; Z79.82 Long term (current) use of aspirin; Z79.899 Other long term (current) drug therapy; Z79.1 Long term (current) use of non-steroidal anti-inflammatories (NSAID); G44.40 Drug-induced headache, not elsewhere classified, not intractable; R11.0 Nausea; T46.3X5A Adverse effect of coronary vasodilators, initial encounter; Y92.239 Unspecified place in hospital as the place of occurrence of the external cause; Z95.810 Presence of automatic (implantable) cardiac defibrillator; Z91.14 Patient's other noncompliance with medication regimen; I25.10 Atherosclerotic heart disease of native coronary artery without angina pectoris; Z98.890 Other specified postprocedural states; Z87.891 Personal history of nicotine dependence; Z87.828 Personal history of other (healed) physical injury and trauma; Z82.49 Family history of ischemic heart disease and other diseases of the circulatory system
CPT/HCPCS: 93005; 99285; 96372; 96374; 36415 ×2; 82553; 82962 ×3; 82550; 83735; 85025; 85027; 85610; 80053 ×2; 84484 ×2; 83880 ×2; 71045; 93010; 94660 ×2; 94762; J3490 ×27; J1815; J1650 ×3; J2405; G0378

== ENCOUNTER 2018-08-07 20:55 | Emergency (ER) | payer MEDICAID ==
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
[2018-08-07] MEDS ORDERED: FENTANYL CITRATE INJ/PF 100 MCG/2 ML AMPUL IV ONE (22:09)
--- NOTE | 2018-08-07 22:43 | EKG REPORT ---
SEVERITY:- ABNORMAL ECG - SINUS RHYTHM PROBABLE LEFT ATRIAL ABNORMALITY LEFT BUNDLE BRANCH BLOCK : Confirmed by: Jose Dawn MD 07-Aug-2018 22:42:42
[2018-08-07 23:10] LABS: ABSOLUTE BASOPHILS # (AUTO) 0.1 10^3/uL (0.0-0.2); ABSOLUTE LYMPHOCYTES (AUTO) 0.8 10^3/uL (0.5-4.7); ABSOLUTE MONOCYTES (AUTO) 0.8 10^3/uL (0.1-1.4); ABSOLUTE NEUT (AUTO) 7.8 10^3/uL (1.7-8.2); BASOPHILS % (AUTO) 0.6 % (0-2); EOSINOPHILS % (AUTO) 0.5 % (0-6); HEMATOCRIT 35.2 % (37.9-51.0); HEMOGLOBIN 11.6 g/dL (13.5-17.0); MEAN CORPUSCULAR HEMOGLOBIN 25.3 pg (27.0-33.4); MEAN CORPUSCULAR VOLUME 77 fl (80-97); MONOCYTES % (AUTO) 8.6 % (3-13); PLATELET COUNT 237 10^3/uL (150-450); RED CELL DISTRIBUTION WIDTH 22.3 % (11.5-14.0); SEGMENTED NEUTROPHILS % (AUTO) 82.3 % (42-78); TOTAL CELLS COUNTED % (AUTO) 100 %; WHITE BLOOD COUNT 9.5 10^3/uL (4.0-10.5)
[2018-08-07 23:37] LABS: ANISOCYTOSIS 3+
[2018-08-07 23:38] LABS: HYPOCHROMASIA 1+
[2018-08-07 23:39] LABS: BURR CELLS SLIGHT; PLATELET COMMENT ADEQUATE; POIKILOCYTOSIS 2+; POLYCHROMASIA 2+; TARGET CELLS 1+; TEAR DROP CELLS 1+
[2018-08-07 23:40] LABS: ALANINE AMINOTRANSFERASE 24 U/L (21-72); ALBUMIN 3.8 g/dL (3.5-5.0); ALKALINE PHOSPHATASE 102 U/L (38-126); ANION GAP 11 (5-19); ASPARTATE AMINO TRANSFERASE 24 U/L (17-59); BILIRUBIN,DIRECT 0.7 mg/dL (0.0-0.4); BILIRUBIN,TOTAL 1.8 mg/dL (0.2-1.3); BLOOD UREA NITROGEN 13 mg/dL (7-20); CARBON DIOXIDE 31 mmol/L (22-30); CHLORIDE 97 mmol/L (98-107); GLUCOSE 100 mg/dL (75-110); SODIUM 138.7 mmol/L (137-145); TOTAL PROTEIN 6.7 g/dL (6.3-8.2)
[2018-08-07 23:41] LABS: POTASSIUM 3.1 mmol/L (3.6-5.0)
--- NOTE | 2018-08-07 23:49 | RADIOLOGY REPORT (SQ) ---
EXAM DESCRIPTION: XR CHEST 1 VIEW COMPLETED DATE/TME: 08/07/2018 22:10 CLINICAL HISTORY: 58 years, Male, chest pain COMPARISON: 07/19/2018. NUMBER OF VIEWS: One TECHNIQUE: Single AP view of the chest was obtained portably. LIMITATIONS: None. FINDINGS: Unremarkable cardiac and mediastinal silhouette. Heart size is normal. Pacemaker device overlies and obscures portions of the the RIGHT hemithorax with leads intact at the level of the battery pack, stable in course and termination. Lungs are clear without focal opacity, pneumothorax or pleural effusions. Slight linear reticulation of the RIGHT lower lobe suggesting subsegmental atelectasis or scarring. The visualized bones are within normal limits. IMPRESSION: No acute cardiopulmonary abnormalities. copyright 2010 [email or web address]- All Rights Reserved
[2018-08-08] MEDS ORDERED: POTASSIUM CHLORIDE 10 MEQ CAPSULE.ER PO ONE (00:51)
[2018-08-08 02:25] VITALS: BP 114/84
== END 2018-08-08 02:25 | disposition home or self-care (01) ==
LOC: ER 20:55
DX: R07.9 Chest pain, unspecified (principal); M25.50 Pain in unspecified joint; M79.10 Myalgia, unspecified site; I50.9 Heart failure, unspecified; I11.0 Hypertensive heart disease with heart failure; I48.91 Unspecified atrial fibrillation; I25.10 Atherosclerotic heart disease of native coronary artery without angina pectoris; E11.9 Type 2 diabetes mellitus without complications; Z91.040 Latex allergy status; Z88.0 Allergy status to penicillin; Z95.0 Presence of cardiac pacemaker; I25.2 Old myocardial infarction
CPT/HCPCS: 93005; 99285; 36415; 85025; 80053; 84484; 71045; 93010; J3010

== ENCOUNTER 2018-09-05 08:41 | Emergency (ER) | payer MEDICAID ==
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
[2018-09-05] MEDS ORDERED: LIDOCAINE 1% INJ-PF (10 MG/ML) 30 ML SDV INJ ONE (09:27)
[2018-09-05] MEDS ORDERED: SULFAMETHOXAZOLE/TRIMETHOPRIM 800-160 MG TABLET PO ONE (09:41)
[2018-09-05] MEDS ORDERED: CLINDAMYCIN HCL 150 MG CAPSULE PO ONE (09:46)
[2018-09-05] MEDS ORDERED: ACETAMINOPHEN 325 MG TABLET PO ONE (09:49)
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
[2018-09-05 10:15] VITALS: BP 111/87
== END 2018-09-05 10:16 | disposition home or self-care (01) ==
LOC: ER 08:41
DX: L03.811 Cellulitis of head [any part, except face] (principal); E11.9 Type 2 diabetes mellitus without complications; I25.10 Atherosclerotic heart disease of native coronary artery without angina pectoris; I10 Essential (primary) hypertension; J44.9 Chronic obstructive pulmonary disease, unspecified; Z88.8 Allergy status to other drugs, medicaments and biological substances; Z91.040 Latex allergy status; Z88.0 Allergy status to penicillin; Z91.018 Allergy to other foods; Z87.891 Personal history of nicotine dependence
CPT/HCPCS: 99283; J3490 ×2

== ENCOUNTER 2018-11-09 10:00 | Observation (INO) | payer MEDICAID ==
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
[2018-11-09 10:50] LABS: ABSOLUTE EOSINOPHILS # (AUTO) 0.2 10^3/uL (0.0-0.6); ABSOLUTE LYMPHOCYTES (AUTO) 1.1 10^3/uL (0.5-4.7); ABSOLUTE MONOCYTES (AUTO) 0.3 10^3/uL (0.1-1.4); ABSOLUTE NEUT (AUTO) 4.7 10^3/uL (1.7-8.2); BASOPHILS % (AUTO) 0.7 % (0-2); EOSINOPHILS % (AUTO) 2.9 % (0-6); HEMATOCRIT 40.4 % (37.9-51.0); HEMOGLOBIN 13.4 g/dL (13.5-17.0); MEAN CORPUSCULAR HEMOGLOBIN 25.7 pg (27.0-33.4); MEAN CORPUSCULAR HGB CONC 33.2 g/dL (32.0-36.0); MEAN CORPUSCULAR VOLUME 77 fl (80-97); PLATELET COUNT 260 10^3/uL (150-450); RED BLOOD COUNT 5.23 10^6/uL (4.35-5.55); RED CELL DISTRIBUTION WIDTH 18.7 % (11.5-14.0); SEGMENTED NEUTROPHILS % (AUTO) 74.4 % (42-78); TOTAL CELLS COUNTED % (AUTO) 100 %; WHITE BLOOD COUNT 6.4 10^3/uL (4.0-10.5)
[2018-11-09 10:59] LABS: PROTHROMBIN TIME 12.6 SEC (11.4-15.4)
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
--- NOTE | 2018-11-09 11:17 | RADIOLOGY REPORT (SQ) ---
EXAM DESCRIPTION: CHEST SINGLE VIEW COMPLETED DATE/TIME: 11/09/2018 11:03 am REASON FOR STUDY: CP COMPARISON: 08/07/2018 EXAM PARAMETERS: NUMBER OF VIEWS: One view. TECHNIQUE: Single frontal radiographic view of the chest acquired. RADIATION DOSE: NA LIMITATIONS: None. FINDINGS: LUNGS AND PLEURA: No opacities, masses or pneumothorax. No pleural effusion. MEDIASTINUM AND HILAR STRUCTURES: No masses. Contour normal. HEART AND VASCULAR STRUCTURES: Heart normal in size. Normal vasculature. BONES: No acute findings. HARDWARE: Pacemaker. OTHER: No other significant finding. IMPRESSION: NO ACUTE RADIOGRAPHIC FINDING IN THE CHEST. TECHNICAL DOCUMENTATION: JOB ID: [id number] [employer]- All Rights Reserved Reading location - IP/workstation name: [email or web address]
--- NOTE | 2018-11-09 11:28 | EKG REPORT ---
SEVERITY:- ABNORMAL ECG - SINUS RHYTHM FIRST DEGREE AV BLOCK LEFT BUNDLE BRANCH BLOCK : Confirmed by: Becca Abbott MD 09-Nov-2018 11:27:49
[2018-11-09 11:29] LABS: ALANINE AMINOTRANSFERASE 28 U/L (21-72); ALBUMIN 4.1 g/dL (3.5-5.0); ALKALINE PHOSPHATASE 67 U/L (38-126); ANION GAP 7 (5-19); ASPARTATE AMINO TRANSFERASE 26 U/L (17-59); BILIRUBIN,DIRECT 0.2 mg/dL (0.0-0.4); BILIRUBIN,TOTAL 0.7 mg/dL (0.2-1.3); BLOOD UREA NITROGEN 18 mg/dL (7-20); CALCIUM 9.2 mg/dL (8.4-10.2); CARBON DIOXIDE 34 mmol/L (22-30); CHLORIDE 101 mmol/L (98-107); CREATINE KINASE 89 U/L (55-170); GLUCOSE 142 mg/dL (75-110); POTASSIUM 3.3 mmol/L (3.6-5.0); SODIUM 142.3 mmol/L (137-145)
[2018-11-09 11:38] LABS: CREATINE KINASE MB 1.46 ng/mL (<4.55); TROPONIN I 0.014 ng/mL
--- NOTE | 2018-11-09 12:08 | RADIOLOGY REPORT (SQ) ---
EXAM DESCRIPTION: CTA CHEST COMPLETED DATE/TIME: 11/09/2018 11:49 am REASON FOR STUDY: dissection COMPARISON: 07/13/2018 TECHNIQUE: CT scan of the chest performed using helical scanning technique with dynamic intravenous contrast injection. Images reviewed with lung, soft tissue and bone windows. Reconstructed coronal and sagittal MPR images reviewed. Additional 3 dimensional post-processing performed to develop Maximal Intensity Projection images (MN P). All images stored on PACS. All CT scanners at this facility use dose modulation, iterative reconstruction, and/or weight based d osing when appropriate to reduce radiation dose to as low as reasonably achievable (ALARA). [facility]: Dose Right [facility]: CareDose [facility]: Dose Right [facility]: Teradose 4D [facility]: Seculert CONTRAST TYPE AND DOSE: contrast/concentration: Isovue 350.00 mg/ml; Total Contrast Delivered: 71.0 ml; Total Saline Delivered: 60.0 ml Contrast bolus adequate for pulmonary arteries and aorta. RENAL FUNCTION: Testing waived by the emergency room physician. RADIATION DOSE: . LIMITATIONS: None. FINDINGS: LUNGS AND PLEURA: No masses, infiltrates, or pneumothorax. No pleural effusions or pleura l calcifications. AORTA AND GREAT VESSELS: No aneurysm. No dissection. HEART: No pericardial effusion. No significant coronary artery calcifications. PULMONARY ARTERIES: No emboli visualized in the main pulmonary arteries or the segmental branches. HILAR AND MEDIASTINAL STRUCTURES: No identified masses or abnormal nodes. HARDWARE: None in the chest. UPPER ABDOMEN: See separate report of the CT of the abdomen. THYROID AND OTHER SOFT TISSUES: No significant abnormality. BONES: No acute or significant finding. 3D MIPS: Confirm above findings. OTHER: No other significant finding. IMPRESSION: Normal CTA of the chest. No aortic aneurysm or dissection. No pulmonary embolus. COMMENT: Quality ID # [id number]: Final reports with documentation of one or more dose reduction techniques (e.g., Automated exposure control, adjustment of the mA and/or kV according to patient size, use of iterative reconstruction technique) TECHNICAL DOCUMENTATION: JOB ID: [id number] [employer]- All Rights Reserved Reading location - IP/workstation name: [email or web address]
--- NOTE | 2018-11-09 12:23 | RADIOLOGY REPORT (SQ) ---
EXAM DESCRIPTION: CTA ABDOMEN/PELVIS W WO COMPLETED DATE/TIME: 11/09/2018 11:49 am REASON FOR STUDY: dissection COMPARISON: 02/17/2015 TECHNIQUE: CT scan of the abdominal aorta extending to the iliac bifurcation performed with intraven ous contrast using helical scanning technique with dynamic intravenous contrast injection. Images rev iewed with lung, soft tissue, and bone windows. Reconstructed coronal and sagittal MPR images reviewe d. All images stored on PACS. Advanced 3D imaging as volume rendering, MIPS, SSD performed? yes All CT scanners at this facility use dose modulation, iterative reconstruction, and/or weight based d osing when appropriate to reduce radiation dose to as low as reasonably achievable (ALARA). [facility]: Dose Right [facility]: CareDose [facility]: Dose Right [facility]: Teradose 4D [facility]: [email or web address] CONTRAST TYPE AND DOSE: 71 mL Omnipaque 350- low osmolar. RENAL FUNCTION: Testing waived by emergency room physician. LIMITATIONS: None. FINDINGS: AORTA AND VESSELS: No aneurysm. No dissection. Renal arteries, SMA, celiac without stenosi s. LUNG BASES: See separate report for CT of the chest. LIVER: Normal size. No masses or dilated ducts. SPLEEN: Normal size. No focal lesions. PANCREAS: No masses. No significant calcifications. No adjacent inflammation or peripancreatic fluid collections. Pancreatic duct not dilated. GALLBLADDER: No identified stones by CT criteria. No inflammatory changes to suggest cholecystitis. ADRENAL GLANDS: No significant masses or asymmetry. RIGHT KIDNEY AND URETER: No mass, calculi or urinary tract obstruction. LEFT KIDNEY AND URETER: No mass, calculi or urinary tract obstruction. RETROPERITONEUM: No retroperitoneal adenopathy, hemorrhage or masses. BOWEL AND PERITONEAL CAVITY: No masses or inflammatory changes. No free fluid or peritoneal masses. APPENDIX: Normal. PELVIS: Questionable thickening of the wall of the bladder. No pelvic mass or fluid collection. ABDOMINAL WALL: No masses. No hernias. BONY STRUCTURES: No significant or acute findings. 3-D IMAGING: Confirms the above findings. OTHER: No other significant finding. IMPRESSION: There is no aortic aneurysm or dissection. No acute finding in the abdomen. Questionab le wall thickening in the urinary bladder. Correlate for cystitis. TECHNICAL DOCUMENTATION: JOB ID: [id number] Quality ID # [id number]: Final reports with documentation of one or more dose reduction techniques (e.g., Au tomated exposure control, adjustment of the mA and/or kV according to patient size, use of iterative reconstruction technique) 2010 [email or web address]- All Rights Reserved Reading location - IP/workstation name: [email or web address]
[2018-11-09] MEDS ORDERED: ACETAMINOPHEN 325 MG TABLET PO ONE (12:38)
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
[2018-11-09] MEDS: SACUBITRIL/VALSARTAN 24 MG/26 MG TABLET PO SCH (18:20)
[2018-11-09] MEDS: ACETAMINOPHEN 325 MG TABLET PO PRN (18:55)
[2018-11-09] MEDS ORDERED: ATORVASTATIN CALCIUM 80 MG TABLET PO SCH (22:00)
--- NOTE | 2018-11-09 23:40 | PDOC PROGRESS REPORT ---
Subjective Progress Note for:: 11/09/18 Subjective:: Patient admitted to the emergency department with chest pain. Patient has a history of heart catheterization just a year ago at [facility]. Patient reports that no blockages were found. He also had a recent stress test which was apparently negative for significant disease. Patient does have history of cardiomyopathy and has a ICD in place. Patient claims on last check ICD was working fine. He denied any recent defibrillator discharges. Reason For Visit: CHEST PAIN Physical Exam Vital Signs: Temp Pulse Resp BP Pulse Ox 98.4 F 69 18 108/79 100 11/09/18 19:21 11/09/18 19:21 11/09/18 19:21 11/09/18 19:21 11/09/18 19:21 Intake & Output 11/08/18 11/09/18 11/10/18 06:59 06:59 06:59 Intake Total 236 Balance 236 Weight 107.9 kg Exam: GENERAL: well-nourished and in no acute distress. Alert and oriented x3 HEAD: Atraumatic, normocephalic. EYES: JOSEPH, sclera anicteric, conjunctiva are normal. ENT: Moist mucous membranes. No oral ulcerations or bleeding gums noted. No obvious ear, nose or throat abnormalities noted. NECK: supple without lymphadenopathy. Trachea is central. No cervical or axillary lymphadenopathy noted. Carotids are 2+, JVD WNL LUNGS: Breath sounds clear bilaterally. No wheezes rales or rhonchi noted. No significant dullness noted on percussion. CHEST: Palpation of the chest wall shows no significant chest wall tenderness. HEART: [place] DEPENDENCY CASE MANAGER, No PSH, 1/6 CHRIS aortic area, 1/6 quintero systolic murmur mitral area, no rubs, no gallops. ABDOMEN: Soft, no significant tenderness appreciated, normoactive bowel sounds. No guarding, no rebound. No rigidity noted . No masses appreciated. EXTREMITIES: Pedal pulses are 1-2+, no calf tenderness noted. No clubbing or cyanosis. negative pedal edema noted NEUROLOGICAL: Focused neurological exam showed no significant neurologic deficit. Normal speech, no focal weakness appreciated. PSYCH: Normal mood, normal affect. Judgment and insight within normal limits. SKIN: No significant ecchymosis, skin is noted to be warm. MUSCULOSKELETAL EXAM: No significant acute joint swelling noted. Results Laboratory Results: 11/09/18 10:35 11/09/18 10:35 11/09/18 11/09/18 10:35 10:35 WBC 6.4 RBC 5.23 Hgb 13.4 L Hct 40.4 MCV 77 L MCH 25.7 L MCHC 33.2 RDW 18.7 H Plt Count 260 Seg Neutrophils % 74.4 Lymphocytes % 17.0 Monocytes % 5.0 Eosinophils % 2.9 Basophils % 0.7 Absolute Neutrophils 4.7 Absolute Lymphocytes 1.1 Absolute Monocytes 0.3 Absolute Eosinophils 0.2 Absolute Basophils 0.0 Sodium 142.3 Potassium 3.3 L Chloride 101 Carbon Dioxide 34 H Anion Gap 7 BUN 18 Creatinine 1.08 Est GFR ( Amer) > 60 Est GFR (Non-Af Amer) > 60 Glucose 142 H Calcium 9.2 Total Bilirubin 0.7 AST 26 ALT 28 Alkaline Phosphatase 67 Total Protein 7.0 Albumin 4.1 11/09/18 11/09/18 11/09/18 10:35 10:35 14:45 Creatine Kinase 89 CK-MB (CK-2) 1.46 Troponin I 0.014 0.022 11/09/18 20:00 Creatine Kinase CK-MB (CK-2) Troponin I 0.022 EKG Comments: Sinus rhythm with nonspecific IVCD. Impressions: Chest X-Ray 11/09/18 10:06 IMPRESSION: NO ACUTE RADIOGRAPHIC FINDING IN THE CHEST. Abdomen/Pelvis CTA 11/09/18 10:55 IMPRESSION: There is no aortic aneurysm or dissection. No acute finding in the abdomen. Questionable wall thickening in the urinary bladder. Correlate for cystitis. Chest/Abdomen CTA 11/09/18 10:55 IMPRESSION: Normal CTA of the chest. No aortic aneurysm or dissection. No pulmonary embolus. Assessment & Plan - Diagnosis (1) Chest pain Qualifiers: Chest pain type: unspecified Qualified Code(s): R07.9 - Chest pain, unspecified Is this a current diagnosis for this admission?: Yes (2) Sleep apnea syndrome Is this a current diagnosis for this admission?: Yes (3) Cardiac defibrillator in situ Is this a current diagnosis for this admission?: Yes (4) Cardiomyopathy Qualifiers: Cardiomyopathy type: unspecified Qualified Code(s): I42.9 - Cardiomyopathy, unspecified Is this a current diagnosis for this admission?: Yes (5) Obesity (BMI 30-39.9) Is this a current diagnosis for this admission?: Yes - Notes Notes: Chest pain felt to be atypical. Patient had no significant CAD on heart catheterization just a year ago. Stress test was also noted to be negative. CTA negative for pulmonary embolism. Patient does have positive chest wall tenderness. Agree with ruling out protocol. Patient can be discharged tomorrow if he remains stable. Sleep apnea syndrome. Patient claims he had recent sleep study at my facility. Patient to follow-up for initiation of CPAP therapy. Cardiac defibrillator in situ: Currently functioning normally. Next cardiomyopathy: Patient medical regimen will be optimized. Obesity: Patient has been advised and aggressive weight loss. This can be performed through my office. - Time Time Spent with patient: Total of 35 minutes spent. Medications reviewed and adjusted accordingly: Yes
[2018-11-10] MEDS: ACETAMINOPHEN 325 MG TABLET PO PRN (06:24)
[2018-11-10] MEDS ORDERED: ASPIRIN 325 MG TABLET ONE (06:30)
[2018-11-10] MEDS ORDERED: ASPIRIN 325 MG TABLET PO ONE (08:00)
[2018-11-10] MEDS: SACUBITRIL/VALSARTAN 24 MG/26 MG TABLET PO SCH (09:08)
[2018-11-10] MEDS ORDERED: FUROSEMIDE 40 MG TABLET PO SCH (10:00)
[2018-11-10] MEDS ORDERED: METOPROLOL SUCCINATE 25 MG TAB.SR.24H PO SCH (10:00)
[2018-11-10] MEDS ORDERED: ASPIRIN 325 MG TABLET PO SCH (10:00)
--- NOTE | 2018-11-10 11:21 | PDOC DISCHARGE SUMMARY ---
General - Admit/Disc Date/PCP Admission Date/Primary Care Provider: 11/09/18 14:41 NAHOMI MUNIZ DO Discharge Date: 11/10/18 - Additional Information Home Medications: Albuterol Sulfate [Proair HFA Inhalation Aerosol 8.5 gm MDI] 2 puff IH Q4HP PRN 11/09/18 Ammonium Lactate [Lac-Hydrin 12% Lotion 225Gm/Bottle] 1 applic TOP DAILY 11/09/18 Aspirin [Adult Low Dose Aspirin EC] 81 mg PO DAILY 11/09/18 Atorvastatin Calcium [Lipitor 10 mg Tablet] 10 mg PO QHS 11/09/18 Budesonide/Formoterol Fumarate [Symbicort HFA 160-4.5 mcg Inhaler 6 gm] 2 puff IH Q12 11/09/18 Citalopram Hydrobromide [Citalopram HBr] 40 mg PO DAILY 11/09/18 Clobetasol Propionate [Temovate 0.05% Ointment 15 gm] 1 applic TOP BID 11/09/18 Clonazepam 0.5 mg PO DAILYP PRN 11/09/18 Colchicine [Colcrys 0.6 mg Tablet] 0.6 mg PO DAILY 11/09/18 Furosemide [Lasix 40 mg Tablet] 40 mg PO NOON 11/09/18 Furosemide [Lasix 80 mg Tablet] 80 mg PO QAM 11/09/18 Gabapentin [Neurontin 300 mg Capsule] 300 mg PO Q12 11/09/18 Glipizide [Glucotrol 5 mg Tablet] 5 mg PO [id number] 11/09/18 Isosorb Dinit/Hydralazine HCl [Bidil 20-37.5 mg Tablet] 1 tab PO TID 11/09/18 Meloxicam [Mobic 15 mg Tablet] 15 mg PO DAILY 11/09/18 Metoprolol Succinate [Toprol Xl 25 mg Tab.sr] 25 mg PO DAILY 11/09/18 Oxycodone HCl/Acetaminophen [Percocet 10-325 mg Tablet] 1 tab PO Q12HP PRN 11/09/18 Sacubitril/Valsartan [Entresto 24 mg/26 mg Tablet] 1 tab PO BID 11/09/18 Tamsulosin HCl [Flomax 0.4 mg Cap.sr] 0.4 mg PO QPM 11/09/18 Tramadol HCl [Ultram 50 mg Tablet] 50 mg PO Q6HP PRN 11/09/18 History of Present Illness History of Present Illness: GAVIOTA LUCERO is a 58 year old male with a history of biventricular heart failure she had a normal heart cath a year ago and a normal stress test about a month ago who has had 3 hospitalizations since April for chest pain, and presents today once again complaining of chest pain. Sinus in the midsternum and initially said it did not radiate, then he gives a vague description of pain in his left arm ever since he said he had a stroke. He said he felt pain through to his back and up into his neck as well. He specify that it was the back of his neck. He does not smoke. He said he quit a year and a half ago. His initial troponin was negative. He said his been taking all of his medications as prescribed. He said the pain is been constant and does not really go away. Nothing really makes it better. He looks pretty comfortable whenever I saw him in the room. He is being admitted to rule out IA. Hospital Course Hospital Course: GAVIOTA LUCERO is a 58 year old male with a history of biventricular heart failure she had a normal heart cath a year ago and a normal stress test about a month ago who has had 3 hospitalizations since April for chest pain, and presents today once again complaining of chest pain. Sinus in the midsternum and initially said it did not radiate, then he gives a vague description of pain in his left arm ever since he said he had a stroke. He said he felt pain through to his back and up into his neck as well. He specify that it was the back of his neck. He does not smoke. He said he quit a year and a half ago. His initial troponin was negative. He said his been taking all of his me dications as prescribed. He said the pain is been constant and does not really go away. Nothing really makes it better. This morning I seen patient resting on recliner. He is awake alert oriented. He is not in pain or distress. Patient remained chest pain-free overnight. His 3 sets of cardiac enzymes are negative and his EKG is nonrevealing. Patient evaluated by his primary lead radiation therapist Dr. Torres who recommended no cardiac stress test and cleared him for discharge. He is going to follow him in his office. His vital signs and blood works are unremarkable. I will continue all his home medication. Physical Exam Vital Signs: Temp Pulse Resp BP Pulse Ox 98.1 F 80 18 121/89 H 100 11/10/18 07:26 11/10/18 07:26 11/10/18 07:26 11/10/18 07:26 11/10/18 07:26 Intake & Output 11/09/18 11/10/18 11/11/18 06:59 06:59 06:59 Intake Total 1786 Output Total 670 Balance 1116 Weight 108.2 kg General appearance: PRESENT: no acute distress Head exam: PRESENT: atraumatic Eye exam: PRESENT: conjunctiva pink Mouth exam: PRESENT: moist Neck exam: ABSENT: carotid bruit, JVD, lymphadenopathy, thyromegaly Respiratory exam: PRESENT: clear to auscultation familia. ABSENT: rales, rhonchi, wheezes Cardiovascular exam: PRESENT: systolic murmur Neurological exam: PRESENT: alert, awake, oriented to person, oriented to place, oriented to time, oriented to situation Results Laboratory Results: 11/09/18 10:35 11/09/18 10:35 11/09/18 10:35 Sodium 142.3 Potassium 3.3 L Chloride 101 Carbon Dioxide 34 H Anion Gap 7 BUN 18 Creatinine 1.08 Est GFR ( Amer) > 60 Est GFR (Non-Af Amer) > 60 Glucose 142 H Calcium 9.2 Total Bilirubin 0.7 AST 26 ALT 28 Alkaline Phosphatase 67 Total Protein 7.0 Albumin 4.1 11/09/18 11/09/18 11/09/18 10:35 10:35 14:45 Creatine Kinase 89 CK-MB (CK-2) 1.46 Troponin I 0.014 0.022 11/09/18 11/10/18 20:00 01:30 Creatine Kinase CK-MB (CK-2) Troponin I 0.022 0.017 Impressions: Chest X-Ray 11/09/18 10:06 IMPRESSION: NO ACUTE RADIOGRAPHIC FINDING IN THE CHEST. Abdomen/Pelvis CTA 11/09/18 10:55 IMPRESSION: There is no aortic aneurysm or dissection. No acute finding in the abdomen. Questionable wall thickening in the urinary bladder. Correlate for cystitis. Chest/Abdomen CTA 11/09/18 10:55 IMPRESSION: Normal CTA of the chest. No aortic aneurysm or dissection. No pulmonary embolus. Qualifiers - * PATIENT BEING DISCHARGED WITH ANY OF THE FOLLOWING DIAGNOSIS: No Acute Heart Failure - Is this a Heart Failure Patient?: Yes Documentation of LVEF assessment?: Yes LVEF < 40%?: Yes-if yes answer questions a through e a) Discharged on ACEI?: N/A Discharged on ARNI b) Discharges on ARB?: N/A-Discharged on ARNI c) Discharged on ARNI?: Yes d) Discharged on evidence-based Beta walter(carvedilol, sustained release metoprolol succinate, or bisoprolol)?: Yes e) For LVEF <35%, discharged on Aldosterone antagonist?: Yes 3. Anticoagulant therapy for permanect/persistent/paraoxysmal Afib or Aflutter: N/A Follow-up Appointment scheduled within 7 days?: Yes
[2018-11-10 11:25] VITALS: BP 101/74
--- NOTE | 2018-11-11 11:42 | PDOC PROGRESS REPORT ---
Subjective Progress Note for:: 11/10/18 Subjective:: Patient admitted to the emergency department with chest pain. Patient has a history of heart catheterization just a year ago at [facility]. Patient reports that no blockages were found. He also had a recent stress test which was apparently negative for significant disease. Patient does have history of cardiomyopathy and has a ICD in place. Patient claims on last check ICD was working fine. He denied any recent defibrillator discharges. Patient cardiac enzymes were reviewed. There were noted to be essentially negative. Patient still noted to have some chest wall tenderness. Reason For Visit: CHEST PAIN Physical Exam Vital Signs: Temp Pulse Resp BP Pulse Ox 98.1 F 80 18 121/89 H 100 11/10/18 07:26 11/10/18 07:26 11/10/18 07:26 11/10/18 07:26 11/10/18 07:26 Intake & Output 11/09/18 11/10/18 11/11/18 06:59 06:59 06:59 Intake Total 1786 Output Total 670 Balance 1116 Weight 108.2 kg Exam: GEN: NAD, patient alert oriented x3. Appearance and grooming WNL HEENT : Eyes: JOSEPH, Ears: No significant abnormalities, Nose: No significant abnormalities. normocephalic atraumatic. Flat midface (-), Receding chin (-) ORAL : Mallampati class IV, narrow arched palate (-) Tonsils: Not enlarged. NECK: no thyromegaly, no masses, trachea is central, JVD is not elevated, carotids 2+ with bruit (-) RESP: lungs clear, no rales, wheezes or rhonchi, nonlabored, accessory muscles of respiration use (-). CV: NL S1 and S2. No significant murmurs noted, no gallop, no extra sounds, no clicks, no rub noted. Significant tenderness noted on palpation of the sternum especially at junction of manubrium and the body of the sternum. GI: abd NT to palpation, no masses, bowel sounds present, no guarding or rigidity noted. EXT: no clubbing, (-) cyanosis, edema (-), perpheral pulses diminished (no) MUSC/SKEL: no acute joint swelling noted. Muscle strength is generally intact. NEURO: no significant focal neurological deficits are note, sensation grossly intact, AO x 3 PSYCH: NL mood and affect. judgment and insight noted to be intact. SKIN: (-) rash, (-)Signs of pruritus, (-) other significant abnormality Results Laboratory Results: 11/09/18 10:35 11/09/18 10:35 11/09/18 11/09/18 10:35 10:35 WBC 6.4 RBC 5.23 Hgb 13.4 L Hct 40.4 MCV 77 L MCH 25.7 L MCHC 33.2 RDW 18.7 H Plt Count 260 Seg Neutrophils % 74.4 Lymphocytes % 17.0 Monocytes % 5.0 Eosinophils % 2.9 Basophils % 0.7 Absolute Neutrophils 4.7 Absolute Lymphocytes 1.1 Absolute Monocytes 0.3 Absolute Eosinophils 0.2 Absolute Basophils 0.0 Sodium 142.3 Potassium 3.3 L Chloride 101 Carbon Dioxide 34 H Anion Gap 7 BUN 18 Creatinine 1.08 Est GFR ( Amer) > 60 Est GFR (Non-Af Amer) > 60 Glucose 142 H Calcium 9.2 Total Bilirubin 0.7 AST 26 ALT 28 Alkaline Phosphatase 67 Total Protein 7.0 Albumin 4.1 11/09/18 11/09/18 11/09/18 10:35 10:35 14:45 Creatine Kinase 89 CK-MB (CK-2) 1.46 Troponin I 0.014 0.022 11/09/18 11/10/18 20:00 01:30 Creatine Kinase CK-MB (CK-2) Troponin I 0.022 0.017 EKG Comments: No significant cardiac dysrhythmia is one noted. Impressions: Chest X-Ray 11/09/18 10:06 IMPRESSION: NO ACUTE RADIOGRAPHIC FINDING IN THE CHEST. Abdomen/Pelvis CTA 11/09/18 10:55 IMPRESSION: There is no aortic aneurysm or dissection. No acute finding in the abdomen. Questionable wall thickening in the urinary bladder. Correlate for cystitis. Chest/Abdomen CTA 11/09/18 10:55 IMPRESSION: Normal CTA of the chest. No aortic aneurysm or dissection. No pulmonary embolus. Assessment & Plan - Diagnosis (1) Chest pain Qualifiers: Chest pain type: unspecified Qualified Code(s): R07.9 - Chest pain, unspecified Is this a current diagnosis for this admission?: Yes (2) Sleep apnea syndrome Is this a current diagnosis for this admission?: Yes (3) Cardiac defibrillator in situ Is this a current diagnosis for this admission?: Yes (4) Cardiomyopathy Qualifiers: Cardiomyopathy type: unspecified Qualified Code(s): I42.9 - Cardiomyopathy, unspecified Is this a current diagnosis for this admission?: Yes (5) Obesity (BMI 30-39.9) Is this a current diagnosis for this admission?: Yes - Notes Notes: Patient felt stable for discharge. Patient advised to follow-up with me within the next one week for further evaluation and management. - Time Time with patient: 15-25 minutes Medications reviewed and adjusted accordingly: Yes
== END 2018-11-10 12:07 | disposition home or self-care (01) ==
LOC: ER 10:00 → EH 14:41 → 4N 16:56
PROVIDERS: ADMIT Family Medicine; ATTEND Family Medicine
DX: R07.89 Other chest pain (principal); I11.0 Hypertensive heart disease with heart failure; I50.22 Chronic systolic (congestive) heart failure; E78.5 Hyperlipidemia, unspecified; E11.9 Type 2 diabetes mellitus without complications; I69.398 Other sequelae of cerebral infarction; M79.602 Pain in left arm; R20.2 Paresthesia of skin; M54.9 Dorsalgia, unspecified; M54.2 Cervicalgia; I25.2 Old myocardial infarction; I25.10 Atherosclerotic heart disease of native coronary artery without angina pectoris; I42.9 Cardiomyopathy, unspecified; G47.30 Sleep apnea, unspecified; E66.9 Obesity, unspecified; I44.7 Left bundle-branch block, unspecified; I44.0 Atrioventricular block, first degree; R06.02 Shortness of breath; J44.9 Chronic obstructive pulmonary disease, unspecified; M10.9 Gout, unspecified; I48.91 Unspecified atrial fibrillation; Z68.39 Body mass index [BMI] 39.0-39.9, adult; Z79.899 Other long term (current) drug therapy; Z79.82 Long term (current) use of aspirin; M19.90 Unspecified osteoarthritis, unspecified site; Z87.828 Personal history of other (healed) physical injury and trauma; Z95.810 Presence of automatic (implantable) cardiac defibrillator; Z82.49 Family history of ischemic heart disease and other diseases of the circulatory system
CPT/HCPCS: 93005; 99285; 36415 ×2; 82553; 82962; 82550; 85025; 85610; 80053; 84484 ×2; 71045; 71275; 74174; 93010; G0378 ×2; J3490 ×7

== ENCOUNTER → 2018-11-27 | Outpatient (CLI) | payer MEDICAID ==
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
--- NOTE | 2018-11-27 10:01 | RADIOLOGY REPORT (SQ) ---
EXAM DESCRIPTION: CERV SP 4 OR 5 VIEWS COMPLETED DATE/TIME: 11/27/2018 9:41 am REASON FOR STUDY: CHRONIC LEFT HIP PAIN (M25.552), CHRONIC NECK PAIN (M54.2) COMPARISON: CT chest 11/09/2018 NUMBER OF VIEWS: Five views. TECHNIQUE: AP, lateral, obliques and odontoid radiographic images acquired of the cervical spine. A dditional swimmer's view was obtained. LIMITATIONS: None. FINDINGS: MINERALIZATION: Normal. ALIGNMENT: Anatomic. VERTEBRAE: Vertebral bodies of normal height. DISCS: Mild disc space loss of height at C4-5. Anterior osteophytes at C4-5, C5-6, and C6-7 FORAMINA: Mild to moderate left C5-6 foraminal narrowing from facet hypertrophy LATERAL AND POSTERIOR ELEMENTS: Mild multilevel facet arthropathy HARDWARE: None in the spine. SOFT TISSUES: No masses or calcifications. Lung apices clear. OTHER: No other significant finding. IMPRESSION: Mild degenerative disc changes as above TECHNICAL DOCUMENTATION: JOB ID: [id number] [employer]- All Rights Reserved Reading location - IP/workstation name: [email or web address]
== END ==
LOC: RAD 08:54
PROVIDERS: ATTEND Family Medicine
DX: M25.552 Pain in left hip (principal); M54.2 Cervicalgia
CPT/HCPCS: 72050

== ENCOUNTER 2019-03-22 10:44 | Emergency (ER) | payer MEDICAID ==
[2019-03-22 10:59] VITALS: BP 118/67
== END 2019-03-22 12:22 | disposition left against medical advice (07) ==
LOC: ER 10:44
DX: Z53.21 Procedure and treatment not carried out due to patient leaving prior to being seen by health care provider (principal)

== ENCOUNTER → 2019-05-07 | Outpatient (CLI) | payer MEDICAID ==
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
== END ==
LOC: RAD 09:17
PROVIDERS: ATTEND Physician Assistant
DX: M51.37 Other intervertebral disc degeneration, lumbosacral region (principal); M54.5 Low back pain
CPT/HCPCS: 72131

== ENCOUNTER 2019-06-17 17:51 | Emergency (ER) | payer MEDICAID ==
--- NOTE | 2019-06-17 18:30 | EKG REPORT ---
SEVERITY:- ABNORMAL ECG - SINUS RHYTHM FIRST DEGREE AV BLOCK INFERIOR INFARCT, AGE INDETERMINATE CONSIDER ANTERIOR INFARCT LATERAL LEADS ARE ALSO INVOLVED BORDERLINE PROLONGED QT INTERVAL : Confirmed by: Jose Dawn MD 17-Jun-2019 18:29:40
[2019-06-17] MEDS ORDERED: ASPIRIN 81 MG TABLET, CHEWABLE PO ONE (19:06)
[2019-06-17 19:08] LABS: ABSOLUTE EOSINOPHILS # (AUTO) 0.3 10^3/uL (0.0-0.6); ABSOLUTE LYMPHOCYTES (AUTO) 1.2 10^3/uL (0.5-4.7); ABSOLUTE MONOCYTES (AUTO) 0.5 10^3/uL (0.1-1.4); ABSOLUTE NEUT (AUTO) 6.1 10^3/uL (1.7-8.2); BASOPHILS % (AUTO) 0.6 % (0-2); EOSINOPHILS % (AUTO) 3.5 % (0-6); HEMATOCRIT 40.9 % (37.9-51.0); HEMOGLOBIN 13.5 g/dL (13.5-17.0); LYMPHOCYTES % (AUTO) 15.3 % (13-45); MEAN CORPUSCULAR HEMOGLOBIN 26.8 pg (27.0-33.4); MEAN CORPUSCULAR HGB CONC 33.1 g/dL (32.0-36.0); MEAN CORPUSCULAR VOLUME 81 fl (80-97); MONOCYTES % (AUTO) 5.6 % (3-13); PLATELET COUNT 292 10^3/uL (150-450); RED BLOOD COUNT 5.05 10^6/uL (4.35-5.55); TOTAL CELLS COUNTED % (AUTO) 100 %; WHITE BLOOD COUNT 8.1 10^3/uL (4.0-10.5)
[2019-06-17 19:20] LABS: ALBUMIN 4.4 g/dL (3.5-5.0); ALKALINE PHOSPHATASE 75 U/L (38-126); ANION GAP 10 (5-19); ASPARTATE AMINO TRANSFERASE 28 U/L (17-59); BILIRUBIN,DIRECT 0.3 mg/dL (0.0-0.4); BILIRUBIN,TOTAL 0.3 mg/dL (0.2-1.3); BLOOD UREA NITROGEN 15 mg/dL (7-20); CALCIUM 9.3 mg/dL (8.4-10.2); CARBON DIOXIDE 34 mmol/L (22-30); CHLORIDE 99 mmol/L (98-107); CREATINE KINASE 147 U/L (55-170); GLUCOSE 152 mg/dL (75-110); POTASSIUM 3.2 mmol/L (3.6-5.0); TOTAL PROTEIN 7.5 g/dL (6.3-8.2)
--- NOTE | 2019-06-17 19:25 | RADIOLOGY REPORT (SQ) ---
EXAM DESCRIPTION: CHEST SINGLE VIEW COMPLETED DATE/TIME: 06/17/2019 5:50 pm REASON FOR STUDY: bed 8 cp COMPARISON: None. EXAM PARAMETERS: NUMBER OF VIEWS: One view. TECHNIQUE: Single frontal radiographic view of the chest acquired. RADIATION DOSE: NA LIMITATIONS: None. FINDINGS: LUNGS AND PLEURA: No opacities, masses or pneumothorax. No pleural effusion. MEDIASTINUM AND HILAR STRUCTURES: No masses. Contour normal. HEART AND VASCULAR STRUCTURES: Heart normal in size. Normal vasculature. BONES: No acute findings. HARDWARE: Left infraclavicular pacemaker. OTHER: No other significant finding. IMPRESSION: NO ACUTE RADIOGRAPHIC FINDING IN THE CHEST. TECHNICAL DOCUMENTATION: JOB ID: [id number] [employer]- All Rights Reserved Reading location - IP/workstation name: [email or web address]
[2019-06-17 19:30] LABS: CREATINE KINASE MB 1.46 ng/mL (<4.55); TROPONIN I 0.015 ng/mL
[2019-06-17] MEDS ORDERED: CYCLOBENZAPRINE HCL 10 MG TABLET PO ONE (20:54)
[2019-06-17] MEDS ORDERED: ACETAMINOPHEN 325 MG TABLET PO ONE (20:54)
[2019-06-17] MEDS ORDERED: POTASSIUM CHLORIDE 20 MEQ PACKET PO ONE (20:55)
[2019-06-17] MEDS ORDERED: POTASSI CL 20 MEQ/50 ML RIDER 20 MEQ/50 ML RTUPB IV ONE (20:55)
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
[2019-06-17 23:22] VITALS: BP 117/75
--- NOTE | 2019-06-18 07:10 | EKG REPORT ---
SEVERITY:- ABNORMAL ECG - SINUS RHYTHM FIRST DEGREE AV BLOCK INFERIOR INFARCT, AGE INDETERMINATE LATERAL INFARCT, AGE INDETERMINATE CONSIDER ANTERIOR INFARCT BORDERLINE PROLONGED QT INTERVAL : Confirmed by: Jose Dawn MD 18-Jun-2019 07:09:12
== END 2019-06-17 23:38 | disposition home or self-care (01) ==
LOC: ER 17:51
DX: R07.89 Other chest pain (principal); E87.6 Hypokalemia; M62.830 Muscle spasm of back; M54.5 Low back pain; M54.9 Dorsalgia, unspecified; I11.0 Hypertensive heart disease with heart failure; I50.9 Heart failure, unspecified; I44.0 Atrioventricular block, first degree; E66.9 Obesity, unspecified; I25.10 Atherosclerotic heart disease of native coronary artery without angina pectoris; I25.2 Old myocardial infarction; J44.9 Chronic obstructive pulmonary disease, unspecified; E11.9 Type 2 diabetes mellitus without complications; Z79.899 Other long term (current) drug therapy; Z95.810 Presence of automatic (implantable) cardiac defibrillator; Z88.8 Allergy status to other drugs, medicaments and biological substances; Z91.018 Allergy to other foods; Z88.6 Allergy status to analgesic agent; Z88.5 Allergy status to narcotic agent; Z91.040 Latex allergy status; Z88.0 Allergy status to penicillin; Z82.49 Family history of ischemic heart disease and other diseases of the circulatory system
CPT/HCPCS: 93005; 99285; 96365; 96366; 36415; 82553; 82550; 83735; 85025; 80053; 84484; 71045; 93010; J3490 ×3; J3480

== ENCOUNTER → 2020-04-12 | Outpatient (CLI) | payer MEDICAID ==
[2020-04-12 11:06] LABS: ABSOLUTE BASOPHILS # (AUTO) 0.1 10^3/uL (0.0-0.2); ABSOLUTE EOSINOPHILS # (AUTO) 0.4 10^3/uL (0.0-0.6); ABSOLUTE LYMPHOCYTES (AUTO) 1.4 10^3/uL (0.5-4.7); ABSOLUTE MONOCYTES (AUTO) 0.6 10^3/uL (0.1-1.4); BASOPHILS % (AUTO) 1.1 % (0-2); EOSINOPHILS % (AUTO) 4.7 % (0-6); HEMATOCRIT 38.7 % (37.9-51.0); HEMOGLOBIN 12.6 g/dL (13.5-17.0); LYMPHOCYTES % (AUTO) 18.4 % (13-45); MEAN CORPUSCULAR HEMOGLOBIN 25.7 pg (27.0-33.4); MEAN CORPUSCULAR HGB CONC 32.5 g/dL (32.0-36.0); MEAN CORPUSCULAR VOLUME 79 fl (80-97); MONOCYTES % (AUTO) 8.3 % (3-13); PLATELET COUNT 283 10^3/uL (150-450); RED BLOOD COUNT 4.89 10^6/uL (4.35-5.55); RED CELL DISTRIBUTION WIDTH 15.4 % (11.5-14.0); SEGMENTED NEUTROPHILS % (AUTO) 67.5 % (42-78); TOTAL CELLS COUNTED % (AUTO) 100 %; WHITE BLOOD COUNT 7.4 10^3/uL (4.0-10.5)
[2020-04-12 11:32] LABS: ALBUMIN 4.2 g/dL (3.5-5.0); ALKALINE PHOSPHATASE 90 U/L (38-126); ANION GAP 9 (5-19); ASPARTATE AMINO TRANSFERASE 20 U/L (17-59); BILIRUBIN,DIRECT 0.1 mg/dL (0.0-0.4); BILIRUBIN,TOTAL 0.5 mg/dL (0.2-1.3); BLOOD UREA NITROGEN 15 mg/dL (7-20); CALCIUM 9.5 mg/dL (8.4-10.2); CARBON DIOXIDE 31 mmol/L (22-30); CHLORIDE 101 mmol/L (98-107); CHOLESTEROL 188.12 mg/dL (0-200); GLUCOSE 135 mg/dL (75-110); POTASSIUM 3.8 mmol/L (3.6-5.0); TOTAL PROTEIN 7.1 g/dL (6.3-8.2); TRIGLYCERIDES 226 mg/dL (<150); URIC ACID 8.4 mg/dL (3.5-8.5)
[2020-04-12 11:43] LABS: DIRECT LDL 112 mg/dL (<100)
[2020-04-12 12:07] LABS: VLDL CHOLESTEROL 45.2 mg/dL (10-31)
--- NOTE | 2020-04-13 11:35 | RADIOLOGY REPORT (SQ) ---
EXAM DESCRIPTION: T SPINE AP/LAT IMAGES COMPLETED DATE/TIME: 04/12/2020 10:33 am REASON FOR STUDY: DORSALGIA;CERVICALGIA E11.9 TYPE 2 DIABETES MELLITUS WITHOUT COMPLICATIONS I10 E SSENTIAL (PRIMARY) HYPERTENSION E78.5 HYPERLIPIDEMIA, UNSPECIFIED COMPARISON: None. NUMBER OF VIEWS: Two views. TECHNIQUE: AP and lateral radiographic images acquired of the thoracic spine. LIMITATIONS: None. FINDINGS: MINERALIZATION: Normal. ALIGNMENT: Mild scoliosis. VERTEBRAE: No fracture or bone lesion. Maintained height, normal segmentation. DISCS: Disc spaces are narrowed from C4 to C7. Marginal osteophytes are present. HARDWARE: None in the spine. MEDIASTINUM AND SOFT TISSUES: Normal heart size and aortic contour. No soft tissue abnormality. VISUALIZED LUNG MATA: Clear. OTHER: No other significant finding. IMPRESSION: Cervical degenerative disc disease and spondylosis. No acute finding in the thoracic sp ine. Mild scoliosis. TECHNICAL DOCUMENTATION: JOB ID: [id number] 2010 [employer]- All Rights Reserved Reading location - IP/workstation name: [email or web address]
--- NOTE | 2020-04-13 11:36 | RADIOLOGY REPORT (SQ) ---
EXAM DESCRIPTION: C SP 4 OR 5 VIEWS IMAGES COMPLETED DATE/TIME: 04/12/2020 10:33 am REASON FOR STUDY: DORSALGIA;CERVICALGIA E11.9 TYPE 2 DIABETES MELLITUS WITHOUT COMPLICATIONS I10 E SSENTIAL (PRIMARY) HYPERTENSION E78.5 HYPERLIPIDEMIA, UNSPECIFIED COMPARISON: None. NUMBER OF VIEWS: Five views. TECHNIQUE: AP, lateral, obliques and odontoid radiographic images acquired of the cervical spine. LIMITATIONS: None. FINDINGS: MINERALIZATION: Normal. ALIGNMENT: Anatomic. VERTEBRAE: Vertebral bodies of normal height. DISCS: Disc spaces are narrowed from C4-C7 with marginal osteophytes. FORAMINA: No osteophytes or foraminal narrowing. LATERAL AND POSTERIOR ELEMENTS: Facets, lateral masses and spinous processes without significant find ings. HARDWARE: None in the spine. SOFT TISSUES: No masses or calcifications. Lung apices clear. OTHER: No other significant finding. IMPRESSION: Degenerative disc disease and spondylosis. TECHNICAL DOCUMENTATION: JOB ID: [id number] 2010 [employer]- All Rights Reserved Reading location - IP/workstation name: [email or web address]
[2020-04-13 11:37] LABS: CREATININE URINE 325.3 mg/dL (Not Estab.); MICROALBUMIN URINE 12.3 ug/mL (Not Estab.)
== END ==
LOC: OD 09:38
PROVIDERS: ATTEND Family Medicine Geriatric Medicine
DX: M50.323 Other cervical disc degeneration at C6-C7 level (principal); M51.34 Other intervertebral disc degeneration, thoracic region; M47.812 Spondylosis without myelopathy or radiculopathy, cervical region; M47.814 Spondylosis without myelopathy or radiculopathy, thoracic region; I10 Essential (primary) hypertension; E11.9 Type 2 diabetes mellitus without complications; E78.5 Hyperlipidemia, unspecified; N40.1 Benign prostatic hyperplasia with lower urinary tract symptoms; M10.9 Gout, unspecified; Z79.899 Other long term (current) drug therapy
CPT/HCPCS: 36415; 72050; 72070; 80053; 80061; 82043; 82570; 83036; 84153; 84443; 84550; 85025